=== PATIENT | male | born 1955 | race Caucasian/White ===

== ENCOUNTER → 2017-08-03 12:17 | Outpatient (CLI) | payer MEDICARE, SELFPAY ==
[2017-08-03 12:46] VITALS: PULSE 67; PULSE 68; PULSE 82; PULSE 92; PULSE 93; PULSE 95; PULSE 98; O2SAT 93; O2SAT 94; O2SAT 95; O2SAT 96
--- NOTE | 2017-08-03 17:11 | WT_ITS ---
PSN 6 Minute Walk Test - 6 Minute Walk Test 6 Minute Walk Test: 6 Minute Walk Test PSN:6-Minute Walk Test Start: 08/03/17 12: 46 Freq: Status: Active Protocol: RESP.6MINW Document 08/03/17 12:46 AGUS (Rec: 08/03/17 12:48 AGUS [id number]) 6 Minute Walk Test Date Performed 08/03/17 Time Performed 12:30 Height 5 ft 11 in Weight: 95.708 kg Weight in Pounds 211.[address]: Adam White Assistive device used: None Pre-test Oxygen Delivery Method Room Air Pulse Ox (%) 96 Pulse Rate (60-100 beats/min) 68 Dyspnea Jaimie Scale (0-10) 0 Exertion Jaimie Scale (6-20) 6 1st minute Oxygen Delivery Method Room Air Pulse Ox (%) 95 Pulse Rate (60-100 beats/min) 82 2nd minute Oxygen Delivery Method Room Air Pulse Ox (%) 93 Pulse Rate (60-100 beats/min) 92 3rd minute Oxygen Delivery Method Room Air Pulse Ox (%) 93 Pulse Rate (60-100 beats/min) 92 4th minute Oxygen Delivery Method Room Air Pulse Ox (%) 93 Pulse Rate (60-100 beats/min) 93 5th minute Oxygen Delivery Method Room Air Pulse Ox (%) 94 Pulse Rate (60-100 beats/min) 98 6th minute Oxygen Delivery Method Room Air Pulse Ox (%) 94 Pulse Rate (60-100 beats/min) 95 Dyspnea Jaimie Scale (0-10) 1 Exertion Jaimie Scale (6-20) 13 Post-test Oxygen Delivery Method Room Air Pulse Ox (%) 96 Pulse Rate (60-100 beats/min) 67 Full Laps Walked 19 Partial Lap, Number of Tiles Walked 5 Total Distance Walked (ft) 1126 - Interpretation Interpretation: The patient was able to ambulate 1126 feet over the course of 6 minutes on room air with no assistive devices. The patient did desaturate as low as 93%, but no significant tachycardia was appreciated. These findings are consistent with a normal exercise oximetry - Recommendations Recommendations: No supplemental oxygen is indicated at this time.
== END ==
PROVIDERS: Family Provider Preventive Medicine Occupational Medicine; PCP Preventive Medicine Occupational Medicine; Visit Provider Internal Medicine Critical Care Medicine
DX: J44.9 Chronic obstructive pulmonary disease, unspecified (principal); F17.201 Nicotine dependence, unspecified, in remission
CPT/HCPCS: 94618

== ENCOUNTER → 2017-08-04 13:12 | Outpatient (CLI) | payer MEDICARE, SELFPAY ==
--- NOTE | 2017-08-04 14:31 | CT_ITS ---
STUDY: LOW DOSE CT LUNG CANCER SCREENING REASON FOR EXAM: Male, 61 years old. 63 year history of tobacco abuse. RADIATION DOSAGE (If Supplied By Facility): CTDIvol = ( 4.02 ) mGy, DLP = ( 139.94 ) mGycm TECHNIQUE: No contrast was administered. Low dose technique was utilized (average mAS-38 and kVp 120). 1.25 mm axial source images with a slice interval of 1.25-mm were reconstructed in lung windows. 2.5 mm axial source images with a slice interval of 2.5-mm were reconstructed in lung windows. 5.0 mm axial source images with a slice interval of 5.0-mm were reconstructed in soft tissue windows. Nodule measured using lung windows on PACS and/or independent workstation with automated measurement of minimum and maximum diameter. Nodule measurement reported as average diameter rounded to the nearest whole number. Growth is defined as an increase ins size of greater than 1.5 mm. COMPARISON: None. NODULES: No suspicious nodules are seen. Emphysema: Hyperinflation. Mild increased linear markings in the anterior aspect of the left lower lobe suggestive of mild degree of scarring. Aorta: Atherosclerotic plaques seen at the level of the aortic arch. Coronary arteries: Prior CABG. Mediastinal nodes: Small benign mediastinal lymph nodes. Other chest and abdominal findings: Degenerative changes of the thoracic spine. CT/Low Dose CT Lung Screening IMPRESSION: Lung-RADS category 2 - Continue annual screening with LDCT in 12 months. IMPORTANT NOTES FOR USE: ACR Lung-RADS Version 1.0 Assessment Categories Release Date: September 26, 2013 Category: Coded 0-4 bases on nodule(s) with highest degree of suspicion. Negative screen is defined as categories 1 and 2; a positive screen is defined as categories 3 and 4. Category 3 and 4A nodules that are unchanged on interval CT should be coded as category 2, and individuals returned to screening in 12 months. Category 4X: Category 3 or 4 nodules with additional imaging findings that increase the suspicion of lung cancer, such as spiculation, GGN that doubles in size in 1 year, enlarged lymph notes, etc. Category Modifiers: S (significant finding unrelated to lung cancer) and C (prior history of treated lung cancer) may be added to the 0-4 Lung-RADS Electronically Signed: Wesley Villatoro MD at 11:33 EST Tel [phone], Service support ,
== END ==
PROVIDERS: Family Provider Preventive Medicine Occupational Medicine; PCP Preventive Medicine Occupational Medicine; Visit Provider Internal Medicine Critical Care Medicine
DX: Z12.2 Encounter for screening for malignant neoplasm of respiratory organs (principal); Z87.891 Personal history of nicotine dependence
CPT/HCPCS: G0297

== ENCOUNTER → 2017-08-24 09:27 | Outpatient (CLI) | payer MEDICARE, SELFPAY ==
--- NOTE | 2017-08-24 16:37 | PFTCOMP_ITS ---
COMPLETE PULMONARY FUNCTION TEST INTERPRETATION Brief HPI: Patient is a 61 year old male, currently under the care of Dr. White, who presents to [facility] for complete pulmonary function tests secondary to diagnosis of COPD. Respiratory therapist reports good effort and reproducible results. Interpretation: Forced expiration spirometry shows a very severe large airways obstructive ventilatory defect with an FEV1 of 22 % predicted. There is no significant bronchodilator response by ATS criteria. Spirograms are of good quality and plateau slowly, indicating slowly emptying areas of the lungs. The respiratory flow volume loop shows decreased expiratory flow rates at all lung volumes consistent with airway obstruction. Lung volumes by body plethysmography show a normal total lung capacity at 7.07 L , 103% predicted. FRC and RV are elevated out of proportion. Lung volume measurements are consistent with air-trapping. Diffusion capacity by carbon monoxide is decreased at 56 % predicted. The airway resistance is elevated. No previous pulmonary function tests were available for review. Impression: Irreversible very severe large airways obstructive ventilatory defect resulting in air trapping, with a symmetric reduction diffusing capacity and consistent with a diagnosis of advanced COPD.
== END ==
PROVIDERS: Family Provider Preventive Medicine Occupational Medicine; PCP Preventive Medicine Occupational Medicine; Visit Provider Internal Medicine Critical Care Medicine
DX: J44.9 Chronic obstructive pulmonary disease, unspecified (principal); F17.201 Nicotine dependence, unspecified, in remission
CPT/HCPCS: 94060; 94726; 94729

== ENCOUNTER → 2019-02-17 10:42 | Outpatient (CLI) | payer MEDICARE, SELFPAY ==
[2019-02-17 09:45] VITALS: BMI 30.4
[2019-02-17 11:10] LABS: Absolute Lymphocyte Count 1.34 X10^3/uL (0.83-4.51); Absolute Neutrophil Count 5.9 X10^3/uL (2.0-7.7); Basophil# 0.05 X10^3/uL; Basophil% 0.6 % (0-1); Eosinophil# 0.12 X10^3/uL; Eosinophils% 1.5 % (0-5); Hematocrit 48.2 % (40-54); Hemoglobin 15.6 g/dL (13.0-16.5); Lymphocyte # 1.34 X10^3/ul (4.0); Lymphocyte % 16.3 % (19-41); Mean Corp Hgb Conc 32.4 g/dL (32-36); Mean Corpuscular Hgb 29.9 pg (27.0-32.0); Mean Corpuscular Volume 92.5 fL (80-94); Mean Platelet Vol. 9.9 fl (6.2-12.0); Monocyte# 0.75 X10^3/uL; Monocyte% 9.1 % (0-10); NRBC Flagged by Analyzer 0 % (0-5); Neutrophil # 5.92 X10^3/uL (2.7-7.7); Neutrophil % 72.3 % (47-70); Platelet Count 180 K/mm3 (150-450); RBC Distribution Width CV 12.8 % (11.6-14.6); RBC Distribution Width SD 43.2 fl (35.1-43.9); Red Blood Count 5.21 M/mm3 (4.6-6.2); White Blood Count 8.2 K/mm3 (4.4-11.0)
[2019-02-20 16:08] LABS: Aspirgillus flavus Negative (Neg:<1:1); Aspirgillus fumigatus Negative (Neg:<1:1); Aspirgillus niger Negative (Neg:<1:1)
[2019-02-20 21:08] LABS: Alternaria alternata <0.10 kU/L (Class 0); Bermuda Grass <0.10 kU/L (Class 0); Bluegrass, Kentucky <0.10 kU/L (Class 0); Cat Hair/Dander, Standard <0.10 kU/L (Class 0); D farinae Mite <0.10 kU/L (Class 0); D pteronyssinus <0.10 kU/L (Class 0); Dog Epithelia <0.10 kU/L (Class 0); Elm, American White <0.10 kU/L (Class 0); Oak, White <0.10 kU/L (Class 0); Plantain, English <0.10 kU/L (Class 0); Ragweed, Short/Common <0.10 kU/L (Class 0)
[2019-02-20 21:41] LABS: Mouse Urine <0.10 kU/L (Class 0)
[2019-02-20 21:42] LABS: Immunoglobulin E 4 IU/mL (6-495)
== END ==
PROVIDERS: Family Provider Preventive Medicine Occupational Medicine; PCP Preventive Medicine Occupational Medicine; Referring Provider Nurse Practitioner Acute Care; Visit Provider Nurse Practitioner Acute Care
DX: J44.9 Chronic obstructive pulmonary disease, unspecified (principal); R05 Cough
CPT/HCPCS: 36415; 82785; 85025; 86003; 86606

== ENCOUNTER → 2019-02-18 09:16 | Outpatient (CLI) | payer MEDICARE, SELFPAY ==
[2019-02-17 09:45] VITALS: BMI 30.4
--- NOTE | 2019-02-18 15:42 | PFTCOMP_ITS ---
COMPLETE PULMONARY FUNCTION TEST INTERPRETATION Brief HPI: Patient is a 63 year old male, currently under the care of Adilia Palmer, who presents to [facility] for complete pulmonary function tests secondary to diagnosis of COPD. Respiratory therapist reports good effort and reproducible results. Interpretation: Forced expiration spirometry shows a very severe large airways obstructive ventilatory defect with an FEV1 of 22% predicted. There is no significant bronchodilator response by strict ATS criteria. Spirograms are of good quality and plateau slowly, indicating slowly emptying areas of the lungs. The respiratory flow volume loop shows decreased expiratory flow rates at all lung volumes consistent with airway obstruction. Lung volumes by body plethysmography show a decreased total lung capacity at 5.38 L, 79% predicted. FRC and RV are elevated out of proportion. Lung volume measurements are consistent with air-trapping. Diffusion capacity by carbon monoxide is at the lower limit of normal at 75% predicted. The airway resistance is elevated. Compared to previous pulmonary function tests from 08/24/2017, there is been a significant decrease in FVC, TLC and RV by 16%, 24% and 24% respectively. DLCO has improved by 36%. Impression: Irreversible very severe large airways obstructive ventilatory defect resulting in air trapping. There has been significant changes compared to 2018.
== END ==
PROVIDERS: Family Provider Preventive Medicine Occupational Medicine; PCP Preventive Medicine Occupational Medicine; Referring Provider Nurse Practitioner Acute Care; Visit Provider Nurse Practitioner Acute Care
DX: J44.9 Chronic obstructive pulmonary disease, unspecified (principal)
CPT/HCPCS: 94060; 94726; 94729

== ENCOUNTER → 2019-02-22 07:42 | Outpatient (CLI) | payer MEDICARE, SELFPAY ==
[2019-02-17 09:45] VITALS: BMI 30.4
[2019-02-22 08:15] VITALS: PULSE 65; PULSE 70; PULSE 76; PULSE 83; PULSE 86; PULSE 90; PULSE 92; PULSE 93; O2SAT 90; O2SAT 91; O2SAT 92; O2SAT 93; O2SAT 94; O2SAT 95
--- NOTE | 2019-02-22 17:38 | PCM.PSN.6M ---
PSN 6 Minute Walk Test - 6 Minute Walk Test 6 Minute Walk Test: 6 Minute Walk Test PSN:6-Minute Walk Test Start: 02/22/19 08:30 Freq: Status: Active Protocol: RESP.6MINW Document 02/22/19 08:15 HG (Rec: 02/22/19 08:32 HG [id number]) 6 Minute Walk Test Date Performed 02/22/19 Time Performed 08:15 Height 5 ft 11 in Weight: 224 lb Weight in Pounds 224.[address]: Adilia Palmer Assistive device used: None Pre-test Oxygen Delivery Method Room Air Pulse Ox (%) 92 Pulse Rate (60-100 beats/min) 65 Dyspnea Jaimie Scale (0-10) 3 Exertion Jaimie Scale (6-20) 11 1st minute Oxygen Delivery Method Room Air Pulse Ox (%) 91 Pulse Rate (60-100 beats/min) 90 2nd minute Oxygen Delivery Method Room Air Pulse Ox (%) 90 Pulse Rate (60-100 beats/min) 92 Number of Rests Taken 1 Reported Symptoms Increased Work of Breathing 3rd minute Oxygen Delivery Method Room Air Pulse Ox (%) 94 Pulse Rate (60-100 beats/min) 83 Number of Rests Taken 1 Reported Symptoms Increased Work of Breathing 4th minute Oxygen Delivery Method Room Air Pulse Ox (%) 91 Pulse Rate (60-100 beats/min) 76 5th minute Oxygen Delivery Method Room Air Pulse Ox (%) 92 Pulse Rate (60-100 beats/min) 86 Number of Rests Taken 1 Reported Symptoms Increased Work of Breathing 6th minute Oxygen Delivery Method Room Air Pulse Ox (%) 93 Pulse Rate (60-100 beats/min) 93 Post-test Oxygen Delivery Method Room Air Pulse Ox (%) 95 Pulse Rate (60-100 beats/min) 70 Dyspnea Jaimie Scale (0-10) 4 Exertion Jaimie Scale (6-20) 13 Full Laps Walked 11 Partial Lap, Number of Tiles Walked 0 Total Distance Walked (ft) 649 - Interpretation Interpretation: The patient ambulated 649 feet over the course of 6 minutes beginning on room air without assistive devices or breaks. Pretesting oxygen saturation was noted to be 92% on room air. With ambulation, the kurt oxygen saturation was 90%. Although there was evidence of impaired walk distance, there was no significant exertional oxygen desaturation. - Recommendations Recommendations: There is no indication for the use of supplemental oxygen at this time.
== END ==
PROVIDERS: Family Provider Preventive Medicine Occupational Medicine; PCP Preventive Medicine Occupational Medicine; Referring Provider Nurse Practitioner Acute Care; Visit Provider Nurse Practitioner Acute Care
DX: J44.9 Chronic obstructive pulmonary disease, unspecified (principal)
CPT/HCPCS: 94618

== ENCOUNTER → 2021-04-03 06:04 | Outpatient (CLI) | payer MEDICARE, MEDICAID, SELFPAY ==
--- NOTE | 2021-04-03 06:07 | ECHOCS_ITS ---
Reason For Study: s/p cabg Procedure This was a 2D Doppler, Color Flow transthoracic echocardiogram. The study was technically difficult. Due to body habitus and COPD. Contrast injection was performed. Left Ventricle Normal LV size. Segmental dysfunction with preserved ejection fraction (see wall motion). The estimated ejection fraction is 55 %. No evidence for diastolic dysfunction. Basal inferoseptal: Hypokinetic. Mid-inferoseptal : Hypokinetic. Mid-anteroseptal : Hypokinetic. Septal Collyer : Hypokinetic. Right Ventricle Normal RV size. Normal systolic function. Atria Normal left atrium. Normal right atrium. No doppler evidence for ASD. Mitral Valve There is no mitral annular calcification. Normal mitral valve. Trivial mitral valve insufficiency. Tricuspid Valve Normal tricuspid valve. Trivial tricuspid valve insufficiency. Right ventricular systolic pressure estimated to be 23 mmHg. Aortic Valve The aortic valve is not well visualized. Pulmonic Valve The pulmonic valve is not well visualized. Great Vessels Normal sized aortic root. Pericardium/Pleural No pericardial effusion. Medication Diluted definity 2.0ml given slow IV push to enhance endocardial definition. MMode/2D Measurements & Calculations LVIDd: 4.9 cm IVSd: 1.1 cm Ao root diam: 3.5 cm LVIDs: 3.2 cm LVPWd: 1.1 cm RVDd: 3.5 cm FS: 33.9 % LAV(MOD-bp): 54.1 ml LA A4 area: 18.1 cm2 LA dimension(2D): 4.1 cm LAV(MOD-bp) Indexed: 24.3 ml/m2 LAV(MOD-sp2): 55.5 ml LAV(MOD-sp4): 52.3 ml RA A4 area: 19.4 cm2 Time Measurements MV dec time: 0.16 sec Doppler Measurements & Calculations MV E max aristeo: 87.2 cm/sec Lat Peak E' Aristeo: 8.3 cm/sec Med Peak E' Aristeo: 8.2 cm/sec MV A max aristeo: 70.1 cm/sec E/E' lat: 10.6 E/E' med: 10.6 MV E/A: 1.2 Ao V2 max: 108.6 cm/sec LV V1 max: 89.2 cm/sec PA V2 max: 110.9 cm/sec Ao max P.7 mmHg LV V1 max P.2 mmHg TR max aristeo: 224.1 cm/sec TR max P.1 mmHg ECHO/Echo Complete W/ Contrast Interpretation Summary The study was technically difficult. Contrast injection was performed. Segmental dysfunction with preserved ejection fraction (see wall motion). The estimated ejection fraction is 55 %. Trivial mitral valve insufficiency. Trivial tricuspid valve insufficiency. Right ventricular systolic pressure estimated to be 23 mmHg. No evidence for diastolic dysfunction. Ordering Physician: Elijah Kay Referring Physician: Nicole Garza Performed By: Dee Griffin, CATRACHO, RVT
--- NOTE | 2021-04-03 17:20 | STRESSREP_ITS ---
Stress Test Report Date: 04-03-2021 Procedure: Pharmacologic stress nuclear imaging study Indications: CAD; CABG Consent: Per the patient Procedure: The patient underwent pharmacologic (Regadenoson 0.4mg ) evaluation with a peak heart rate of 97 beats per minute (62%predicted maximal heart rate) and a peak blood pressure of 178/80 mmHg. The baseline ECG demonstrated sinus rhythm; poor R wave progression; anterior GA of indeterminate age cannot be excluded; nonspecific T wave abnormality. The peak pharmacologic ECG demonstrated somatic/motion artifact with no obvious ECG changes. There was a rare PVC preinfusion and post infusion/recovery. There was no complaint of chest discomfort during pharmacologic infusion or recovery. The examination was discontinued secondary to completion of protocol. Impression: 1. Pharmacologic (Regadenoson) evaluation 2. Peak pharmacologic ECG with somatic/motion artifact with no obvious ECG changes. 3. There was a rare PVC preinfusion and post infusion/recovery. 4. Nuclear images pending Myocardial perfusion imaging study: Technique: The patient was injected with 14.8 millicuries of technetium 99m Cardiolite and subsequently rest SPECT Cardiolite nuclear imaging was obtained in the horizontal long, vertical long, and short axis views. The patient underwent pharmacologic (Regadenoson) evaluation with a peak heart rate of 97 beats per minute (62% percent predicted maximal heart rate) and a peak blood pressure of 178/80 mmHg. The patient was injected with 44.4 millicuries of technetium 99m Cardiolite and subsequently stress SPECT Cardiolite nuclear imaging was obtained in the horizontal long, vertical long, and short axis views. A gated Cardiolite study at peak stress was obtained. Interpretation: Rest and stress SPECT Cardiolite nuclear imaging status post realignment, normalization, and attenuation correction demonstrate diminished myocardial perfusion/tracer uptake in portions of the distal interventricular septal/apical segments without significant change between rest and stress. There is diminished myocardial perfusion/tracer uptake in the aforementioned areas. The gated Cardiolite study demonstrates diminished myocardial thickening/inward wall motion in the apical areas. The reported LVEF is 52%. Impression: 1. Rest and stress SPECT cardiac nuclear imaging demonstrate myocardial perfusion changes concerning for an area of previous myocardial injury/infarction involving portions of the distal interventricular septal/apical segments with no myocardial perfusion changes considered diagnostic for associated stress-induced myocardial ischemia. 2. The gated Cardiolite study reports an LVEF of 52%. This note was generated with [employer] software. It may contain incorrect words, spelling, and punctuation that were not noted in checking the note before signing.
== END ==
PROVIDERS: PCP Internal Medicine; Referring Provider Internal Medicine Cardiovascular Disease; Visit Provider Internal Medicine Cardiovascular Disease
DX: I25.10 Atherosclerotic heart disease of native coronary artery without angina pectoris (principal); Z95.1 Presence of aortocoronary bypass graft; Z95.5 Presence of coronary angioplasty implant and graft
CPT/HCPCS: 78452; 93017; 93306; A9500; Q9957; A4216; C8929; J2785; J3490

== ENCOUNTER → 2022-06-05 | Outpatient (CLI) | payer MEDICARE, MEDICAID, SELFPAY ==
--- NOTE | 2022-06-05 10:34 | RAD_ITS ---
EXAM: XR CHEST, 2 VIEWS CLINICAL INDICATION: COUGH TECHNIQUE: Frontal and lateral views of the chest. This report was created using [employer] report generation technology. COMPARISON: None. FINDINGS: LUNGS AND PLEURAL SPACES: Unremarkable. No consolidation or edema. No pneumothorax. No effusion. HEART: Unremarkable. Cardiac silhouette not enlarged. MEDIASTINUM: Central airways and mediastinal contour are unremarkable. BONES/JOINTS: Unremarkable. SOFT TISSUES: Unremarkable. RAD/Chest PA and Lateral IMPRESSION: No radiographic evidence of acute cardiopulmonary disease. Electronically Signed: Adolph Brannon MD at 17:08 [facility] ,
== END | disposition home or self-care (01) ==
LOC: MTRAD 10:32
PROVIDERS: PCP Internal Medicine; Referring Provider Internal Medicine Pulmonary Disease; Visit Provider Internal Medicine Pulmonary Disease
DX: R05.9 Cough, unspecified (principal)
CPT/HCPCS: 71046

== ENCOUNTER → 2024-08-04 | Outpatient (CLI) | payer MEDICARE, MEDICAID, SELFPAY ==
[2024-08-04 17:10] LABS: Absolute Neutrophil Count 9.2 X10^3/uL (2.0-7.7); Basophil# 0.01 X10^3/uL; Basophil% 0.1 % (0-1); Eosinophil# 0.15 X10^3/uL; Eosinophils% 1.2 % (0-5); Hematocrit 50.1 % (40-54); Hemoglobin 16.6 g/dL (13.0-16.5); Lymphocyte % 14.8 % (19-41); Mean Corp Hgb Conc 33.1 g/dL (32-36); Mean Corpuscular Hgb 30.3 pg (27.0-32.0); Mean Corpuscular Volume 91.4 fL (80-94); Mean Platelet Vol. 10.4 fl (6.2-12.0); Monocyte# 0.99 X10^3/uL; Monocyte% 8.1 % (0-10); NRBC Flagged by Analyzer 0 % (0-5); Neutrophil # 9.15 X10^3/uL (2.7-7.7); Neutrophil % 75.4 % (47-70); Platelet Count 205 K/mm3 (150-450); RBC Distribution Width CV 12.6 % (11.6-14.6); RBC Distribution Width SD 41.8 fl (35.1-43.9); Red Blood Count 5.48 M/mm3 (4.6-6.2); White Blood Count 12.2 K/mm3 (4.4-11.0)
[2024-08-04 18:57] LABS: Pro- Brain NATRIURETIC PEPTIDE 826 pg/mL (<=900)
[2024-08-04 18:59] LABS: Anion Gap 11 (5-15); BUN 21 mg/dL (4-19); BUN/Creat Ratio 16.9 RATIO (10-20); Calcium,Total 9.3 mg/dL (7.6-11.0); Carbon Dioxide 28.8 mmol/L (21.0-32.0); Chloride 100 mmol/L (98-108); Creatinine, Serum 1.24 mg/dL (0.70-1.20); EST Glomerular Filtration Rate 63 (>60); Glucose 143 mg/dL (70-99); Potassium 4.6 mmol/L (3.3-5.1); Sodium Level 140 mmol/L (133-145)
== END | disposition home or self-care (01) ==
PROVIDERS: PCP Internal Medicine; Referring Provider Internal Medicine Cardiovascular Disease; Visit Provider Nurse Practitioner Family
DX: R06.00 Dyspnea, unspecified (principal); Z95.1 Presence of aortocoronary bypass graft; Z95.5 Presence of coronary angioplasty implant and graft
CPT/HCPCS: 36415; 80048; 83735; 83880; 84443; 85025

== ENCOUNTER → 2024-11-08 | Outpatient (CLI) | payer MEDICARE, MEDICAID, SELFPAY ==
--- OUTSIDE RECORDS SUMMARY | 2024-11-08 23:20 | XMS RPT_ITS | CCD ---
Author Organization [facility] Care Team Providers Care Employee Development Manager Name Role Phone Dr. Sofi Garza Primary Care Provider Dr. Sofi Garza Referring Provider Km COUNTER CLERK, COUNTER CLERK-C Wei Ernandez Attending Provider Kayla MUNIZ, Dr. Rivera Primary Care Provider Km COUNTER CLERK-CWei Attending Provider Renate MUNIZ, Dr. Doran Referring Provider Dr. Sofi Garza MD Referring Provider [phone] Diego COUNTER CLERK-COma Attending Provider Uche Zarate Attending Provider [phone] Wei Barbour NP Attending Unavailable Latouf, Butros Primary Care Unavailable Latouf, Butros Referring Unavailable Espinoza Dewitt Referring Unavailable Wei Barbour NP Attending Unavailable Latouf, Butros Primary Care Unavailable Latouf, Butros Primary Care Unavailable Friend, Baldev Attending Unavailable Latouf, Butros Primary Care Unavailable Sibilia, Corrina V Attending Unavailable Latouf, Butros Primary Care Unavailable Jorge L, Rosalie Attending Unavailable Jorge L, Rosalie Referring Unavailable Latouf, Butros Primary Care Unavailable Uche Jiang Attending Unavailable Latouf, Butros Referring Unavailable Oma Cortez Attending Unavailable Latouf, Butros Primary Care Unavailable Latouf, Butros Referring Unavailable SIBILIA, CORRINA V Admitting Unavailable SIBILIA, CORRINA V Primary Care Unavailable SIBILIA, CORRINA V Attending Unavailable SOFI GARZA MD Consulting Unavailable PROVIDER, UNKNOWN Consulting Unavailable PROVIDER, UNKNOWN Consulting Unavailable PROVIDER, UNKNOWN Consulting Unavailable SOFI GARZA MD Referring Unavailable SUSIOUSOFI Mir MD Consulting Unavailable GBARUK, KOMBIAN MD Admitting Unavailable ZAFAR NGO MD Attending Unavailable ZAFAR NGO MD Primary Care Unavailable PROVIDER, UNKNOWN Consulting Unavailable PROVIDER, UNKNOWN Consulting Unavailable PROVIDER, UNKNOWN Consulting Unavailable SOFI GARZA MD Referring Unavailable SOFI GARZA MD Consulting Unavailable ZAFAR NGO MD Admitting Unavailable ZAFAR NGO MD Attending Unavailable ZAFRA NGO MD Primary Care Unavailable PROVIDER, UNKNOWN Consulting Unavailable PROVIDER, UNKNOWN Consulting Unavailable PROVIDER, UNKNOWN Consulting Unavailable SOFI GARZA MD Primary Care Unavailable LATSOFI SWANSON MD Admitting Unavailable LATSOFI SWANSON MD Attending Unavailable LATOUAdeola, SOFI MUNIZ Consulting Unavailable PROVIDER, UNKNOWN Consulting Unavailable PROVIDER, UNKNOWN Consulting Unavailable PROVIDER, UNKNOWN Consulting Unavailable LATOUSOFI Mir MD Primary Care Unavailable LATSOFI SWANSON MD Admitting Unavailable LATSOFI SWANSON MD Attending Unavailable LATSOFI SWANSON MD Consulting Unavailable PROVIDER, UNKNOWN Consulting Unavailable PROVIDER, UNKNOWN Consulting Unavailable PROVIDER, UNKNOWN Consulting Unavailable SOFI GARZA MD Primary Care Unavailable LATSOFI SWANSON MD Admitting Unavailable LATOUSOFI Mir MD Attending Unavailable LATOUSOFI Mir MD Consulting Unavailable PROVIDER, UNKNOWN Consulting Unavailable PROVIDER, UNKNOWN Consulting Unavailable PROVIDER, UNKNOWN Consulting Unavailable Allergies Allergy Classification Reported Allergen(s) Allergy Type Date of Onset Reaction(s) Facility (3 sources) Cephalexin Drug Allergy 03-18-2022 [facility] (1 source) Cephalexin Drug Allergy 10-18-2024 [facility] (1 source) benzonatate Drug Allergy [facility] (1 source) Cephalexin Drug Allergy [facility] Medications Current Medications Medication Drug Class(es) Dates Sig (Normalized) Sig (Original) acetaminophen 500 mg oral tablet (3 sources) Start: 02-28-2021 take 1 tablet by mouth every six hours as needed Acetaminophen 500 mg tablet Active 500 mg PO EVERY 6 HOURS as needed February 28, 2021 12:00am [id number] 200 actuat albuterol 0.09 mg/actuat metered dose inhaler (9 sources) beta2-Adrenergic Agonist Start: 09-06-2021 Albuterol Sulfate (Ventolin Hfa) 90 mcg/actuation HFA aerosol inhaler Active 2 NMA INHALATION EVERY 6 HOURS as needed September 06, 2021 9:46am Start: 09-06-2021 take 1 puff(s) by in halation every six hours Albuterol Sulfate (Ventolin Hfa) 90 mcg/actuation HFA aerosol inhaler Active 2 PUFF INHALATION EVERY 6 HOURS September 06, 2021 8:46am Start: 10-06-2018 End: 09-06-2021 Albuterol Sulfate (Ventolin Hfa) 90 mcg/actuation HFA aerosol inhaler Discontinued 2 NMA INHALATION EVERY 6 HOURS October 06, 2018 11:25am September 06, 2021 9:48am Start: 10-06-2018 End: 09-06-2021 take 1 puff(s) by inhalation every six hours Albuterol Sulfate (Ventolin Hfa) 90 mcg/actuation HFA aerosol inhaler Discontinued 2 PUFF INHALATION EVERY 6 HOURS October 06, 2018 10:25am September 06, 2021 8:48am Start: 07-16-2017 End: 10-06-2018 Albuterol Sulfate (Ventolin Hfa) 90 mcg/actuation HFA aerosol inhaler Discontinued 2 NMA INHALATION EVERY 6 HOURS July 16, 2017 1:00am October 06, 2018 11:27am Start: 07-16-2017 End: 10-06-2018 take 1 puff(s) by inhalation every six hours Albuterol Sulfate (Ventolin Hfa) 90 mcg/actuation HFA aerosol inhaler Discontinued 2 PUFF INHALATION EVERY 6 HOURS July 16, 2017 12:00am October 06, 2018 10:27am ascorbic acid 500 mg oral tablet (2 sources) Vitamin C Start: 11-21-2022 take 1 tablet by mouth once daily Ascorbic Acid (Vitamin C) 500 mg tablet Active 500 mg PO DAILY November 21, 2022 12:00am aspirin 81 mg delayed release oral tablet (3 sources) Platelet Aggregation Inhibitor, Nonsteroidal Anti-inflammatory Drug Start: 04-04-2021 Aspirin (Adult Low Dose Aspirin) 81 mg tablet,delayed release (DR/EC) Active 81 mg PO DAILY April 04, 2021 12:00am atorvastatin 40 mg oral tablet (6 sources) HMG-CoA Reductase Inhibitor Start: 09-06-2021 take 1 tablet by mouth at bedtime Atorvastatin 40 mg tablet Active 40 mg PO AT BEDTIME September 06, 2021 12:00am Start: 07-16-2017 End: 09-06-2021 take 1 tablet by mouth once daily Atorvastatin 20 mg tablet Discontinued 20 mg PO daily July 16, 2017 1:00am September 06, 2021 9:48am cholecalciferol 0.025 mg oral tablet (5 sources) Vitamin D Start: 11-21-2022 take 1 tablet by mouth once daily Cholecalciferol (Vitamin D3) 25 mcg (1,000 unit) tablet Active 25 ug PO DAILY November 21, 2022 12:00am Start: 02-28-2021 End: 11-21-2022 take 1 tablet by mouth once daily Cholecalciferol (Vitamin D3) 10 mcg (400 unit) tablet Discontinued 10 ug PO DAILY February 28, 2021 12:00am November 21, 2022 10:43am 12 hr guaiFENesin 600 mg extended release oral tablet (1 source) Start: 08-29-2024 take 1 tablet by mouth every twelve hours as needed, then take 1 tablet by mouth every twelve hours as needed Guaifenesin (Mucinex) 600 mg tablet extended release 12hr Active 600 mg PO Q12H as needed August 29, 2024 12:00am losartan potassium 50 mg oral tablet (3 sources) Angiotensin 2 Receptor Terence Start: 02-28-2021 take 1 tablet by mouth once daily Losartan 50 mg tablet Active 50 mg PO DAILY February 28, 2021 12:00am Roflumilast (1 source) Phosphodiesterase 4 Inhibitor Start: 10-18-2024 take 1 tablet by mouth once daily Roflumilast 500 mcg tablet Active 500 ug PO daily October 18, 2024 12:00am tamsulosin hydrochloride 0.4 mg oral capsule (3 sources) alpha-Adrenergic Terence Start: 07-16-2017 take 1 capsule by mouth once daily Tamsulosin 0.4 mg capsule,extended release 24hr Active 0.4 mg PO daily July 16, 2017 1:00am vitamin b12 1 mg oral tablet (5 sources) Vitamin B12 Start: 08-09-2024 take 1 tablet by mouth once daily Cyanocobalamin (Vitamin B-12) 1,000 mcg tablet Active 1000 ug PO daily August 09, 2024 12:00am Start: 03-18-2022 End: 08-09-2024 take 1 capsule by mouth once daily Cyanocobalamin (Vitamin B-12) 3,000 mcg capsule Discontinued 3000 ug PO DAILY March 18, 2022 12:00am August 09, 2024 11:32am Start: 03-18-2022 take 3000 ug by mout h once daily Cyanocobalamin (Vitamin B-12) Active 3000 MCG PO DAILY March 17, 2022 11:00pm Completed/Discontinued Medications Medication Drug Class(es) Dates Sig (Normalized) Sig (Original) albuterol 0.833 mg/ml / ipratropium bromide 0.167 mg/ml inhalation solution (9 sources) Anticholinergic, beta2-Adrenergic Agonist Start: 07-16-2017 End: 07-29-2019 take 1 mL by inhalation every eight hours Ipratropium-Albuter ol 0.5 mg-3 mg(2.5 mg base)/3 mL solution for nebulization Discontinued 3 mL INHALATION Q8H 180 February 24, 2018 3:42pm July 29, 2019 5:07pm Start: 07-16-2017 End: 07-29-2019 take 1 mL by inhalation every eight hours Ipratropium-Albuterol Active 3 ML INHALATION Q8H 180 July 29, 2019 4:07pm azithromycin 250 mg oral tablet (3 sources) Macrolide Antimicrobial Start: 10-12-2017 End: 02-17-2019 take 1 tablet by mouth once daily Azithromycin 250 mg tablet Discontinued 250 mg PO daily October 12, 2017 12:00am February 17, 2019 9:38am carbidopa 10 mg / levodopa 100 mg oral tablet (3 sources) Aromatic Amino Acid Decarboxylation Inhibitor, Aromatic Amino Acid Start: 07-16-2017 End: 02-28-2021 Carbidopa-Levodopa 10-100 mg tablet Discontinued 1 {tbl} PO THREE TIMES A DAY July 16, 2017 1:00am February 28, 2021 2:50pm Start: 07-16-2017 End: 02-28-2021 take 1 tablet by mouth three times daily Carbidopa-Levodopa Discontinued 1 TABLET PO THREE TIMES A DAY July 16, 2017 12:00am February 28, 2021 1:50pm carvedilol 6.25 mg oral tablet (7 sources) alpha-Adrenergic Terence, beta-Adrenergic Terence Start: 10-18-2024 End: 10-18-2024 take 2 tablets by mouth twice daily at mealtime Carvedilol 6.25 mg tablet Discontinued 12.5 mg PO TWICE A DAY October 18, 2024 7:48am October 18, 2024 8:36am must administer with a meal/food Start: 07-17-2023 End: 10-18-2024 take 1 tablet by mouth twice daily at mealtime Carvedilol 6.25 mg tablet Active 6.25 mg PO TWICE A DAY 180 October 18, 2024 8:35am must administer with a meal/food Start: 07-16-2017 End: 07-17-2023 take 1 tablet by mouth twice daily Carvedilol 3.125 mg tablet Discontinued 3.125 mg PO TWICE A DAY July 16, 2017 1:00am July 17, 2023 11:30am Ydprefivvca-Prozksmwz-Pyfgxn er (9 sources) Anticholinergic, Corticosteroid, beta2-Adrenergic Agonist Start: 02-28-2021 End: 09-06-2021 Ualgrjrcqyw-Igofqyumt-Tbhwym er (Trelegy Ellipta) 100-62.5-25 mcg blister with device Discontinued 1 NMA INHALATION DAILY February 28, 2021 12:00am September 06, 2021 9:47am Start: 02-28-2021 End: 09-06-2021 Rfshvqujuck-Mbehnjfbr-Aiszph er (Trelegy Ellipta) 100-62.5-25 mcg blister with device Discontinued 1 INH INHALATION DAILY February 27, 2021 11:00pm September 06, 2021 8:47am Start: 05-13-2019 Fluticasone-Um eclidin-Vilanter (Trelegy Ellipta) 100-62.5-25 mcg blister with device Active 1 NMA INHALATION DAILY May 13, 2019 4:19pm Start: 05-13-2019 Fluticasone-Um eclidin-Vilanter (Trelegy Ellipta) 100-62.5-25 mcg blister with device Active 1 INH INHALATION DAILY May 13, 2019 3:19pm Start: 03-03-2019 End: 05-13-2019 Utmswxvjodf-Whdcqvtgc-Ieygvj er (Trelegy Ellipta) 100-62.5-25 mcg blister with device Discontinued 1 NMA INHALATION DAILY March 03, 2019 12:00am May 13, 2019 4:19pm Start: 03-03-2019 End: 05-13-2019 Wpcjzkxjffv-Aklsfcadp-Xbiciw er (Trelegy Ellipta) 100-62.5-25 mcg blister with device Discontinued 1 INH INHALATION DAILY March 02, 2019 11:00pm May 13, 2019 3:19pm furosemide 20 mg oral tablet (10 sources) Loop Diuretic Start: 07-16-2017 End: 08-09-2024 take 1 tablet by mouth once daily as needed Furosemide 20 mg tablet Discontinued 20 mg PO DAILY as needed November 21, 2022 10:42am August 09, 2024 11:33am glipiZIDE 2.5 mg oral tablet (1 source) Sulfonylurea Start: 08-29-2024 End: 10-18-2024 take 1 tablet by mouth once daily Glipizide 2.5 mg tablet Discontinued 2.5 mg PO daily August 29, 2024 12:00am October 18, 2024 7:50am 24 hr isosorbide mononitrate 30 mg extended release oral tablet (3 sources) Nitrate Vasodilator Start: 07-16-2017 End: 02-28-2021 take 1 tablet by mouth once daily in the morning, then take 1 tablet by mouth every twenty-four hours Isosorbide Mononitrate 30 mg tablet extended release 24 hr Discontinued 30 mg PO EVERY MORNING July 16, 2017 1:00am February 28, 2021 2:50pm lisinopril 20 mg oral tablet (3 sources) Angiotensin Converting Enzyme Inhibitor Start: 07-16-2017 End: 02-28-2021 take 1 tablet by mouth once daily Lisinopril 20 mg tablet Discontinued 20 mg PO daily July 16, 2017 1:00am February 28, 2021 2:49pm montelukast 10 mg oral tablet (3 sources) Leukotriene Receptor Antagonist Start: 07-16-2017 End: 02-28-2021 take 1 tablet by mouth once daily in the evening Montelukast 10 mg tablet Discontinued 10 mg PO EVERY EVENING July 16, 2017 1:00am February 28, 2021 2:50pm nitroglycerin 0.4 mg sublingual tablet (12 sources) Nitrate Vasodilator Start: 07-16-2017 End: 12-16-2021 Nitroglycerin (Nitrostat) 0.4 mg tablet, sublingual Discontinued 0.4 mg SL every 5 to 15 minutes as needed for chest pain December 13, 2021 1:19pm December 16, 2021 4:41pm Start: 07-16-2017 End: 12-16-2021 Nitroglycerin (Nitrostat) 0. 4 mg tablet, sublingual Active 0.4 MG SL .COMPLEX December 16, 2021 3:40pm 0.4 mg sublingually Q 5 minutes up to 3 doses PRN; omeprazole 20 mg delayed release oral capsule (7 sources) Proton Pump Inhibitor Start: 08-29-2024 End: 10-18-2024 take 1 capsule by mouth once daily Omeprazole 20 mg capsule,delayed release(DR/EC) Discontinued 20 mg PO daily August 29, 2024 12:00am October 18, 2024 7:50am Start: 02-28-2021 End: 07-17-2023 take 1 capsule by mouth once daily Omeprazole 20 mg capsule,delayed release(DR/EC) Discontinued 20 mg PO DAILY February 28, 2021 12:00am July 17, 2023 10:59am Start: 07-16-2017 End: 02-28-2021 take 1 capsule by mouth once daily Omeprazole 10 mg capsule,delayed release(DR/EC) Discontinued 10 mg PO daily July 16, 2017 1:00am February 28, 2021 2:49pm prasugrel 10 mg oral tablet (3 sources) P2Y12 Platelet Inhibitor Start: 07-16-2017 End: 02-28-2021 take 1 tablet by mouth once daily Prasugrel Hcl 10 mg tablet Discontinued 10 mg PO daily July 16, 2017 1:00am February 28, 2021 2:50pm 7 actuat umeclidinium 0.0625 mg/actuat / vilanterol 0.025 mg/actuat dry powder inhaler (20 sources) Anticholinergic, beta2-Adrenergic Agonist Start: 07-21-2017 End: 03-03-2019 Umeclidinium-Vilant allyson (Anoro Ellipta) 62.5-25 mcg/actuation blister with device Discontinued 1 NMA INHALATION Q24H October 27, 2018 2:14pm March 03, 2019 7:19am Start: 07-21-2017 End: 03-03-2019 Umeclidinium-Vilanterol (Ano ro Ellipta) 62.5-25 mcg/actuation blister with device Discontinued 1 INH INHALATION Q24H October 27, 2018 1:14pm March 03, 2019 6:19am Problems Active Problems Problem Classification Problem Date Documented Da te Episodic/Chronic Acute myocardial infarction (1 source) Non-ST elevation (NSTEMI) myocardial infarction; Translations: [Non-ST elevation (NSTEMI) myocardial infarction] Onset: 5 Chronic Cardiac dysrhythmias (1 source) Atrial premature depolarization; Translations: [Atrial premature depolarization] Onset: Chronic Chronic kidney disease (3 sources) Chronic kidney disease stage 3; Translations: [Stage 3 chronic kidney disease] 02-26-2021 Chronic Chronic obstructive pulmonary disease and bronchiectasis (10 sources) Chronic obstructive lung disease; Translations: [Chronic obstructive pulmonary disease, unspecified] Onset: 5 02-26-2021 Chronic Coronary atherosclerosis and other heart disease (12 sources) Coronary arteriosclerosis; Translations: [Atherosclerotic heart disease of yurok coronary artery without angina pectoris] Onset: 5 09-06-2021 Chronic Comment on above: Please see the detai ls above the patient is having some chest symptoms but these appear to be stable and are probably he feels more related to his pulmonary insufficiency than his cardiac status. He had an echocardiogram done in April 2021 with an EF of 55% there was trivial mitral regurgitation and trivial tricuspid regurgitation right ventricular systolic pressure was 23. His last stress test was July 2019 which was a Cardiolite pharmacologic stress which showed no evidence of ischemia there was evidence of the distal septal scar. This would be in the distribution of the stented distal LAD. Coronary atherosclerosis and other heart disease (10 sources) Stented coronary artery; Translations: [Presence of coronary angioplasty implant and graft] Onset: 0 09-06-2021 Episodic Comment on above: PCI/AKASH to mid/prox RCA 04/08/16; PCI/AKASH to distal LAD 03/26/16 Diabetes mellitus with complications (3 sources) Type 2 diabetes mellitus with other specified complication; Translations: [Type 2 diabetes mellitus with other specified complication] Onset: Chronic Disorders of lipid metabolism (8 sources) Hyperlipidemia; Translations: [Hyperlipidemia, unspecified] Onset: 5 02-28-2021 Chronic Esophageal disorders (3 sources) Gastroesophageal reflux disease; Translations: [Gastro-esophageal reflux disease without esophagitis] 09-06-2021 Chronic Essential hypertension (11 sources) Essential hypertension; Translations: [Essential (primary) hypertension] Onset: 5 07-16-2017 Chronic Genitourinary symptoms and ill-defined conditions (1 source) Unspecified urinary incontinence; Translations: [Unspecified urinary incontinence] Onset: Chronic Hyperplasia of prostate (3 sources) Benign prostatic hyperplasia; Translations: [Benign prostatic hyperplasia with lower urinary tract symptoms] 07-16-2017 Chronic Malaise and fatigue (3 sources) Fatigue; Translations: [Other fatigue] Onset: 5 10-18-2024 Episodic Nonspecific chest pain (3 sources) Chest pain; Translations: [Chest pain, unspecified] 09-06-2021 Episodic Other connective tissue disease (3 sources) Nocturnal muscle cramp; Translations: [Cramp and spasm] 07-16-2017 Episodic Other gastrointestinal disorders (2 sources) Dysphagia; Translations: [Dysphagia, unspecified] 08-29-2024 Episodic Other gastrointestinal disorders (1 source) Dysphagia, unspecified; Translations: [Dysphagia, unspecified] Onset: Episodic Other lower respiratory disease (2 sources) Dyspnea; Translations: [Dyspnea, unspecified] 08-04-2024 Episodic Other lower respiratory disease (2 sources) Dyspnea, unspecified; Translations: [Dyspnea, unspecified] Onset: Episodic Other screening for suspected conditions (not mental disorders or infectious disease) (3 sources) CT of chest abnormal; Translations: [Abnormal findings on diagnostic imaging of other specified body structures] Onset: 5 08-29-2024 Chronic Other upper respiratory disease (3 sources) Seasonal allergic rhinitis; Translations: [Other seasonal allergic rhinitis] 02-17-2019 Chronic Syeda-; endo-; and myocarditis; cardiomyopathy (except that caused by tuberculosis or sexually transmitted disease) (3 sources) Heart valve disorder; Translations: [Endocarditis, valve unspecified] 02-26-2021 Chronic Residual codes; unclassified (3 sources) Obstructive sleep apnea syndrome; Translations: [Obstructive sleep apnea (adult) (pediatric)] 09-06-2021 Chronic Comment on above: On PAP therapy with O2 2L NC Substance-related disorders (3 sources) Tobacco dependence in remission; Translations: [Nicotine dependence, unspecified, in remission] 07-21-2017 Chronic Past or Other Problems Problem Classification Problem Date Documented Da te Episodic/Chronic Other screening for suspected conditions (not mental disorders or infectious disease) (1 source) Encounter for screening for malignant neoplasm of prostate; Translations: [Encounter for screening for malignant neoplasm of prostate] Onset: 07-02-2024 Episodic Results Test Name Value Interpretation Reference Range Facility Cardiology Visit Reporton Cardiology Visit Report [facility] [address] [place] [address] OFFICE VISIT Date of Service: 10/18/24 MR#: [id number] Acct: [id number] Name: HEIDI JASSO Rep #: [id number] : 1955 Provider: DARREL Maldonado Age/Sex: 68/M Location: [facility] Status: Signed Agree with assessment and plan as outlined HPI HPI History of Present Illness Details: Heidi Jasso is a 68 year old male who presents today for medication review as he was recently hospitalized and carvedilol was increased. Patient has a history of CAD status post PCI and CABG, hyperlipidemia and hypertension. Patient previously followed with Carl medical lab director in [facility]. It appears patient underwent CABG 04/15/2000 in [place] receiving GARAY to the LAD, left radial to OD, and SVG to the distal circumflex. Patient underwent diagnostic heart catheterization in March 2016 and received PCI with 2.25 x 15 mm Xience AKASH to the distal LAD. He was noted to have disease elsewhere as well; however, this was planned to be addressed at later date. April 2016, patient underwent stenting to his mid RCA with 2.25 x 24 Promus AKASH followed with a 2.5 x 20 Promus AKASH in the proximal RCA with mild overlap and previously placed stent was dilated. The distal RCA was noted to be 50% stenotic and was recommended to be treated medically. The GARAY to the LAD was patent in the left radial artery to the ramus was 100% occluded, the SVG to the left circumflex was reported as wide open with good flow, the yurok LAD was reported 100% occluded. Patient has a history of 2+ AR. Patient was hospitalized at [facility] for acute exacerbation of COPD, pneumonia, chronic CHF in July 2024. Echocardiogram demonstrated ejection fraction of 50-55%. Elevated troponin was thought to be secondary to NSTEMI type II. He was recommended to undergo a stress test at that time but patient declined. Patient's carvedilol was discontinued. He was then seen in our office, recommended to restart his carvedilol. Recommended to undergo stress test in which this was scheduled. However, patient unfortunately had recurrence of his pneumonia and was hospitalized again for 3 days in July. Patient reports at that time, his carvedilol was increased to 12.5 mg twice daily due to top of his heart fluttering. Upon presentation today, patient reports weakness related to vznq-ie-mvka hospitalizations and illnesses at that time. He has chronic lower extremity edema; however, reports these were significantly worsened around the time of being hospitalized but have returned to baseline. He manages this with elevation and diuretic therapy. He notes chronic shortness of breath at rest and with exertion and feels this is returning closer to baseline as this was exacerbated with his acute illness/hospitalizati ons. Since increasing his carvedilol during his most recent hospitalization, he reports feeling significantly worse from the standpoint of worsening fatigue and weakness and is inquiring about the need to continue this medication at this dose. He reports previous dose of 6.25 mg twice daily was tolerable for him. He denies palpitations. He does notice night sweats and reports he had night sweats prior to his previous MIs/blockages. Further ROS below. Intake Vital Signs 08/29/24 13:23 10/18/24 07:00 Height 5 ft 11 in 5 ft 11 in Weight: 219 lb BMI 30.5 BP 126/69 H Blood Pressure Location Lt brachial Position Sitting Respiration 18 Pulse 70 Pulse Source Monitor Pulse Oximetry (%) 95 Intake Visit Reasons: Medicine review Hospice Clinical Supervisor Required: No Is patient in pain?: No Allergies cephalexin (From Keflex) Allergy (Unknown, Verified 10/18/24 07:47) swelling Medications ???Medication ???Instructions ???Recorded ???Confirmed ???Type tamsulosin 0.4 mg capsule 0.4 mg PO QDAY 07/16/17 10/18/24 H istory fluticasone fur. 100 mcg-umeclid 1 inh inhalation DAILY #3 ea 05/1310/18/24 Rx 62.5 mcg-vilant 25 mcg inhalat.powder (Trelegy Ellipta) ipratropium 0.5 mg-albuterol 3 mg 3 ml inhalation Q8H #180 vials 10/18/24 Rx (2.5 mg base)/3 mL nebulization soln acetaminophen 500 mg tablet 500 mg PO Q6H PRN 02/28/21 5 History losartan 50 mg tablet 50 mg PO DAILY 02/28/21 10/18/24 H istory aspirin 81 mg tablet,delayed 81 mg PO DAILY 04/04/21 10/18/24 H istory release (Adult Low Dose Aspirin) albuterol sulfate 90 mcg/actuation 2 puff inhalation Q6H PRN 10/18/24 History aerosol inhaler (Ventolin HFA) atorvastatin 40 mg tablet 40 mg PO QHS 09/06/21 10/18/24 His tory nitroglycerin 0.4 mg sublingual 0.4 mg sublingual .COMPLEX PRN 10/18/24 Rx tablet (Nitrostat) chest pain #25 tabs ascorbic acid (vitamin C) 500 (more content not included)... Normal [facility] [facility] DIFFon 09-24-2024 Baso # 0.02 x10EE3/UL Normal 0.00 - 0.10 [facility] Comment on above: Performed By: #### 2 90534 #### [place] [address] Basophils/100 WBC (Bld) 0.1 % Normal 0.0 - 2.0 [facility] Comment on above: Performed By: #### 2 28386 #### [place] [address] CBC + DIFF Normal [facility] Comment on above: Result Comment: CBC- COMPLETE BLOOD COUNT Performed By: #### 2 84226 #### [place] [address] EO # 0.05 x10EE3/UL Normal 0.00 - 0.50 [facility] Comment on above: Performed By: #### 2 91628 #### [facility],[address] [place] [address] 00110 Eosinophils/100 WBC (Bld) 0.3 % Normal 0.0 - 7.0 [facility] Comment on above: Performed By: #### 2 78360 #### [facility],[address] [place] [address] Erythrocyte distribution width (RBC) [Ratio] 13.4 % Normal 12.0 - 15.6 [facility] Comment on above: Performed By: #### 2 89692 #### [facility],[address] [place] [address] Hematocrit (Bld) [Volume fraction] 38.0 % Low 40.0 - 52.0 [facility] Comment on above: Performed By: #### 2 98571 #### [facility],[address] [place] [address] Hemoglobin (Bld) [Mass/Vol] 13.1 g/dL Normal 13.0 - 17.5 [facility] Comment on above: Performed By: #### 2 50665 #### [facility],[address] [place] [address] 75012 Lymph # 0.79 x10EE3/UL Low 0.80 - 2.80 [facility] Comment on above: Performed By: #### 2 19163 #### [facility],[address] [place] [address] 29150 Lymphocytes/100 WBC (Bld) 4.3 % Low 20.0 - 45.0 [facility] Comment on above: Performed By: #### 2 88557 #### [facility],[address] [place] [address] MANUAL DIFF N/A Normal [facility] Comment on above: Performed By: #### 2 89014 #### [facility],[address] [place] [address] MCH (RBC) [Entitic mass] 32 pg Normal 27 - 33 [facility] Comment on above: Performed By: #### 2 56159 #### [facility],[address] [place] [address] MCHC 35 X10 3 Normal 32 - 36 [facility] Comment on above: Performed By: #### 2 23323 #### [facility],[address] [place] [address] MCV (RBC) [Entitic vol] 92 fL Normal 81 - 98 [facility] Comment on above: Performed By: #### 2 46657 #### [facility],[address] [place] [address] [place] # 0.58 x10EE3/UL Normal 0.20 - 1.00 [facility] Comment on above: Performed By: #### 2 43794 #### [facility],[address] [place] [address] MONOS % 3.1 % Normal 0.0 - 10.0 [facility] Comment on above: Performed By: #### 2 81342 #### [facility],[address] [place] [address] Morphology [place] (Bld) [Interp] N/A Normal [facility] Comment on above: Performed By: #### 2 65974 #### [facility],[address] [place] [address] Neut # 17.09 x10EE3/UL High 1.50 - 7.10 [facility] Comment on above: Performed By: #### 2 19103 #### [facility],[address] [place] [address] Neutrophils/100 WBC (Bld) 92.3 % High 46.0 - 76.0 [facility] Comment on above: Performed By: #### 2 83247 #### [facility],[address] [place] [address] 35271 PLATELET 187 x10EE3/UL Normal 150 - 450 [facility] Comment on above: Performed By: #### 2 98561 #### [facility],[address] [place] [address] 80587 Platelet mean volume (Bld) [Entitic vol] 8.5 fL Normal 6.4 - 10.5 [facility] Comment on above: Result Comment: AUTO MATED DIFFERENTIAL Performed By: #### 2 46906 #### [facility],[address] [place] [address] 95174 RBC 4.14 x 10EE6/UL Low 4.50 - 6.00 [facility] Comment on above: Performed By: #### 2 81745 #### [facility],[address] [place] [address] 72924 WBC 18.5 x 10EE3/UL High 4.5 - 10.8 [facility] Comment on above: Result Comment: REPE ATED Performed By: #### 2 92596 #### [facility],[address] [place] [address] 95865 CMP with eGFRon 09-24-2024 AGE 68 years Normal [facility] Comment on above: Performed By: #### 2 81122 #### [facility],[address] [place] [address] 37979 Albumin [Mass/Vol] 2.4 g/dL Low 3.4 - 5.0 [facility] Comment on above: Performed By: #### 2 21249 #### [facility],[address] [place] [address] 18407 Albumin/Globulin [Mass ratio] 0.6 {ratio} Low 0.9 - 1.6 [facility] Comment on above: Performed By: #### 2 92367 #### [facility],[address] [place] [address] 75858 ALK PHOS 64 U/L Normal 46 - 116 [facility] Comment on above: Performed By: #### 2 37795 #### [facility],[address] [place] [address] 12258 ALT [Catalytic activity/Vol] 43 U/L Normal 16 - 63 [facility] Comment on above: Performed By: #### 2 12393 #### [facility],[address] [place] [address] 91154 Anion gap [Moles/Vol] 15 mmol/L Normal 10 - 20 [facility] Comment on above: Performed By: #### 2 75621 #### [facility],[address] [place] [address] 42081 AST [Catalytic activity/Vol] 28 U/L Normal 15 - 37 [facility] Comment on above: Performed By: #### 2 66624 #### [facility],[address] [place] [address] 16141 B/C RATIO 18 ratio Normal 0 - 30 [facility] Comment on above: Performed By: #### 2 09161 #### [facility],[address] [place] [address] 70638 Bilirubin [Mass/Vol] 0.4 mg/dL Normal 0.2 - 1.0 [facility] Comment on above: Performed By: #### 2 44094 #### [facility],[address] [place] [address] 52805 Calcium [Mass/Vol] 9.2 mg/dL Normal 8.5 - 10.1 [facility] Comment on above: Performed By: #### 2 56241 #### [facility],[address] [place] [address] 83861 Chloride [Moles/Vol] 102 mmol/L Normal 98 - 107 [facility] Comment on above: Performed By: #### 2 56927 #### [facility],[address] [place] [address] 82105 CMP with eGFR Normal [facility] Comment on above: Result Comment: COMP REHENSIVE METABOLIC PANEL Performed By: #### 2 21467 #### [facility],[address] [place] [address] 38226 CO2 [Moles/Vol] 26.0 mmol/L Normal 21.0 - 32.0 [facility] Comment on above: Performed By: #### 2 34141 #### [facility],[address] [place] [address] 92479 Creatinine [Mass/Vol] 1.16 mg/dL Normal 0.70 - 1.30 [facility] Comment on above: Performed By: #### 2 80210 #### [facility],[address] [place] [address] 50045 GFR/1.73 sq M.predicted among non-blacks MDRD (S/P/Bld) [Vol rate/Area] mL/min/{1.73_m2} Normal 60 - 999 [facility] Comment on above: Performed By: #### 2 45661 #### [facility],[address] [place] [address] Result Comment: ACCO RDING TO THE NATIONAL KIDNEY DISEASE EDUCATION PROGRAM(NKDE), A NORMAL eGFR IS A VALUE GREATER THAN OR EQUAL TO 60 ML/MIN/1.73 SQ METERS. CHRONIC KIDNEY DISEASE: <60mL/MIN/1.73 SQ METERS KIDNEY FAILURE: <15mL/MIN/1.73 SQ METERS THIS TEST SHOULD ONLY BE USED FOR PATIENTS 18 YEARS OF AGE AND OLDER. Globulin (S) [Mass/Vol] 4.3 g/dL High 1.5 - 3.8 [facility] Comment on above: Performed By: #### 2 61864 #### [facility],[address] [place] [address] 84880 Glucose [Mass/Vol] 266 mg/dL High 74 - 106 [facility] Comment on above: Performed By: #### 2 32766 #### [facility],[address] [place] [address] 63081 Potassium [Moles/Vol] 3.7 mmol/L Normal 3.5 - 5.1 [facility] Comment on above: Performed By: #### 2 91482 #### [facility],[address] [place] [address] 75776 Protein [Mass/Vol] 6.7 g/dL Normal 6.4 - 8.2 [facility] Comment on above: Performed By: #### 2 40326 #### [facility],[address] [place] [address] 48704 Sodium [Moles/Vol] 139 mmol/L Normal 136 - 145 [facility] Comment on above: Performed By: #### 2 23681 #### [facility],[address] [place] [address] 48565 Urea nitrogen [Mass/Vol] 21 mg/dL High 7 - 18 [facility] Comment on above: Performed By: #### 2 26518 #### [facility],[address] [place] [address] 43934 CBC + DIFFon 09-23-2024 Baso # 0.04 x10EE3/UL Normal 0.00 - 0.10 [facility] Comment on above: Performed By: #### 2 01934 #### [facility],[address] [place] [address] 39498 Basophils/100 WBC (Bld) 0.2 % Normal 0.0 - 2.0 [facility] Comment on above: Performed By: #### 2 89785 #### [facility],[address] [place] [address] 84971 CBC + DIFF Normal [facility] Comment on above: Result Comment: CBC- COMPLETE BLOOD COUNT Performed By: #### 2 68286 #### [facility],[address] [place] [address] 19729 EO # 0.16 x10EE3/UL Normal 0.00 - 0.50 [facility] Comment on above: Performed By: #### 2 01243 #### [facility],[address] [place] [address] 96517 Eosinophils/100 WBC (Bld) 0.9 % Normal 0.0 - 7.0 [facility] Comment on above: Performed By: #### 2 97673 #### [facility],[address] [place] [address] Erythrocyte distribution width (RBC) [Ratio] 13.3 % Normal 12.0 - 15.6 [facility] Comment on above: Performed By: #### 2 53678 #### [facility],[address] [place] [address] Hematocrit (Bld) [Volume fraction] 41.0 % Normal 40.0 - 52.0 [facility] Comment on above: Performed By: #### 2 97033 #### [facility],[address] [place] [address] Hemoglobin (Bld) [Mass/Vol] 14.3 g/dL Normal 13.0 - 17.5 [facility] Comment on above: Performed By: #### 2 12629 #### [facility],[address] [place] [address] Lymph # 1.10 x10EE3/UL Normal 0.80 - 2.80 [facility] Comment on above: Performed By: #### 2 31220 #### [facility],[address] [place], [place] [address] Lymphocytes/100 WBC (Bld) 6.0 % Low 20.0 - 45.0 [facility] Comment on above: Performed By: #### 2 82273 #### [facility],[address] [place], [place] [address] MANUAL DIFF N/A Normal [facility] Comment on above: Performed By: #### 2 34861 #### [facility],[address] [place], [place] [phone] MCH (RBC) [Entitic mass] 32 pg Normal 27 - 33 [facility] Comment on above: Performed By: #### 2 61179 #### [facility],[address] [place] [address] MCHC 35 X10 3 Normal 32 - 36 [facility] Comment on above: Performed By: #### 2 28735 #### [facility],[address] [place] [address] 45185 MCV (RBC) [Entitic vol] 90 fL Normal 81 - 98 [facility] Comment on above: Performed By: #### 2 92731 #### [facility],[address] [place] [address] 18933 [place] # 1.53 x10EE3/UL High 0.20 - 1.00 [facility] Comment on above: Performed By: #### 2 54379 #### [facility],[address] [place] [address] 79700 MONOS % 8.3 % Normal 0.0 - 10.0 [facility] Comment on above: Performed By: #### 2 57093 #### [facility],[address] [place], [place] [phone] Morphology [place] (Bld) [Interp] N/A Normal [facility] Comment on above: Performed By: #### 2 06244 #### [facility],[address] [place] [address] 00346 Neut # 15.53 x10EE3/UL High 1.50 - 7.10 [facility] Comment on above: Performed By: #### 2 69421 #### [facility],[address] [place] [address] 48962 Neutrophils/100 WBC (Bld) 84.6 % High 46.0 - 76.0 [facility] Comment on above: Performed By: #### 2 01785 #### [facility],[address] [place] [address] 14124 PLATELET 164 x10EE3/UL Normal 150 - 450 [facility] Comment on above: Performed By: #### 2 92041 #### [facility],[address] [place] [address] 43232 Platelet mean volume (Bld) [Entitic vol] 7.5 fL Normal 6.4 - 10.5 [facility] Comment on above: Result Comment: AUTO MATED DIFFERENTIAL Performed By: #### 2 87485 #### [facility],[address] [place] [address] RBC 4.53 x 10EE6/UL Normal 4.50 - 6.00 [facility] Comment on above: Performed By: #### 2 81314 #### [facility],[address] [place] [address] WBC 18.4 x 10EE3/UL High 4.5 - 10.8 [facility] Comment on above: Performed By: #### 2 62406 #### [facility],[address] [place] [address] CMP with eGFRon 09-23-2024 AGE 68 years Normal [facility] Comment on above: Performed By: #### 2 13237 #### [facility],[address] [place] [address] Albumin [Mass/Vol] 2.7 g/dL Low 3.4 - 5.0 [facility] Comment on above: Performed By: #### 2 96774 #### [facility],[address] [place], [place] [address] Albumin/Globulin [Mass ratio] 0.6 {ratio} Low 0.9 - 1.6 [facility] Comment on above: Performed By: #### 2 04689 #### [facility],[address] [place] [address] 98075 ALK PHOS 69 U/L Normal 46 - 116 [facility] Comment on above: Performed By: #### 2 48220 #### [facility],[address] [place] [address] 51532 ALT [Catalytic activity/Vol] 40 U/L Normal 16 - 63 [facility] Comment on above: Performed By: #### 2 29293 #### [facility],[address] [place] [address] 16177 Anion gap [Moles/Vol] 13 mmol/L Normal 10 - 20 [facility] Comment on above: Performed By: #### 2 81909 #### [facility],[address] [place] [address] 32190 AST [Catalytic activity/Vol] 25 U/L Normal 15 - 37 [facility] Comment on above: Performed By: #### 2 50977 #### [facility],[address] [place] [address] B/C RATIO 15 ratio Normal 0 - 30 [facility] Comment on above: Performed By: #### 2 76196 #### [facility],[address] [place] [address] 38495 Bilirubin [Mass/Vol] 1.1 mg/dL High 0.2 - 1.0 [facility] Comment on above: Performed By: #### 2 05898 #### [facility],[address] [place] [address] 66958 Calcium [Mass/Vol] 9.1 mg/dL Normal 8.5 - 10.1 [facility] Comment on above: Performed By: #### 2 53376 #### [facility],[address] [place] [address] 62039 Chloride [Moles/Vol] 102 mmol/L Normal 98 - 107 [facility] Comment on above: Performed By: #### 2 71129 #### [facility],[address] [place] [address] 83192 CMP with eGFR Normal [facility] Comment on above: Result Comment: COMP REHENSIVE METABOLIC PANEL Performed By: #### 2 98451 #### [facility],[address] [place] [address] 91880 CO2 [Moles/Vol] 25.6 mmol/L Normal 21.0 - 32.0 [facility] Comment on above: Performed By: #### 2 78604 #### [facility],[address] [place] [address] 59276 Creatinine [Mass/Vol] 1.15 mg/dL Normal 0.70 - 1.30 [facility] Comment on above: Performed By: #### 2 14463 #### [place] [address] GFR/1.73 sq M.predicted among non-blacks MDRD (S/P/Bld) [Vol rate/Area] mL/min/{1.73_m2} Normal 60 - 999 [facility] Comment on above: Performed By: #### 2 84381 #### [facility],[address] [place] [address] Result Comment: ACCO RDING TO THE NATIONAL KIDNEY DISEASE EDUCATION PROGRAM(NKDE), A NORMAL eGFR IS A VALUE GREATER THAN OR EQUAL TO 60 ML/MIN/1.73 SQ METERS. CHRONIC KIDNEY DISEASE: <60mL/MIN/1.73 SQ METERS KIDNEY FAILURE: <15mL/MIN/1.73 SQ METERS THIS TEST SHOULD ONLY BE USED FOR PATIENTS 18 YEARS OF AGE AND OLDER. Globulin (S) [Mass/Vol] 4.4 g/dL High 1.5 - 3.8 [facility] Comment on above: Performed By: #### 2 18022 #### [place] [address] Glucose [Mass/Vol] 159 mg/dL High 74 - 106 [facility] Comment on above: Performed By: #### 2 31139 #### [place] [id number] Potassium [Moles/Vol] 4.0 mmol/L Normal 3.5 - 5.1 [facility] Comment on above: Performed By: #### 2 37802 #### [place] [id number] Protein [Mass/Vol] 7.1 g/dL Normal 6.4 - 8.2 [facility] Comment on above: Performed By: #### 2 49895 #### [place] [phone] Sodium [Moles/Vol] 137 mmol/L Normal 136 - 145 [facility] Comment on above: Performed By: #### 2 13859 #### [facility],[address] [place] [address] Urea nitrogen [Mass/Vol] 17 mg/dL Normal 7 - 18 [facility] Comment on above: Performed By: #### 2 36343 #### [facility],[address] [place] [address] CORONAVIRUS (SARS) ANTIGEN T ESTon 09-23-2024 EXTERNAL QC DONE? YES Normal [facility] Comment on above: Performed By: #### 2 23286 #### [facility],[address] [place] [address] INTERNAL CONTROL PASS Normal [facility] Comment on above: Performed By: #### 2 28845 #### [facility],[address] [place] [address] SARS ANTIGEN Negative Normal NORMAL: NEGATIVE [facility] Comment on above: Performed By: #### 2 13986 #### [facility],[address] [place] [address] SEND TO ? NO Normal [facility] Comment on above: Result Comment: SARS -CoV-2 THIS TEST IS BEING USED UNDER THE FDA EUA PROCEDURE. THIS ASSAY HAS BEEN VALIDATED AT [facility] FOR USE WITH NASAL AND NASOPHARYNGEAL SWAB SPECIMENS. INTERPRETIVE DATA TEST RESULTS SHOULD ALWAYS BE CONSIDERED IN THE CONTEXT OF CLINICAL OBSERVATIONS AND EPIDEMIOLOGICAL DATA IN MAKING FINAL DIAGNOSIS AND PATIENT MANAGEMENT DECISIONS. PATIENT MANAGEMENT SHOULD FOLLOW CURRENT CDC GUIDELINES. THE DARCY SARS ANTIGEN ANDREW DOES NOT DIFFERENTIATE BETWEEN SARS-CoV & SARS-CoV-2. A POSITIVE TEST RESULT INDICATES THE PRESENCE OF SARS-CoV-2 NUCLEOCAPSID PROTEIN ANTIGEN, AND THE PATIENT IS INFECTED WITH THE VIRUS AND PRESUMED TO BE CONTAGIOUS. A NEGATIVE TEST RESULT FOR THIS TEST MEANS THAT SARS-CoV-2 NUCLEOCAPSID PROTEIN ANTIGEN WAS NOT PRESENT IN THE SPECIMEN ABOVE THE LIMIT OF DETECTION. HOWEVER, A NEGATIVE RESULT DOES NOT RULE OUT COVID-19 AND SHOULD NOT BE USED THE SOLE BASIS FOR TREATMENT OR PATIENT MANAGEMENT DECISIONS. A NEGATIVE RESULT DOES NOT EXCLUDE THE POSSIBILITY OF COVID-19. NEGATIVE RESULTS, FROM PATIENTS WITH SYMPTOM ONSET BEYOND FIVE DAYS, SHOULD BE TREATED PRESUMPTIVE AND CONFIRMATION WITH A MOLECULAR ASSAY, IF NECESSARY, FOR PATIENT MANAGEMENT, MAY BE PERFORMED. WHEN DIAGNOSTIC TESTING IS NEGATIVE, THE POSSIBLILTY OF A FALSE NEGATIVE RESULT SHOULD BE CONSIDERED IN THE CONTEXT OF A PATIENT'S RECENT EXPOSURES AND THE PRESENCE OF CLINICAL SIGNS AND SYMPTOMS CONSISTENT WITH COVID-19. THE POSSIBILITY OF A FALSE NEGATIVE RESULT SHOULD ESPECIALLY BE CONSIDERED IF THE PATIENT'S RECENT EXPOSURES OR CLINICAL PRESENTATION INDICATE THAT COVID-19 IS LIKELY, AND DIAGNOSTIC TESTS FOR OTHER CAUSES OF ILLNESS (e.g., OTHER RESPIRATORY ILLNESS) ARE NEGATIVE. IF COVID-19 IS STILL SUSPECTED BASED ON EXPOSURE HISTORY TOGETHER WITH OTHER CLINICAL FINDINGS, RE-TESTING SHOULD BE CONSIDERED BY HEALTHCARE PROVIDERS IN CONSULTATION WITH PUBLIC HEALTH AUTHORITIES. Performed By: #### 2 63770 #### [facility] [place] [address] CT CHEST (PE PROTOCOL)on CT CHEST (PE PROTOCOL) [place] [address] Patient: HEIDI JASSO Phone#: : 1955 Age: 68 Gender: M Pt. Type: ER Account: [id number] Location: [facility] Ordering: KALIA SIERRA Exam Date: 09/23/2024/2:50 Family Phys: SOFI GARZA Charge Code: 479695 Physician: Zavala Order #: [id number] Dose#: [id number] PROCEDURE: CT CHEST WITH CONTRAST FOR PE COMPARISON: [facility], CT, CHEST PE W CON, 07/27/2024, 5:35. INDICATIONS: Shortness of breath. TECHNIQUE: After obtaining the patient's consent, CT images were obtained with non-ionic intravenous contrast material. Multi-planar images were created to optimize visualization of vascular anatomy with MPR/MIPS and 3D imaging. All CT scans at this facility use dose modulation, iterative reconstruction, and/or weight based dosing when appropriate to reduce radiation dose to as low as reasonably achievable. IV CONTRAST: Omnipaque 350,80ml TOTAL DOSE: 10.10 CTDIvol(mGy) FINDINGS: VASCULATURE: Normal. No visible pulmonary arterial thrombus or attenuation. AORTA: Normal. No aneurysm or dissection. LUNGS: Patchy nodular infiltrates are present bilaterally most marked in the right middle and right lower lobe. There has been significant improvement in the airspace disease since the prior exam of July 27, 2024 RADHA: Prominent right hilar lymph node is similar to previous exam, possibly reactive. MEDIASTINUM: Nonspecific paratracheal lymph nodes are present. CARDIAC: Normal. No enlargement, pericardial thickening, or significant calcification. PLEURA: Normal. No mass or effusion. CHEST WALL: Sternotomy sutures are present. LIMITED ABDOMEN: Normal. Limited images of the upper abdomen are unremarkable. BONES: Normal. No bony lesion or fracture. OTHER: Negative. CONCLUSION: 1. There is no evidence of pulmonary embolus. 2. Bilateral nodular infiltrates. There has been partial resolution since previous exam. [place] [address] Patient: HEIDI JASSO Phone#: : 1955 Age: 68 Gender: M Pt. Type: ER Account: [id number] Location: [facility] Ordering: KALIA SIERRA Exam Date: 09/23/2024/2:50 Family Phys: SOFI GARZA Charge Code: 369024 Physician: Zavala Order #: [id number] Dose#: [id number] Dictated by: Kathy Cruz MD on 09/23/2024 at 9:50 Approved by: Kathy Cruz MD on 09/23/2024 at 10:05 Normal [facility] CULTURE BLOOD [SAPNA]on Microscopic examination of blood, culture CULTURE BLOOD [SAPNA] _BLOOD CULTURE_ GO TO [facility] REPORTS AND ATTACHMENTS FOR SCANNED REPORT 09/[email or web address] PLETE Normal [facility] Comment on above: Performed By: #### 2 26765 #### [facility],[address] [place] [address] 45636 Microscopic examination of blood, culture CULTURE BLOOD [SAPNA] _BLOOD CULTURE_ GO TO [employer] REPORTS AND ATTACHMENTS FOR SCANNED REPORT 09/29/[email or web address] PLETE Normal [facility] Comment on above: Performed By: #### 2 47831 #### [facility],[address] [place] [address] 57612 D-DIMER, QUANTITATIVEon 08-31 D-DIMER QUANT 713 ng/ml High 0 - 230 [facility] Comment on above: Performed By: #### 2 14360 #### [facility],[address] [place] [address] 80257 D-DIMER, QUANTITATIVE Normal [facility] Comment on above: Result Comment: PAVEL T D-DIMER Performed By: #### 2 81085 #### [address] [address] ED MED ADMINISTRATION DETAIL on 09-23-2024 ED MED ADMINISTRATION DETAIL Drama Critic Medication Administration Record [place] [id number] 09/23/2024 Patient: HEIDI JASSO Sex: Male : 1955 Age: 68y MEASUREMENTS: Wt: 101.6 kg, Ht/Nikhil: 71.0 in, BMI: 31.24 ALLERGIES: Keflex Medication Ordered Medication Administration Date/Time CefTRIAXone 09/23 CefTRIAXone (Rocephin) IVPB 2gm/50ml NS 2 g Started (Rocephin) IVPB started at 100 mL/hr diluted in sodium chloride IVPB 0.9 % 09/23/2024 2gm/50ml NS 2 g Minibag+ 50 mL over 30 minute(s) via Site# 2. Allergies verified and Tamera Zhang R.N. diluted in sodium confirmed 5 rights. IV patency established. IV site checked: no pain, Stopped chloride IVPB 0.9 % redness, or swelling. IV flushed thoroughly pre-medication 02:13 09/23/2024 Minibag+ 50 mL at administration. Information reviewed with patient including reason Tamera Zhang R.N. 100 mL/hr (NOW x1) for taking this medication. Verbalizes understanding. Completed per Scanned protocol. - 02:03 Tamera Zhang R.N. 02:13 09/23 Medication Discontinued: IV infused. Total amount infused: 50 mL. IV patency established. IV site checked: no pain, redness, or swelling. IV flushed thoroughly post-medication administration. - 02:13 Tamera Zhang R.N. 1 of 3 Drama Critic Medication Ordered Medication Administration Date/Time Azithromycin 02:09/23 Azithromycin (Zithromax) IVPB 500 mg started at 250 Started (Zithromax) IVPB mL/hr diluted in dextrose 5 % in water IVPB 250 mL and VIAL 02:09/23/2024 500 mg diluted in MATE 1 ea over 1 hour(s) via Site# 2. Allergies verified and Tamera Zhang R.N. dextrose 5 % in confirmed 5 rights. IV patency established. IV site checked: no pain, Stopped water IVPB 250 mL, redness, or swelling. IV flushed thoroughly pre-medication 04:45 09/23/2024 VIAL MATE 1 ea at administration. Information reviewed with patient including reason Tamera Zhang R.N. 250 mL/hr (NOW x1) for taking this medication. Verbalizes understanding. Completed per Scanned protocol. - 02:18 Tamera Zhang R.N. 04:45 09/23 Medication Discontinued: IV infused. Total amount infused: 250 mL. IV patency established. IV site checked: no pain, redness, or swelling. IV flushed thoroughly post-medication administration. - 04:50 Tamera Zhang R.N. Albuterol-Ipratropiu 01:09/23 Albuterol-Ipratropium (DuoNeb) 3mg/0.5mg Neb Tx 3 Given m (DuoNeb) mL given. Given by the respiratory therapist. Allergies verified and 01:09/23/2024 3mg/0.5mg Neb Tx confirmed 5 rights. Information reviewed with patient including Colt Culver R.R.T. 3 mL (NOW x1) reason for taking this medication and signs of allergic reaction. Scanned Verbalizes understanding. - 01:27 Colt Culver R.R.T. Albuterol 0.083% - 03:11 09/23 Albuterol 0.083% - 2.5mg Neb Tx 2.5 mg given. Given Given 2.5mg Neb Tx 2.5 by the respiratory therapist. Allergies verified and confirmed 5 03:11 09/23/2024 mg (NOW x1) rights. Information reviewed with patient including reason for taking Colt Culver R.R.T. this medication and signs of allergic reaction. Verbalizes Scanned understanding. - 03:11 Colt Culver R.R.T. 2 of 3 Drama Critic Medication Ordered Medication Administration Date/Time IV NS 0.9 % 1000 01:09/23 IV NS 0.9 % 1000 mL started in bag#1 1000 mL at Started mL at 100 mL/hr 100 mL/hr over 1 hour(s) via Site# 1. Allergies verified and 01:59 09/23/2024 (NOW x1) confirmed 5 rights. IV patency established. IV site checked: no pain, Kayli Calderón.NReyes redness, or swelling. IV flushed thoroughly pre-medication Stopped administration. Information reviewed including reason for taking this 04:41 09/23/2024 medication. Verbalizes understanding. Completed per protocol. - Tamera Zhang R.N. 01:59 Tamera Zhang R.N. Scanned 04:41 09/23 Medication Discontinued: IV infused. Total amount infused: 500 mL. IV patency established. IV site checked: no pain, redness, or swelling. IV flushed thoroughly post-medication administration. - 04:51 Tamera Zhang R.N. MethylPREDNISolo 01:50 09/23 MethylPREDNISolone Sodium Succ (Solu-Medrol) IVP Given ne Sodium Succ 125 mg given over 1 minute(s) via Site# 1. Allergies verified and 01:50 09/23/2024 (Solu-Medrol) IVP confirmed 5 rights. IV patency established. IV site checked: no pain, Roque CalderónN. 125 mg (NOW x1) redness, or swelling. IV flushed thoroughly pre-medication Scanned administration. Information reviewed with patient including reason for taking this medication. Verbalizes understanding. - 01:50 Tamera Zhang R.N. Acetaminophen 02:11 09/23 Acetaminophen (Tylenol) PO 975 mg given. Allergies Given (Tylenol) PO 975 verified and confirmed 5 rights. Information reviewed with patient 02:11 09/23/2024 mg (NOW x1) including reason for taking this medication. Verbalizes Tamera Zhang R.N. understanding. - 02:12 Tamera Zhang R.N. Scanned 3 of 3 [facility] ED NURSES CLINICAL NOTEon ED NURSES CLINICAL NOTE Nurse Narrative Nurse Clinical Narrative [facility] [address] [facility] [place] [address] [phone] 09/23/2024 01:14:00 Patient: HEIDI JASSO Sex: Male : 1955 Age: 68y Disposition: Admit Disposition Decision Time: 04:24 09/23/2024 Departure Time: 04:50 09/23/2024 TRIAGE Arrived by EMS. Historian: (patient). Accompanied by friend. Primary physician (Kayla). Triage time: 01:15 09/23/2024. Acuity: LEVEL 3. Chief Complaint: SHORTNESS OF BREATH, DIFFICULTY BREATHING and WHEEZING. Alert. This started today. ( pt has SOB since last evening at 1999, took 2 Duonebs at home without relief, pt is on 3 L per NC at home continuously . Sats on arrival 90% on RA). The patient has had fever and chest pain (pressure 1 days). SEPSIS SCREEN: POSITIVE. SIRS criteria positive: temperature greater than 38 degrees C (100.4 degrees F) and heart rate greater than 90. Possible sources of infection: pneumonia. -- 01:34 09/23/24 EDT Tamera Zhang R.N. 01:15 09/23/24. BP: 138/68 (regular cuff) taken on left arm, while sitting. MAP: 91. HR: 102. Regular and normal rate. RR: 24. Irregular, labored and shallow. Rate is rapid. O2 saturation: 90% on room air. Temperature: 100.5 F (oral). Pain level now 0/10. -- 01:33 09/23/24 EDT Tamera Zhang R.N. Measurements: 01:30 09/23/24 Wt: 101.6 kg, Ht/Nikhil: 71.0 in, BMI: 31.24 -- 01:09/23/24 JULIETAT Tamera Zhang R.N. Medications: 1 of 6 Nurse Narrative losartan 50 mg tablet -- 01:09/23/24 JULIETAT Tamera Zhang R.N. carvedilol 6.25 mg tablet -- 01:09/23/24 JULIETAT Tamera Zhang R.N. omeprazole 20 mg capsule,delayed release -- 01:09/23/24 JULIETAT Tamera Zhang R.N. furosemide 20 mg tablet -- 01:09/23/24 JULIETAT Tamera Zhang R.N. albuterol sulfate HFA 90 mcg/actuation aerosol inhaler -- 01:09/23/24 AMBER Zhang R.N. atorvastatin 40 mg tablet -- 01:09/23/24 AMBER Zhang R.N. prednisone 10 mg tablet -- 01:09/23/24 JULIETAT Tamera Zhang R.N. roflumilast 250 mcg tablet -- 01:09/23/24 JULIETAT Tamera Zhang R.N. Trelegy Ellipta 100 mcg-62.5 mcg-25 mcg powder for inhalation -- 01:09/23/24 AMBER Zhang R.N. albuterol sulfate HFA 90 mcg/actuation aerosol inhaler: 2 inhalations as needed. -- 04:37 09/23/24 AMBER Zhang R.N. atorvastatin 40 mg tablet: 40 mg once a day at bedtime. -- 04:38 09/23/24 JULIETAT Tamera Zhang R.N. carvedilol 6.25 mg tablet: 6.25 mg twice a day . -- 04:09/23/24 JULIETAT Tamera Zhang R.N. furosemide 20 mg tablet: 20 mg once a day as needed. -- 04:09/23/24 JULIETAT Tamera Zhang R.N. losartan 50 mg tablet: 50 mg once a day . -- 04:09/23/24 JULIETAT Tamera Zhang R.N. omeprazole 20 mg capsule,delayed release: 20 mg once a day every PM. -- 04:39 09/23/24 EDT Tamera Zhang R.N. prednisone 10 mg tablet: 10 mg once a day . (no taking at this time) -- 04:39 09/23/24 EDT Tamera Zhang R.N. roflumilast 250 mcg tablet: 250 mcg once a day . -- 04:40 09/23/24 JULIETAT Tamera Zhang R.N. Trelegy Ellipta 100 mcg-62.5 mcg-25 mcg powder for inhalation: 1 inhalation once a day . -- 04:40 09/23/24 JULIETAT Tamera Zhang R.N. aspirin 81 mg tablet: 81 mg once a day . -- 04:41 09/23/24 EDT Tamera Zhang R.N. Flomax 0.4 mg capsule: 0.4 mg once a day at bedtime. -- 04:41 09/23/24 JULIETAT Tamera Zhang R.N. Allergies: Keflex -- 01:09/23/24 EDT Tamera Zhang R.N. Problems: Asthma -- 01:09/23/24 EDT Tamera Zhang R.N. COPD - Chronic Obstructive Pulmonary Disease -- 01:09/23/24 EDT Tamera Zhang R.N. Hypertension -- 01:09/23/24 EDT Tamera Zhang R.N. Emphysema -- 01:09/23/24 JULIETAT Tamera Zhang R.N. ADDITIONAL SURGERIES: right knee -- 01:09/23/24 JULIETAT Tamera Zhang R.N. open heart: Performed 1999 -- :09/23/24 EDT Tamera Zhang R.N. 2 of 6 Nurse Narrative stents: Performed 2016 -- :09/23/24 EDT Tamera Zhang R.N. History 01:09/23/24. SOCIAL HX: Former smoker, end date 2014. No alcohol use or drug use. The patient has not traveled outside the [place] Infectious disease exposure: No infectious disease exposure. ABUSE ASSESSMENT: The patient answered yes to the question(s) Do you feel safe in your home? and no to the question(s) Are you afraid to go home?. SELF HARM ASSESSMENT: Self harm assessment was performed. The patient answered no to the question(s) Have you recently felt down, depressed, or hopeless? and Do you have thoughts of harming or killing yourself?. FALL RISK ASSESSMENT: Fall risk assessment completed. No risk factors identified. -- 01:34 09/23/24 EDT Tamera Zhang R.N. Interventions 01:15 09/23/24. Identification band and allergy band on patient. Advanced care plan discussed with patient. Patient does not have advanced directive. -- 01:34 09/23/24 EDT Tamera Zhang R.N. PHYSICAL ASSESSMENT 01:35 09/23/24. GENERAL / NEURO / PSYCH: Alert. Oriented X 4. RESPIRATORY: Moderate respiratory distress. The patient can speak a few words at a time. Cough productive (more content not included)... [facility] ED ORDER SHEET (CPOE ONLY)on 09-23-2024 ED ORDER SHEET (CPOE ONLY) Order Sheet Order Sheet [address] [place] [address] [id number] 09/23/2024 Patient: HEIDI JASSO Sex: Male : 1955 Age: 68y MEASUREMENTS: Wt: 101.6 kg, Ht/Nikhil: 71.0 in, BMI: 31.24 ALLERGIES: Keflex MEDICATION/IV/DRIP/FL UID ORDERS Order Description Priority Entered Acknowledged Completed CefTRIAXone (Rocephin) IVPB 01:09/23/2024 01:38 02:03 2gm/50ml NS2 g diluted in Kalia Sierra D.O. 09/23/2024 09/23/2024 sodium chloride IVPB 0.9 % Blaise Calderón R.N. Minibag+ 50 mL at 100 mL/hr (NOW x1) Azithromycin (Zithromax) 01:09/23/2024 01:38 02:18 [id number] mg diluted in dextrose 5 Sukhdev Ngo.O. 09/23/2024 09/23/2024 % in water IVPB 250 mL, VIAL Blaise Caldreón R.N. MATE 1 ea at 250 mL/hr (NOW x1) Albuterol-Ipratropium (DuoNeb) 01:23 09/23/2024 01:24 01:27 3mg/0.5mg Neb Tx3 mL (NOW Nate NgoOReyes 09/23/2024 09/23/2024 x1) Colt Silva R.R.T. R.R.T. Albuterol 0.083% - 2.5mg Neb 01:23 09/23/2024 01:24 03:11 Tx2.5 mg (NOW x1) Kalia Sierra D.O. 09/23/2024 09/23/2024 Colt Silva R.R.T. R.R.T. 1 of 4 Order Sheet IV NS 0.9 %1000 mL at 100 01:23 09/23/2024 01:38 01:59 mL/hr (NOW x1) Kalia Sierra D.O. 09/23/2024 09/23/2024 Blaise Calderón R.N. MethylPREDNISolone Sodium 01:23 09/23/2024 01:38 01:50 Succ (Solu-Medrol) [id number] mg Kalia Sierra D.O. 09/23/2024 09/23/2024 (NOW x1) Blaise Calderón R.N. Acetaminophen (Tylenol) 02:10 09/23/2024 02:10 02:12 PO975 mg (NOW x1) Kalia Sierra D.O. 09/23/2024 09/23/2024 Blaise Calderón R.N. LAB ORDERS Order Description Priority Entered Acknowledged Collected Completed CBC w Diff Stat Stat 01:23 09/23/2024 01:35 09/23/2024 01:43 09/23/2024 Cesar Ngo R.N. Anne Rutt, R.N. CMP Stat Stat 01:23 09/23/2024 01:35 09/23/2024 01:43 09/23/2024 Cesar Ngo R.N. Anne Rutt, R.NReyes Blood Culture Stat 01:23 09/23/2024 01:35 09/23/2024 01:43 09/23/2024 [[place]] # 1 Stat Cesar Ngo, Blaise Zhang, R.NReyes Blood Culture Stat 01:09/23/2024 01:35 09/23/2024 02:03 09/23/2024 [[place]] # 2 Stat Cesar Ngo, Blaise Zhang, R.NReyes D-Dimer Stat Stat 01:09/23/2024 01:36 09/23/2024 01:43 09/23/2024 Cesar Ngo, Blaise Zhang, R.N. BNP Stat Stat 01:09/23/2024 01:35 09/23/2024 01:43 09/23/2024 Cesar Ngo, Blaise Zhang, R.NReyes 2 of 4 Order Sheet Troponin-I Stat Stat 01:09/23/2024 01:36 09/23/2024 01:43 09/23/2024 Cesar Ngo R.N. Anne Rutt, R.N. EKG - ED Stat Stat 01:09/23/2024 01:35 09/23/2024 01:36 09/23/2024 Cesar Ngo, Blaise Zhang, R.N. Lactate, Serum Stat Stat 01:09/23/2024 01:36 09/23/2024 01:43 09/23/2024 Cesar Ngo, Blaise Zhang, R.N. Flu Swab (Influenzae Stat 01:09/23/2024 01:36 09/23/2024 01:36 09/23/2024 AAg) Stat Cesar Ngo R.N. Tamera Rutt, RReyesNReyes Rapid COVID (SARS) Stat 01:25 09/23/2024 01:36 09/23/2024 01:36 09/23/2024 ANTIGEN TEST Stat Cesar Ngo R.N. Anne Rutt RReyesNReyes Troponin-I Stat Stat 03:04 09/23/2024 03:05 09/23/2024 03:05 09/23/2024 Cesar Ngo R.N. Anne Rutt R.NReyes Urinalysis Stat Stat 04:03 09/23/2024 04:03 09/23/2024 04:03 09/23/2024 Blaise Calderón R.N. Anne Rutt, R.N. Verbal Order, Auth by: Kalia Sierra D.O. Read back and verified DIAGNOSTIC STUDY ORDERS Order Description Priority Entered Acknowledged Completed Chest 1V Stat Stat 01:23 09/23/2024 Cancelled: Verbal per Physician Kalia Sierra D.O. 02:50 EDT Tamera Zhang RConsuelo 3 of 4 Order Sheet Reason for Study: COPD CT Chest PE Study Stat Stat 02:25 09/23/2024 02:25 02:50 Kalia Sierra D.O. 09/23/2024 09/23/2024 Blaise Calderón, R.N. Reason for Study: Pulmonary Disease STAFF ORDERS Order Description Priority Entered Acknowledged Collected Completed Vital Signs every 30 01:23 09/23/2024 01:36 09/23/2024 01:36 09/23/2024 minutes Cesar Ngo R.N. Anne Rutt, R.NReyes Toll Service Observer 01:23 09/23/2024 01:36 09/23/2024 01:36 09/23/2024 Cesar Ngo R.N. Anne Rutt, R.N. Oxygen titrate to 92% 01:23 09/23/2024 01:36 09/23/2024 01:36 09/23/2024 Kalia DidCesar traore R.N. Anne Rutt, R.N. [Electronically signed by Kalia Sierra D.O. (09/23/2024 07:16 EDT)] 4 of 4 [facility] ED PHYSICIAN CLINICAL REPORT on 09-23-2024 ED PHYSICIAN CLINICAL REPORT Narrative Physician Clinical [facility] [address] [place] [address] [id number] 09/23/2024 01:14:00 Patient: HEIDI JASSO Sex: Male : 1955 Age: 68y Disposition: Admit Disposition Decision Time: 04:24 09/23/2024 Departure Time: 04:50 09/23/2024 Measurements Wt: 101.6 kg, Ht/Nikhil: 71.0 in, BMI: 31.24 Initial Vital Sign Measured Time BP MAP HR RR O2Sat ETCO2 Temp Pain GCS RTS 01:15 09/23/2024 138/68 91 102 24 90% RA 100.5 F 0 Time Seen: 01:06 09/23/2024. Arrived- By ambulance. Historian- patient. Independent historian- EMS personnel. HISTORY OF PRESENT ILLNESS Chief Complaint: DYSPNEA. This started yesterday and is still present (worse). The dyspnea is described as moderate. The patient has had a cough, wheezing, dyspnea on exertion and chest pain. No calf pain or foot swelling. Similar symptoms previously. Patient has had similar symptoms several times. Recent medical care: The patient was seen recently in the office. ( Saw Dr. Fall his federal appellate law clerk on September 19.). REVIEW OF SYSTEMS 1 of 16 Narrative ENDO/HEME/LYMPH: No enlarged lymph nodes. SKIN: No skin rash. NEUROLOGICAL: No headache or fainting episodes. GI: No nausea, vomiting, abdominal pain, diarrhea or black stools. NOSE: The patient has had a nasal discharge. No sinus drainage. THROAT: No sore throat. EYES: No eye irritation or blurred vision. CONSTITUTIONAL: The patient has not had weight loss. No muscle aches. MUSCULOSKELETAL: No joint pain. : No difficulty with urination or excessive urination. PAST HISTORY See nurses notes. Asthma COPD - Chronic Obstructive Pulmonary Disease Emphysema Hypertension Surgeries: open heart: [2000] right knee stents: [2017] Medications: albuterol sulfate HFA 90 mcg/actuation aerosol inhaler: 2 inhalations as needed. aspirin 81 mg tablet: 81 mg once a day . atorvastatin 40 mg tablet: 40 mg once a day at bedtime. carvedilol 6.25 mg tablet: 6.25 mg twice a day . Flomax 0.4 mg capsule: 0.4 mg once a day at bedtime. furosemide 20 mg tablet: 20 mg once a day as needed. losartan 50 mg tablet: 50 mg once a day . omeprazole 20 mg capsule,delayed release: 20 mg once a day every PM. prednisone 10 mg tablet: 10 mg once a day . (no taking at this time) roflumilast 250 mcg tablet: 250 mcg once a day . Trelegy Ellipta 100 mcg-62.5 mcg-25 mcg powder for inhalation: 1 inhalation once a day . Allergies: Keflex SOCIAL HISTORY Former smoker, end date 2014. No alcohol use or drug use. 2 of 16 Narrative ADDITIONAL NOTES The nursing notes have been reviewed. PHYSICAL EXAM Appearance: Alert. Eyes: Pupils equal, round and reactive to light. ENT: Nose normal. Dry mucous membranes present. Pharynx normal. Uvula midline. Neck: Normal inspection. No jugular venous distention. Neck supple. CVS: Tachycardia. Normal heart rate and rhythm. Heart sounds normal. Pulses normal. Respiratory: Moderate respiratory distress with accessory muscle use. Speaks short phrases. Mild accessory muscle use. Decreased air movement diffusely over both lungs. Expiratory bilateral wheezes diffusely. Abdomen: Soft and nontender. No organomegaly. Skin: Skin warm and dry. No rash. Extremities: Extremities exhibit normal ROM. No lower extremity edema. Neuro: Oriented X 3. No motor deficit. No sensory deficit. LABS, X-RAYS, AND EKG 12-LEAD EKG: EKG time: 01:17 09/23/2024. Tachycardia (143 ventricular rate). Sinus tachycardia. Normal P waves. Q waves in lead V1, V2 and V3. Non-specific ST segment / T wave abnormalities. The study has been interpreted contemporaneously by me. The EKG appears to be a good tracing. Interpretation time: 01:18 09/23/2024. Chest CT: (Scattered nodular airspace disease involving all lobes greatest in the right lower and middle lobes likely infectious. No evidence of pulmonary embolism. 2 cm right hilar soft tissue density may represent large lymph node versus mass. Further evaluation with bronchoscopy is recommended when clinically appropriate if not recently performed. Post CABG. No evidence of pleural effusion. No evidence of pneumothorax. No evidence of thoracic aortic aneurysm or dissection. Heart size is normal. No pericardial effusion.). Chest CT performed with contrast. The study was interpreted by the radiologist. Interpretation time: 03:54 09/23/2024. Laboratory Tests: CBC + DIFF Final MICHEAL: 09/23/2024 01:44:00 EDT MsgRcvd: 09/23/2024 02:22 EDT 3 of 16 Narrative Lab Test Result Reference Status Received Comments 09/23/2024 02:22 CBC-COMPLETE CBC + DIFF Final EDT BLOOD COUNT 18.4 x 10/UL 09/23/2024 02:22 WBC 4.5 - 10.8 Final Above high normal EDT 09/23/2024 02:22 RBC 4.53 x 10/UL 4.50 - 6.00 Final EDT 09/23/2024 02:22 HEMOGLOBIN 14.3 g/dl 13.0 - 17.5 (more content not included)... [facility] ED SUPER BILLon 09-23-2024 ED [facility] [address] [place] [address] [id number] 09/23/2024 Patient: HEIDI JASSO Sex: Male : 1955 Age: 68y Facility Professional Category Item Description Code Code Quantity Fee Total Drugs Normal Saline 200574 1 $0.00 $0.00 1000cc (085306) Nurse/E/M EMERGENCY 151412 1 $0.00 $0.00 DEPT VISIT HIGH SEVERITYFUNCJ (15106-89) Nurse/IV/IM/Infusions Drip/IVPB 787927 1 $0.00 $0.00 additional hour (07126) Nurse/IV/IM/Infusions Drip/IVPB initial 494562 1 $0.00 $0.00 (37989) Nurse/IV/IM/Infusions Hydration 873153 3 $0.00 $0.00 additional hour (28189) Nurse/IV/IM/Infusions IVP additional 395009 1 $0.00 $0.00 push (50461) Nurse/IV/IM/Infusions IVP initial (72157) 667918 1 $0.00 $0.00 1 of 2 [facility] Professional Category Item Description Code Code Quantity Fee Total Nurse/Procedures Respiratory 971015 1 $0.00 $0.00 therapy - inhalation (68511) Nurse/Supplies Oxygen in the ED 979738 1 $0.00 $0.00 (192088) Grand $0.00 Total Providers Kalia Sierra D.O. Chief Complaint DYSPNEA. Principal Diagnosis Acute exacerbation of COPD (emphysematous). Bacterial bronchopneumonia with hypoxemia. ICD-10 Codes J44.1: Chronic obstructive pulmonary disease with (acute) exacerbation J15.9: Unspecified bacterial pneumonia J18.0: Bronchopneumonia, unspecified organism R09.02: Hypoxemia J18.9: Pneumonia, unspecified organism 2 of 2 [facility] ED VISIT SUMMARYon ED VISIT SUMMARY Visit Overview Visit Overview [facility] [address] [place] [address] [phone] 09/23/2024 Patient: HEIDI JASSO Sex: Male : 1955 Age: 68y 09/23/2024 07:16 AM EDT ED Arrival:01:14 09/23/2024 EDT Status: Recent Travel:no Language:eng Adv Directive:No Isolation Status: Ethnicity:N Fall Risk:no risk Infectious Disease Exposure:no Measurements:5'11 / 180.3 Self-Harm Status:risk Sepsis Screen:positive cm 224.0 lb / 101.6 kg Chief Complaint:DIFFICULTY BREATHING, SHORTNESS OF BREATH, WHEEZING, ([place]), (pressure 1 days), and (pt has SOB since last evening at 1999, took 2 Duonebs at home without relief, pt is on 3 L per NC at home continuously . Sats on arrival 90% on RA) ALLERGIES Keflex HOME MEDICATIONS 1 of 4 Visit Overview albuterol sulfate HFA 90 mcg/actuation aerosol inhaler: 2 inhalations as needed. aspirin 81 mg tablet: 81 mg once a day . atorvastatin 40 mg tablet: 40 mg once a day at bedtime. carvedilol 6.25 mg tablet: 6.25 mg twice a day . Flomax 0.4 mg capsule: 0.4 mg once a day at bedtime. furosemide 20 mg tablet: 20 mg once a day as needed. losartan 50 mg tablet: 50 mg once a day . omeprazole 20 mg capsule,delayed release: 20 mg once a day every PM. prednisone 10 mg tablet: 10 mg once a day . (no taking at this time) roflumilast 250 mcg tablet: 250 mcg once a day . Trelegy Ellipta 100 mcg-62.5 mcg-25 mcg powder for inhalation: 1 inhalation once a day . PAST MEDICAL HISTORY / PROBLEMS Asthma COPD - Chronic Obstructive Pulmonary Disease Emphysema Hypertension See nurses notes PAST SURGICAL HISTORY right knee SOCIAL HISTORY Smoking status: No Alcohol use: No Drug use: No ED COURSE MEDICATIONS GIVEN IN EMERGENCY DEPARTMENT 01:26 09/23/24 Albuterol-Ipratropium (DuoNeb) 3mg/0.5mg Neb Tx 3 mL 01:50 09/23/24 MethylPREDNISolone Sodium Succ (Solu-Medrol) IVP 125 mg over 1 minute(s) 01:59 09/23/24 IV NS 0.9 % 1000 mL 100 mL/hr over 1 hour(s) CefTRIAXone (Rocephin) IVPB 2gm/50ml NS 2 g diluted in sodium chloride IVPB 0.9 01:59 09/23/24 % Minibag+ 50 mL 100 mL/hr over 30 minute(s) 2 of 4 Visit Overview 02:11 09/23/24 Acetaminophen (Tylenol) PO 975 mg Azithromycin (Zithromax) IVPB 500 mg diluted in dextrose 5 % in water IVPB 250 mL 02:17 09/23/24 and VIAL MATE 1 ea 250 mL/hr over 1 hour(s) 03:11 09/23/24 Albuterol 0.083% - 2.5mg Neb Tx 2.5 mg IV SITE INFORMATION 01:43 09/23/24 Site #1 left AC, 18g. Saline lock. 01:56 09/23/24 Site #2 right AC, 20g. Saline lock. INTAKE OUTPUT REASSESMENT (most recent) 01:35 09/23/24. GENERAL / NEURO / PSYCH: Alert. Oriented X 4. RESPIRATORY: Moderate respiratory distress. The patient can speak a few words at a time. Cough productive of moderate amounts of green sputum. Expiratory bilateral wheezes diffusely. CVS: Normal sinus rhythm noted. Capillary refill less than 2 seconds. GI / : Abdomen soft and nontender. Bowel sounds within normal limits. SKIN: Skin is warm. VITAL SIGNS First Vitals Last Vitals Temp 01:15 09/23/24 100.5 F Temp 04:42 09/23/24 BP 01:15 09/23/24 138/68 BP 04:42 09/23/24 HR 01:15 09/23/24 102 HR 04:42 09/23/24 90 RR 01:15 09/23/24 24 RR 04:42 09/23/24 O2 Sat 01:09/23/24 90% RA O2 Sat 04:42 09/23/24 97% Pain 01:15 09/23/24 0 Pain 04:42 09/23/24 ETCO2 01:15 09/23/24 ETCO2 04:42 09/23/24 GCS 01:15 09/23/24 GCS 04:42 09/23/24 RTS 01:15 09/23/24 RTS 04:42 09/23/24 PROCEDURES NURSING INTERVENTIONS Respiratory therapy LABS / STUDIES 3 of 4 Visit Overview LABS / STUDIES ORDERED Blood Culture [Sapna] # 1 Blood Culture [Sapna] # 2 BNP CBC w Diff CMP CT Chest PE Study D-Dimer EKG - ED Flu Swab (Influenzae AAg) Lactate, Serum Rapid COVID (SARS) ANTIGEN TEST Troponin-I Troponin-I Urinalysis CLINICAL IMPRESSION ACUTE EXACERBATION OF COPD (EMPHYSEMATOUS) BACTERIAL BRONCHOPNEUMONIA WITH HYPOXEMIA 4 of 4 [facility] ED VITALS FLOW SHEETon 09-23 ED VITALS FLOW SHEET Vitals Vital Sign Flow Sheet [address] [place] [address] [id number] 09/23/2024 Patient: HEIDI JASSO Sex: Male : 1955 Age: 68y Measurements Wt: 101.6 kg, Ht/Nikhil: 71.0 in, BMI: 31.24 Measured Time BP MAP HR RR O2Sat ETCO2 Temp Pain GCS RTS 04:42 09/23/2024 90 97% 04:37 09/23/2024 88 96% 04:32 09/23/2024 88 97% 04:31 09/23/2024 128/71 81 84 04:29 09/23/2024 98.1 F 04:27 09/23/2024 81 98% 04:22 09/23/2024 82 98% 04:17 09/23/2024 80 97% 04:12 09/23/2024 82 97% 04:07 09/23/2024 82 97% 04:02 09/23/2024 85 97% 04:01 09/23/2024 127/73 91 83 03:47 09/23/2024 84 98% 03:42 09/23/2024 86 98% 03:37 09/23/2024 84 98% 1 of 3 Vitals Measured Time BP MAP HR RR O2Sat ETCO2 Temp Pain GCS RTS 03:32 09/23/2024 85 97% 03:27 09/23/2024 86 97% 03:22 09/23/2024 86 97% 03:20 09/23/2024 113/62 75 85 03:17 09/23/2024 88 97% 03:12 09/23/2024 90 97% 03:07 09/23/2024 83 97% 03:02 09/23/2024 91 96% 02:55 09/23/2024 89 97% 02:50 09/23/2024 93 96% 02:50 09/23/2024 124/72 80 92 02:45 09/23/2024 92 97% 02:42 09/23/2024 90 96% 02:37 09/23/2024 92 96% 02:32 09/23/2024 93 96% 02:27 09/23/2024 94 96% 02:22 09/23/2024 95 96% 02:20 09/23/2024 112/63 79 94 02:17 09/23/2024 97 96% 02:12 09/23/2024 98 95% 02:07 09/23/2024 97 96% 02:02 09/23/2024 102 96% 01:57 09/23/2024 104 95% 01:52 09/23/2024 102 95% 01:47 09/23/2024 151 97% 2 of 3 Vitals Measured Time BP MAP HR RR O2Sat ETCO2 Temp Pain GCS RTS 01:42 09/23/2024 101 96% 01:37 09/23/2024 101 96% 01:15 09/23/2024 138/68 91 102 24 90% RA 100.5 F 0 3 of 3 [facility] INFLUENZA VIRUS RAPID A/Bon 09-23-2024 INFLUENZA VIRUS RAPID A/B INFLUENZA A NEGATIVE INFLUENZA B NEGATIVE INTERNAL NEG QC PASS INTERNAL POS QC PASS EXTERNAL QC DONE? YES SEND TO IC? NO A NEGATIVE TEST RESULT DOES NOT EXCLUDE INFECTION WITH INFLUENZA A OR B. THEREFORE, THE RESULTS OBTAINED FROM THIS FLU TEST SHOULD BE USED IN CONJUCTION WITH CLINICAL FINDINGS TO MAKE AN ACCURATE DIAGNOSIS. A POSITIVE RESULT DOES NOT RULE OUT CO-INFECTIONS WITH OTHER PATHOGENS OR IDENTIFY ANY SPECIFIC INFLUENZA A VIRUS SUBTYPE.CO-INFECTION WITH INFLUENZA A AND B IS RARE. IT IS RECOMMENDED THAT DUAL POSITIVE RESULTS BE CONFIRMED BY VIRAL CULTURE OR AN FDA-CLEARED INFLUENZA A AND B MOLECULAR ASSAY. INDIVIDUALS WHO HAVE RECEIVED NASALLY ADMINISTERED INFLUENZA A VACCINE MAY TEST POSITIVE IN COMMERCIALLY AVAILABLE INFLUENZA RAPID DIAGNOSTIC TESTS FOR UP TO THREE DAYS. RESULT CRITICAL? NO Normal [facility] Comment on above: Performed By: #### 2 [id number] #### [place] [id number] LACTATEon 09-23-2024 Lactate [Moles/Vol] 0.7 mmol/L Normal 0.4 - 2.0 [facility] Comment on above: Performed By: #### 2 44625 #### [facility],[address] [place], [place] [id number] MAGNESIUMon 09-23-2024 Magnesium [Mass/Vol] 1.9 mg/dL Normal 1.8 - 2.4 [facility] Comment on above: Performed By: #### 2 34230 #### [facility],[address] [place] [address] 06636 NT-proBNPon 09-23-2024 Natriuretic peptide B (Bld) [Mass/Vol] 319 pg/mL High 0 - 125 [facility] Comment on above: Performed By: #### 2 69115 #### [facility],[address] [place] [address] 34936 TROPONINon 09-23-2024 HS TROPONIN 21.2 pg/mL Normal 0.0 - 76.2 [facility] Comment on above: Performed By: #### 2 79724 #### [facility],[address] [place] [address] 05141 HS TROPONIN 19.6 pg/mL Normal 0.0 - 76.2 [facility] Comment on above: Performed By: #### 2 77794 #### [facility],[address] [place] [address] 49739 URINALYSISon 09-23-2024 Amorphous NONE Normal [facility] Comment on above: Performed By: #### 2 32001 #### [facility],[address] [place] [address] 55400 Bacteria NONE Normal [facility] Comment on above: Performed By: #### 2 99064 #### [facility],[address] [place] [address] 88574 Bilirubin Ql (U) Negative Normal NORMAL: NEGATIVE [facility] Comment on above: Performed By: #### 2 51901 #### [facility],[address] [place] [address] 04890 Casts NONE Normal [facility] Comment on above: Performed By: #### 2 21904 #### [facility],[address] [place] [address] 76258 Clarity (U) clear Normal NORMAL: CLEAR [facility] Comment on above: Performed By: #### 2 34808 #### [facility],[address] [place] [address] 76507 Color (U) odessa Normal NORMAL: YELLOW [facility] Comment on above: Performed By: #### 2 17688 #### [facility],[address] [place] [address] 45099 Crystals LM Nom (Urine sed) NONE Normal [facility] Comment on above: Performed By: #### 2 06879 #### [facility],[address] [place] [address] 22374 Epi Cells NONE Normal [facility] Comment on above: Performed By: #### 2 64833 #### [facility],[address] [place] [address] 43662 Glucose Ql (U) NORM Normal NORMAL: NORMAL [facility] Comment on above: Performed By: #### 2 33352 #### [facility],[address] [place] [address] 97155 Hemoglobin Ql (U) 10 Abnormal NORMAL: NEGATIVE [facility] Comment on above: Performed By: #### 2 55565 #### [facility],[address] [place] [address] 68243 Ketone 5 Abnormal NORMAL: NEGATIVE [facility] Comment on above: Performed By: #### 2 96904 #### [facility],[address] [place] [address] 34127 Leukocytes Negative Normal NORMAL: NEGATIVE [facility] Comment on above: Performed By: #### 2 86869 #### [facility],[address] [place] [address] 68930 Mucous 1+ Normal [facility] Comment on above: Performed By: #### 2 83035 #### [facility],[address] [place] [address] 61526 Nitrite Ql (U) Negative Normal NORMAL: NEGATIVE [facility] Comment on above: Performed By: #### 2 46281 #### [facility],[address] [place] [address] 02545 pH (U) 5 [pH] Normal NORMAL: 5.0-8.0 [facility] Comment on above: Performed By: #### 2 86556 #### [facility],[address] [place] [address] 95699 Protein Ql (U) 100 Abnormal NORMAL: NEGATIVE [facility] Comment on above: Performed By: #### 2 86980 #### [facility],[address] [place] [address] 37260 Rbc 0-5 Normal 0-3/hpf [facility] Comment on above: Performed By: #### 2 22243 #### [facility],[address] [place] [address] Sp [place] 1.020 Normal NORMAL: 1.010-1.030 [facility] Comment on above: Performed By: #### 2 00570 #### [facility],[address] [place] [address] Specimen Type R Normal [facility] Comment on above: Performed By: #### 2 04955 #### [facility],[address] [place] [address] Urinalysis dipstick W Reflex Microscopic panel (U) SEE BELOW Normal [facility] Comment on above: Result Comment: MICR OSCOPIC Performed By: #### 2 06168 #### [facility],[address] [place], [place] [id number] Urobilinog NORM Normal NORMAL: NORMAL [facility] Comment on above: Performed By: #### 2 67259 #### [facility],[address] [place], [place] [id number] Wbc NONE Normal 0-5/hpf [facility] Comment on above: Performed By: #### 2 27195 #### [facility],[address] [place], [place] [id number] Yeast NONE Normal [facility] Comment on above: Performed By: #### 2 44400 #### [facility],[address] [place], [place] [id number] Gastroenterology Visit Repor ton 08-29-2024 Gastroenterology Visit Report [facility] [address] [place] [address] OFFICE VISIT Date of Service: 08/29/24 MR#: [id number] Acct: [id number] Name: HEIDI JASSO Rep #: [id number] : 1955 Provider: ELISEO walls Age/Sex: 68/M Location: [facility] Status: Signed Intake Vital Signs 07/17/23 09:53 08/09/24 11:26 08/29/24 13:23 Height 5 ft 11 in 5 ft 11 in 5 ft 11 in Weight: 225 lb 223 lb 8 oz BMI 31.4 31.1 BP 147/87 H 134/84 H Blood Pressure Location Lt brachial Position Sitting Respiration 18 18 Pulse 62 57 L Pulse Source NIBP Pulse Oximetry (%) 95 Oxygen Delivery Method room air Intake Visit Reasons: Esophageal Thickening Chief Complaint: thick esophagus Hospice Clinical Supervisor Required: No Accompanied by: Is patient in pain?: No Allergies cephalexin (From Keflex) Allergy (Unknown, Verified 08/29/24 09:17) swelling Medications ???Medication ???Instructions ???Recorded ???Confirmed ???Type tamsulosin 0.4 mg capsule 0.4 mg PO QDAY 07/16/17 08/29/24 H istory fluticasone fur. 100 mcg-umeclid 1 inh inhalation DAILY #3 ea 05/1308/29/24 Rx 62.5 mcg-vilant 25 mcg inhalat.powder (Trelegy Ellipta) ipratropium 0.5 mg-albuterol 3 mg 3 ml inhalation Q8H #180 vials 08/29/24 Rx (2.5 mg base)/3 mL nebulization soln acetaminophen 500 mg tablet 500 mg PO Q6H PRN 02/28/21 5 History losartan 50 mg tablet 50 mg PO DAILY 02/28/21 08/29/24 H istory aspirin 81 mg tablet,delayed 81 mg PO DAILY 04/04/21 08/29/24 H istory release (Adult Low Dose Aspirin) albuterol sulfate 90 mcg/actuation 2 puff inhalation Q6H PRN 08/29/24 History aerosol inhaler (Ventolin HFA) atorvastatin 40 mg tablet 40 mg PO QHS 09/06/21 08/29/24 His tory nitroglycerin 0.4 mg sublingual 0.4 mg sublingual .COMPLEX PRN 08/29/24 Rx tablet (Nitrostat) chest pain #25 tabs ascorbic acid (vitamin C) 500 mg 500 mg PO DAILY 11/21/22 08/29/24 History tablet cholecalciferol (vitamin D3) 25 25 mcg PO DAILY 11/21/22 08/29/24 History mcg (1,000 unit) tablet carvedilol 6.25 mg tablet 6.25 mg PO BID HTN #180 tabs 07/1708/29/24 Rx cyanocobalamin (vitamin B-12) 1,000 mcg PO QDAY 08/09/24 5 History 1,000 mcg tablet furosemide 20 mg tablet 20 mg PO DAILY 08/09/24 08/29/24 H istory glipizide 2.5 mg tablet 2.5 mg PO QDAY 08/29/24 08/29/24 H istory guaifenesin 600 mg tablet, 600 mg PO Q12H PRN 08/29/24 History extended release 12 hr (Mucinex) omeprazole 20 mg capsule,delayed 20 mg PO QDAY 08/29/24 08/29/24 Hi story release Have you fallen in the past year?: No Nurse's Note: Food will get stuck sometimes when he swallows. [facility] Medical History Pneumonia COVID-19 (07/07/21) Chest pain, unspecified BPH (benign prostatic hyperplasia) JOSE MANUEL (obstructive sleep apnea) GERD (gastroesophageal reflux disease) COPD (chronic obstructive pulmonary disease) CKD (chronic kidney disease) stage 3, GFR 30-59 ml/min History of left heart catheterization (LHC) ( 04/08/16) Atherosclerotic heart disease of [place] coronary artery without angina pectoris Enlarged prostate with lower urinary tract symptoms (LUTS) Nocturnal muscle cramp Seasonal allergies Coronary arteriosclerosis Essential hypertension Hyperlipidemia Chronic obstructive lung disease Surgical History Presence of coronary angioplasty implant and graft Presence of stent in coronary artery ( 04/08/16) History of coronary artery bypass graft x 3 ( 04/15/00) Family History Father CAD (coronary artery disease) Diabetes Hypertension Heart disease Parkinsons Mother CAD (coronary artery disease) Hypertension Heart disease Diabetes Sister Cancer Lung Heart disease Brother Colon cancer Myocardial infarction Social History Smoking Status: Former smoker Tobacco: How many years used: 20 how long ago did patient quit smokin, 3pk/day second hand exposure: Yes alcohol intake: never substance use type: former substance user Date of last use: stated only did it for times as a teenager and marijuana caffeine: Yes Type: carbonated beverages Number of servings: 1 and coffee Number of servings: 3 HPI HPI Chief Complaint: thick esophagus Details: HEIDI JASSO, is a 68 M who presents to the office today for - dentures - dysphagia upper esophagus - only solids, no trouble with liquids or pills - denies any odynophagia - denies any HB - denies any N/V - weight is stable - Omeprazole 20mg daily - has (more content not included)... Normal [facility] Cardiology Visit Reporton Cardiology Visit Report [facility] [address] [place] [address] OFFICE VISIT Date of Service: 08/09/24 MR#: [id number] Acct: [id number] Name: HEIDI JASSO Rep #: [id number] : 1955 Provider: ELISEO mir Age/Sex: 68/M Location: [facility] Status: Signed with Addenda ADDENDUM by ELISEO Barbour on 08/09/24 at 1445 Cardiology Exam Extremities Pulses: Absent: Left Radial Pulse (CABG history) Assessment and Plan Assessment and Plan (1) Presence of stent in coronary artery: Status: Chronic Comment: PCI/AKASH to mid/prox RCA 04/08/16; PCI/AKASH to distal LAD 03/26/16 (2) History of coronary artery bypass graft x 3: Status: Chronic Comment: GARAY to LAD, Left radial artery to OD and SVG to distal LCX @ [facility] 04/15/00; (3) Essential hypertension: Status: Chronic (4) Hyperlipidemia: Status: Chronic Qualifiers: Hyperlipidemia type: unspecified Qualified Code(s): E78.5 - Hyperlipidemia, unspecified Plan Details Follow Up: 6 Months () 08/09/24 1445 Date Wei Barbour NEETA COUNTER CLERK-C cc: Dr. Sofi Garza MD * Signed HPI HPI History of Present Illness Details: This is a 68-year-old white male who presents today for outpatient cardiovascular follow up with a history of underlying CAD, PCI, CABG, superimposed on hyperlipidemia, and hypertension. He has previously been followed through [facility] in [place], [place]. In brief it appears that he underwent CABG on 04-15-2000 in [place] [facility]. According the report he received a GARAY to the LAD, a left radial to OD, and an SVG to the distal circumflex. Over time he has had follow-up noninvasive and invasive studies. It appears he had diagnostic cardiac catheterization in March and April 2016. According to the information received the patient was noted to have a PCI with a 2.25 x 15 mm Xience AKASH to the distal LAD. In April 2016, it appears that the patient had notation of 90% stenosis in the proximal/mid dominant RCA with a distal 50% stenosis and subsequently underwent PCI with a 2.25 x 24 mm long Promus AKASH in the mid RCA followed by a 2.5 x 20 mm long Promus AKASH in the proximal RCA with mild overlap. There was a comment that the LVEF was 50%-global. The GARAY to the LAD was patent. The left radial artery to the ramus was atretic and now 100% occluded. The SVG to the LCx system was reported as wide open, good flow . The LAD was reported at 100% occluded. There was the new lesion noted in the yurok RCA. There was 2+ AR. He was seen at [facility] for acute exacerbation of COPD in July 2024, pneumonia, and chronic CHF. Echocardiogram showed an ejection fraction of 50-55%. His elevated troponin was thought to be a type II non-ST elevated myocardial infarction. Hospital cardiology team recommended he undergo a stress test, but patient declined. He was then seen with federal appellate law clerk, Dr. Sibilia, and continue to note elevated heart rate. It had been noted that he had stopped taking his carvedilol. He was asked to resume such. He denies chest, arm, jaw, or neck discomfort. He denies palpitations. He denies bilateral lower extremity edema. He denies claudication. He denies shortness of breath with activity, shortness of breath at rest, orthopnea, or PND. He denies chronic cough. He denies significant, sudden weight gain. He denies lightheadedness, dizziness, near-syncope, or syncope. He denies blood in urine, blood in stool, or epistaxis. He denies fever with chills. He denies myalgia. He denies fatigue. His exercise level has remained stable. Intake Vital Signs 07/17/23 09:53 08/09/24 11:26 Height 5 ft 11 in 5 ft 11 in Weight: 225 lb BMI 31.4 BP 147/87 H Blood Pressure Location Lt brachial Position Sitting Respiration 18 Pulse 62 Pulse Source NIBP Intake Visit Reasons: 1 Y FU Hospice Clinical Supervisor Required: No Accompanied by: Is patient in pain?: No Allergies cephalexin (From Keflex) Allergy (Unknown, Verified 08/09/24 11:30) swelling Medications ???Medication ???Instructions ???Recorded ???Confirmed ???Type tamsulosin 0.4 mg capsule 0.4 mg PO QDAY 07/16/17 08/09/24 H istory fluticasone fur. 100 mcg-umeclid 1 inh inhalation DAILY #3 ea 05/1308/09/24 Rx 62.5 mcg-vilant 25 mcg inhalat.powder (Trelegy Ellipta) ipratropium 0.5 mg-albuterol 3 mg 3 ml inhalation Q8H #180 vials 08/09/24 Rx (2.5 mg base)/3 mL nebulization soln acetaminophen 500 mg tablet 500 mg PO Q6H PRN 02/28/21 5 History losartan 50 mg tablet 50 mg PO DAILY 02/28/21 08/09/24 H istory aspirin 81 mg tablet,delayed 81 mg PO DAILY 04/04/21 08/09/24 H istory release (Adult Low Dose Aspirin) albute (more content not included)... Normal [facility] Absolute lymphocyte countOrd ered By: Wei Barbour on 08-04-2024 Lymphocytes Auto (Unsp spec) [#/Vol] 1.80 10*3/uL 0.83-4.51 [facility] Absolute neutrophil countOrd ered By: Wei Barbour on 08-04-2024 Neutrophils (Bld) [#/Vol] 9.2 10*3/uL High 2.0-7.7 [facility] Anion gap in Serum or Plasma Ordered By: Wei Barbour on 08-04-2024 Anion gap [Moles/Vol] 11 mmol/L 5-15 [facility] Automated lymphocyte count a s percentage of total leukocytesOrdered By: Wei Barbour on 08-04-2024 Lymphocytes/100 WBC Auto (Unsp spec) 14.8 % Low - [facility] BUN/creatinine ratioOrdered By: Wei Barbour on 08-04-2024 Urea nitrogen/Creatinine [Mass ratio] 16.9 mg/mg - [facility] Basic Metabolic Profile (BMP )on 08-04-2024 BUN/CRE 16.9 RATIO Normal - [facility] Comment on above: Performed By: #### L 501.9520, L500.2500, L503.7505, L100.0100, L501.5200 #### [facility] [address] [place], [address] Calcium [Mass/Vol] 9.3 mg/dL Normal 7.6-11.0 [facility] Comment on above: Performed By: #### L 501.9520, L500.2500, L503.7505, L100.0100, L501.5200 #### [facility] [address] [place], [address] Chloride [Moles/Vol] 100 mmol/L Normal 98-108 [facility] Comment on above: Performed By: #### L 501.9520, L500.2500, L503.7505, L100.0100, L501.5200 #### [facility] [address] [place], [address] CO2 [Moles/Vol] 28.8 mmol/L Normal 21.0-32.0 [facility] Comment on above: Performed By: #### L 501.9520, L500.2500, L503.7505, L100.0100, L501.5200 #### [facility] [address] [place], [address] Creatinine [Mass/Vol] 1.24 mg/dL High 0.70-1.20 [facility] Comment on above: Performed By: #### L 501.9520, L500.2500, L503.7505, L100.0100, L501.5200 #### [facility] [address] [place], [address] GAP 11 Normal 5-15 [facility] Comment on above: Performed By: #### L 501.9520, L500.2500, L503.7505, L100.0100, L501.5200 #### [facility] [address] [place], [address] GFR/1.73 sq M.predicted among non-blacks MDRD (S/P/Bld) [Vol rate/Area] 63 mL/min/{1.73_m2} Normal >60 [facility] Comment on above: Result Comment: mL/m in/1.73m2 CKD-EPI Creatinine Equation (2020) Performed By: #### L 501.9520, L500.2500, L503.7505, L100.0100, L501.5200 #### [facility] [address] [place], [address] Glucose [Mass/Vol] 143 mg/dL High 70-99 [facility] Comment on above: Performed By: #### L 501.9520, L500.2500, L503.7505, L100.0100, L501.5200 #### [facility] [address] [place], [address] Potassium [Moles/Vol] 4.6 mmol/L Normal 3.3-5.1 [facility] Comment on above: Result Comment: Hemo lysis present, Results??could be affected. ?? Performed By: #### L 501.9520, L500.2500, L503.7505, L100.0100, L501.5200 #### [facility] [address] [place], [address] Sodium [Moles/Vol] 140 mmol/L Normal 133-145 [facility] Comment on above: Performed By: #### L 501.9520, L500.2500, L503.7505, L100.0100, L501.5200 #### [facility] [address] [place], [address] Urea nitrogen [Mass/Vol] 21 mg/dL High 4-19 [facility] Comment on above: Performed By: #### L 501.9520, L500.2500, L503.7505, L100.0100, L501.5200 #### [facility] [address] [place], [address] Basophil percentageOrdered B y: Wei Km on 08-04-2024 Basophils/100 WBC (Bld) 0.1 % 0-1 [facility] CBC W/Diff, Automatedon 030 Absolute Lymph 1.80 X10 3/uL Normal 0.83-4.51 [facility] Comment on above: Performed By: #### L 501.9520, L500.2500, L503.7505, L100.0100, L501.5200 #### [facility] [address] [place], [address] Absolute Neut 9.2 X10 3/uL High 2.0-7.7 [facility] Comment on above: Performed By: #### L 501.9520, L500.2500, L503.7505, L100.0100, L501.5200 #### [facility] [address] [place], [address] Basophils/100 WBC (Bld) 0.1 % Normal 0-1 [facility] Comment on above: Performed By: #### L 501.9520, L500.2500, L503.7505, L100.0100, L501.5200 #### [facility] [address] [place], [address] Eosinophils/100 WBC (Bld) 1.2 % Normal 0-5 [facility] Comment on above: Performed By: #### L 501.9520, L500.2500, L503.7505, L100.0100, L501.5200 #### [facility] [address] [place], [address] Erythrocyte distribution width (RBC) [Ratio] 12.6 % Normal 11.6-14.6 [facility] Comment on above: Performed By: #### L 501.9520, L500.2500, L503.7505, L100.0100, L501.5200 #### [facility] [address] [place], [address] Hematocrit (Bld) [Volume fraction] 50.1 % Normal 40-54 [facility] Comment on above: Performed By: #### L 501.9520, L500.2500, L503.7505, L100.0100, L501.5200 #### [facility] [address] [place], [address] Hemoglobin (Bld) [Mass/Vol] 16.6 g/dL High 13.0-16.5 [facility] Comment on above: Performed By: #### L 501.9520, L500.2500, L503.7505, L100.0100, L501.5200 #### [facility] [address] [place], [address] IG% 0.400 Normal 0.0-0.9 [facility] Comment on above: Result Comment: IG% - Immature Granulocytes (promyelocytes, myelocytes and metamyelocytes) > 1% indicates that a LEFT SHIFT is Present. Performed By: #### L 501.9520, L500.2500, L503.7505, L100.0100, L501.5200 #### [facility] [address] [place], [address] Lymphocytes/100 WBC (Bld) 14.8 % Low 19-41 [facility] Comment on above: Performed By: #### L 501.9520, L500.2500, L503.7505, L100.0100, L501.5200 #### [facility] [address] [place], [address] MCH (RBC) [Entitic mass] 30.3 pg Normal 27.0-32.0 [facility] Comment on above: Performed By: #### L 501.9520, L500.2500, L503.7505, L100.0100, L501.5200 #### [facility] [address] [place], [address] MCHC (RBC) [Mass/Vol] 33.1 g/dL Normal 32-36 [facility] Comment on above: Performed By: #### L 501.9520, L500.2500, L503.7505, L100.0100, L501.5200 #### [facility] [address] [place], [address] MCV (RBC) [Entitic vol] 91.4 fL Normal 80-94 [facility] Comment on above: Performed By: #### L 501.9520, L500.2500, L503.7505, L100.0100, L501.5200 #### [facility] [address] [place], [address] Monocytes/100 WBC (Bld) 8.1 % Normal 0-10 [facility] Comment on above: Performed By: #### L 501.9520, L500.2500, L503.7505, L100.0100, L501.5200 #### [facility] [address] [place], [address] Neutrophils/100 WBC (Bld) 75.4 % High 47-70 [facility] Comment on above: Performed By: #### L 501.9520, L500.2500, L503.7505, L100.0100, L501.5200 #### [facility] [address] [place], [address] Nucleated RBC (Bld) [#/Vol] 0 10*3/uL Normal 0-5 [facility] Comment on above: Performed By: #### L 501.9520, L500.2500, L503.7505, L100.0100, L501.5200 #### [facility] [address] [place], [address] Platelet mean volume (Bld) [Entitic vol] 10.4 fL Normal 6.2-12.0 [facility] Comment on above: Performed By: #### L 501.9520, L500.2500, L503.7505, L100.0100, L501.5200 #### [facility] [address] [place], [address] Platelets (Bld) [#/Vol] 205 10*3/uL Normal 150-450 [facility] Comment on above: Performed By: #### L 501.9520, L500.2500, L503.7505, L100.0100, L501.5200 #### [facility] [address] [place], [address] RBC (Bld) [#/Vol] 5.48 10*6/uL Normal 4.6-6.2 [facility] Comment on above: Performed By: #### L 501.9520, L500.2500, L503.7505, L100.0100, L501.5200 #### [facility] [address] [place], [address] RDW SD 41.8 fl Normal 35.1-43.9 [facility] Comment on above: Performed By: #### L 501.9520, L500.2500, L503.7505, L100.0100, L501.5200 #### [facility] [address] [place], [address] WBC (Bld) [#/Vol] 12.2 10*3/uL High 4.4-11.0 [facility] Comment on above: Performed By: #### L 501.9520, L500.2500, L503.7505, L100.0100, L501.5200 #### [facility] [address] [place], [address] Carbon dioxide, total [Moles /volume] in Central venous bloodOrdered By: Wei Barbour on 08-04-2024 CO2 [Moles/Vol] 28.8 mmol/L 21.0-32.0 [facility] Chloride assayOrdered By: Ryanne Barbour on 08-04-2024 Chloride [Moles/Vol] 100 mmol/L 98-108 [facility] Eosinophil percentageOrdered By: Wei Barbour on 08-04-2024 Eosinophils/100 WBC (Bld) 1.2 % 0-5 [facility] Erythrocyte distribution wid th ratioOrdered By: Wei Barbour on 08-04-2024 Erythrocyte distribution width (RBC) [Ratio] 12.6 % 11.6-14.6 [facility] Erythrocyte distribution wid th standard deviationOrdered By: Wei Barbour on 08-04-2024 Erythrocyte distribution width (RBC) [Entitic vol] 41.8 fL 35.1-43.9 [facility] Erythrocyte distribution width (RBC) [Ratio] 41.8 fl 35.1-43.9 [facility] GFR/1.73 sq M.predicted alfredo g non-blacks MDRD (S/P/Bld) [Vol rate/Area]Ordered By: Wei Barbour on 08-04-2024 Estimated GFR (MDRD) Non-Af Amer 63 >60 [facility] Comment on above: mL/min/1.73m2 CKD-EP I Creatinine Equation (2020) Glomerular filtration rate ( GFR) estimation/1.73 sq m using serum, plasma, or whole bOrdered By: Wei Barbour on 08-04-2024 GFR/1.73 sq M.predicted among non-blacks MDRD (S/P/Bld) [Vol rate/Area] 63 mL/min/{1.73_m2} >60 [facility] Comment on above: mL/min/1.73m2 CKD-EP I Creatinine Equation (2020) Hematocrit Auto (Bld) [Volum e fraction]Ordered By: Wei Barbour on 08-04-2024 Hematocrit (Bld) [Volume fraction] 50.1 % 40-54 [facility] Hemoglobin measurementOrdere d By: Wei Barbour on 08-04-2024 Hemoglobin (Bld) [Mass/Vol] 16.6 g/dL High 13.0-16.5 [facility] Immature granulocytes/100 WB C Auto (Bld)Ordered By: Wei Barbour on 08-04-2024 Immature granulocytes/100 WBC (Bld) 0.400 % 0.0-0.9 [facility] Comment on above: IG% - Immature Granu locytes (promyelocytes, myelocytes and metamyelocytes) > 1% indicates that a LEFT SHIFT is Present. L503.7505on 08-04-2024 Natriuretic peptide B (Bld) [Mass/Vol] 826 pg/mL Normal <=900 [facility] Comment on above: Result Comment: Hear t Failure Unlikely: < 300 pg/mL Heart Failure Likely < 50 Years: > 450 pg/mL 50-75 Years: > 900 pg/mL >75 Years: > 1800 pg/mL Performed By: #### L 501.9520, L500.2500, L503.7505, L100.0100, L501.5200 #### [facility] [address] [place], [address] Laboratory - Chemistry and C hemistry - challengeOrdered By: Wei Barbour on 08-04-2024 Natriuretic peptide B (Bld) [Mass/Vol] 826 pg/mL <900 [facility] Comment on above: Heart Failure Unlike ly: < 300 pg/mLHeart Failure Likely< 50 Years: > 450 pg/mL50-75 Years: > 900 pg/mL>75 Years: > 1800 pg/mL Lymphocytes Auto (Unsp spec) [#/Vol]Ordered By: Wei Barbour on 08-04-2024 Lymphocytes (Bld) [#/Vol] 1.80 10*3/uL 0.83-4.51 [facility] Lymphocytes/100 WBC Auto (Un sp spec)Ordered By: Wei Barbour on 08-04-2024 Lymphocytes/100 WBC (Bld) 14.8 % Low 19-41 [facility] MCV (mean corpuscular volume ) determinationOrdered By: Wei Barbour on 08-04-2024 MCV (RBC) [Entitic vol] 91.4 fL 80-94 [facility] Magnesiumon 08-04-2024 Magnesium [Mass/Vol] 2.0 mg/dL Normal 1.5-2.2 [facility] Comment on above: Performed By: #### L 501.9520, L500.2500, L503.7505, L100.0100, L501.5200 #### [facility] [address] [place], [address] Magnesium (Unsp spec) [Mass/ Vol]Ordered By: Wei Barbour on 08-04-2024 Magnesium [Mass/Vol] 2.0 mg/dL 1.5-2.2 [facility] Magnesium measurement (mass/ volume)Ordered By: Wei Barbour on 08-04-2024 Magnesium (Unsp spec) [Mass/Vol] 2.0 mg/dL 1.5-2.2 [facility] Mean corpuscular hemoglobin (MCH) determinationOrdered By: Wei Barbour on 08-04-2024 MCH (RBC) [Entitic mass] 30.3 pg 27.0-32.0 [facility] Mean corpuscular hemoglobin concentration (MCHC) determinationOrdered By: Wei Barbour on 08-04-2024 MCHC (RBC) [Mass/Vol] 33.1 g/dL 32-36 [facility] Mean platelet volume determi nationOrdered By: Wei Barbour on 08-04-2024 Platelet mean volume (Bld) [Entitic vol] 10.4 fL 6.2-12.0 [facility] Monocyte percentageOrdered B y: Wei Barbour on 08-04-2024 Monocytes/100 WBC (Bld) 8.1 % 0-10 [facility] Neutrophil percentageOrdered By: Wei Barbour on 08-04-2024 Neutrophils/100 WBC (Bld) 75.4 % High 47-70 [facility] Nucleated red blood cell per centageOrdered By: Wei Barbour on 08-04-2024 Nucleated RBC/100 WBC (Bld) [Ratio] 0 % 0-5 [facility] Platelet countOrdered By: Ryanne Barbour on 08-04-2024 Platelets (Bld) [#/Vol] 205 10*3/uL 150-450 [facility] Potassium (Unsp spec) [Mass/ Vol]Ordered By: Wei Barbour on 08-04-2024 Potassium [Moles/Vol] 4.6 mmol/L 3.3-5.1 [facility] Comment on above: Hemolysis present, R esults could be affected. Potassium measurement (mass/ volume)Ordered By: Wei Barbour on 08-04-2024 Potassium (Unsp spec) [Mass/Vol] 4.6 mmol/L 3.3-5.1 [facility] Comment on above: Hemolysis present, R esults could be affected. RBC Auto (Bld) [#/Vol]Ordere d By: Wei Barbour on 08-04-2024 RBC (Bld) [#/Vol] 5.48 10*6/uL 4.6-6.2 [facility] Serum creatinine measurement (mass/volume)Ordered By: Wei Barbour on 08-04-2024 Creatinine [Mass/Vol] 1.24 mg/dL High 0.70-1.20 [facility] Serum glucose measurement (m ass/volume)Ordered By: Wei Barbour on 08-04-2024 Glucose [Mass/Vol] 143 mg/dL High 70-99 [facility] Serum or plasma calcium mauricio urement (mass/volume)Ordered By: Wei Barbour on 08-04-2024 Calcium [Mass/Vol] 9.3 mg/dL 7.6-11.0 [facility] Serum or plasma urea nitroge n measurement (mass/volume)Ordered By: Wei Barbour on 08-04-2024 Urea nitrogen [Mass/Vol] 21 mg/dL High 4-19 [facility] Sodium levelOrdered By: Wei Barbour on 08-04-2024 Sodium [Moles/Vol] 140 mmol/L 133-145 [facility] TSH DL <= 0.005 mIU/L QnOrde red By: Wei Barbour on 08-04-2024 Thyroid Stimulating Hormone (TSH) 2.290 uIU/mL 0.300-4.200 [facility] TSH Qn 2.290 uIU/mL 0.300-4.200 [facility] Thyroid Stim Hormone (TSH)on 08-04-2024 TSH 2.290 uIU/mL Normal 0.300-4.200 [facility] Comment on above: Performed By: #### L 501.9520, L500.2500, L503.7505, L100.0100, L501.5200 #### [facility] [address] [place] [address], [address] White blood cell (WBC) count Ordered By: Wei Barbour on 08-04-2024 WBC (Bld) [#/Vol] 12.2 10*3/uL High 4.4-11.0 [facility] BMP with eGFR DAILYon 2024 AGE 68 years Normal [facility] Comment on above: Performed By: #### 2 90431 #### [address] [address] Anion gap [Moles/Vol] 12 mmol/L Normal 10 - 20 [facility] Comment on above: Performed By: #### 2 40672 #### [address] [address] BMP with eGFR DAILY Normal [facility] Comment on above: Result Comment: BASI C METABOLIC PANEL Performed By: #### 2 02977 #### [facility],[address] [place] [address] Calcium [Mass/Vol] 8.4 mg/dL Low 8.5 - 10.1 [facility] Comment on above: Performed By: #### 2 75031 #### [facility],[address] [place] [address] 30222 Chloride [Moles/Vol] 98 mmol/L Normal 98 - 107 [facility] Comment on above: Performed By: #### 2 18017 #### [facility],[address] [place] [address]132 CO2 [Moles/Vol] 30.3 mmol/L Normal 21.0 - 32.0 [facility] Comment on above: Performed By: #### 2 41278 #### [facility],[address] [place] [address] Creatinine [Mass/Vol] 1.21 mg/dL Normal 0.70 - 1.30 [facility] Comment on above: Performed By: #### 2 56391 #### [facility],[address] [place] [address] 07483 eGFR 59 ML/MINUTE Low 60 - 999 [facility] Comment on above: Performed By: #### 2 96196 #### [address] [address] GFR/1.73 sq M.predicted among non-blacks MDRD (S/P/Bld) [Vol rate/Area] mL/min/{1.73_m2} Normal 60 - 999 [facility] Comment on above: Result Comment: ACCO RDING TO THE NATIONAL KIDNEY DISEASE EDUCATION PROGRAM(NKDE), A NORMAL eGFR IS A VALUE GREATER THAN OR EQUAL TO 60 ML/MIN/1.73 SQ METERS. CHRONIC KIDNEY DISEASE: <60mL/MIN/1.73 SQ METERS KIDNEY FAILURE: <15mL/MIN/1.73 SQ METERS THIS TEST SHOULD ONLY BE USED FOR PATIENTS 18 YEARS OF AGE AND OLDER. Performed By: #### 2 00881 #### [facility],[address] [place] [address]409 Glucose [Mass/Vol] 312 mg/dL High 74 - 106 [facility] Comment on above: Performed By: #### 2 40329 #### [facility],[address] [place] [address]336 Potassium [Moles/Vol] 4.1 mmol/L Normal 3.5 - 5.1 [facility] Comment on above: Performed By: #### 2 79241 #### [facility],[address] [place] [address] 27136 Sodium [Moles/Vol] 136 mmol/L Normal 136 - 145 [facility] Comment on above: Performed By: #### 2 04847 #### [facility],[address] [place] [address] 40639 Urea nitrogen [Mass/Vol] 40 mg/dL High 7 - 18 [facility] Comment on above: Performed By: #### 2 37586 #### [facility],[address] [place] [address] 25437 CBC + DIFF DAILYon 5 Baso # 0.03 x10EE3/UL Normal 0.00 - 0.10 [facility] Comment on above: Performed By: #### 2 53523 #### [facility],[address] [place] [address] 51236 Basophils/100 WBC (Bld) 0.2 % Normal 0.0 - 2.0 [facility] Comment on above: Performed By: #### 2 98047 #### [facility],[address] [place] [address] 81866 CBC + DIFF DAILY Normal [facility] Comment on above: Result Comment: CBC- COMPLETE BLOOD COUNT Performed By: #### 2 09165 #### [facility],[address] [place] [address] 00828 EO # 0.12 x10EE3/UL Normal 0.00 - 0.50 [facility] Comment on above: Performed By: #### 2 09600 #### [facility],[address] [place] [address]35 Eosinophils/100 WBC (Bld) 0.6 % Normal 0.0 - 7.0 [facility] Comment on above: Performed By: #### 2 46076 #### [facility],[address] [place] [address] 25503 Erythrocyte distribution width (RBC) [Ratio] 13.1 % Normal 12.0 - 15.6 [facility] Comment on above: Performed By: #### 2 02850 #### [facility],[address] [place] [address] Hematocrit (Bld) [Volume fraction] 41.9 % Normal 40.0 - 52.0 [facility] Comment on above: Performed By: #### 2 47318 #### [facility],[address] [place] [address] Hemoglobin (Bld) [Mass/Vol] 14.1 g/dL Normal 13.0 - 17.5 [facility] Comment on above: Performed By: #### 2 15448 #### [facility],[address] [place] [address] 73903 Lymph # 0.41 x10EE3/UL Low 0.80 - 2.80 [facility] Comment on above: Performed By: #### 2 30457 #### [facility],[address] [place] [address] 10400 Lymphocytes/100 WBC (Bld) 2.2 % Low 20.0 - 45.0 [facility] Comment on above: Performed By: #### 2 72433 #### [facility],[address] [place] [address]13 MANUAL DIFF N/A Normal [facility] Comment on above: Performed By: #### 2 66009 #### [facility],[address] [place] [address] 03785 MCH (RBC) [Entitic mass] 31 pg Normal 27 - 33 [facility] Comment on above: Performed By: #### 2 13489 #### [facility],[address] [place] [address] MCHC 34 X10 3 Normal 32 - 36 [facility] Comment on above: Performed By: #### 2 12904 #### [facility],[address] [place] [address] 88611 MCV (RBC) [Entitic vol] 93 fL Normal 81 - 98 [facility] Comment on above: Performed By: #### 2 30645 #### [facility],[address] [place] [address] [place] # 0.37 x10EE3/UL Normal 0.20 - 1.00 [facility] Comment on above: Performed By: #### 2 02297 #### [facility],[address] [place], [place] [id number] MONOS % 2.0 % Normal 0.0 - 10.0 [facility] Comment on above: Performed By: #### 2 29228 #### [facility],[address] [place], [place] [address] Morphology [place] (Bld) [Interp] N/A Normal [facility] Comment on above: Performed By: #### 2 29650 #### [facility],[address] [place] [address] Neut # 17.70 x10EE3/UL High 1.50 - 7.10 [facility] Comment on above: Performed By: #### 2 52933 #### [facility],[address] [place], [place] [address] Neutrophils/100 WBC (Bld) 95.0 % High 46.0 - 76.0 [facility] Comment on above: Performed By: #### 2 61192 #### [facility],[address] [place], [place] [id number] PLATELET 177 x10EE3/UL Normal 150 - 450 [facility] Comment on above: Performed By: #### 2 38447 #### [facility],[address] [place] [address]858 Platelet mean volume (Bld) [Entitic vol] 9.0 fL Normal 6.4 - 10.5 [facility] Comment on above: Result Comment: AUTO MATED DIFFERENTIAL Performed By: #### 2 49755 #### [facility],[address] [place] [address]641 RBC 4.52 x 10EE6/UL Normal 4.50 - 6.00 [facility] Comment on above: Performed By: #### 2 65399 #### [facility],[address] [place] [address]691 WBC 18.6 x 10EE3/UL High 4.5 - 10.8 [facility] Comment on above: Performed By: #### 2 79515 #### [facility],[address] [place] [address]005 BMP with eGFR DAILYon 2024 AGE 68 years Normal [facility] Comment on above: Performed By: #### 2 92263 #### [facility],[address] [place] [address] 86067 Anion gap [Moles/Vol] 9 mmol/L Low 10 - 20 [facility] Comment on above: Performed By: #### 2 94164 #### [facility],[address] [place] [address] 10827 BMP with eGFR DAILY Normal [facility] Comment on above: Result Comment: BASI C METABOLIC PANEL Performed By: #### 2 79833 #### [facility],[address] [place] [address] 28532 Calcium [Mass/Vol] 9.2 mg/dL Normal 8.5 - 10.1 [facility] Comment on above: Performed By: #### 2 28493 #### [facility],[address] [place] [address] 81898 Chloride [Moles/Vol] 100 mmol/L Normal 98 - 107 [facility] Comment on above: Performed By: #### 2 81409 #### [facility],[address] [place] [address] 76601 CO2 [Moles/Vol] 31.0 mmol/L Normal 21.0 - 32.0 [facility] Comment on above: Performed By: #### 2 43001 #### [facility],[address] [place] [address] 88398 Creatinine [Mass/Vol] 1.31 mg/dL High 0.70 - 1.30 [facility] Comment on above: Performed By: #### 2 00095 #### [facility],[address] [place] [address] 21530 eGFR 54 ML/MINUTE Low 60 - 999 [facility] Comment on above: Performed By: #### 2 36182 #### [address] [address] GFR/1.73 sq M.predicted among non-blacks MDRD (S/P/Bld) [Vol rate/Area] mL/min/{1.73_m2} Normal 60 - 999 [facility] Comment on above: Result Comment: ACCO RDING TO THE NATIONAL KIDNEY DISEASE EDUCATION PROGRAM(NKDE), A NORMAL eGFR IS A VALUE GREATER THAN OR EQUAL TO 60 ML/MIN/1.73 SQ METERS. CHRONIC KIDNEY DISEASE: <60mL/MIN/1.73 SQ METERS KIDNEY FAILURE: <15mL/MIN/1.73 SQ METERS THIS TEST SHOULD ONLY BE USED FOR PATIENTS 18 YEARS OF AGE AND OLDER. Performed By: #### 2 64858 #### [facility],[address] [place] [address]59 Glucose [Mass/Vol] 387 mg/dL High 74 - 106 [facility] Comment on above: Performed By: #### 2 67803 #### [facility],[address] [place] [address]151 Potassium [Moles/Vol] 4.2 mmol/L Normal 3.5 - 5.1 [facility] Comment on above: Performed By: #### 2 63544 #### [facility],[address] [place] [address] 22270 Sodium [Moles/Vol] 136 mmol/L Normal 136 - 145 [facility] Comment on above: Performed By: #### 2 58291 #### [facility],[address] [place] [address] 45472 Urea nitrogen [Mass/Vol] 37 mg/dL High 7 - 18 [facility] Comment on above: Performed By: #### 2 20825 #### [facility],[address] [place] [address]345 CBC + DIFF DAILYon 5 BANDS 3 % Normal 0 - 5 [facility] Comment on above: Performed By: #### 2 29691 #### [facility],[address] [place] [address] 33886 Baso # 0.04 x10EE3/UL Normal 0.00 - 0.10 [facility] Comment on above: Performed By: #### 2 81751 #### [facility],[address] [place] [address] 44370 Basophils/100 WBC (Bld) 0.2 % Normal 0.0 - 2.0 [facility] Comment on above: Performed By: #### 2 61236 #### [facility],[address] [place] [address] 48308 CBC + DIFF DAILY Normal [facility] Comment on above: Result Comment: CBC- COMPLETE BLOOD COUNT Performed By: #### 2 21884 #### [facility],[address] [place] [address] 38325 EO # 0.13 x10EE3/UL Normal 0.00 - 0.50 [facility] Comment on above: Performed By: #### 2 87917 #### [facility],[address] [place] [address] 12141 Eosinophils/100 WBC (Bld) 0.5 % Normal 0.0 - 7.0 [facility] Comment on above: Performed By: #### 2 84572 #### [facility],[address] [place] [address] Erythrocyte distribution width (RBC) [Ratio] 13.3 % Normal 12.0 - 15.6 [facility] Comment on above: Performed By: #### 2 87329 #### [facility],[address] [place] [address] Hematocrit (Bld) [Volume fraction] 40.8 % Normal 40.0 - 52.0 [facility] Comment on above: Performed By: #### 2 98744 #### [facility],[address] [place] [address] Hemoglobin (Bld) [Mass/Vol] 14.1 g/dL Normal 13.0 - 17.5 [facility] Comment on above: Performed By: #### 2 05044 #### [place] [address] Lymph # 0.56 x10EE3/UL Low 0.80 - 2.80 [facility] Comment on above: Performed By: #### 2 20517 #### [facility],[address] [place] [address] Lymphocytes/100 WBC (Bld) 2.2 % Low 20.0 - 45.0 [facility] Comment on above: Performed By: #### 2 25287 #### [facility],[address] [place] [address] Lymphocytes/100 WBC (Bld) 3 % Low 20 - 45 [facility] Comment on above: Performed By: #### 2 90889 #### [place] [address] MANUAL DIFF SEE BELOW Normal [facility] Comment on above: Performed By: #### 2 40854 #### [place] [address] MCH (RBC) [Entitic mass] 32 pg Normal 27 - 33 [facility] Comment on above: Performed By: #### 2 61642 #### [facility],[address] [place] [address] MCHC 35 X10 3 Normal 32 - 36 [facility] Comment on above: Performed By: #### 2 33322 #### [facility],[address] [place] [address] MCV (RBC) [Entitic vol] 93 fL Normal 81 - 98 [facility] Comment on above: Performed By: #### 2 26342 #### [facility],[address] [place] [address] [place] # 0.72 x10EE3/UL Normal 0.20 - 1.00 [facility] Comment on above: Performed By: #### 2 50378 #### [facility],[address] [place] [address] MONOS 1 % Normal 0 - 10 [facility] Comment on above: Performed By: #### 2 70246 #### [facility],[address] [place] [address] MONOS % 2.8 % Normal 0.0 - 10.0 [facility] Comment on above: Performed By: #### 2 79871 #### [facility],[address] [place] [address] Morphology [place] (Bld) [Interp] REVIEWED Normal [facility] Comment on above: Performed By: #### 2 85764 #### [facility],[address] [place] [address] Neut # 24.32 x10EE3/UL High 1.50 - 7.10 [facility] Comment on above: Performed By: #### 2 55076 #### [facility],[address] [place] [address] Neutrophils/100 WBC (Bld) 94.4 % High 46.0 - 76.0 [facility] Comment on above: Performed By: #### 2 74188 #### [facility],[address] [place] [address] 82700 PLATELET 160 x10EE3/UL Normal 150 - 450 [facility] Comment on above: Performed By: #### 2 07590 #### [facility],[address] [place] [address] 59132 Platelet mean volume (Bld) [Entitic vol] 9.2 fL Normal 6.4 - 10.5 [facility] Comment on above: Result Comment: AUTO MATED DIFFERENTIAL Performed By: #### 2 02386 #### [facility],[address] [place] [address] 40659 RBC 4.37 x 10EE6/UL Low 4.50 - 6.00 [facility] Comment on above: Performed By: #### 2 55572 #### [facility],[address] [place] [address] 16785 SEGS 93 % High 46 - 76 [facility] Comment on above: Performed By: #### 2 49327 #### [facility],[address] [place] [address] 83787 WBC 25.8 x 10EE3/UL High 4.5 - 10.8 [facility] Comment on above: Performed By: #### 2 45035 #### [facility],[address] [place] [address] 08582 CHEST 2 VIEWSon 07-29-2024 CHEST 2 VIEWS [place] [address] Patient: HEIDI JASSO Phone#: : 1955 Age: 68 Gender: M Pt. Type: Out Account: [id number] Location: [facility] Ordering: DR. ZAFAR NGO Exam Date: 07/29/2024/10:13 Family Phys: SOFI GARZA Charge Code: 777795 Physician: Zavala Order #: [id number] Dose#: PROCEDURE: X-RAY CHEST 2 VIEWS COMPARISON: [facility], XR, CHEST 1 VIEW, 07/27/2024, 2:52. INDICATIONS: Cough. FINDINGS: LUNGS: Lungs are mildly hyperinflated. No significant pulmonary parenchymal abnormalities. VASCULATURE: Normal. Unremarkable pulmonary vasculature. CARDIAC: Normal. No cardiac silhouette abnormality or cardiomegaly. MEDIASTINUM: Normal. No visible mass or adenopathy. PLEURA: Normal. No effusion or pleural thickening. BONES: Normal. No fracture or visible bony lesion. OTHER: Negative. CONCLUSION: No acute disease. There has been resolution previously described right infiltrate. Dictated by: Kathy Cruz MD on 07/29/2024 at 10:32 Approved by: Kathy Cruz MD on 07/29/2024 at 10:51 Normal [facility] BMP with eGFR DAILYon 2024 AGE 68 years Normal [facility] Comment on above: Performed By: #### 2 79146 #### [facility],[address] [place] [address] Anion gap [Moles/Vol] 11 mmol/L Normal 10 - 20 [facility] Comment on above: Performed By: #### 2 84738 #### [facility],[address] [place] [address] BMP with eGFR DAILY Normal [facility] Comment on above: Result Comment: BASI C METABOLIC PANEL Performed By: #### 2 03418 #### [facility],[address] [place] [address] 62511 Calcium [Mass/Vol] 8.7 mg/dL Normal 8.5 - 10.1 [facility] Comment on above: Performed By: #### 2 02718 #### [facility],[address] [place] [address] 15000 Chloride [Moles/Vol] 98 mmol/L Normal 98 - 107 [facility] Comment on above: Performed By: #### 2 60190 #### [facility],[address] [place], [place] [address] CO2 [Moles/Vol] 31.5 mmol/L Normal 21.0 - 32.0 [facility] Comment on above: Performed By: #### 2 03369 #### [facility],[address] [place] [address] 50816 Creatinine [Mass/Vol] 1.29 mg/dL Normal 0.70 - 1.30 [facility] Comment on above: Performed By: #### 2 34514 #### [facility],[address] [place] [address] 45084 eGFR 55 ML/MINUTE Low 60 - 999 [facility] Comment on above: Performed By: #### 2 08896 #### [facility],[address] [place] [address] 34876 GFR/1.73 sq M.predicted among non-blacks MDRD (S/P/Bld) [Vol rate/Area] mL/min/{1.73_m2} Normal 60 - 999 [facility] Comment on above: Result Comment: ACCO RDING TO THE NATIONAL KIDNEY DISEASE EDUCATION PROGRAM(NKDE), A NORMAL eGFR IS A VALUE GREATER THAN OR EQUAL TO 60 ML/MIN/1.73 SQ METERS. CHRONIC KIDNEY DISEASE: <60mL/MIN/1.73 SQ METERS KIDNEY FAILURE: <15mL/MIN/1.73 SQ METERS THIS TEST SHOULD ONLY BE USED FOR PATIENTS 18 YEARS OF AGE AND OLDER. Performed By: #### 2 15202 #### [facility],[address] [place] [address] 50917 Glucose [Mass/Vol] 304 mg/dL High 74 - 106 [facility] Comment on above: Performed By: #### 2 28365 #### [facility],[address] [place] [address] 99281 Potassium [Moles/Vol] 3.9 mmol/L Normal 3.5 - 5.1 [facility] Comment on above: Performed By: #### 2 [id number] #### [facility],[address] [place] [address] 59881 Sodium [Moles/Vol] 137 mmol/L Normal 136 - 145 [facility] Comment on above: Performed By: #### 2 [id number] #### [facility],[address] [place] [address] 24958 Urea nitrogen [Mass/Vol] 27 mg/dL High 7 - 18 [facility] Comment on above: Performed By: #### 2 50181 #### [facility],[address] [place] [address] 00318 CBC + DIFF DAILYon 5 Baso # 0.06 x10EE3/UL Normal 0.00 - 0.10 [facility] Comment on above: Performed By: #### 2 51782 #### [facility],[address] [place] [address] 32511 Basophils/100 WBC (Bld) 0.2 % Normal 0.0 - 2.0 [facility] Comment on above: Performed By: #### 2 40057 #### [facility],[address] [place] [address] 69401 CBC + DIFF DAILY Normal [facility] Comment on above: Result Comment: CBC- COMPLETE BLOOD COUNT Performed By: #### 2 14774 #### [facility],[address] [place] [address] 79966 CELL COUNT 100 Normal [facility] Comment on above: Performed By: #### 2 28067 #### [facility],[address] [place] [address] 71170 EO # 0.12 x10EE3/UL Normal 0.00 - 0.50 [facility] Comment on above: Performed By: #### 2 68495 #### [facility],[address] [place] [address] 26491 Eosinophils/100 WBC (Bld) 0.4 % Normal 0.0 - 7.0 [facility] Comment on above: Performed By: #### 2 29375 #### [facility],[address] [place] [address] 78936 Erythrocyte distribution width (RBC) [Ratio] 13.5 % Normal 12.0 - 15.6 [facility] Comment on above: Performed By: #### 2 06540 #### [facility],[address] [place] [address] 67547 Hematocrit (Bld) [Volume fraction] 43.0 % Normal 40.0 - 52.0 [facility] Comment on above: Performed By: #### 2 72750 #### [facility],[address] [place] [address] 56542 Hemoglobin (Bld) [Mass/Vol] 14.4 g/dL Normal 13.0 - 17.5 [facility] Comment on above: Performed By: #### 2 84182 #### [facility],[address] [place] [address] Lymph # 0.63 x10EE3/UL Low 0.80 - 2.80 [facility] Comment on above: Performed By: #### 2 52002 #### [facility],[address] [place] [address] 95965 Lymphocytes/100 WBC (Bld) 2.2 % Low 20.0 - 45.0 [facility] Comment on above: Performed By: #### 2 58887 #### [facility],[address] [place] [address] 28210 Lymphocytes/100 WBC (Bld) 4 % Low 20 - 45 [facility] Comment on above: Performed By: #### 2 16945 #### [facility],[address] [place] [address] 76617 MANUAL DIFF SEE BELOW Normal [facility] Comment on above: Performed By: #### 2 69728 #### [facility],[address] [place] [address] 51519 MCH (RBC) [Entitic mass] 31 pg Normal 27 - 33 [facility] Comment on above: Performed By: #### 2 56752 #### [facility],[address] [place] [address] 46992 MCHC 34 X10 3 Normal 32 - 36 [facility] Comment on above: Performed By: #### 2 31257 #### [facility],[address] [place] [address] 80222 MCV (RBC) [Entitic vol] 93 fL Normal 81 - 98 [facility] Comment on above: Performed By: #### 2 30236 #### [facility],[address] [place] [address] [place] # 0.48 x10EE3/UL Normal 0.20 - 1.00 [facility] Comment on above: Performed By: #### 2 63273 #### [facility],[address] [place] [address] MONOS 4 % Normal 0 - 10 [facility] Comment on above: Performed By: #### 2 83924 #### [facility],[address] [place] [address] 43537 MONOS % 1.6 % Normal 0.0 - 10.0 [facility] Comment on above: Performed By: #### 2 37749 #### [facility],[address] [place], [place] [id number] Morphology [place] (Bld) [Interp] REVIEWED Normal [facility] Comment on above: Performed By: #### 2 93642 #### [facility],[address] [place] [address] 18503 Neut # 27.72 x10EE3/UL High 1.50 - 7.10 [facility] Comment on above: Performed By: #### 2 77171 #### [facility],[address] [place] [address] 77016 Neutrophils/100 WBC (Bld) 95.6 % High 46.0 - 76.0 [facility] Comment on above: Performed By: #### 2 87965 #### [facility],[address] [place] [address] 66041 PLATELET 161 x10EE3/UL Normal 150 - 450 [facility] Comment on above: Performed By: #### 2 74914 #### [facility],[address] [place] [address] 59615 Platelet mean volume (Bld) [Entitic vol] 8.7 fL Normal 6.4 - 10.5 [facility] Comment on above: Result Comment: AUTO MATED DIFFERENTIAL Performed By: #### 2 85873 #### [facility],[address] [place] [address] 70004 RBC 4.62 x 10EE6/UL Normal 4.50 - 6.00 [facility] Comment on above: Performed By: #### 2 89733 #### [facility],[address] [place] [address] 81937 SEGS 92 % High 46 - 76 [facility] Comment on above: Performed By: #### 2 19364 #### [facility],[address] [place] [address] 98516 WBC 29.0 x 10EE3/UL High 4.5 - 10.8 [facility] Comment on above: Performed By: #### 2 02029 #### [facility],[address] [place] [address] 28676 ED MED ADMINISTRATION DETAIL on 07-28-2024 ED MED ADMINISTRATION DETAIL Drama Critic Medication Administration Record [address] [address] [id number] 07/27/2024 Patient: HEIDI JASSO Sex: Male : 1955 Age: 68y MEASUREMENTS: Wt: 105.2 kg, Ht/Nikhil: 70.0 in, BMI: 33.29 ALLERGIES: Keflex Medication Ordered Medication Administration Date/Time Albuterol-Ipratropiu 02:49 07/27 Albuterol-Ipratropium (DuoNeb) 3mg/0.5mg Neb Tx 3 Given m (DuoNeb) mL given. Given by the respiratory therapist. Allergies verified and 02:49 07/27/2024 3mg/0.5mg Neb Tx confirmed 5 rights. Information reviewed with patient including Colt Culver 3 mL (NOW x1) reason for taking this medication and signs of allergic reaction. Scanned Verbalizes understanding. - 02:55 Colt Culver MethylPREDNISolo 03:01 07/27 MethylPREDNISolone Sodium Succ (Solu-Medrol) IVP Given ne Sodium Succ 125 mg given via Site# 1. Allergies verified and confirmed 5 rights. 03:01 07/27/2024 (Solu-Medrol) IVP IV patency established. IV site checked: no pain, redness, or Lyle Marshall, R.N. 125 mg (NOW x1) swelling. IV flushed thoroughly pre-medication administration. Not Scanned Information reviewed with patient including reason for taking this medication. Verbalizes understanding. - 03:01 Lyle Marshall, R.N. 1 of 2 Drama Critic Medication Ordered Medication Administration Date/Time Azithromycin 02:58 07/27 Azithromycin (Zithromax) IVPB 500 mg started at 250 Started (Zithromax) IVPB mL/hr diluted in dextrose 5 % in water IVPB 250 mL and VIAL 02:58 07/27/2024 500 mg diluted in MATE 1 ea via Site# 1. Allergies verified and confirmed 5 rights. Via Lyle Marshall, R.N. dextrose 5 % in IV pump. IV patency established. IV site checked: no pain, redness, Stopped water IVPB 250 mL, or swelling. IV flushed thoroughly pre-medication administration. 04:05 07/27/2024 VIAL MATE 1 ea at Information reviewed with patient including reason for taking this Lyle Marshall, R.N. 250 mL/hr (NOW x1) medication. Verbalizes understanding. - 02:59 Lyle Marshall, R.N. Scanned 04:05 07/27 Medication Discontinued: IV completed. Total amount infused: 250 mL. IV patency established. IV site checked: no pain, redness, or swelling. IV flushed thoroughly post-medication administration. - 06:18 Lyle Marshall, R.N. Albuterol 0.083% - 02:50 07/27 Albuterol 0.083% - 2.5mg Neb Tx 2.5 mg given. Given Given 2.5mg Neb Tx 2.5 by the respiratory therapist. Allergies verified and confirmed 5 02:50 07/27/2024 mg (NOW x1) rights. Information reviewed with patient including reason for taking Colt Culver this medication and signs of allergic reaction. Verbalizes Scanned understanding. - 02:55 Colt Culver 2 of 2 Normal [facility] ED NURSES CLINICAL NOTEon ED NURSES CLINICAL NOTE Nurse Narrative Nurse Clinical Narrative [place] [id number] [facility] [place] [address] [id number] 07/27/2024 Patient: HEIDI JASSO Sex: Male : 1955 Age: 68y Primary Insurance: [employer] DUAL OUTPATIENT Policy Number: [id number] Group Number: [id number] Subscriber: Other Secondary Insurance: MEDICAID OUTPATIENT Policy Number: [id number] Subscriber: Other Disposition: Admit to [facility] Disposition Decision Time: 08:19 07/27/2024 Departure Time: 09:23 07/27/2024 TRIAGE Arrived by EMS. Primary physician (Kayla). Triage time: 02:39 07/27/2024. Acuity: LEVEL 3. Chief Complaint: SHORTNESS OF BREATH, DIFFICULTY BREATHING, ASTHMA ATTACK and WHEEZING. This started last night. ( Pt having asthma attack started at 2300 last night. Brought in by EMS for SOB. Wears O2 at 3L. Pt stated he took a water pill and having frequent urination). The patient has had wheezing. SEPSIS SCREEN: NEGATIVE. SIRS criteria negative: heart rate greater than 90. No possible sources of infection. -- 03:00 07/27/24 GANESH Zhang R.N. 02:54 07/27/24. BP: 172/90 taken on right arm, while lying. MAP: 117. HR: 117. Regular and tachycardic. RR: 25. Labored and shallow. O2 saturation: 95% on room air at 3 liters/minute. Temperature: 100.1 F. Pain level now 0/10. -- 02:55 07/27/24 GANESH Zhang R.N. Measurements: 02:56 07/27/24 Wt: 105.2 kg, Ht/Nikhil: 70.0 in, BMI: 33.29 -- 02:56 07/27/24 GANESH Zhang R.N. 1 of 5 Nurse Narrative Medications: losartan 50 mg tablet -- 03:03 07/27/24 GANESH Zhang R.N. carvedilol 6.25 mg tablet -- 03:03 07/27/24 GANESH Zhang R.N. omeprazole 20 mg capsule,delayed release -- 03:03 07/27/24 GANESH Zhang R.N. furosemide 20 mg tablet -- 03:03 07/27/24 GANESH Zhang R.N. albuterol sulfate HFA 90 mcg/actuation aerosol inhaler -- 03:03 07/27/24 GANESH Zhang R.N. atorvastatin 40 mg tablet -- 03:03 07/27/24 GANESH Zhang R.N. prednisone 10 mg tablet -- 03:03 07/27/24 GANESH Zhang R.N. roflumilast 250 mcg tablet -- 03:03 07/27/24 GANESH Zhang R.N. Trelegy Ellipta 100 mcg-62.5 mcg-25 mcg powder for inhalation -- 03:03 07/27/24 GANESH Zhang R.N. 02:39 07/27/24. Preferred Pharmacy: [facility]. -- 03:00 07/27/24 GANESH Zhang R.N. Allergies: Keflex -- 02:52 07/27/24 GANESH Zahng R.N. Problems: Asthma -- 02:53 07/27/24 GANESH Zhang R.N. COPD - Chronic Obstructive Pulmonary Disease -- 02:53 07/27/24 GANESH Zhang R.N. Hypertension -- 02:53 07/27/24 GANESH Zhang R.N. Emphysema -- 02:54 07/27/24 GANESH Zhang R.N. ADDITIONAL SURGERIES: right knee -- 02:53 07/27/24 GANESH Zhang R.N. open heart: Performed 1999 -- 02:53 07/27/24 GANESH Zhang R.N. stents: Performed 2017 -- 02:54 07/27/24 GANESH Zhang R.N. History 02:39 07/27/24. SOCIAL HX: Former smoker. No alcohol use or drug use. The patient has not traveled outside the [place] Infectious disease exposure: No infectious disease exposure. 2 of 5 Nurse Narrative ABUSE ASSESSMENT: The patient answered yes to the question(s) Do you feel safe in your home? and no to the question(s) Are you afraid to go home?. SELF HARM ASSESSMENT: Self harm assessment was performed. The patient answered no to the question(s) Have you recently felt down, depressed, or hopeless? and Do you have thoughts of harming or killing yourself?. FALL RISK ASSESSMENT: Fall risk assessment completed. No risk factors identified. -- 03:00 07/27/24 GANESH Zhang R.N. Interventions 02:39 07/27/24. Identification band on patient. Advanced care plan discussed with patient. Patient does not have advanced directive. -- 03:00 07/27/24 GANESH Zhang R.N. PHYSICAL ASSESSMENT 03:15 07/27/24. To room via stretcher. ( copd exacerbation, no difficulty breathing last night, woke up with sob, difficulty breathing. Upper airways sound tight, slight wheezing. states he waits to take his lasix till it is too late.). GENERAL / NEURO / PSYCH: Alert. Oriented X 4. Appears in distress. RESPIRATORY: No respiratory distress. The patient can speak a few words at a time. -- 03:15 07/27/24 GANESH Olivares R.N. NURSING PROGRESS NOTES 02:49 07/27/24. Albuterol-Ipratropium (DuoNeb) 3mg/0.5mg Neb Tx 3 mL given. Given by the respiratory therapist. Allergies verified and confirmed 5 rights. Information reviewed with patient including reason for taking this medication and signs of allergic reaction. Verbalizes understanding. -- 02:55 07/27/24 GANESH Culver 02:50 07/27/24. Albuterol 0.083% - 2.5mg Neb Tx 2.5 mg given. Given by the respiratory therapist. Allergies verified and confirmed 5 rights. Information reviewed with patient including reason for taking this medication and signs of allergic reaction. Verbalizes understanding. -- 02:55 07/27/24 GANESH Culver 02: (more content not included)... Normal [facility] ED ORDER SHEET (CPOE ONLY)on 07-28-2024 ED ORDER SHEET (CPOE ONLY) Order Sheet Order Sheet [facility] [address] [place] [address] [id number] 07/27/2024 Patient: HEIDI JASSO Sex: Male : 1955 Age: 68y MEASUREMENTS: Wt: 105.2 kg, Ht/Nikhil: 70.0 in, BMI: 33.29 ALLERGIES: Keflex MEDICATION/IV/DRIP/FL UID ORDERS Order Description Priority Entered Acknowledged Completed Albuterol-Ipratropium (DuoNeb) 02:43 07/27/2024 02:44 02:55 3mg/0.5mg Neb Tx3 mL (NOW Kalia Sierra D.O. 07/27/2024 07/27/2024 x1) Blaise Mcgee MethylPREDNISolone Sodium 02:43 07/27/2024 02:44 03:01 Succ (Solu-Medrol) [id number] mg Kalia Sierra D.O. 07/27/2024 07/27/2024 (NOW x1) Blaise Mcgee R.N. Azithromycin (Zithromax) 02:43 07/27/2024 02:44 02:59 [id number] mg diluted in dextrose 5 Kalia Sierra D.O. 07/27/2024 07/27/2024 % in water IVPB 250 mL, VIAL Blaise Mcgee R.N. MATE 1 ea at 250 mL/hr (NOW x1) Albuterol 0.083% - 2.5mg Neb 02:43 07/27/2024 02:44 02:55 Tx2.5 mg (NOW x1) Kalia Sierra D.O. 07/27/2024 07/27/2024 Blaise Mcgee LAB ORDERS Order Description Priority Entered Acknowledged Collected Completed 1 of 4 Order Sheet EKG - ED Stat Stat 02:43 07/27/2024 02:44 07/27/2024 Cesar Ngo, R.N. CBC w Diff Stat Stat 02:43 07/27/2024 02:44 07/27/2024 Cesar Ngo, R.N. CMP Stat Stat 02:43 07/27/2024 02:44 07/27/2024 Cesar Ngo, R.N. Troponin-I Protocol Stat 02:43 07/27/2024 02:44 07/27/2024 (STAT 1hr) (Sched: q1h Cesar Ngo, R.N. X2); Stat 1 of 2 Troponin-I Protocol Stat 02:43 07/27/2024 04:01 07/27/2024 (STAT 1hr) (Sched: q1h Cesar Ngo, R.N. X2); Stat 2 of 2 BNP Stat Stat 02:44 07/27/2024 02:49 07/27/2024 Cesar Ngo, R.N. Flu Swab (Influenzae Stat 02:44 07/27/2024 02:51 07/27/2024 02:51 07/27/2024 AAg) Stat Cesar Ngo, Blaise Olivares, R.N. Rapid COVID (SARS) Stat 02:44 07/27/2024 02:50 07/27/2024 02:51 07/27/2024 ANTIGEN TEST Stat Cesar Ngo, Blaise Olivares, R.N. Lactate, Serum Stat Stat 02:44 07/27/2024 02:51 07/27/2024 02:51 07/27/2024 Cesar Ngo, Blaise Olivares, R.N. D-Dimer Stat Stat 03:02 07/27/2024 03:06 07/27/2024 03:06 07/27/2024 Kalia Didur, Blaise Guadarrama RReyesNReyes 2 of 4 Order Sheet Urinalysis Stat Stat 03:57 07/27/2024 04:01 07/27/2024 04:33 07/27/2024 Cesar Ngo R.N. Cortanaly Juan Manuel PT with INR Stat Stat 04:48 07/27/2024 04:48 07/27/2024 04:49 07/27/2024 Cesar Ngo, Blaise Olivares, R.N. PTT Stat Stat 04:48 07/27/2024 04:49 07/27/2024 04:49 07/27/2024 Cesar Ngo, Blaise Olivares, R.N. EKG - ED Stat Stat 04:58 07/27/2024 05:04 07/27/2024 05:16 07/27/2024 Kalia Sierra D.O. Cortannabellee Juan Manuel Cortnee Juan Manuel Troponin-I Stat Stat 05:28 07/27/2024 05:32 07/27/2024 05:33 07/27/2024 Cesar Ngo, Blaise Olivares, R.NReyes DIAGNOSTIC STUDY ORDERS Order Description Priority Entered Acknowledged Completed Chest 1V Stat Stat 02:43 07/27/2024 02:44 03:08 Kalia Sierra D.O. 07/27/2024 07/27/2024 Blaise Mcgee, R.NReyes Reason for Study: COPD CT Chest PE Study Stat Stat 04:47 07/27/2024 04:49 06:18 Kalia Sierra D.O. 07/27/2024 07/27/2024 Blaise Mcgee, R.NReyes Reason for Study: Chest Pain CV Echo w Doppler Stat Stat 07:51 07/27/2024 08:24 Kalia Sierra D.O. 07/27/2024 Jeff Deloen R.N. 3 of 4 Order Sheet Order Comments: 07:51 07/27/2024: (Elevated troponin) Kalia Sierra D.O. Reason for Study: SOB STAFF ORDERS Order Description Priority Entered Acknowledged Collected Completed Toll Service Observer 02:43 07/27/2024 02:44 07/27/2024 Cesar Ngo R.N. Pulse Oximeter 02:43 07/27/2024 02:44 07/27/2024 Cesar Ngo R.N. IV Saline Lock 02:43 07/27/2024 02:44 07/27/2024 Cesar Ngo R.N. Aerosol Rx ER X1 02:43 07/27/2024 02:44 07/27/2024 Cesar Ngo R.N. Oxygen to keep sat 02:43 07/27/2024 02:44 07/27/2024 >90% Cesar Ngo R.N. Vital Signs every 30 02:43 07/27/2024 02:44 07/27/2024 minutes Cesar Ngo R.N. [Electronically signed by Kalia Sierra D.O. (07/28/2024 11:18 EST)] 4 of 4 Normal [facility] ED PHYSICIAN CLINICAL REPORT on 07-28-2024 ED PHYSICIAN CLINICAL REPORT Narrative Physician Clinical [address] [address] [id number] 07/27/2024 Patient: HEIDI JASSO Sex: Male : 1955 Age: 68y Primary Insurance: [employer] DUAL OUTPATIENT Policy Number: [id number] Group Number: [id number] Subscriber: Other Secondary Insurance: MEDICAID OUTPATIENT Policy Number: [id number] Subscriber: Other Disposition: Admit to [facility] Disposition Decision Time: 08:19 07/27/2024 Departure Time: 09:23 07/27/2024 Measurements Wt: 105.2 kg, Ht/Nikhil: 70.0 in, BMI: 33.29 Initial Vital Sign Measured Time BP MAP HR RR O2Sat ETCO2 Temp Pain GCS RTS 02:51 07/27/2024 116 95% Time Seen: 02:25 07/27/2024. Arrived- By ambulance. Historian- patient. Independent historian- EMS personnel. HISTORY OF PRESENT ILLNESS Chief Complaint: DYSPNEA and HISTORY OF CHRONIC OBSTRUCTIVE PULMONARY DISEASE. This started yesterday and is still present (worse). The dyspnea is described as moderate. The patient has had a cough, wheezing and dyspnea on exertion. No sputum production, fever, sweating episodes or chest pain or discomfort. No calf pain, foot swelling, dizziness or palpitations. Similar symptoms previously. Patient has had similar symptoms several times. Recent medical care: Not recently seen/assessed. 1 of 20 Narrative REVIEW OF SYSTEMS SKIN: No skin rash. : No difficulty with urination or excessive urination. GI: No nausea, vomiting, abdominal pain, diarrhea or black stools. NOSE: No nasal discharge or sinus drainage. THROAT: No sore throat. EYES: No eye irritation or blurred vision. CONSTITUTIONAL: The patient has not had weight loss. No muscle aches. ENDO/HEME/LYMPH: No enlarged lymph nodes. NEUROLOGICAL: No headache or fainting episodes. PAST HISTORY See nurses notes. Asthma COPD - Chronic Obstructive Pulmonary Disease Emphysema Hypertension Surgeries: open heart: [2000] right knee stents: [2017] Medications: albuterol sulfate HFA 90 mcg/actuation aerosol inhaler atorvastatin 40 mg tablet carvedilol 6.25 mg tablet furosemide 20 mg tablet losartan 50 mg tablet omeprazole 20 mg capsule,delayed release prednisone 10 mg tablet roflumilast 250 mcg tablet Trelegy Ellipta 100 mcg-62.5 mcg-25 mcg powder for inhalation Allergies: Keflex SOCIAL HISTORY Former smoker. No alcohol use or drug use. 2 of 20 Narrative ADDITIONAL NOTES The nursing notes have been reviewed. PHYSICAL EXAM Appearance: Alert. Patient in mild distress. Eyes: Pupils equal, round and reactive to light. ENT: Dry mucous membranes present. Pharynx normal. Uvula midline. Neck: Normal inspection. No jugular venous distention. Neck supple. CVS: Normal heart rate and rhythm. Heart sounds normal. Pulses normal. Respiratory: Moderate respiratory distress with tachypnea. Speaks short phrases. Mild accessory muscle use. Decreased air movement diffusely over both lungs. Bilateral wheezes diffusely. Abdomen: Soft and nontender. No organomegaly. Back: Normal inspection. Skin: Skin warm and dry. No rash. Extremities: Extremities exhibit normal ROM. No lower extremity edema. Neuro: Oriented X 3. No motor deficit. No sensory deficit. LABS, X-RAYS, AND EKG 12-LEAD EKG: EKG time: 02:38 07/27/2024. Narrow-complex tachycardia (119 ventricular rate). Sinus tachycardia. Occasional ectopic beats. Premature ventricular contractions. Normal P waves. Normal ST and T waves. The study has been interpreted contemporaneously by me. The EKG appears to be a good tracing. Interpretation time: 02:39 07/27/2024. Chest X-ray: Infiltrate in the right lower lobe. Consistent with pneumonia. Moderate vascular congestion present on the right. Views: PA. Technique: good. The X-rays were independently viewed by me. Interpretation time: 03:07 07/27/2024. Chest CT: Infiltrate in the right upper lobe and right lower lobe. Consistent with pneumonia. (CT chest negative for pulmonary embolism. Pneumonia in the right upper and right lower lobes with small right pleural effusion. Follow up after treatment is recommended particularly to evaluate the nodular area of consolidation in the right upper lobe measuring 1.8 x 1.6 cm.). No pulmonary embolism. The study was interpreted by the radiologist. Laboratory Tests: CBC + DIFF Final Narrative MICHEAL: 07/27/2024 03:00:00 EST MsgRcvd: 07/27/2024 03:31 EST Lab Test Result Reference Status Received Comments 07/27/2024 03:31 CBC-COMPLETE CBC + DIFF Final EST BLOOD COUNT 23.2 x 10/UL 07/27/2024 03:31 WBC 4.5 - 10.8 Final Above high normal EST 07/27/2024 03:31 RBC 5.35 x 10/UL 4.50 - 6.00 Final EST 07/27/2024 03:31 HEMOGLOBIN 16.4 g/dl 13.0 - 17.5 Final EST 07/27/2024 03:31 HEMATOCRIT 49.7 % 40.0 - 52.0 Final EST 07/27/2024 03:31 (more content not included)... Normal [facility] ED [facility] 07-28-2024 ED [facility] [address] [place] [address] [id number] 07/27/2024 Patient: HEIDI JASSO Sex: Male : 1955 Age: 68y Facility Professional Category Item Description Code Code Quantity Fee Total Nurse/E/M EMERGENCY 069241 1 $0.00 $0.00 DEPT VISIT HIGH SEVERITYFUNCJ (04614-31) Nurse/IV/IM/Infusions Drip/IVPB initial 524880 1 $0.00 $0.00 (67453) Nurse/IV/IM/Infusions IVP additional 025417 1 $0.00 $0.00 push (92340) Nurse/Procedures Respiratory 736434 1 $0.00 $0.00 therapy - inhalation (24242) Grand $0.00 Total Providers Kalia Sierra D.O. Chief Complaint DYSPNEA and HISTORY OF CHRONIC OBSTRUCTIVE PULMONARY DISEASE. 1 of 2 Superbill Principal Diagnosis Acute exacerbation of COPD. Bacterial pneumonia with hypoxemia. (Elevated troponin). ICD-10 Codes J44.1: Chronic obstructive pulmonary disease with (acute) exacerbation J15.9: Unspecified bacterial pneumonia R09.02: Hypoxemia J18.9: Pneumonia, unspecified organism 2 of 2 Normal [facility] ED VISIT SUMMARYon ED VISIT SUMMARY Visit Overview Visit Overview [address] [address] [id number] 07/27/2024 Patient: HEIDI JASSO Sex: Male : 1955 Age: 68y 07/28/2024 11:18 AM EST ED Arrival:02:24 07/27/2024 EST Status: Recent Travel:no Language:eng Adv Directive:No Isolation Status: Ethnicity:N Fall Risk:no risk Infectious Disease Exposure:no Measurements:5'10 / 177.8 Self-Harm Status:risk Sepsis Screen:negative cm 232.0 lb / 105.2 kg Chief Complaint:ASTHMA ATTACK, DIFFICULTY BREATHING, SHORTNESS OF BREATH, WHEEZING, ([place]), and (Pt having asthma attack started at 2300 last night. Brought in by EMS for SOB. Wears O2 at 3L. Pt stated he took a water pill and having frequent urination) ALLERGIES Keflex HOME MEDICATIONS 1 of 4 Visit Overview albuterol sulfate HFA 90 mcg/actuation aerosol inhaler atorvastatin 40 mg tablet carvedilol 6.25 mg tablet furosemide 20 mg tablet losartan 50 mg tablet omeprazole 20 mg capsule,delayed release prednisone 10 mg tablet roflumilast 250 mcg tablet Trelegy Ellipta 100 mcg-62.5 mcg-25 mcg powder for inhalation PAST MEDICAL HISTORY / PROBLEMS Asthma COPD - Chronic Obstructive Pulmonary Disease Emphysema Hypertension See nurses notes PAST SURGICAL HISTORY right knee SOCIAL HISTORY Smoking status: No Alcohol use: No Drug use: No ED COURSE MEDICATIONS GIVEN IN EMERGENCY DEPARTMENT 02:49 07/27/24 Albuterol-Ipratropium (DuoNeb) 3mg/0.5mg Neb Tx 3 mL 02:50 07/27/24 Albuterol 0.083% - 2.5mg Neb Tx 2.5 mg Azithromycin (Zithromax) IVPB 500 mg diluted in dextrose 5 % in water IVPB 250 mL 02:58 07/27/24 and VIAL MATE 1 ea 250 mL/hr 03:01 07/27/24 MethylPREDNISolone Sodium Succ (Solu-Medrol) IVP 125 mg IV SITE INFORMATION 02:34 07/27/24 Site #1 left hand, 18g. 2 of 4 Visit Overview INTAKE OUTPUT REASSESMENT (most recent) 03:15 07/27/24. To room via stretcher. ( copd exacerbation, no difficulty breathing last night, woke up with sob, difficulty breathing. Upper airways sound tight, slight wheezing. states he waits to take his lasix till it is too late.). GENERAL / NEURO / PSYCH: Alert. Oriented X 4. Appears in distress. RESPIRATORY: No respiratory distress. The patient can speak a few words at a time. VITAL SIGNS First Vitals Last Vitals Temp 02:51 07/27/24 Temp 09:20 07/27/24 BP 02:51 07/27/24 BP 09:20 07/27/24 HR 02:51 07/27/24 116 HR 09:20 07/27/24 RR 02:51 07/27/24 RR 09:20 07/27/24 16 O2 Sat 02:51 07/27/24 95% O2 Sat 09:20 07/27/24 Pain 02:51 07/27/24 Pain 09:20 07/27/24 0 ETCO2 02:51 07/27/24 ETCO2 09:20 07/27/24 GCS 02:51 07/27/24 GCS 09:20 07/27/24 RTS 02:51 07/27/24 RTS 09:20 07/27/24 PROCEDURES NURSING INTERVENTIONS Respiratory therapy LABS / STUDIES LABS / STUDIES ORDERED BNP CBC w Diff Chest 1V CMP CT Chest PE Study CV Echo w Doppler D-Dimer 3 of 4 Visit Overview EKG - ED EKG - ED Flu Swab (Influenzae AAg) Lactate, Serum PT with INR PTT Rapid COVID (SARS) ANTIGEN TEST Troponin-I Troponin-I Protocol (STAT 1hr) Troponin-I Protocol (STAT 1hr) Urinalysis LABS - ABNORMAL RESULTS TROPONIN HS TROPONIN 80.1 pg/mL () , TROPONIN HS TROPONIN 147.3 pg/mL () , TROPONIN HS TROPONIN 307.4 pg/mL () CLINICAL IMPRESSION ACUTE EXACERBATION OF COPD BACTERIAL PNEUMONIA WITH HYPOXEMIA 4 of 4 Normal [facility] ED VITALS FLOW SHEETon 07-28 ED VITALS FLOW SHEET Vitals Vital Sign Flow Sheet [address] [address] [id number] 07/27/2024 Patient: HEIDI AJSSO Sex: Male : 1955 Age: 68y Measurements Wt: 105.2 kg, Ht/Nikhil: 70.0 in, BMI: 33.29 Measured Time BP MAP HR RR O2Sat ETCO2 Temp Pain GCS RTS 09:20 07/27/2024 16 0 08:50 07/27/2024 86 96% 08:45 07/27/2024 85 97% 08:40 07/27/2024 88 96% 08:35 07/27/2024 90 95% 08:35 07/27/2024 123/73 88 85 08:30 07/27/2024 84 97% 08:25 07/27/2024 82 96% 08:20 07/27/2024 88 96% 08:15 07/27/2024 100 95% 08:15 07/27/2024 133/70 93 83 08:10 07/27/2024 124 94% 08:05 07/27/2024 97 94% 08:00 07/27/2024 132 96% 07:55 07/27/2024 83 96% 1 of 4 Vitals Measured Time BP MAP HR RR O2Sat ETCO2 Temp Pain GCS RTS 07:50 07/27/2024 95 96% 07:45 07/27/2024 108 97% 07:40 07/27/2024 88 96% 07:35 07/27/2024 89 96% 07:30 07/27/2024 89 96% 07:25 07/27/2024 88 96% 07:20 07/27/2024 90 96% 07:15 07/27/2024 88 95% 07:10 07/27/2024 90 95% 07:05 07/27/2024 102 96% 07:00 07/27/2024 81 97% 06:55 07/27/2024 134 97% 06:50 07/27/2024 88 96% 06:45 07/27/2024 94 95% 06:40 07/27/2024 91 95% 06:35 07/27/2024 90 95% 06:30 07/27/2024 96 95% 06:25 07/27/2024 94 94% 06:20 07/27/2024 124 93% 06:15 07/27/2024 86 97% 06:10 07/27/2024 95 96% 06:05 07/27/2024 91 95% 06:00 07/27/2024 93 96% 05:55 07/27/2024 98 95% 05:50 07/27/2024 93 96% 2 of 4 Vitals Measured Time BP MAP HR RR O2Sat ETCO2 Temp Pain GCS RTS 05:43 07/27/2024 91 95% 05:38 07/27/2024 103 93% 05:31 07/27/2024 98 94% 05:26 07/27/2024 101 94% 05:21 07/27/2024 97 94% 05:16 07/27/2024 113 94% 05:11 07/27/2024 103 93% 05:06 07/27/2024 103 92% 05:01 07/27/2024 102 93% 04:56 07/27/2024 116 93% 04:51 07/27/2024 106 93% 04:46 07/27/2024 103 92% 04:41 07/27/2024 99 91% 04:36 07/27/2024 102 93% 04:31 07/27/2024 121 94% 04:26 07/27/2024 97 95% 04:21 07/27/2024 98 94% 04:16 07/27/2024 140 94% 04:11 07/27/2024 97 93% 04:06 07/27/2024 111 93% 04:01 07/27/2024 97 93% 03:56 07/27/2024 97 94% 03:51 07/27/2024 100 93% 03:46 07/27/2024 112 92% 03:41 07/27/2024 104 93% 3 of 4 Vitals Measured Time BP MAP HR RR O2Sat ETCO2 Temp Pain GCS RTS 03:36 07/27/2024 100 92% 03:35 07/27/2024 113/72 84 101 03:31 07/27/2024 109 95% 03:26 07/27/2024 102 93% 03:21 07/27/2024 100 94% 03:16 07/27/2024 141 93% 03:11 07/27/2024 109 95% 03:06 07/27/2024 105 95% 03:01 07/27/2024 111 93% 02:56 07/27/2024 107 95% 02:54 07/27/2024 172/90 117 117 25 95% RA 100.1 F 0 3L 02:51 07/27/2024 116 95% 4 of 4 Normal [facility] NT-proBNPon 07-28-2024 Natriuretic peptide B (Bld) [Mass/Vol] 1656 pg/mL High 0 - 125 [facility] Comment on above: Performed By: #### 2 14921 #### [facility],[address] [place] [address] 55765 APTTon 07-27-2024 aPTT Coag (Bld) [Time] 24.1 s Low 25.4 - 38.4 [facility] Comment on above: Performed By: #### 2 84131 #### [facility],[address] [place] [address] 87034 CBC + DIFFon 07-27-2024 BANDS 11 % High 0 - 5 [facility] Comment on above: Performed By: #### 2 82174 #### [facility],[address] [place] [address] 39897 Baso # 0.10 x10EE3/UL Normal 0.00 - 0.10 [facility] Comment on above: Performed By: #### 2 51312 #### [facility],[address] [place] [address] Basophils/100 WBC (Bld) 0.3 % Normal 0.0 - 2.0 [facility] Comment on above: Performed By: #### 2 51478 #### [facility],[address] [place] [address] CBC + DIFF Normal [facility] Comment on above: Result Comment: CBC- COMPLETE BLOOD COUNT Performed By: #### 2 81634 #### [facility],[address] [place], [place] [phone] CELL COUNT 100 Normal [facility] Comment on above: Performed By: #### 2 96162 #### [facility],[address] [place] [address] 24645 EO # 0.15 x10EE3/UL Normal 0.00 - 0.50 [facility] Comment on above: Performed By: #### 2 11401 #### [facility],[address] [place], [place] [phone] Eosinophils/100 WBC (Bld) 0.4 % Normal 0.0 - 7.0 [facility] Comment on above: Performed By: #### 2 79818 #### [facility],[address] [place], [place] [phone] Erythrocyte distribution width (RBC) [Ratio] 13.7 % Normal 12.0 - 15.6 [facility] Comment on above: Performed By: #### 2 52915 #### [facility],[address] [place], [place] [phone] Hematocrit (Bld) [Volume fraction] 48.7 % Normal 40.0 - 52.0 [facility] Comment on above: Performed By: #### 2 49856 #### [facility],[address] [place] [address] 51741 Hemoglobin (Bld) [Mass/Vol] 16.2 g/dL Normal 13.0 - 17.5 [facility] Comment on above: Performed By: #### 2 22344 #### [facility],[address] [place] [address] Lymph # 0.76 x10EE3/UL Low 0.80 - 2.80 [facility] Comment on above: Performed By: #### 2 12861 #### [facility],[address] [place], [place] [phone] Lymphocytes/100 WBC (Bld) 2.0 % Low 20.0 - 45.0 [facility] Comment on above: Performed By: #### 2 95376 #### [facility],[address] [place] [address] 97492 Lymphocytes/100 WBC (Bld) 3 % Low 20 - 45 [facility] Comment on above: Performed By: #### 2 08832 #### [facility],[address] [place] [address] 72725 MANUAL DIFF SEE BELOW Normal [facility] Comment on above: Performed By: #### 2 29982 #### [facility],[address] [place] [address] 92958 MCH (RBC) [Entitic mass] 31 pg Normal 27 - 33 [facility] Comment on above: Performed By: #### 2 94490 #### [facility],[address] [place] [address] 75341 MCHC 33 X10 3 Normal 32 - 36 [facility] Comment on above: Performed By: #### 2 83919 #### [facility],[address] [place] [address] MCV (RBC) [Entitic vol] 92 fL Normal 81 - 98 [facility] Comment on above: Performed By: #### 2 85339 #### [facility],[address] [place] [address] [place] # 1.38 x10EE3/UL High 0.20 - 1.00 [facility] Comment on above: Performed By: #### 2 82649 #### [facility],[address] [place] [address] MONOS 3 % Normal 0 - 10 [facility] Comment on above: Performed By: #### 2 92672 #### [facility],[address] [place] [address] MONOS % 3.6 % Normal 0.0 - 10.0 [facility] Comment on above: Performed By: #### 2 99143 #### [facility],[address] [place] [address] Morphology [place] (Bld) [Interp] REVIEWED Normal [facility] Comment on above: Performed By: #### 2 66729 #### [place] [address] Neut # 35.81 x10EE3/UL High 1.50 - 7.10 [facility] Comment on above: Performed By: #### 2 56880 #### [place] [address] Neutrophils/100 WBC (Bld) 93.7 % High 46.0 - 76.0 [facility] Comment on above: Performed By: #### 2 11519 #### [place] [address] PLATELET 185 x10EE3/UL Normal 150 - 450 [facility] Comment on above: Performed By: #### 2 42831 #### [place] [address] Platelet mean volume (Bld) [Entitic vol] 8.6 fL Normal 6.4 - 10.5 [facility] Comment on above: Result Comment: AUTO MATED DIFFERENTIAL Performed By: #### 2 48591 #### [facility],[address] [place] [address] RBC 5.28 x 10EE6/UL Normal 4.50 - 6.00 [facility] Comment on above: Performed By: #### 2 72172 #### [facility],[address] [place] [address] SEGS 83 % High 46 - 76 [facility] Comment on above: Performed By: #### 2 09694 #### [facility],[address] [place] [address] WBC 38.2 x 10EE3/UL Critically high 4.5 - 10.8 [facility] Comment on above: Result Comment: { CA LLED TO EMERALD TURNER BY AE AT 1230 { READ BACK BY EMERALD TURNER RA AT 1230 Performed By: #### 2 08052 #### [facility],[address] [place] [address] Baso # 0.03 x10EE3/UL Normal 0.00 - 0.10 [facility] Comment on above: Performed By: #### 2 03929 #### [facility],[address] [place] [address] 84660 Basophils/100 WBC (Bld) 0.1 % Normal 0.0 - 2.0 [facility] Comment on above: Performed By: #### 2 46286 #### [facility],[address] [place] [address] 40665 CBC + DIFF Normal [facility] Comment on above: Result Comment: CBC- COMPLETE BLOOD COUNT Performed By: #### 2 50630 #### [facility],[address] [place], [place] [phone] EO # 0.17 x10EE3/UL Normal 0.00 - 0.50 [facility] Comment on above: Performed By: #### 2 51824 #### [facility],[address] [place], [place] [phone] Eosinophils/100 WBC (Bld) 0.7 % Normal 0.0 - 7.0 [facility] Comment on above: Performed By: #### 2 47271 #### [facility],[address] [place] [address] Erythrocyte distribution width (RBC) [Ratio] 13.4 % Normal 12.0 - 15.6 [facility] Comment on above: Performed By: #### 2 63068 #### [facility],[address] [place] [address] Hematocrit (Bld) [Volume fraction] 49.7 % Normal 40.0 - 52.0 [facility] Comment on above: Performed By: #### 2 14638 #### [facility],[address] [place] [address] Hemoglobin (Bld) [Mass/Vol] 16.4 g/dL Normal 13.0 - 17.5 [facility] Comment on above: Performed By: #### 2 90135 #### [facility],[address] [place] [address] Lymph # 0.87 x10EE3/UL Normal 0.80 - 2.80 [facility] Comment on above: Performed By: #### 2 85076 #### [facility],[address] [place], [place] [phone] Lymphocytes/100 WBC (Bld) 3.7 % Low 20.0 - 45.0 [facility] Comment on above: Performed By: #### 2 07280 #### [facility],[address] [place], [place] [phone] MANUAL DIFF N/A Normal [facility] Comment on above: Performed By: #### 2 80114 #### [facility],[address] [place] [address] MCH (RBC) [Entitic mass] 31 pg Normal 27 - 33 [facility] Comment on above: Performed By: #### 2 62411 #### [facility],[address] [place] [address] MCHC 33 X10 3 Normal 32 - 36 [facility] Comment on above: Performed By: #### 2 59680 #### [facility],[address] [place] [address] MCV (RBC) [Entitic vol] 93 fL Normal 81 - 98 [facility] Comment on above: Performed By: #### 2 09735 #### [facility],[address] [place] [address] [place] # 0.78 x10EE3/UL Normal 0.20 - 1.00 [facility] Comment on above: Performed By: #### 2 15133 #### [facility],[address] [place] [address] MONOS % 3.4 % Normal 0.0 - 10.0 [facility] Comment on above: Performed By: #### 2 67770 #### [facility],[address] [place] [address] Morphology [place] (Bld) [Interp] N/A Normal [facility] Comment on above: Performed By: #### 2 06516 #### [facility],[address] [place] [address] Neut # 21.33 x10EE3/UL High 1.50 - 7.10 [facility] Comment on above: Performed By: #### 2 06257 #### [facility],[address] [place] [address] Neutrophils/100 WBC (Bld) 92.0 % High 46.0 - 76.0 [facility] Comment on above: Performed By: #### 2 32904 #### [facility],[address] [place], [place] [phone] PLATELET 191 x10EE3/UL Normal 150 - 450 [facility] Comment on above: Performed By: #### 2 52510 #### [facility],[address] [place] [address] 57696 Platelet mean volume (Bld) [Entitic vol] 8.3 fL Normal 6.4 - 10.5 [facility] Comment on above: Result Comment: AUTO MATED DIFFERENTIAL Performed By: #### 2 66298 #### [facility],[address] [place] [address] 46516 RBC 5.35 x 10EE6/UL Normal 4.50 - 6.00 [facility] Comment on above: Performed By: #### 2 40745 #### [facility],[address] [place] [address] 00262 WBC 23.2 x 10EE3/UL High 4.5 - 10.8 [facility] Comment on above: Performed By: #### 2 70422 #### [facility],[address] [place], [place] [phone] CHEST 1 VIEWon 07-27-2024 CHEST 1 VIEW [place] [address] Patient: HEIDI JASSO Phone#: : 1955 Age: 68 Gender: M Pt. Type: ER Account: [id number] Location: [id number] Ordering: KALIA SIERRA Exam Date: 07/27/2024/2:52 Family Phys: BUTROS LATANGELF Charge Code: 168860 Physician: Zavala Order #: [id number] Dose#: PROCEDURE: X-RAY CHEST 1 VIEW COMPARISON: [facility], CT, CHEST PE W CON, 07/27/2024, 5:35. [facility], XR, CHEST 2 VIEWS, 10/13/2023, 15:00. INDICATIONS: Shortness of breath FINDINGS: LUNGS: Infiltrate at the right lung base VASCULATURE: Normal. Unremarkable pulmonary vasculature. CARDIAC: Normal. No cardiac silhouette abnormality or cardiomegaly. MEDIASTINUM: Normal. No visible mass or adenopathy. PLEURA: Normal. No effusion or pleural thickening. BONES: Median sternotomy wires are present. OTHER: Monitoring leads project across the thorax CONCLUSION: 1. Right lung base infiltrate Dictated by: Mamta Horn MD on 07/27/2024 at 10:09 Approved by: Mamta Horn MD on 07/27/2024 at 10:14 Normal [facility] CMP with eGFRon 07-27-2024 AGE 68 years Normal [facility] Comment on above: Performed By: #### 2 50215 #### [place] [id number] Albumin [Mass/Vol] 3.3 g/dL Low 3.4 - 5.0 [facility] Comment on above: Performed By: #### 2 98893 #### [facility],[address] [place] [address] Albumin/Globulin [Mass ratio] 0.8 {ratio} Low 0.9 - 1.6 [facility] Comment on above: Performed By: #### 2 08228 #### [facility],[address] [place] [address] 56964 ALK PHOS 57 U/L Normal 46 - 116 [facility] Comment on above: Performed By: #### 2 68044 #### [facility],[address] [place] [address] 72385 ALT [Catalytic activity/Vol] 53 U/L Normal 16 - 63 [facility] Comment on above: Performed By: #### 2 45885 #### [address] [address] Anion gap [Moles/Vol] 15 mmol/L Normal 10 - 20 [facility] Comment on above: Performed By: #### 2 11412 #### [facility],[address] [place] [address] 99731 AST [Catalytic activity/Vol] 25 U/L Normal 15 - 37 [facility] Comment on above: Performed By: #### 2 00037 #### [facility],[address] [place] [address] 72677 B/C RATIO 13 ratio Normal 0 - 30 [facility] Comment on above: Performed By: #### 2 37341 #### [facility],[address] [place] [address] 37062 Bilirubin [Mass/Vol] 1.2 mg/dL High 0.2 - 1.0 [facility] Comment on above: Performed By: #### 2 52529 #### [facility],[address] [place] [address] 01982 Calcium [Mass/Vol] 8.8 mg/dL Normal 8.5 - 10.1 [facility] Comment on above: Performed By: #### 2 18017 #### [facility],[address] [place] [address] 11760 Chloride [Moles/Vol] 100 mmol/L Normal 98 - 107 [facility] Comment on above: Performed By: #### 2 89686 #### [facility],[address] [place] [address] 16325 CMP with eGFR Normal [facility] Comment on above: Result Comment: COMP REHENSIVE METABOLIC PANEL Performed By: #### 2 91108 #### [facility],[address] [place] [address] 77990 CO2 [Moles/Vol] 30.1 mmol/L Normal 21.0 - 32.0 [facility] Comment on above: Performed By: #### 2 99331 #### [facility],[address] [place] [address] 70747 Creatinine [Mass/Vol] 1.34 mg/dL High 0.70 - 1.30 [facility] Comment on above: Performed By: #### 2 81283 #### [facility],[address] [place] [address] 37710 eGFR 53 ML/MINUTE Low 60 - 999 [facility] Comment on above: Performed By: #### 2 10971 #### [address] [address] GFR/1.73 sq M.predicted among non-blacks MDRD (S/P/Bld) [Vol rate/Area] mL/min/{1.73_m2} Normal 60 - 999 [facility] Comment on above: Result Comment: ACCO RDING TO THE NATIONAL KIDNEY DISEASE EDUCATION PROGRAM(NKDE), A NORMAL eGFR IS A VALUE GREATER THAN OR EQUAL TO 60 ML/MIN/1.73 SQ METERS. CHRONIC KIDNEY DISEASE: <60mL/MIN/1.73 SQ METERS KIDNEY FAILURE: <15mL/MIN/1.73 SQ METERS THIS TEST SHOULD ONLY BE USED FOR PATIENTS 18 YEARS OF AGE AND OLDER. Performed By: #### 2 60133 #### [address] [address] Globulin (S) [Mass/Vol] 3.9 g/dL High 1.5 - 3.8 [facility] Comment on above: Performed By: #### 2 30904 #### [address] [address] Glucose [Mass/Vol] 223 mg/dL High 74 - 106 [facility] Comment on above: Performed By: #### 2 53102 #### [address] [address] Potassium [Moles/Vol] 4.0 mmol/L Normal 3.5 - 5.1 [facility] Comment on above: Performed By: #### 2 24299 #### [address] [address] Protein [Mass/Vol] 7.2 g/dL Normal 6.4 - 8.2 [facility] Comment on above: Performed By: #### 2 04958 #### [address] [place] [address] Sodium [Moles/Vol] 141 mmol/L Normal 136 - 145 [facility] Comment on above: Performed By: #### 2 85400 #### [facility],[address] [place] [address] Urea nitrogen [Mass/Vol] 18 mg/dL Normal 7 - 18 [facility] Comment on above: Performed By: #### 2 24248 #### [facility],[address] [place] [address] AGE 68 years Normal [facility] Comment on above: Performed By: #### 2 82916 #### [facility],[address] [place] [address] Albumin [Mass/Vol] 3.4 g/dL Normal 3.4 - 5.0 [facility] Comment on above: Performed By: #### 2 16365 #### [facility],[address] [place] [address] Albumin/Globulin [Mass ratio] 1.0 {ratio} Normal 0.9 - 1.6 [facility] Comment on above: Performed By: #### 2 55507 #### [facility],[address] [place], [place] [id number] ALK PHOS 65 U/L Normal 46 - 116 [facility] Comment on above: Performed By: #### 2 63372 #### [facility],[address] [place], [place] [phone] ALT [Catalytic activity/Vol] 64 U/L High 16 - 63 [facility] Comment on above: Performed By: #### 2 43047 #### [facility],[address] [place], [place] [phone] Anion gap [Moles/Vol] 11 mmol/L Normal 10 - 20 [facility] Comment on above: Performed By: #### 2 21129 #### [facility],[address] [place] [address] AST [Catalytic activity/Vol] 39 U/L High 15 - 37 [facility] Comment on above: Performed By: #### 2 90458 #### [facility],[address] [place] [address] B/C RATIO 17 ratio Normal 0 - 30 [facility] Comment on above: Performed By: #### 2 48951 #### [facility],[address] [place] [address] Bilirubin [Mass/Vol] 1.0 mg/dL Normal 0.2 - 1.0 [facility] Comment on above: Performed By: #### 2 12737 #### [facility],[address] [place] [address] Calcium [Mass/Vol] 8.7 mg/dL Normal 8.5 - 10.1 [facility] Comment on above: Performed By: #### 2 11263 #### [facility],[address] [place], [place] [phone] Chloride [Moles/Vol] 106 mmol/L Normal 98 - 107 [facility] Comment on above: Performed By: #### 2 19156 #### [facility],[address] [place] [address] CMP with eGFR Normal [facility] Comment on above: Result Comment: COMP REHENSIVE METABOLIC PANEL Performed By: #### 2 01002 #### [facility],[address] [place], [place] [id number] CO2 [Moles/Vol] 29.1 mmol/L Normal 21.0 - 32.0 [facility] Comment on above: Performed By: #### 2 80262 #### [facility],[address] [place] [address] 59725 Creatinine [Mass/Vol] 1.14 mg/dL Normal 0.70 - 1.30 [facility] Comment on above: Performed By: #### 2 74824 #### [facility],[address] [place] [address] 27058 GFR/1.73 sq M.predicted among non-blacks MDRD (S/P/Bld) [Vol rate/Area] mL/min/{1.73_m2} Normal 60 - 999 [facility] Comment on above: Performed By: #### 2 83753 #### [facility],[address] [place] [address] 68079 Result Comment: ACCO RDING TO THE NATIONAL KIDNEY DISEASE EDUCATION PROGRAM(NKDE), A NORMAL eGFR IS A VALUE GREATER THAN OR EQUAL TO 60 ML/MIN/1.73 SQ METERS. CHRONIC KIDNEY DISEASE: <60mL/MIN/1.73 SQ METERS KIDNEY FAILURE: <15mL/MIN/1.73 SQ METERS THIS TEST SHOULD ONLY BE USED FOR PATIENTS 18 YEARS OF AGE AND OLDER. Globulin (S) [Mass/Vol] 3.5 g/dL Normal 1.5 - 3.8 [facility] Comment on above: Performed By: #### 2 52644 #### [facility],[address] [place] [address] 52300 Glucose [Mass/Vol] 128 mg/dL High 74 - 106 [facility] Comment on above: Performed By: #### 2 99249 #### [facility],[address] [place] [address] 19351 Potassium [Moles/Vol] 3.8 mmol/L Normal 3.5 - 5.1 [facility] Comment on above: Performed By: #### 2 92358 #### [facility],[address] [place] [address] 16532 Protein [Mass/Vol] 6.9 g/dL Normal 6.4 - 8.2 [facility] Comment on above: Performed By: #### 2 65411 #### [facility],[address] [place] [address] 85702 Sodium [Moles/Vol] 142 mmol/L Normal 136 - 145 [facility] Comment on above: Performed By: #### 2 27965 #### [facility],[address] [place] [address] 31938 Urea nitrogen [Mass/Vol] 19 mg/dL High 7 - 18 [facility] Comment on above: Performed By: #### 2 18206 #### [facility],[address] [place] [address] 34591 CORONAVIRUS (SARS) ANTIGEN T ESTon 07-27-2024 EXTERNAL QC DONE? YES Normal [facility] Comment on above: Performed By: #### 2 18127 #### [facility],[address] [place] [address] 07282 INTERNAL CONTROL PASS Normal [facility] Comment on above: Performed By: #### 2 84222 #### [facility],[address] [place] [address] 56739 SARS ANTIGEN Negative Normal NORMAL: NEGATIVE [facility] Comment on above: Performed By: #### 2 67368 #### [facility],[address] [place] [address] 56378 SEND TO ? NO Normal [facility] Comment on above: Result Comment: SARS -CoV-2 THIS TEST IS BEING USED UNDER THE FDA EUA PROCEDURE. THIS ASSAY HAS BEEN VALIDATED AT [facility] FOR USE WITH NASAL AND NASOPHARYNGEAL SWAB SPECIMENS. INTERPRETIVE DATA TEST RESULTS SHOULD ALWAYS BE CONSIDERED IN THE CONTEXT OF CLINICAL OBSERVATIONS AND EPIDEMIOLOGICAL DATA IN MAKING FINAL DIAGNOSIS AND PATIENT MANAGEMENT DECISIONS. PATIENT MANAGEMENT SHOULD FOLLOW CURRENT CDC GUIDELINES. THE DARCY SARS ANTIGEN ANDREW DOES NOT DIFFERENTIATE BETWEEN SARS-CoV & SARS-CoV-2. A POSITIVE TEST RESULT INDICATES THE PRESENCE OF SARS-CoV-2 NUCLEOCAPSID PROTEIN ANTIGEN, AND THE PATIENT IS INFECTED WITH THE VIRUS AND PRESUMED TO BE CONTAGIOUS. A NEGATIVE TEST RESULT FOR THIS TEST MEANS THAT SARS-CoV-2 NUCLEOCAPSID PROTEIN ANTIGEN WAS NOT PRESENT IN THE SPECIMEN ABOVE THE LIMIT OF DETECTION. HOWEVER, A NEGATIVE RESULT DOES NOT RULE OUT COVID-19 AND SHOULD NOT BE USED THE SOLE BASIS FOR TREATMENT OR PATIENT MANAGEMENT DECISIONS. A NEGATIVE RESULT DOES NOT EXCLUDE THE POSSIBILITY OF COVID-19. NEGATIVE RESULTS, FROM PATIENTS WITH SYMPTOM ONSET BEYOND FIVE DAYS, SHOULD BE TREATED PRESUMPTIVE AND CONFIRMATION WITH A MOLECULAR ASSAY, IF NECESSARY, FOR PATIENT MANAGEMENT, MAY BE PERFORMED. WHEN DIAGNOSTIC TESTING IS NEGATIVE, THE POSSIBLILTY OF A FALSE NEGATIVE RESULT SHOULD BE CONSIDERED IN THE CONTEXT OF A PATIENT'S RECENT EXPOSURES AND THE PRESENCE OF CLINICAL SIGNS AND SYMPTOMS CONSISTENT WITH COVID-19. THE POSSIBILITY OF A FALSE NEGATIVE RESULT SHOULD ESPECIALLY BE CONSIDERED IF THE PATIENT'S RECENT EXPOSURES OR CLINICAL PRESENTATION INDICATE THAT COVID-19 IS LIKELY, AND DIAGNOSTIC TESTS FOR OTHER CAUSES OF ILLNESS (e.g., OTHER RESPIRATORY ILLNESS) ARE NEGATIVE. IF COVID-19 IS STILL SUSPECTED BASED ON EXPOSURE HISTORY TOGETHER WITH OTHER CLINICAL FINDINGS, RE-TESTING SHOULD BE CONSIDERED BY HEALTHCARE PROVIDERS IN CONSULTATION WITH PUBLIC HEALTH AUTHORITIES. Performed By: #### 2 [id number] #### Joaquim [facility],[address] [place] [address] CT CHEST (PE PROTOCOL)on CT CHEST (PE PROTOCOL) [place] [id number] Patient: HEIDI JASSO Phone#: : 1955 Age: 68 Gender: M Pt. Type: ER Account: [id number] Location: [facility] Ordering: KALIA SIERRA Exam Date: 07/27/2024/5:35 Family Phys: SOFI GARZA Charge Code: [id number] Physician: Zavala Order #: [id number] Dose#: [id number] PROCEDURE: CT CHEST WITH CONTRAST FOR PE COMPARISON: [facility], CT, CHEST PE W CON, 05/13/2016, 22:19. INDICATIONS: Shortness of breath. TECHNIQUE: After obtaining the patient's consent, CT images were obtained with non-ionic intravenous contrast material. Multi-planar images were created to optimize visualization of vascular anatomy with MPR/MIPS and 3D imaging. All CT scans at this facility use dose modulation, iterative reconstruction, and/or weight based dosing when appropriate to reduce radiation dose to as low as reasonably achievable. IV CONTRAST: Omnipaque 350,80ml TOTAL DOSE: CTDIvol(mGy) FINDINGS: VASCULATURE: No pulmonary embolism AORTA: No aortic aneurysm. LUNGS: Consolidations in the right upper lobe and right lower lobe. The consolidation in the right upper lobe is at the inferior aspect and nodular in appearance measuring 1.5 x 1.9 cm, series 4, image 43. Emphysematous changes. Left lung is clear. RADHA: Reactive right hilar lymph MEDIASTINUM: Diffusely thickened esophagus CARDIAC: Coronary artery calcifications and surgical changes of prior coronary artery bypass graft. PLEURA: Trace right pleural effusion CHEST WALL: Normal. No mass or axillary adenopathy. LIMITED ABDOMEN: Normal. Limited images of the upper abdomen are unremarkable. BONES: Normal. No bony lesion or fracture. OTHER: Negative. CONCLUSION: 1. No pulmonary embolus Continued Report - Page 2 of 2 Patient: HEIDI JASSO Phone#: : 1955 Age: 68 Gender: M Pt. Type: ER Account: [id number] Location: [facility] Ordering: KALIA SIERRA Exam Date: 07/27/2024/5:35 Family Phys: SOFI GARZA Charge Code: [id number] Physician: Zavala Order #: [id number] Dose#: [id number] 2. Multifocal right pneumonia. Recommend follow-up to clearing, with specific attention to the nodular focus in the right upper lobe, to confirm resolution. 3. Diffuse esophageal thickening Dictated by: Mamta Horn MD on 07/27/2024 at 13:37 Approved by: Mamta Horn MD on 07/27/2024 at 13:45 Normal [facility] CULTURE BLOOD [SAPNA]on Microscopic examination of blood, culture CULTURE BLOOD [SAPNA] _BLOOD CULTURE_ [facility] AND [facility] FOR SCANNED REPORT 08/02/24.45.[email or web address] PLETE Normal [facility] Comment on above: Performed By: #### 2 49821 #### [facility],[address] [place] [address] Microscopic examination of blood, culture CULTURE BLOOD [SAPNA] _BLOOD CULTURE_ [facility] AND ATTACH[facility] FOR SCANNED REPORT 08/02/24.44.[email or web address].COM PLETE Normal [facility] Comment on above: Performed By: #### 2 40617 #### [facility],[address] [place], [place] [id number] CV ECHO COMPLETE CV ECHO COMPLETE [place] [id number] Patient: HEIDI JASOS Phone#: : 1955 Age: 68 Gender: M Pt. Type: ER Account: [id number] Location: 010 Ordering: KALIA SIERRA Exam Date: 07/27/2024/9:27 Family Phys: SOFI GARZA Charge Code: [id number] Physician: Zavala Order #: [id number] Dose#: PROCEDURE: ECHOCARDIOGRAM WITH DOPPLER AND COLOR FLOW HISTORY: H/O CA, ANGINA, HYPERTENSION, TRIPLE BYPAS, COPD, 3 STENTS, H/O BRONCHITIS, PNEUMONIA FORMER SMOKER, SKIN CA INDICATIONS: SOB COMPARISON: None. TECHNIQUE: A 2-D ultrasound, color spectral Doppler and M-mode evaluation of the heart and great vessels. PATIENT MEASUREMENTS: Height (in.): 70 BSA: 2.28 Weight (lbs.): 230 BP: 144/83 Air Dispatcher: GASPER M MODE 2D MEASUREMENTS AND CALCULATIONS: LVIDd: 4.97 cm LVIDs: 3.31 cm IVSd: 1.14 cm LVPWd: 1.24 cm LVOT diam: 2.06 cm FS: 33.40 % Ao Root diam: 2.83 cm LA diam: 4.3 cm LA Volume Index: 18.6 mL/m2 LA A4 Area: 16.43 cm2 RA A4 Area: 22.2 cm2 RVDd: 4.2 cm TAPSE: 22 mm DOPPLER MEASUREMENTS AND CALCULATIONS MITRAL MV E MAX maryse: 0.70 m/s MV A MAX maryse: 0.69 m/s MV E-A ratio: 1.02 MVA VTI 3.26 cm2 Continued Report - Page 2 of 3 Patient: HEIDI JASSO Phone#: : 1955 Age: 68 Gender: M Pt. Type: ER Account: [id number] Location: 010 Ordering: KALIA SIERRA Exam Date: 07/27/2024/9:27 Family Phys: SOFI GARZA Charge Code: [id number] Physician: Zavala Order #: [id number] Dose#: MV V2 max: 0.80 m/s MV max P.59 mm[Hg] MV V2 mean: 0.55 m/s MV mean P.33 mm[Hg] MV V2 VTI: 23.65 cm MV PHT: 99.57 ms MVA PHT 2.21 cm2 Lat Peak E' Maryse 7 cm/sec Septal Peak E' MARYSE 5 cm/sec E/E' lateral 11 E/E' EM 16 AORTIC Ao V2 max: 1.31 m/s Ao max P.86 mm[Hg] Ao V2 mean: 0.93 m/s Ao mean P.90 mm[Hg] Ao V2 VTI: 27.74 cm GALE (V Max): 2.66 cm2 GALE (VTI): 2.78 cm2 LV V1 Max 1.04 m/s LV V1 Max PG 4.32 mm[Hg] LV V1 Mean PG 2.43 mm[Hg] LV V1 mean 0.72 m/s LV V1 VTI 23.07 cm PULMONIC PA V2 Max 1.04 m/s PA Max PG 4.34 mm[Hg] TRICUSPID TR Max Maryse TR max PG RVSP 2D/M-MODE AND COLOR FLOW LEFT VENTRICLE: Left ventricle is normal in size and thickness. Systolic ejection fraction is 50-55%. Indeterminate diastolic function. There is hypokinesis to akinesis seen in the mid anteroseptal, inferoseptal and apical frost WALL MOTION: 1 - Basal anterior: Normal. 7 - Mid anterior: Normal. 13 - Apical anterior: Normal. 2 - Basal anteroseptal: Normal. 8 - Mid anteroseptal: Akinetic. 14 - Apical septal: Akinetic. 3 - Basal inferoseptal: Normal. 9 - Mid inferoseptal: Akinetic. 15 - Apical inferior: Akinetic. 4 - Basal inferior: Normal. 10-Mid inferior: Hypokinetic. 16 - Apical lateral: Normal. Continued Report - Page 3 of 3 Patient: HEIDI JASSO Phone#: : 1955 Age: 68 Gender: M Pt. Type: ER Account: [id number] Location: 010 Ordering: KALIA SIERRA Exam Date: 07/27/2024/9:27 Family Phys: SOFI GARZA Charge Code: [id number] Physician: Zavala Order #: [id number] Dose#: 5 - Basal inferolateral: Normal. 11-Mid inferolateral: Normal. 6 - Basal anterolateral: Normal. 12-Mid anterolateral: Normal. RIGHT VENTRICLE: Right ventricle is borderline enlarged with normal systolic function. LEFT ATRIUM: Left atrium is normal size. RIGHT ATRIUM: Right atrium is mildly enlarged ATRIAL SEPTUM: There is no large interatrial shunt seen. PFO was not assessed MITRAL VALVE: Mitral valve appears normal structure. There is trivial regurgitation no stenosis seen TRICUSPID VALVE: Tricuspid valve is normal structure. There is trivial regurgitation no stenosis seen AORTIC VALVE: Aortic valve is trileaflet. There is no regurgitation or stenosis seen PULMONIC VALVE: Pulmonic valve is normal structure. There is trivial regurgitation and no stenosis seen. AORTIC ROOT: Aortic root is normal size. AORTIC ARCH: Inadequately visualized DESC THORACIC AORTA: Inadequately visualized. Doppler shows normal flow IVC/SVC: IVC is normal in size with more than 50% collapse of inspiration. Estimated atrial pressure is 3 mm Hg. PULMONARY VEINS: Systolic flow blunting seen. PERICARDIUM: There is no pericardial effusion seen. CONCLUSION: 1. Left ventricle is normal in size and thickness. Systolic ejection fraction 50-55%. There is hypokinesis to akinesis seen in the mid anteroseptal, mid inferoseptal and apical frost. 2. There are no significant valvular dysfunction seen. 3. Right ventricle borderline enlarged with normal systolic function. 4. TR velocity is inadequate to calculate for right ventricular systolic pressure Dictated by: YESIKA MARSH MD on 07/28/2024 at 8:19 Approved by: YESIKA MARSH MD on 07/28/2024 at 8:42 Normal [facility] D-DIMER, QUANTITATIVEon 07-03 D-DIMER QUANT 501 ng/ml High 0 - 230 [facility] Comment on above: Performed By: #### 2 72804 #### [facility],[address] [place] [address] D-DIMER, QUANTITATIVE Normal [facility] Comment on above: Result Comment: PAVEL T D-DIMER Performed By: #### 2 67066 #### [facility],[address] [place] [address] 13681 INFLUENZA VIRUS RAPID A/Bon 07-27-2024 INFLUENZA VIRUS RAPID A/B INFLUENZA A NEGATIVE INFLUENZA B NEGATIVE INTERNAL NEG QC PASS INTERNAL POS QC PASS EXTERNAL QC DONE? YES SEND TO IC? NO A NEGATIVE TEST RESULT DOES NOT EXCLUDE INFECTION WITH INFLUENZA A OR B. THEREFORE, THE RESULTS OBTAINED FROM THIS FLU TEST SHOULD BE USED IN CONJUCTION WITH CLINICAL FINDINGS TO MAKE AN ACCURATE DIAGNOSIS. A POSITIVE RESULT DOES NOT RULE OUT CO-INFECTIONS WITH OTHER PATHOGENS OR IDENTIFY ANY SPECIFIC INFLUENZA A VIRUS SUBTYPE.CO-INFECTION WITH INFLUENZA A AND B IS RARE. IT IS RECOMMENDED THAT DUAL POSITIVE RESULTS BE CONFIRMED BY VIRAL CULTURE OR AN FDA-CLEARED INFLUENZA A AND B MOLECULAR ASSAY. INDIVIDUALS WHO HAVE RECEIVED NASALLY ADMINISTERED INFLUENZA A VACCINE MAY TEST POSITIVE IN COMMERCIALLY AVAILABLE INFLUENZA RAPID DIAGNOSTIC TESTS FOR UP TO THREE DAYS. RESULT CRITICAL? NO Normal [facility] Comment on above: Performed By: #### 2 27188 #### [facility],[address] [place] [address] 39643 LACTATEon 07-27-2024 Lactate [Moles/Vol] 1.3 mmol/L Normal 0.4 - 2.0 [facility] Comment on above: Performed By: #### 2 89953 #### [facility],[address] [place] [address] 86380 NT-proBNPon 07-27-2024 Natriuretic peptide B (Bld) [Mass/Vol] 1176 pg/mL High 0 - 125 [facility] Comment on above: Performed By: #### 2 41843 #### [facility],[address] [place] [address] 51665 PROTHROMBIN TIME AND INRon 0 07-27-2024 INR Coag (PPP) [Relative time] 1.0 {INR} Normal 0.8 - 1.2 [facility] Comment on above: Result Comment: T HE HEMOSIL THROMBOPLASTIN REAGENT USED IN THE PROTHROMBIN TIME TEST INTERACTS WITH THE DRUG CUBICIN (DAPTOMYCIN) AND WILL RESULT IN FALSELY ELEVATED PT / INR RESULTS INR INTERPRETATION INR INDICATION PREVENTION AND TREATMENT OF THROMBOEMBOLISM ASSOCIATED WITH: 2.0 - 3.0 ATRIAL FIBRILLATION, BIOPROSTHETIC HEART VALVES, PULMONARY EMBOLISM, VENOUS THROMBOSIS, SYSTEMIC EMBOLISM POST MYOCARDIAL INFARCTION 2.5 - 3.5 MECHANICAL HEART VALVES Performed By: #### 2 66412 #### [place] [id number] PROTHROMBIN TIME AND INR Normal [facility] Comment on above: Result Comment: PROT HROMBIN TIME AND INR Performed By: #### 2 52086 #### [place] [id number] PT-COUMADIN 11.3 sec Normal 9.3 - 14.1 [facility] Comment on above: Performed By: #### 2 91665 #### [place] [address] TROPONINon 07-27-2024 HS TROPONIN 307.4 pg/mL Critically high 0.0 - 76.2 [facility] Comment on above: Result Comment: { CA LLED TO EMERALD FELIX BY LMM @ 0623 { READ BACK BY EMERALD FELIX RA 622 Performed By: #### 2 69556 #### [address] [address] HS TROPONIN 147.3 pg/mL Critically high 0.0 - 76.2 [facility] Comment on above: Result Comment: { CA LLED TO EMERALD HERNANDEZ BY TR @ 7623 { READ BACK BY EMERALD HERNANDEZ RA @ 63955 Performed By: #### 2 03324 #### [address] [address] HS TROPONIN 80.1 pg/mL Critically high 0.0 - 76.2 [facility] Comment on above: Result Comment: { CA LLED TO BY TR @ 7243 { READ BACK BY RA @ 0342 Performed By: #### 2 47704 #### [address] [address] TROPONIN I, HIGH SENSITIVITY on 07-27-2024 HS TROPONIN 343.8 pg/mL Critically high 0.0 - 76.2 [facility] Comment on above: Result Comment: { CA LLED TO EMERALD TORRES BY LMM @ 1451 { READ BACK BY EMERALD TORRES RA 1445 Performed By: #### 2 33098 #### [facility],[address] [place], [place] [id number] URINALYSISon 07-27-2024 Amorphous NONE Normal [facility] Comment on above: Performed By: #### 2 86427 #### [facility],[address] [place] [address] Bacteria NONE Normal [facility] Comment on above: Performed By: #### 2 17609 #### [facility],[address] [place], [place] [phone] Bilirubin Ql (U) Negative Normal NORMAL: NEGATIVE [facility] Comment on above: Performed By: #### 2 24368 #### [facility],[address] [place], [place] [id number] Casts NONE Normal [facility] Comment on above: Performed By: #### 2 84759 #### [facility],[address] [place] [address] 42739 Clarity (U) clear Normal NORMAL: CLEAR [facility] Comment on above: Performed By: #### 2 17420 #### [facility],[address] [place] [address] 35519 Color (U) p.yel Normal NORMAL: YELLOW [facility] Comment on above: Performed By: #### 2 75356 #### [facility],[address] [place] [address] 12731 Crystals LM Nom (Urine sed) NONE Normal [facility] Comment on above: Performed By: #### 2 43424 #### [facility],[address] [place] [address] 24071 Epi Cells NONE Normal [facility] Comment on above: Performed By: #### 2 06618 #### [facility],[address] [place] [address] 99786 Glucose Ql (U) NORM Normal NORMAL: NORMAL [facility] Comment on above: Performed By: #### 2 02324 #### [facility],[address] [place] [address] 53991 Hemoglobin Ql (U) 250 Abnormal NORMAL: NEGATIVE [facility] Comment on above: Performed By: #### 2 70891 #### [facility],[address] [place] [address] 60423 Ketone Negative Normal NORMAL: NEGATIVE [facility] Comment on above: Performed By: #### 2 98096 #### [facility],[address] [place] [address] 30203 Leukocytes Negative Normal NORMAL: NEGATIVE [facility] Comment on above: Performed By: #### 2 70116 #### [facility],[address] [place] [address] 13489 Mucous NONE Normal [facility] Comment on above: Performed By: #### 2 87717 #### [facility],[address] [place] [address] 94504 Nitrite Ql (U) Negative Normal NORMAL: NEGATIVE [facility] Comment on above: Performed By: #### 2 37757 #### [facility],[address] [place] [address] 62057 pH (U) 5 [pH] Normal NORMAL: 5.0-8.0 [facility] Comment on above: Performed By: #### 2 30045 #### [facility],[address] [place] [address] 79430 Protein Ql (U) 15 Abnormal NORMAL: NEGATIVE [facility] Comment on above: Performed By: #### 2 54747 #### [facility],[address] [place] [address] 27770 Rbc 5-10 Normal 0-3/hpf [facility] Comment on above: Performed By: #### 2 08454 #### [facility],[address] [place] [address] Sp [place] 1.010 Normal NORMAL: 1.010-1.030 [facility] Comment on above: Performed By: #### 2 81552 #### [facility],[address] [place] [address] Specimen Type R Normal [facility] Comment on above: Performed By: #### 2 12146 #### [facility],[address] [place] [address] Urinalysis dipstick W Reflex Microscopic panel (U) SEE BELOW Normal [facility] Comment on above: Result Comment: MICR OSCOPIC Performed By: #### 2 31885 #### [facility],[address] [place] [address] Urobilinog NORM Normal NORMAL: NORMAL [facility] Comment on above: Performed By: #### 2 97651 #### [facility],[address] [place] [address] Wbc NONE Normal 0-5/hpf [facility] Comment on above: Performed By: #### 2 78330 #### [facility],[address] [place] [address] Yeast NONE Normal [facility] Comment on above: Performed By: #### 2 90662 #### [facility],[address] [place], [place] [id number] CBC + DIFFon 07-02-2024 Baso # 0.01 x10EE3/UL Normal 0.00 - 0.10 [facility] Comment on above: Performed By: #### 2 03506 #### [facility],[address] [place], [place] [id number] Basophils/100 WBC (Bld) 0.2 % Normal 0.0 - 2.0 [facility] Comment on above: Performed By: #### 2 42192 #### [facility],[address] [place] [address] 16275 CBC + DIFF Normal [facility] Comment on above: Result Comment: CBC- COMPLETE BLOOD COUNT Performed By: #### 2 03371 #### [facility],[address] [place] [address] 98719 EO # 0.19 x10EE3/UL Normal 0.00 - 0.50 [facility] Comment on above: Performed By: #### 2 11974 #### [facility],[address] [place] [address] 35505 Eosinophils/100 WBC (Bld) 2.4 % Normal 0.0 - 7.0 [facility] Comment on above: Performed By: #### 2 61420 #### [facility],[address] [place] [address] 11471 Erythrocyte distribution width (RBC) [Ratio] 13.3 % Normal 12.0 - 15.6 [facility] Comment on above: Performed By: #### 2 90772 #### [facility],[address] [place] [address] 28405 Hematocrit (Bld) [Volume fraction] 46.4 % Normal 40.0 - 52.0 [facility] Comment on above: Performed By: #### 2 09848 #### [facility],[address] [place] [address] 64385 Hemoglobin (Bld) [Mass/Vol] 15.7 g/dL Normal 13.0 - 17.5 [facility] Comment on above: Performed By: #### 2 10856 #### [facility],[address] [place] [address] 36052 Lymph # 1.46 x10EE3/UL Normal 0.80 - 2.80 [facility] Comment on above: Performed By: #### 2 27253 #### [facility],[address] [place] [address] 57443 Lymphocytes/100 WBC (Bld) 18.8 % Low 20.0 - 45.0 [facility] Comment on above: Performed By: #### 2 52300 #### [facility],[address] [place] [address] 45316 MANUAL DIFF N/A Normal [facility] Comment on above: Performed By: #### 2 97625 #### [facility],[address] [place], [place] [phone] MCH (RBC) [Entitic mass] 31 pg Normal 27 - 33 [facility] Comment on above: Performed By: #### 2 10386 #### [facility],[address] [place] [address] MCHC 34 X10 3 Normal 32 - 36 [facility] Comment on above: Performed By: #### 2 75896 #### [facility],[address] [place] [address] MCV (RBC) [Entitic vol] 90 fL Normal 81 - 98 [facility] Comment on above: Performed By: #### 2 62108 #### [facility],[address] [place] [address] [place] # 0.66 x10EE3/UL Normal 0.20 - 1.00 [facility] Comment on above: Performed By: #### 2 40356 #### [facility],[address] [place] [address] 42338 MONOS % 8.5 % Normal 0.0 - 10.0 [facility] Comment on above: Performed By: #### 2 88133 #### [facility],[address] [place] [address] 98435 Morphology [place] (Bld) [Interp] N/A Normal [facility] Comment on above: Performed By: #### 2 74932 #### [facility],[address] [place] [address] 51043 Neut # 5.43 x10EE3/UL Normal 1.50 - 7.10 [facility] Comment on above: Performed By: #### 2 69888 #### [facility],[address] [place] [address] 81670 Neutrophils/100 WBC (Bld) 70.1 % Normal 46.0 - 76.0 [facility] Comment on above: Performed By: #### 2 10584 #### [facility],[address] [place] [address] 27499 PLATELET 205 x10EE3/UL Normal 150 - 450 [facility] Comment on above: Performed By: #### 2 14148 #### [facility],[address] [place] [address] 97897 Platelet mean volume (Bld) [Entitic vol] 8.4 fL Normal 6.4 - 10.5 [facility] Comment on above: Result Comment: AUTO MATED DIFFERENTIAL Performed By: #### 2 49357 #### [facility],[address] [place] [address] 10483 RBC 5.13 x 10EE6/UL Normal 4.50 - 6.00 [facility] Comment on above: Performed By: #### 2 49174 #### [facility],[address] [place] [address] 63190 WBC 7.8 x 10EE3/UL Normal 4.5 - 10.8 [facility] Comment on above: Performed By: #### 2 09591 #### [facility],[address] [place] [address] 62662 CMP with eGFRon 07-02-2024 AGE 68 years Normal [facility] Comment on above: Performed By: #### 2 20594 #### [facility],[address] [place] [address] 79046 Albumin [Mass/Vol] 3.4 g/dL Normal 3.4 - 5.0 [facility] Comment on above: Performed By: #### 2 83652 #### [facility],[address] [place] [address] 05415 Albumin/Globulin [Mass ratio] 0.9 {ratio} Normal 0.9 - 1.6 [facility] Comment on above: Performed By: #### 2 01742 #### [facility],[address] [place] [address] 07788 ALK PHOS 51 U/L Normal 46 - 116 [facility] Comment on above: Performed By: #### 2 98145 #### [facility],[address] [place] [address] 35285 ALT [Catalytic activity/Vol] 24 U/L Normal 16 - 63 [facility] Comment on above: Performed By: #### 2 25178 #### [facility],[address] [place] [address] 47979 Anion gap [Moles/Vol] 10 mmol/L Normal 10 - 20 [facility] Comment on above: Performed By: #### 2 56238 #### [facility],[address] [place] [address] 76308 AST [Catalytic activity/Vol] 18 U/L Normal 15 - 37 [facility] Comment on above: Performed By: #### 2 58869 #### [facility],[address] [place] [address] 19436 B/C RATIO 16 ratio Normal 0 - 30 [facility] Comment on above: Performed By: #### 2 76134 #### [facility],[address] [place] [address] 50620 Bilirubin [Mass/Vol] 0.8 mg/dL Normal 0.2 - 1.0 [facility] Comment on above: Performed By: #### 2 04891 #### [facility],[address] [place] [address] 54519 Calcium [Mass/Vol] 9.1 mg/dL Normal 8.5 - 10.1 [facility] Comment on above: Performed By: #### 2 46488 #### [facility],[address] [place] [address] 72233 Chloride [Moles/Vol] 109 mmol/L High 98 - 107 [facility] Comment on above: Performed By: #### 2 98288 #### [facility],[address] [place] [address] 86874 CMP with eGFR Normal [facility] Comment on above: Result Comment: COMP REHENSIVE METABOLIC PANEL Performed By: #### 2 03867 #### [facility],[address] [place] [address] 53012 CO2 [Moles/Vol] 29.8 mmol/L Normal 21.0 - 32.0 [facility] Comment on above: Performed By: #### 2 56699 #### [facility],[address] [place] [address] 41646 Creatinine [Mass/Vol] 1.07 mg/dL Normal 0.70 - 1.30 [facility] Comment on above: Performed By: #### 2 99238 #### [facility],[address] [place], [place] [phone] GFR/1.73 sq M.predicted among non-blacks MDRD (S/P/Bld) [Vol rate/Area] mL/min/{1.73_m2} Normal 60 - 999 [facility] Comment on above: Performed By: #### 2 12904 #### [facility],[address] [place] [address] 63241 Result Comment: ACCO RDING TO THE NATIONAL KIDNEY DISEASE EDUCATION PROGRAM(NKDE), A NORMAL eGFR IS A VALUE GREATER THAN OR EQUAL TO 60 ML/MIN/1.73 SQ METERS. CHRONIC KIDNEY DISEASE: <60mL/MIN/1.73 SQ METERS KIDNEY FAILURE: <15mL/MIN/1.73 SQ METERS THIS TEST SHOULD ONLY BE USED FOR PATIENTS 18 YEARS OF AGE AND OLDER. Globulin (S) [Mass/Vol] 4.0 g/dL High 1.5 - 3.8 [facility] Comment on above: Performed By: #### 2 39162 #### [facility] [facility],[address] [place] [address] 55602 Glucose [Mass/Vol] 103 mg/dL Normal 74 - 106 [facility] Comment on above: Performed By: #### 2 75169 #### [facility],[address] [place] [address] 95296 Potassium [Moles/Vol] 4.1 mmol/L Normal 3.5 - 5.1 [facility] Comment on above: Performed By: #### 2 43710 #### [facility],[address] [place] [address] 93952 Protein [Mass/Vol] 7.4 g/dL Normal 6.4 - 8.2 [facility] Comment on above: Performed By: #### 2 46081 #### [facility],[address] [place] [address] 77732 Sodium [Moles/Vol] 145 mmol/L Normal 136 - 145 [facility] Comment on above: Performed By: #### 2 07120 #### [facility],[address] [place] [address] 15983 Urea nitrogen [Mass/Vol] 17 mg/dL Normal 7 - 18 [facility] Comment on above: Performed By: #### 2 83763 #### [facility],[address] [place] [address] 11064 HEMOGLOBIN A1C (POM)on 07-02 Glucose [Mass/Vol] 139.9 mg/dL High 0.0 - 0.0 [facility] Comment on above: Result Comment: BLDo HEMOGLOBIN A1C REFERENCE RANGESBLDo Suggested Diagnosis HbA1c(%) HbA1C (mmol/mol Diabetic >/=6.5 >/=48 Prediabetes 5.7 - 6.4 39 - 47 Normal <5.7 <39 Performed By: #### 2 22324 #### [facility],[address] [place] [address] 82197 HbA1c (Bld) [Mass fraction] 6.5 % Normal 0.0 - 6.5 [facility] Comment on above: Performed By: #### 2 43294 #### [facility],[address] [place] [address] 49636 LIPID PROFILEon 07-02-2024 Cholesterol [Mass/Vol] 134 mg/dL Normal 0 - 240 [facility] Comment on above: Performed By: #### 2 24752 #### [facility],[address] [place] [address] 18635 Cholesterol in HDL [Mass/Vol] 36 mg/dL Low 40 - 60 [facility] Comment on above: Performed By: #### 2 70581 #### [facility],[address] [place] [address] 82491 Cholesterol in LDL [Mass/Vol] 79 mg/dL Normal 0 - 129 [facility] Comment on above: Performed By: #### 2 20681 #### [facility],[address] [place] [address] 48851 Cholesterol.total/Choles terol in HDL [Mass ratio] 3.7 {ratio} Normal 0.0 - 5.0 [facility] Comment on above: Performed By: #### 2 06452 #### [facility],[address] [place] [address] 45036 Lipid 1996 panel Normal [facility] Comment on above: Result Comment: LIPI D PROFILE Performed By: #### 2 39930 #### [facility],[address] [place] [address] 43196 Triglyceride [Mass/Vol] 97 mg/dL Normal 0 - 150 [facility] Comment on above: Performed By: #### 2 13756 #### [facility],[address] [place] [address] 01734 URINE MICROALBUMIN W/CREATIN INE, RANDOMon 07-02-2024 CREATININE UR 198.40 mg/dl Normal [facility] Comment on above: Performed By: #### 2 95655 #### [facility],[address] [place] [address] 98476 MICROALBUMIN UR 31.0 mg/dL High 0.1 - 25.1 [facility] Comment on above: Performed By: #### 2 42548 #### [facility],[address] [place] [address] UACR 156 mg/g Normal [facility] Comment on above: Performed By: #### 2 60666 #### [facility],[address] [place], [place] [address] CBC + DIFFon 04-07-2024 Baso # 0.02 x10EE3/UL Normal 0.00 - 0.10 [facility] Comment on above: Performed By: #### 2 19221 #### [facility],[address] [place] [address] Basophils/100 WBC (Bld) 0.2 % Normal 0.0 - 2.0 [facility] Comment on above: Performed By: #### 2 55118 #### [facility],[address] [place] [address] CBC + DIFF Normal [facility] Comment on above: Result Comment: CBC- COMPLETE BLOOD COUNT Performed By: #### 2 83049 #### [facility],[address] [place] [address] EO # 0.26 x10EE3/UL Normal 0.00 - 0.50 [facility] Comment on above: Performed By: #### 2 71107 #### [facility],[address] [place] [address] Eosinophils/100 WBC (Bld) 3.2 % Normal 0.0 - 7.0 [facility] Comment on above: Performed By: #### 2 70778 #### [facility],[address] [place] [address] Erythrocyte distribution width (RBC) [Ratio] 13.7 % Normal 12.0 - 15.6 [facility] Comment on above: Performed By: #### 2 51362 #### [facility],[address] [place] [address] Hematocrit (Bld) [Volume fraction] 49.7 % Normal 40.0 - 52.0 [facility] Comment on above: Performed By: #### 2 14166 #### [facility],[address] [place] [address] 71774 Hemoglobin (Bld) [Mass/Vol] 16.3 g/dL Normal 13.0 - 17.5 [facility] Comment on above: Performed By: #### 2 25775 #### [facility],[address] [place], [place] [address] Lymph # 1.72 x10EE3/UL Normal 0.80 - 2.80 [facility] Comment on above: Performed By: #### 2 57712 #### [facility],[address] [place] [address] 13227 Lymphocytes/100 WBC (Bld) 20.9 % Normal 20.0 - 45.0 [facility] Comment on above: Performed By: #### 2 72191 #### [facility],[address] [place], [place] [id number] MANUAL DIFF N/A Normal [facility] Comment on above: Performed By: #### 2 21309 #### [facility],[address] [place] [address] 72733 MCH (RBC) [Entitic mass] 30 pg Normal 27 - 33 [facility] Comment on above: Performed By: #### 2 83543 #### [facility],[address] [place] [address] 85855 MCHC 33 X10 3 Normal 32 - 36 [facility] Comment on above: Performed By: #### 2 24199 #### [facility],[address] [place] [address] 40768 MCV (RBC) [Entitic vol] 91 fL Normal 81 - 98 [facility] Comment on above: Performed By: #### 2 06627 #### [facility],[address] [place] [address] 70572 [place] # 0.89 x10EE3/UL Normal 0.20 - 1.00 [facility] Comment on above: Performed By: #### 2 89803 #### [facility],[address] [place] [address] 47822 MONOS % 10.8 % High 0.0 - 10.0 [facility] Comment on above: Performed By: #### 2 47439 #### [facility],[address] [place] [address] 32828 Morphology [place] (Bld) [Interp] N/A Normal [facility] Comment on above: Performed By: #### 2 12670 #### [facility],[address] [place] [address] 72622 Neut # 5.33 x10EE3/UL Normal 1.50 - 7.10 [facility] Comment on above: Performed By: #### 2 97625 #### [facility],[address] [place] [address] 73239 Neutrophils/100 WBC (Bld) 64.8 % Normal 46.0 - 76.0 [facility] Comment on above: Performed By: #### 2 87683 #### [facility],[address] [place] [address] 11730 PLATELET 168 x10EE3/UL Normal 150 - 450 [facility] Comment on above: Performed By: #### 2 25743 #### [facility],[address] [place] [address] 63218 Platelet mean volume (Bld) [Entitic vol] 8.0 fL Normal 6.4 - 10.5 [facility] Comment on above: Result Comment: AUTO MATED DIFFERENTIAL Performed By: #### 2 53211 #### [facility],[address] [place] [address] 45402 RBC 5.44 x 10EE6/UL Normal 4.50 - 6.00 [facility] Comment on above: Performed By: #### 2 68153 #### [facility],[address] [place] [address] 10214 WBC 8.2 x 10EE3/UL Normal 4.5 - 10.8 [facility] Comment on above: Performed By: #### 2 32845 #### [facility],[address] [place] [address] CBC + DIFFon 01-19-2024 Baso # 0.02 x10EE3/UL Normal 0.00 - 0.10 [facility] Comment on above: Performed By: #### 2 09805 #### [facility],[address] [place], [place] [address] Basophils/100 WBC (Bld) 0.2 % Normal 0.0 - 2.0 [facility] Comment on above: Performed By: #### 2 24893 #### [facility],[address] [place] [address] CBC + DIFF Normal [facility] Comment on above: Result Comment: CBC- COMPLETE BLOOD COUNT Performed By: #### 2 04063 #### [facility],[address] [place] [address] EO # 0.24 x10EE3/UL Normal 0.00 - 0.50 [facility] Comment on above: Performed By: #### 2 64469 #### [facility],[address] [place] [address] Eosinophils/100 WBC (Bld) 2.5 % Normal 0.0 - 7.0 [facility] Comment on above: Performed By: #### 2 01226 #### [facility],[address] [place] [address] Erythrocyte distribution width (RBC) [Ratio] 13.1 % Normal 12.0 - 15.6 [facility] Comment on above: Performed By: #### 2 50931 #### [facility],[address] [place] [address] Hematocrit (Bld) [Volume fraction] 52.0 % Normal 40.0 - 52.0 [facility] Comment on above: Performed By: #### 2 28219 #### [facility],[address] [place] [address] Hemoglobin (Bld) [Mass/Vol] 17.1 g/dL Normal 13.0 - 17.5 [facility] Comment on above: Performed By: #### 2 70057 #### [facility],[address] [place] [address] Lymph # 1.69 x10EE3/UL Normal 0.80 - 2.80 [facility] Comment on above: Performed By: #### 2 20737 #### [facility],[address] [place] [address] Lymphocytes/100 WBC (Bld) 18.0 % Low 20.0 - 45.0 [facility] Comment on above: Performed By: #### 2 86622 #### [facility],[address] [place] [address] MANUAL DIFF N/A Normal [facility] Comment on above: Performed By: #### 2 09496 #### [facility],[address] [place] [address] MCH (RBC) [Entitic mass] 30 pg Normal 27 - 33 [facility] Comment on above: Performed By: #### 2 13642 #### [facility],[address] [place] [address] MCHC 33 X10 3 Normal 32 - 36 [facility] Comment on above: Performed By: #### 2 40756 #### [facility],[address] [place] [address] MCV (RBC) [Entitic vol] 91 fL Normal 81 - 98 [facility] Comment on above: Performed By: #### 2 21818 #### [facility],[address] [place] [address] [place] # 0.78 x10EE3/UL Normal 0.20 - 1.00 [facility] Comment on above: Performed By: #### 2 24258 #### [facility],[address],[place] [address] MONOS % 8.2 % Normal 0.0 - 10.0 [facility] Comment on above: Performed By: #### 2 10427 #### [facility],[address] [place] [address] 85127 Morphology [place] (Bld) [Interp] N/A Normal [facility] Comment on above: Performed By: #### 2 77750 #### [facility],[address] [place] [address] Neut # 6.70 x10EE3/UL Normal 1.50 - 7.10 [facility] Comment on above: Performed By: #### 2 05906 #### [place] [address] Neutrophils/100 WBC (Bld) 71.1 % Normal 46.0 - 76.0 [facility] Comment on above: Performed By: #### 2 77922 #### [place] [address] PLATELET 207 x10EE3/UL Normal 150 - 450 [facility] Comment on above: Performed By: #### 2 20506 #### [place] [address] Platelet mean volume (Bld) [Entitic vol] 8.7 fL Normal 6.4 - 10.5 [facility] Comment on above: Result Comment: AUTO MATED DIFFERENTIAL Performed By: #### 2 20983 #### [place] [id number] RBC 5.69 x 10EE6/UL Normal 4.50 - 6.00 [facility] Comment on above: Performed By: #### 2 51008 #### [place] [id number] WBC 9.4 x 10EE3/UL Normal 4.5 - 10.8 [facility] Comment on above: Performed By: #### 2 73569 #### [address],[place] [address] CMP with eGFRon 01-19-2024 AGE 68 years Normal [facility] Comment on above: Performed By: #### 2 72015 #### [facility],[address] [place] [address] 24407 Albumin [Mass/Vol] 3.9 g/dL Normal 3.4 - 5.0 [facility] Comment on above: Performed By: #### 2 70241 #### [facility],[address] [place], [place] [id number] Albumin/Globulin [Mass ratio] 0.9 {ratio} Normal 0.9 - 1.6 [facility] Comment on above: Performed By: #### 2 80313 #### [facility],[address] [place] [address] 89596 ALK PHOS 62 U/L Normal 46 - 116 [facility] Comment on above: Performed By: #### 2 96051 #### [facility],[address] [place] [address] 89083 ALT [Catalytic activity/Vol] 26 U/L Normal 16 - 63 [facility] Comment on above: Performed By: #### 2 42491 #### [facility],[address] [place] [address] 67123 Anion gap [Moles/Vol] 9 mmol/L Low 10 - 20 [facility] Comment on above: Performed By: #### 2 40328 #### [facility],[address] [place] [address] 23901 AST [Catalytic activity/Vol] 18 U/L Normal 15 - 37 [facility] Comment on above: Performed By: #### 2 94871 #### [facility],[address] [place] [address] 66451 B/C RATIO 16 ratio Normal 0 - 30 [facility] Comment on above: Performed By: #### 2 69890 #### [facility],[address] [place], [place] [address] Bilirubin [Mass/Vol] 0.7 mg/dL Normal 0.2 - 1.0 [facility] Comment on above: Performed By: #### 2 27498 #### [facility],[address] [place] [address] 10401 Calcium [Mass/Vol] 9.5 mg/dL Normal 8.5 - 10.1 [facility] Comment on above: Performed By: #### 2 44836 #### [facility],[address] [place], [place] [address] Chloride [Moles/Vol] 104 mmol/L Normal 98 - 107 [facility] Comment on above: Performed By: #### 2 21619 #### [facility],[address] [place] [address] CMP with eGFR Normal [facility] Comment on above: Result Comment: COMP REHENSIVE METABOLIC PANEL Performed By: #### 2 93040 #### [facility],[address] [place] [address] 26258 CO2 [Moles/Vol] 34.6 mmol/L High 21.0 - 32.0 [facility] Comment on above: Performed By: #### 2 99295 #### [facility],[address] [place] [address] 82564 Creatinine [Mass/Vol] 1.12 mg/dL Normal 0.70 - 1.30 [facility] Comment on above: Performed By: #### 2 29845 #### [facility],[address] [place] [address] 87079 GFR/1.73 sq M.predicted among non-blacks MDRD (S/P/Bld) [Vol rate/Area] mL/min/{1.73_m2} Normal 60 - 999 [facility] Comment on above: Performed By: #### 2 49799 #### [facility],[address] [place] [address] Result Comment: ACCO RDING TO THE NATIONAL KIDNEY DISEASE EDUCATION PROGRAM(NKDE), A NORMAL eGFR IS A VALUE GREATER THAN OR EQUAL TO 60 ML/MIN/1.73 SQ METERS. CHRONIC KIDNEY DISEASE: <60mL/MIN/1.73 SQ METERS KIDNEY FAILURE: <15mL/MIN/1.73 SQ METERS THIS TEST SHOULD ONLY BE USED FOR PATIENTS 18 YEARS OF AGE AND OLDER. Globulin (S) [Mass/Vol] 4.5 g/dL High 1.5 - 3.8 [facility] Comment on above: Performed By: #### 2 66685 #### [facility],[address] [place] [address] 30193 Glucose [Mass/Vol] 99 mg/dL Normal 74 - 106 [facility] Comment on above: Performed By: #### 2 63050 #### [facility],[address] [place] [address] 67855 Potassium [Moles/Vol] 4.3 mmol/L Normal 3.5 - 5.1 [facility] Comment on above: Performed By: #### 2 16537 #### [facility],[address] [place] [address] 20215 Protein [Mass/Vol] 8.4 g/dL High 6.4 - 8.2 [facility] Comment on above: Performed By: #### 2 50856 #### [facility],[address] [place] [address] 07764 Sodium [Moles/Vol] 143 mmol/L Normal 136 - 145 [facility] Comment on above: Performed By: #### 2 27825 #### [facility],[address] [place] [address] 99453 Urea nitrogen [Mass/Vol] 18 mg/dL Normal 7 - 18 [facility] Comment on above: Performed By: #### 2 69116 #### [facility],[address] [place] [address] 74789 HEMOGLOBIN A1C (POM)on 01-18 Glucose [Mass/Vol] 137.0 mg/dL High 0.0 - 0.0 [facility] Comment on above: Result Comment: BLDo HEMOGLOBIN A1C REFERENCE RANGESBLDo Suggested Diagnosis HbA1c(%) HbA1C (mmol/mol Diabetic >/=6.5 >/=48 Prediabetes 5.7 - 6.4 39 - 47 Normal <5.7 <39 Performed By: #### 2 01445 #### [facility],[address] [place] [address] 03919 HbA1c (Bld) [Mass fraction] 6.4 % Normal 0.0 - 6.5 [facility] Comment on above: Performed By: #### 2 73626 #### [facility],[address] [place] [address] 06929 LIPID PROFILEon 01-19-2024 Cholesterol [Mass/Vol] 141 mg/dL Normal 0 - 240 [facility] Comment on above: Performed By: #### 2 04278 #### [facility],[address] [place], [place] [address] Cholesterol in HDL [Mass/Vol] 40 mg/dL Normal 40 - 60 [facility] Comment on above: Performed By: #### 2 42578 #### [facility],[address] [place] [address] 14217 Cholesterol in LDL [Mass/Vol] 83 mg/dL Normal 0 - 129 [facility] Comment on above: Performed By: #### 2 12365 #### [facility],[address] [place] [address] 97642 Cholesterol.total/Choles terol in HDL [Mass ratio] 3.5 {ratio} Normal 0.0 - 5.0 [facility] Comment on above: Performed By: #### 2 86499 #### [facility],[address] [place] [address] 78652 Lipid 1996 panel Normal [facility] Comment on above: Result Comment: LIPI D PROFILE Performed By: #### 2 49068 #### [facility],[address] [place] [address] 43590 Triglyceride [Mass/Vol] 90 mg/dL Normal 0 - 150 [facility] Comment on above: Performed By: #### 2 12365 #### [facility],[address] [place] [address] 93993 TSHon 01-19-2024 TSH Qn 2.27 m[IU]/L Normal 0.35 - 3.74 [facility] Comment on above: Performed By: #### 2 32794 #### [facility],[address] [place], [place] [address] URINE MICROALBUMIN W/CREATIN INE, RANDOMon 01-19-2024 CREATININE UR 199.97 mg/dl Normal [facility] Comment on above: Performed By: #### 2 74125 #### [facility],[address] [place], [place] [id number] MICROALBUMIN UR 25.0 mg/dL Normal 0.1 - 25.1 [facility] Comment on above: Performed By: #### 2 09962 #### [facility],[address] [place], [place] [address] UACR 125 mg/g Normal [facility] Comment on above: Performed By: #### 2 77192 #### [facility],[address] [place] [address] 74166 Hemoglobin A1con 08-04-2020 HbA1c (Bld) [Mass fraction] 6.1 % High 4.3-5.6 [facility] Comment on above: Performed By: #### H BA1C #### [facility] Routine Lab [address] [place] [address] HbA1c (Bld) [Mass fraction] 128 mg/dL Normal [facility] Comment on above: Performed By: #### H BA1C #### [facility] [address] [place] [address] Hemoglobin A1con 04-06-2020 HbA1c (Bld) [Mass fraction] 6.6 % High 4.3-5.6 [facility] Comment on above: Performed By: #### H BA1C #### [facility] [address] [place], [place] [address] HbA1c (Bld) [Mass fraction] 143 mg/dL Normal [facility] Comment on above: Performed By: #### H BA1C #### [facility] [address] [place], [place] [address] Vital Signs Date Time Vital Sign Value Performing Clinician Marlena alfaro 10-18-2024 07:00-0400 Body height 180.[address] Sofi Garza MD Work Phone: [facility] 10-18-2024 07:00-0400 Body mass index (BMI) [Ratio] 30.5 kg/m2 Dr. Sofi Garza MD Work Phone: [facility] 10-18-2024 07:00-0400 Body weight 99.[address] Sofi Garza MD Work Phone: [facility] 10-18-2024 07:00-0400 Diastolic blood pressure 69 mm[Hg] Dr. Sofi Garza MD Work Phone: [facility] 10-18-2024 07:00-0400 Heart rate 70 /min Dr. Sofi Garza MD Work Phone: [facility] 10-18-2024 07:00-0400 Respiratory rate 18 /min Dr. Sofi Garza MD Work Phone: [facility] 10-18-2024 07:00-0400 SaO2% (BldA) [Mass fraction] 95 % Dr. Sofi Garza MD Work Phone: [facility] 10-18-2024 07:00-0400 Systolic blood pressure 126 mm[Hg] Dr. Sofi Garza MD Work Phone: [facility] 08-29-2024 13:23-0400 Body mass index (BMI) [Ratio] 31.1 kg/m2 Dr. Sofi Garza MD Work Phone: [facility] 08-29-2024 13:23-0400 Body weight 101.[address] Sofi Garza MD Work Phone: 4(564)435-082285 [place] [address] 08-29-2024 13:23-0400 Diastolic blood pressure 84 mm[Hg] Dr. Sofi Garza MD Work Phone: 2(970)939-761685 [place] [address] 08-29-2024 13:23-0400 Heart rate 57 /min Dr. Sofi Garza MD Work Phone: 8(278)130-795854 [address] 08-29-2024 13:23-0400 Respiratory rate 18 /min Dr. Sofi Garza MD Work Phone: 6(914)391-627854 [address] 08-29-2024 13:23-0400 SaO2% (BldA) [Mass fraction] 95 % Dr. Sofi Garza MD Work Phone: 4(938)556-392754 [address] 08-29-2024 13:23-0400 Systolic blood pressure 134 mm[Hg] Dr. Sofi Garza MD Work Phone: 5(837)132-292821 [place] [address] 08-09-2024 11:26-0400 Body height 180.[address] Sofi Garza MD Work Phone: 7(046)175-636521 [place] [address] 08-09-2024 11:26-0400 Body mass index (BMI) [Ratio] 31.4 kg/m2 Dr. Sofi Garza MD Work Phone: [facility] 08-09-2024 11:26-0400 Body weight 102.[address] Sofi Garza MD Work Phone: 3(559)551-431685 [place] [address] 08-09-2024 11:26-0400 Diastolic blood pressure 87 mm[Hg] Dr. Sofi Garza MD Work Phone: 0(284)696-092485 [place] [address] 08-09-2024 11:26-0400 Heart rate 62 /min Dr. Sofi Garza MD Work Phone: 2(964)861-053085 [place] [address] 08-09-2024 11:26-0400 Respiratory rate 18 /min Dr. Sofi Garza MD Work Phone: [facility] 08-09-2024 11:26-0400 Systolic blood pressure 147 mm[Hg] Dr. Sofi Garza MD Work Phone: [facility] 03-18-2022 10:12-0400 Body height 180.[address] Sofi Garza Work Phone: [facility] 03-18-2022 10:12-0400 Body mass index (BMI) [Ratio] 32.3 kg/m2 Dr. Sofi Garza Work Phone: [facility] 03-18-2022 10:12-0400 Body weight 105.[address] Sofi Garza Work Phone: [facility] 03-18-2022 10:12-0400 Diastolic blood pressure 78 mm[Hg] Dr. Sofi Garza Work Phone: [facility] 03-18-2022 10:12-0400 Heart rate 56 /min Dr. Sofi Garza Work Phone: [facility] 03-18-2022 10:12-0400 Respiratory rate 18 /min Dr. Sofi Garza Work Phone: [facility] 03-18-2022 10:12-0400 Systolic blood pressure 140 mm[Hg] Dr. Sofi Garza Work Phone: [facility] Encounters Encounter Date Encounter Type Care Provider Facility Start: 2024 ambulatory SOFI GARZA [facility] Start: 10-18-2024 End: 10-18-2024 Patient encounter procedure Uche ROJO -[facility] Work Phone: Start: 10-18-2024 End: 10-18-[address] Sofi Garza MD Work Phone: [facility] Work Phone: Start: 09-23-2024 End: 09-24-2024 Evaluation and management of inpatient SOFI GARZA [facility] Start: 09-21-2024 ambulatory [facility] Facility: [facility] Start: 09-19-2024 ambulatory [facility] Facility: [facility] Start: 09-13-2024 ambulatory [facility] Facility: [facility] Start: 08-29-2024 End: 08-29-2024 Patient encounter procedure Oma Cortez COUNTER CLERK-C -[facility] Work Phone: Start: 08-29-2024 End: 08-29-2024 ambulatory Oma Cortez Facility:[facility] Start: 08-09-2024 End: 08-09-2024 Patient encounter procedure Wei Barbour COUNTER CLERK-C -[facility] Work Phone: Start: 08-09-2024 End: 08-09-2024 ambulatory Wei Barbour NP Facility:[facility] Start: 08-04-2024 End: 08-04-[address] Sofi Garza MD Work Phone: [facility] Work Phone: Start: 08-04-2024 End: 08-04-2024 Patient encounter procedure Wei Barbour NP-C -[facility] Work Phone: Start: 08-04-2024 End: 08-04-2024 ambulatory Espinoza Dewitt Facility:[facility] Start: 07-27-2024 End: 07-30-2024 ambulatory SOFI GARZA [facility] Start: 07-02-2024 End: 07-02-2024 ambulatory SOFI GARZA [facility] Start: 04-07-2024 End: 04-07-2024 ambulatory CORRINA FALL [facility] Start: 01-19-2024 End: 01-19-2024 [facility] Start: 06-05-2022 End: 06-05-[address] Sofi Garza Work Phone: [facility] Work Phone: Start: 06-05-2022 End: 06-05-[address] Sofi Garza Work Phone: [facility] Start: 03-18-2022 End: 03-18-[address] Sofi Garza Work Phone: [facility] Procedures Date Procedure Procedure Detail Performing Clinician Start: 09-23-2024 Urinalysis CORRINA MONCADA Comment on above: Result Comment: URIN ALYSIS Performed By: [id number] #### [facility],[address] [place] [address] Start: 07-27-2024 Urinalysis CORRINA MONCADA Comment on above: Result Comment: URIN ALYSIS Performed By: #### [id number] #### [facility],[address] [place] [address] Start: 07-02-2024 PSA screening CORRINA ADAMS Comment on above: Performed By: #### [id number] #### [facility],[address] [place] [address] Start: 06-05-2022 Plain chest X-ray Dr. Kesha Garza Work Phone: Start: 04-01-2000 History of coronary artery bypass grafting History of coronary artery bypass graft x 3 Wei Barbour COUNTER CLERKSandrineC Comment on above: GARAY to LAD, Left ra dial artery to OD and SVG to distal LCX @ [facility] 04/15/00; History of coronary artery bypass grafting S/P CABG x 3 Dr. Sofi Garza Work Phone: History of placement of stent for coronary artery disease Hx of heart artery stent Dr. Sofi Garza Work Phone: Plan of Treatment Date Care Activity Detail Author 24 Hour ECG [facility] NM Heart Views W stress and W radionuclid e IV [facility] Radiologic exam esop hagus double contrast study [facility] Payers Date Payer Category Payer Self-pay [id number] 2024 Unknown [id number] 2024 Medicaid [id number] 1955 Unknown [id number] 1955 Unknown [id number] [id number] 1955 Unknown [id number] [id number] 1955 Unknown [id number] [id number] 1955 Unknown [id number] [id number] 1955 Unknown [id number] [id number] Medicare [employer] MEDICARE PPO [id number] Medicare MEDICARE PART A B [id number] Private Health Insurance [id number] Unknown [id number] Unknown [id number] [id number] Unknown [id number] [id number] Unknown [id number] [id number] Unknown [id number] [id number] Unknown [id number] [id number] Unknown [id number] Social History Date Type Detail Facility Start: 03-18-2022 Tobacco smoking stat us RUST Unknown if ever smoked [facility] Start: 1955 Sex Assigned At Male [facility] Start: 07-17-2023 End: 08-29-2024 Tobacco smoking status NHIS Ex-smoker (finding) [facility] Start: 08-15-2024 Sex Male (finding) [facility] Clinical Notes 04-01-2000 to 09-28-2024 Note Date & Type Note Facility 09-28-2024 Note . MICRO - Microbiology PROCEDURE: Blood Culture (bacterial) [*1] SOURCE: Blood BODY SITE: COLLECTED DATE/TIME: 09/23/2024 01:44 EDT RECEIVED DATE/TIME: 09/23/2024 13:53 EDT START DATE/TIME: 09/23/2024 13:53 EDT FREE TEXT SOURCE: left arm FINAL REPORTS Final Report [] Verified Date/Time/Personnel: 09/28/2024 13:59 EDT Blood Culture: No Growth at 5 days. PRELIMINARY REPORTS Preliminary Report [] Verified Date/Time/Personnel: 09/23/2024 14:59 EDT Culture has been received in lab and is no growth to date. Routine cultures are held for 5 days. Performing Locations *1: This test was performed at: [facility], [address] [place] [address], [id number] , [facility] 09-28-2024 Note . MICRO - Microbiology PROCEDURE: Blood Culture (bacterial) [*1] SOURCE: Blood BODY SITE: COLLECTED DATE/TIME: 09/23/2024 02:05 EDT RECEIVED DATE/TIME: 09/23/2024 13:53 EDT START DATE/TIME: 09/23/2024 13:53 EDT FREE TEXT SOURCE: right arm FINAL REPORTS Final Report [] Verified Date/Time/Personnel: 09/28/2024 13:59 EDT Blood Culture: No Growth at 5 days. PRELIMINARY REPORTS Preliminary Report [] Verified Date/Time/Personnel: 09/23/2024 14:59 EDT Culture has been received in lab and is no growth to date. Routine cultures are held for 5 days. Performing Locations *1: This test was performed at: [facility], [address] [place] [address], [facility] , [facility] 08-09-2024 Evaluation note Diagnosis Onset Date Resolution Essential hypertension chronic August 09, 2024 11:23am History of coronary artery bypass graft x April,August 09, 2024 11:23am Hyperlipidemia chronic July 11:23am Presence of stent in coronary artery April,August 09, 2024 11:23am [facility] Work Phone: 1(468) 759-543203-11-2025 Evaluation note* Diagnosis Onset Date Resolution Status Admit Date Essential hypertension chronic [facility] 2024 11:23am History of coronary artery bypass graft x April, chronic August 09 11:23am Hyperlipidemia chronic July 11:23am Presence of stent in coronar y artery April,August 09, 2024 11:23am Abnormal CT of the chest acute August 29, 2024 1:02pm Dysphagia acute August 29 1:02pm Fatigue acute October 18, 2024 8:49am Atherosclerotic heart diseas e of [place] coronary artery without angina pectoris chronic September 8:49am Essential hypertension chronic 2024 8:49am History of coronary artery bypass graft x April, chronic October 18, 2024 8:49am Hyperlipidemia chronic October 18, 2024 8:49am Presence of stent in coronar y artery April,October 18, 2024 8:49am [facility] Work Phone: 1(748) 420-524403-03-2025 Note. MICRO - Microbiology PROCEDURE: Blood Culture (bacterial) [*1] SOURCE: Blood BODY SITE: COLLECTED DATE/TIME: 07/27/2024 11:21 EST RECEIVED DATE/TIME: 07/27/2024 14:44 EST START DATE/TIME: 07/27/2024 14:44 EST FREE TEXT SOURCE: R AC - 1st set FINAL REPORTS Final Report [] Verified Date/Time/Personnel: 08/01/2024 14:59 EST Blood Culture: No Growth at 5 days. PRELIMINARY REPORTS Preliminary Report [] Verified Date/Time/Personnel: 07/27/2024 15:59 EST Culture has been received in lab and is no growth to date. Routine cultures are held for 5 days. Performing Locations *1: This test was performed at: [address], [facility] , [facility] [id number] Note. MICRO - Microbiology PROCEDURE: Blood Culture (bacterial) [*1] SOURCE: Blood BODY SITE: COLLECTED DATE/TIME: 07/27/2024 11:32 EST RECEIVED DATE/TIME: 07/27/2024 14:43 EST START DATE/TIME: 07/27/2024 14:44 EST FREE TEXT SOURCE: L AC - 2nd set FINAL REPORTS Final Report [] Verified Date/Time/Personnel: 08/01/2024 14:59 EST Blood Culture: No Growth at 5 days. PRELIMINARY REPORTS Preliminary Report [] Verified Date/Time/Personnel: 07/27/2024 15:59 EST Culture has been received in lab and is no growth to date. Routine cultures are held for 5 days. Performing Locations *1: This test was performed at: [address] [id number] NoteDischarge Instructions Discharge Summary [address] [address] [id number] 07/27/2024 Patient: HEIDI JASSO Sex: Male : 1955 Age: 68y Thank you for visiting [facility]. You have been evaluated today by Kalia Sierra D.O. for the following condition(s): Principal Diagnosis Acute exacerbation of COPD. Bacterial pneumonia with hypoxemia. (Elevated troponin). Patient Signature Facility Press Tender Star Signal Date/Time General Instructions with ExitWriter [facility] [address] [place] [address] [phone] 07/27/2024 Patient: HEIDI JASSO Sex: Male : 1955 Age: 68y Thank you for visiting [facility]. You have been evaluated today by Kalia Sierra D.O. for the following condition(s): 1 of 2 Discharge Instructions Principal Diagnosis Acute exacerbation of COPD. Bacterial pneumonia with hypoxemia. (Elevated troponin). 2 of 2[facility] Note. MICRO - Microbiology PROCEDURE: Blood Culture (bacterial) [*1] SOURCE: Blood BODY SITE: COLLECTED DATE/TIME: 08/26/2023 21:10 EDT RECEIVED DATE/TIME: 08/27/2023 14:33 EDT START DATE/TIME: 08/27/2023 14:34 EDT FREE TEXT SOURCE: FINAL REPORTS Final Report [] Verified Date/Time/Personnel: 09/01/2023 14:59 EDT Blood Culture: No Growth at 5 days. PRELIMINARY REPORTS Preliminary Report [] Verified Date/Time/Personnel: 08/27/2023 15:59 EDT Culture has been received in lab and is no growth to date. Routine cultures are held for 5 days. Performing Locations *1: This test was performed at: [address], [facility] , [facility] ([place])09-01-2023 Note. MICRO - Microbiology PROCEDURE: Blood Culture (bacterial) [*1] SOURCE: Blood BODY SITE: COLLECTED DATE/TIME: 08/26/2023 21:38 EDT RECEIVED DATE/TIME: 08/27/2023 14:35 EDT START DATE/TIME: 08/27/2023 14:36 EDT FREE TEXT SOURCE: FINAL REPORTS Final Report [] Verified Date/Time/Personnel: 09/01/2023 14:59 EDT Blood Culture: No Growth at 5 days. PRELIMINARY REPORTS Preliminary Report [] Verified Date/Time/Personnel: 08/27/2023 15:59 EDT Culture has been received in lab and is no growth to date. Routine cultures are held for 5 days. Performing Locations *1: This test was performed at: [address], [address] [place] [address])08-29-2023 Note. MICRO - Microbiology PROCEDURE: Culture Respiratory with Gram Stain [^1 *1] SOURCE: Sputum BODY SITE: COLLECTED DATE/TIME: 08/26/2023 22:00 EDT RECEIVED DATE/TIME: 08/27/2023 15:42 EDT START DATE/TIME: 08/27/2023 15:42 EDT FREE TEXT SOURCE: FINAL REPORTS Final Report [] Verified Date/Time/Personnel: 08/29/2023 09:34 EDT Normal respiratory nenita present at 48 hours Sensitivity testing not indicated PRELIMINARY REPORTS Preliminary Report [] Verified Date/Time/Personnel: 08/28/2023 10:58 EDT Culture results pending. STAINS GS [] Verified Date/Time/Personnel: 08/27/2023 17:06 EDT Predominance of polys 2+ Gram Positive Cocci Rare Gram Negative Rods Interpretive Data ^1: Culture Respiratory with Gram Stain Requests for Mycoplasma, Legionella, Fungi, Mycobacteria, Chlamydia, and Viruses require ordering of those individual tests. Performing Locations *1: This test was performed at: [address], [address] [place] [address] ([facility]08-17-2023 Note. MICRO - Microbiology PROCEDURE: Culture Respiratory with Gram Stain [^1 *1] SOURCE: Sputum BODY SITE: COLLECTED DATE/TIME: 08/14/2023 17:00 EDT RECEIVED DATE/TIME: 08/15/2023 15:55 EDT START DATE/TIME: 08/15/2023 15:56 EDT FREE TEXT SOURCE: FINAL REPORTS Final Report [] Verified Date/Time/Personnel: 08/17/2023 08:06 EDT Normal respiratory nenita present at 48 hours Sensitivity testing not indicated PRELIMINARY REPORTS Preliminary Report [] Verified Date/Time/Personnel: 08/16/2023 07:43 EDT Negative for respiratory pathogens at 24 hours. STAINS GS [] Verified Date/Time/Personnel: 08/15/2023 16:58 EDT Polys equal to epithelial cells Rare Epithelial cells Rare Polymorphonuclear cells 2+ Mononuclear cells 3+ Gram Positive Cocci Rare Gram Positive Rods Gram stain indicates oropharyngeal contamination. Please repeat culture if still indicated. Interpretive Data ^1: Culture Respiratory with Gram Stain Requests for Mycoplasma, Legionella, Fungi, Mycobacteria, Chlamydia, and Viruses require ordering of those individual tests. 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 chronic Essential hypertension chron ic History of coronary artery bypass graft x 3 April, chronic Hyperlipidemia chronic Presence of stent in coronary artery April, [facility] Work Phone: Reason for referral (narrative)No [facility] for [facility] Work Phone: Summary Purpose Family History No Family History Records Found Relationship Condition Age at Onset Recorded Date/T julio c father Coronary artery disease Unknown Diabetes mellitus Unknown mother Coronary artery disease Unknown Relationship Condition Age at Onset Recorded Date/T julio c father Coronary artery disease Unknown Diabetes mellitus Unknown Hypertension Unknown Cardiac disease Unknown Parkinson's disease Unknown mother Coronary artery disease Unknown sister Malignant neoplasm Unknown brother Malignant neoplasm of colon Unknown Myocardial infarction Unknown Advance Directives No Advanced Directives Records FoundNo Advanced Directives Records FoundNo Advanced Directives Records FoundNo Advanced Directives Records FoundNo Advanced Directives Records Found Chief Complaint and Reason for Visit Chief Complaint 6 M FU Cough Reason for Visit Atherosclerotic hear t disease of yurok coronary artery without angina pectoris Essential hypertension History of coronary artery bypass graft x 3 Hyperlipidemia Presence of stent in coronary artery Chief Complaint Admit Date E ORDERS August 04, 2024 4:41 pm 1 Y FU August 09, 2024 11: 23am Reason for Visit Admit Date Essential hypertension August 09, 2024 11:23am History of coronary artery bypass graft x 3 August 09, 2024 11:23am Hyperlipidemia August 09, 2024 11: 23am Presence of stent in coronary artery [facility] 2024 11:23am Chief Complaint Admit Date E ORDERS August 04, 2024 4:41 pm 1 Y FU August 09, 2024 11: 23am Esophageal Thickening August 29, 2024 1 :02pm Medicine review October 18, 2024 8:49a m Reason for Visit Admit Date Essential hypertension August 09, 2024 11:23am History of coronary artery bypass graft x 3 August 09, 2024 11:23am Hyperlipidemia August 09, 2024 11: 23am Presence of stent in coronary artery [facility] 2024 11:23am Abnormal CT of the chest August 29 1:02pm Dysphagia August 29, 2024 1:0 2pm Fatigue October 18, 2024 8:49a m Atherosclerotic heart diseas e of y[place]k coronary artery without angina pectoris October 18, 2024 8:49am Essential hypertension October 18, 2024 8: 49am History of coronary artery bypass graft x 3 October 18, 2024 8:49am Hyperlipidemia October 18, 2024 8:49a m Presence of stent in coronary artery October 18, 2024 8:49am Additional Source Comments (unrecognized sect ion and content) No Status Records FoundNo Status Records FoundNo Status Records FoundNo Status Records FoundNo Status Records Found INFORMATION SOURCE (unrecogn ized section and content) DATE CREATED AUTHOR 08/06/2020 [facility] DATE CREATED AUTHOR AUTHOR'S ORGANIZ ATION 09/02/2023 [facility] ([place]) DATE CREATED AUTHOR AUTHOR'S ORGANIZ ATION 10/03/2024 [facility] DATE CREATED AUTHOR AUTHOR'S ORGANIZ ATION 10/25/[address] [facility] DATE CREATED AUTHOR AUTHOR'S ORGANIZ ATION 11/02/2024 [facility] Care Teams (unrecognized sec tion and content) Team Status: Active Member Role Status Dates Dr. Corirna Maciel DO Family Provider Active Dr. Sofi Garza MD Primary Care Provider Active Team Status: Inactive Member Role Status Dates Dr. Sofi Garza MD Primary Care Provider, Joce Provider Active Wei Barbour COUNTER CLERK, COUNTER CLERK-C Attending Provider Active Team Status: Inactive Member Role Status Dates Dr. Sofi Garza MD Primary Care Provider Active Dr. Corrina Fall MD Attending Provider, Referrin g Provider Active Team Status: Active Member Role Status Dates Dr. Sofi Garza MD Primary Care Provider Active Team Status: Inactive Member Role Status Dates Dr. Sofi Garza MD Primary Care Provider Active Start: August 04, 2024 End: August 04, 2024 Wei Barbour COUNTER CLERK, COUNTER CLERK-C Attending Provider Active S tart: August 04, 2024 End: August 04, 2024 Dr. Espinoza Dewitt MD Referring Provider Active Start: August 04, 2024 End: August 04, 2024 Team Status: Inactive Member Role Status Dates Dr. Sofi Garza MD Primary Care Provider Active Start: August 09, 2024 End: August 09, 2024 Dr. Sofi Garza MD Referring Provider Active Start: August 09, 2024 End: August 09, 2024 Wei Barbour COUNTER CLERK, COUNTER CLERK-C Attending Provider Active S tart: August 09, 2024 End: August 09, 2024 Team Status: Inactive Member Role Status Dates Dr. Sofi Garza MD Primary Care Provider Active Start: August 29, 2024 End: August 29, 2024 Dr. Sofi Garza MD Referring Provider Active Start: August 29, 2024 End: August 29, 2024 Oma Cortez NP-C Attending Provider Active Start: August 29, 2024 End: August 29, 2024 Team Status: Inactive Member Role Status Dates Dr. Sofi Garza MD Primary Care Provider Active Start: October 18, 2024 End: October 18, 2024 Dr. Sofi Garza MD Referring Provider Active Start: October 18, 2024 End: October 18, 2024 DARREL Maldonado Attending Provider Active St art: October 18, 2024 End: October 18, 2024 Goals (unrecognized section and content) Goals may be documented in a n alternate sectionGoals may be documented in an alternate sectionGoals may be documented in an alternate section FOR RECORDS PERTAINING TO PATIENTS WHO ARE OR HAVE BEEN ENROLLED IN A CHEMICAL DEPENDENCY/SUBSTANCEABUSE PROGRAM, SOME INFORMATION MAY BE OMITTED. This clinical summary was aggregated from multiple sources. Caution should be exercised in using it in the provision of clinical care. This summary normalizes information from multiple sources, and as a consequence, information in this document may materially change the coding, format and clinical context of patient data. In addition, data may be omitted in some cases. CLINICAL DECISIONS SHOULD BE BASED ON THE PRIMARY CLINICAL RECORDS. [facility]. provides no warranty or guarantee of the accuracy or completeness of information in this document.
== END | disposition home or self-care (01) ==
LOC: PSN 12:16
PROVIDERS: PCP Internal Medicine; Referring Provider Student in an Organized Health Care Education/Training Program; Visit Provider Student in an Organized Health Care Education/Training Program
DX: I49.1 Atrial premature depolarization (principal)
CPT/HCPCS: 93225; 93226

== ENCOUNTER → 2024-11-14 | Outpatient (CLI) | payer MEDICARE, MEDICAID, SELFPAY ==
--- NOTE | 2024-11-14 09:57 | RAD_ITS ---
PROCEDURE: CHEST PA AND LATERAL 11/14/2024 REASON FOR EXAM: SHORTNESS OF BREATH, RECENT PNEUMONIA TECHNIQUE: CHEST PA AND LATERAL COMPARISON: Chest radiograph July 29, 2019 FINDINGS: Hardware: Sternal wires and mediastinal vascular clips from CABG. Tiny punctate metallic foreign body in the soft tissues overlying the upper right zone. Heart: Normal size. Mediastinum: Normal contour. Lungs: Clear. Bones: No aggressive bone process RAD/Chest PA and Lateral IMPRESSION: No acute process. Reading [facility]
[2024-11-14 10:26] LABS: Absolute Lymphocyte Count 1.79 X10^3/uL (0.83-4.51); Absolute Neutrophil Count 6.2 X10^3/uL (2.0-7.7); Basophil# 0.05 X10^3/uL; Basophil% 0.6 % (0-1); Eosinophil# 0.14 X10^3/uL; Eosinophils% 1.5 % (0-5); Hematocrit 42.1 % (40-54); Hemoglobin 13.9 g/dL (13.0-16.5); Lymphocyte # 1.79 X10^3/ul (0.83-4.51); Lymphocyte % 19.7 % (19-41); Mean Corpuscular Hgb 30.2 pg (27.0-32.0); Mean Corpuscular Volume 91.5 fL (80-94); Mean Platelet Vol. 9.9 fl (6.2-12.0); Monocyte# 0.89 X10^3/uL; Monocyte% 9.8 % (0-10); NRBC Flagged by Analyzer 0 % (0-5); Neutrophil % 68.2 % (47-70); Platelet Count 209 K/mm3 (150-450); RBC Distribution Width CV 13.1 % (11.6-14.6); RBC Distribution Width SD 44.2 fl (35.1-43.9); White Blood Count 9.1 K/mm3 (4.4-11.0)
[2024-11-14 10:57] LABS: Anion Gap 9 (5-15); BUN 12 mg/dL (4-19); BUN/Creat Ratio 11.3 RATIO (10-20); Calcium,Total 9.5 mg/dL (7.6-11.0); Carbon Dioxide 29.7 mmol/L (21.0-32.0); Chloride 105 mmol/L (98-108); Creatinine, Serum 1.09 mg/dL (0.70-1.20); EST Glomerular Filtration Rate 73 (>60); Glucose 115 mg/dL (70-99); Potassium 3.7 mmol/L (3.3-5.1); Pro- Brain NATRIURETIC PEPTIDE 585 pg/mL (<=900); Sodium Level 144 mmol/L (133-145)
== END | disposition home or self-care (01) ==
PROVIDERS: Student in an Organized Health Care Education/Training Program; PCP Internal Medicine; Referring Provider Internal Medicine Pulmonary Disease; Visit Provider Internal Medicine Pulmonary Disease
DX: J44.9 Chronic obstructive pulmonary disease, unspecified (principal); R06.02 Shortness of breath; R60.0 Localized edema; Z87.01 Personal history of pneumonia (recurrent)
CPT/HCPCS: 36415; 71046; 80048; 83880; 85025

== ENCOUNTER → 2025-01-04 | Outpatient (CLI) | payer MEDICARE, MEDICAID, SELFPAY ==
--- OUTSIDE RECORDS SUMMARY | 2025-01-04 06:16 | XMS RPT_ITS | CCD ---
Author Organization [facility] Care Team Providers Care Salsa Dance Instructor Name Role Phone Dr. Sofi Garza Primary Care Provider Dr. Sofi Garza Referring Provider Km ASSISTANT FINANCIAL ACCOUNTANT, ASSISTANT FINANCIAL ACCOUNTANT-C Wei Ernandez Attending Provider Kayla MUNIZ, Dr. Rivera Primary Care Provider Km SANTACRUZ-CWei Attending Provider Dr. Espinoza Dewitt MD Referring Provider Dr. Sofi Garza MD Referring Provider Diego SANTACRUZ-COma Attending Provider Uche Zarate Attending Provider Uche Zarate Referring Provider Jorge L MUNIZ, Dr. Wiggins Attending Provider Juan David MUNIZ, Dr. Corrina Hendrix Attending Provider Dr. Corrina Fall MD, V Referring Provider Uche Zarate Other Provider Espinoza Dewitt Referring Unavailable Latouf, Butros Primary Care Unavailable Roof ASSISTANT FINANCIAL ACCOUNTANT, Wei Ernandez Attending Unavailable Roof ASSISTANT FINANCIAL ACCOUNTANT, Wei Ernandez Attending Unavailable Latouf, Butros Primary Care Unavailable Latouf, Butros Referring Unavailable Latouf, Butros Primary Care Unavailable Uche Jiang Referring Unavailable Rosalie Coats Attending Unavailable Uche Jiang Attending Unavailable Latouf, Butros Referring Unavailable Latouf, Butros Primary Care Unavailable Latouf, Butros Primary Care Unavailable Uche Jiang Attending Unavailable Latouf, Butros Referring Unavailable Latouf, Butros Primary Care Unavailable Jorge L, Rosalie Attending Unavailable Jorge L, Rosalie Referring Unavailable Demiter, Uche Referring Unavailable Latouf, Butros Primary Care Unavailable Demiter, Uche Attending Unavailable Latouf, Butros Primary Care Unavailable Demiter, Uche Attending Unavailable Latouf, Butros Referring Unavailable Oma Cortez Attending Unavailable Latouf, Butros Primary Care Unavailable Latouf, Butros Referring Unavailable Sibilia, Corrina V Attending Unavailable Sibilia, Corrina V Referring Unavailable Latouf, Butros Primary Care Unavailable Demiter, Uche Consulting Unavailable Latouf, Butros Primary Care Unavailable Baldev Serrano Attending Unavailable Latouf, Butros Primary Care Unavailable Jorge L, Rosalie Attending Unavailable Jorge L, Rosalie Referring Unavailable ZAFAR NGO MD Primary Care Unavailable LATSOFI SWANSON MD Referring Unavailable SOFI GARZA MD Consulting Unavailable ZAFAR NGO MD Attending Unavailable ZAFAR NGO MD Admitting Unavailable PROVIDER, UNKNOWN Consulting Unavailable PROVIDER, UNKNOWN Consulting Unavailable PROVIDER, UNKNOWN Consulting Unavailable SOFI GARZA MD Admitting Unavailable LATOUSOFI Mir MD Attending Unavailable SOFI GARZA MD Consulting Unavailable SOFI GARZA MD Primary Care Unavailable PROVIDER, UNKNOWN Consulting Unavailable PROVIDER, UNKNOWN Consulting Unavailable PROVIDER, UNKNOWN Consulting Unavailable SOFI GARZA MD Admitting Unavailable LATSOFI SWANSON MD Attending Unavailable SOFI GARZA MD Consulting Unavailable SOFI GARZA MD Primary Care Unavailable PROVIDER, UNKNOWN Consulting Unavailable PROVIDER, UNKNOWN Consulting Unavailable PROVIDER, UNKNOWN Consulting Unavailable SIBILIA, CORRINA V Admitting Unavailable SIBILIA, CORRINA V Primary Care Unavailable SIBILIA, CORRINA V Attending Unavailable SOFI GARZA MD Consulting Unavailable PROVIDER, UNKNOWN Consulting Unavailable PROVIDER, UNKNOWN Consulting Unavailable PROVIDER, UNKNOWN Consulting Unavailable August GENERAL ADMINISTRATOR Admitting Unavailable August GENERAL ADMINISTRATOR Attending Unavailable MANAAugust GENERAL ADMINISTRATOR Consulting Unavailable August GENERAL ADMINISTRATOR Primary Care Unavailable PROVIDER, UNKNOWN Consulting Unavailable PROVIDER, UNKNOWN Consulting Unavailable SOFI GARZA MD Referring Unavailable SOFI GARZA MD Consulting Unavailable ZAFAR NGO MD Primary Care Unavailable ZAFAR NGO MD Admitting Unavailable ZAFAR NGO MD Attending Unavailable PROVIDER, UNKNOWN Consulting Unavailable PROVIDER, UNKNOWN Consulting Unavailable PROVIDER, UNKNOWN Consulting Unavailable Allergies Allergy Classification Reported Allergen(s) Allergy Type Date of Onset Reaction(s) Facility (6 sources) Cephalexin Drug Allergy 03-18-2022 swelling [facility] (1 source) Cephalexin Drug Allergy 11-14-2024 [facility] Repository (1 source) benzonatate Drug Allergy [facility] Rep[facility] (1 source) Cephalexin Drug Allergy [facility] Repository Medications Current Medications Medication Drug Class(es) Dates Sig (Normalized) Sig (Original) acetaminophen 500 mg oral tablet (6 sources) Start: 02-28-2021 take 1 tablet by mouth every six hours as needed Acetaminophen 500 mg tablet Active 500 mg PO EVERY 6 HOURS as needed February 28, 2021 12:00am [id number] 200 actuat albuterol 0.09 mg/actuat metered dose inhaler (18 sources) beta2-Adrenergic Agonist Start: 09-06-2021 Albuterol Sulfate [...] 10:27am ascorbic acid 500 mg oral tablet (5 sources) Vitamin C Start: 11-21-2022 take 1 tablet by mouth once daily Ascorbic Acid (Vitamin C) 500 mg tablet Active 500 mg PO DAILY November 21, 2022 12:00am aspirin 81 mg delayed release oral tablet (6 sources) Platelet Aggregation Inhibitor, Nonsteroidal Anti-inflammatory Drug Start: 04-04-2021 Aspirin (Adult Low Dose Aspirin) 81 mg tablet,delayed release (DR/EC) Active 81 mg PO DAILY April 04, 2021 12:00am atorvastatin 40 mg oral tablet (12 sources) HMG-CoA Reductase Inhibitor Start: 09-06-2021 take 1 tablet by mouth at bedtime Atorvastatin 40 mg tablet Active 40 mg PO AT BEDTIME September 06, 2021 12:00am Start: 07-16-2017 End: 09-06-2021 take 1 tablet by mouth once daily Atorvastatin 20 mg tablet Discontinued 20 mg PO daily July 16, 2017 1:00am September 06, 2021 9:48am cholecalciferol 0.025 mg oral tablet (11 sources) Vitamin D Start: 11-21-2022 take 1 tablet by mouth once daily Cholecalciferol (Vitamin D3) 25 mcg (1,000 unit) tablet Active 25 ug PO DAILY November 21, 2022 12:00am Start: 02-28-2021 End: 11-21-2022 take 1 tablet by mouth once daily Cholecalciferol (Vitamin D3) 10 mcg (400 unit) tablet Discontinued 10 ug PO DAILY February 28, 2021 12:00am November 21, 2022 10:43am losartan potassium 50 mg oral tablet (6 sources) Angiotensin 2 Receptor Terence Start: 02-28-2021 take 1 tablet by mouth once daily Losartan 50 mg tablet Active 50 mg PO DAILY February 28, 2021 12:00am tamsulosin hydrochloride 0.4 mg oral capsule (6 sources) alpha-Adrenergic Terence Start: 07-16-2017 take 1 capsule by mouth once daily Tamsulosin 0.4 mg capsule,extended release 24hr Active 0.4 mg PO daily July 16, 2017 1:00am vitamin b12 1 mg oral tablet (11 sources) Vitamin B12 Start: 08-09-2024 take 1 [...] / ipratropium bromide 0.167 mg/ml inhalation solution (18 sources) Anticholinergic, beta2-Adrenergic Agonist Start: 07-16-2017 End: 11-14-2024 take 1 mL by inhalation every eight hours Ipratropium-Albuter ol 0.5 mg-3 mg(2.5 mg base)/3 mL solution for nebulization Discontinued 3 mL INHALATION Q8H 180 July 29, 2019 5:07pm November 14, 2024 8:24am Start: 07-16-2017 End: 07-29-2019 take 1 mL by inhalation every eight hours Ipratropium-Albuterol Active 3 ML INHALATION Q8H 180 July 29, 2019 4:07pm azithromycin 250 mg oral tablet (6 sources) Macrolide Antimicrobial Start: 10-12-2017 End: 02-17-2019 take 1 tablet by mouth once daily Azithromycin 250 mg tablet Discontinued 250 mg PO daily October 12, 2017 12:00am February 17, 2019 9:38am carbidopa 10 mg / levodopa 100 mg oral tablet (6 sources) Aromatic Amino Acid Decarboxylation Inhibitor, Aromatic [...] 2021 1:50pm carvedilol 6.25 mg oral tablet (19 sources) alpha-Adrenergic Terence, beta-Adrenergic Terence Start: 10-18-2024 [...] 16, 2017 1:00am July 17, 2023 11:30am Pvbrbibpbzm-Tgdmvovpf-Taoehu er (18 sources) Anticholinergic, Corticosteroid, beta2-Adrenergic Agonist Start: 02-28-2021 End: 09-06-2021 Mpxfjuzdefz-Mhjuogsjb-Bawrvp er (Trelegy Ellipta) 100-62.5-25 mcg blister with device Discontinued 1 NMA INHALATION DAILY February 28, 2021 12:00am September 06, 2021 9:47am Start: 02-28-2021 End: 09-06-2021 Gfydbfxwrfr-Hftydznkq-Ymdtwb er (Trelegy Ellipta) 100-62.5-25 mcg blister with device Discontinued 1 INH INHALATION DAILY February 27, 2021 11:00pm September 06, 2021 8:47am Start: 05-13-2019 Fluticasone-Um eclidin-Vilanter (Trelegy Ellipta) 100-62.5-25 mcg blister with device Active 1 NMA INHALATION DAILY May 13, 2019 4:19pm Start: 05-13-2019 Fluticasone-Um eclidin-Vilanter (Trelegy Ellipta) 100-62.5-25 mcg blister with device Active 1 INH INHALATION DAILY 3 May 13, 2019 3:19pm Start: 03-03-2019 End: 05-13-2019 Xhitqdjiunm-Xtduzlqyp-Ezegwb er (Trelegy Ellipta) 100-62.5-25 mcg blister with device Discontinued 1 NMA INHALATION DAILY March 03, 2019 12:00am May 13, 2019 4:19pm Start: 03-03-2019 End: 05-13-2019 Rkwligfqfxt-Puzngljok-Zpohgc er (Trelegy Ellipta) 100-62.5-25 mcg blister with device Discontinued 1 INH INHALATION DAILY March 02, 2019 11:00pm May 13, 2019 3:19pm furosemide 20 mg oral tablet (20 sources) Loop Diuretic Start: 07-16-2017 End: 08-09-2024 take 1 tablet by mouth once daily as needed Furosemide 20 mg tablet Discontinued 20 mg PO DAILY as needed November 21, 2022 10:42am August 09, 2024 11:33am glipiZIDE 2.5 mg oral tablet (4 sources) Sulfonylurea Start: 08-29-2024 End: 10-18-2024 take 1 tablet by mouth once daily Glipizide 2.5 mg tablet Discontinued 2.5 mg PO daily August 29, 2024 12:00am October 18, 2024 7:50am 12 hr guaiFENesin 600 mg extended release oral tablet (4 sources) Start: 08-29-2024 End: 11-14-2024 take 1 tablet by mouth every twelve hours as needed, then take 1 tablet by mouth every twelve hours as needed Guaifenesin (Mucinex) 600 mg tablet extended release 12hr Discontinued 600 mg PO Q12H as needed August 29, 2024 12:00am November 14, 2024 8:24am 24 hr isosorbide mononitrate 30 mg extended release oral tablet (6 sources) Nitrate Vasodilator Start: 07-16-2017 End: 02-28-2021 take 1 tablet by mouth once daily in the morning, then take 1 tablet by mouth every twenty-four hours Isosorbide Mononitrate 30 mg tablet extended release 24 hr Discontinued 30 mg PO EVERY MORNING July 16, 2017 1:00am February 28, 2021 2:50pm lisinopril 20 mg oral tablet (6 sources) Angiotensin Converting Enzyme Inhibitor Start: 07-16-2017 End: 02-28-2021 take 1 tablet by mouth once daily Lisinopril 20 mg tablet Discontinued 20 mg PO daily July 16, 2017 1:00am February 28, 2021 2:49pm montelukast 10 mg oral tablet (6 sources) Leukotriene Receptor Antagonist Start: 07-16-2017 End: 02-28-2021 take 1 tablet by mouth once daily in the evening Montelukast 10 mg tablet Discontinued 10 mg PO EVERY EVENING July 16, 2017 1:00am February 28, 2021 2:50pm nitroglycerin 0.4 mg sublingual tablet (20 sources) Nitrate Vasodilator Start: 07-16-2017 End: 12-16-2021 [...] omeprazole 20 mg delayed release oral capsule (16 sources) Proton Pump Inhibitor Start: 08-29-2024 End: [...] 2021 2:49pm prasugrel 10 mg oral tablet (6 sources) P2Y12 Platelet Inhibitor Start: 07-16-2017 End: 02-28-2021 take 1 tablet by mouth once daily Prasugrel Hcl 10 mg tablet Discontinued 10 mg PO daily July 16, 2017 1:00am February 28, 2021 2:50pm Roflumilast (4 sources) Phosphodiesterase 4 Inhibitor Start: 10-18-2024 End: 11-14-2024 take 1 tablet by mouth once daily Roflumilast 500 mcg tablet Discontinued 500 ug PO daily October 18, 2024 12:00am November 14, 2024 8:24am Start: 10-18-2024 take 1 tablet by lavonne th once daily Roflumilast 500 mcg tablet Active 500 ug PO daily October 18, 2024 12:00am 7 actuat umeclidinium 0.0625 mg/actuat / vilanterol 0.025 mg/actuat dry powder inhaler (20 sources) Anticholinergic, beta2-Adrenergic Agonist Start: 07-21-2017 End: 03-03-2019 Umeclidinium-Vilanterol (Anoro Ellipta) 62.5-25 mcg/actuation blister with device Discontinued 1 NMA INHALATION Q24H October 27, 2018 2:14pm March 03, 2019 7:19am Start: 07-21-2017 End: 03-03-2019 Umeclidinium-Vilanterol (Ano ro Ellipta) 62.5-25 mcg/actuation blister with device Discontinued 1 INH INHALATION Q24H October 27, 2018 1:14pm March 03, 2019 6:19am Problems Active Problems Problem Classification Problem Date Documented Da te Episodic/Chronic Acute myocardial infarction (2 sources) Non-ST elevation (NSTEMI) myocardial infarction; Translations: [Non-ST elevation (NSTEMI) myocardial infarction] Onset: 5 Chronic Cardiac dysrhythmias (1 source) Atrial premature depolarization; Translations: [Atrial premature depolarization] Onset: 5 Chronic Chronic kidney disease (6 sources) Chronic kidney disease stage 3; Translations: [Stage 3 chronic kidney disease] 02-26-2021 Chronic Chronic kidney disease (1 source) Chronic kidney disease; Translations: [Chronic kidney disease, stage 3 unspecified] Onset: 5 Chronic obstructive pulmonary disease and bronchiectasis (19 sources) Chronic obstructive lung disease; Translations: [Chronic obstructive pulmonary disease, unspecified] Onset: 5 02-26-2021 Chronic Coronary atherosclerosis and other heart disease (20 sources) Coronary arteriosclerosis; Translations: [Atherosclerotic heart disease of [place] coronary artery without angina pectoris] Onset: 5 [...] LAD. Coronary atherosclerosis and other heart disease (20 sources) Stented coronary artery; Translations: [Presence of coronary angioplasty implant and graft] Onset: 0 09-06-2021 Episodic Comment on above: PCI/AKASH to mid/prox RCA 04/08/16; PCI/AKASH to distal LAD 03/26/16 Diabetes mellitus with complications (3 sources) Type 2 diabetes mellitus with other specified complication; Translations: [Type 2 diabetes mellitus with other specified complication] Onset: 5 Chronic Disorders of lipid metabolism (20 sources) Hyperlipidemia; Translations: [Hyperlipidemia, unspecified] Onset: 5 02-28-2021 Chronic Esophageal disorders (6 sources) Gastroesophageal reflux disease; Translations: [Gastro-esophageal reflux disease without esophagitis] 09-06-2021 Chronic Essential hypertension (20 sources) Essential hypertension; Translations: [Essential (primary) hypertension] Onset: 5 07-16-2017 Chronic Genitourinary symptoms and ill-defined conditions (1 source) Unspecified urinary incontinence; Translations: [Unspecified urinary incontinence] Onset: 5 Chronic Hyperplasia of prostate (6 sources) Benign prostatic hyperplasia; Translations: [Benign prostatic hyperplasia with lower urinary tract symptoms] 07-16-2017 Chronic Malaise and fatigue (12 sources) Fatigue; Translations: [Other fatigue] Onset: 5 10-18-2024 Episodic Nonspecific chest pain (6 sources) Chest pain; Translations: [Chest pain, unspecified] 09-06-2021 Episodic Other connective tissue disease (6 sources) Nocturnal muscle cramp; Translations: [Cramp and spasm] 07-16-2017 Episodic Other gastrointestinal disorders (8 sources) Dysphagia; Translations: [Dysphagia, unspecified] 08-29-2024 Episodic Other lower respiratory disease (7 sources) Dyspnea; Translations: [Dyspnea, unspecified] 08-04-2024 Episodic Other lower respiratory disease (1 source) Shortness of breath; Translations: [Shortness of breath] Onset: 5 Episodic Other screening for suspected conditions (not mental disorders or infectious disease) (9 sources) CT of chest abnormal; Translations: [Abnormal findings on diagnostic imaging of other specified body structures] Onset: 5 08-29-2024 Chronic Other upper respiratory disease (6 sources) Seasonal allergic rhinitis; Translations: [Other seasonal allergic rhinitis] 02-17-2019 Chronic Syeda-; endo-; and myocarditis; cardiomyopathy (except that caused by tuberculosis or sexually transmitted disease) (6 sources) Heart valve disorder; Translations: [Endocarditis, valve unspecified] 02-26-2021 Chronic Residual codes; unclassified (6 sources) Obstructive sleep apnea syndrome; Translations: [Obstructive sleep apnea (adult) (pediatric)] 09-06-2021 Chronic Comment on above: On PAP therapy with O2 2L NC Residual codes; unclassified (1 source) Localized edema; Translations: [Localized edema] Onset: 5 Episodic Substance-related disorders (6 sources) Tobacco dependence in remission; Translations: [Nicotine dependence, unspecified, in remission] 07-21-2017 Chronic Past or Other Problems Problem Classification Problem Date Documented Da te Episodic/Chronic Other gastrointestinal disorders (1 source) Dysphagia, unspecified; Translations: [Dysphagia, unspecified] Onset: 08-29-2024 Episodic Other lower respiratory disease (2 sources) Dyspnea, unspecified; Translations: [Dyspnea, unspecified] Onset: 08-15-2024 Episodic Other screening for suspected conditions (not mental disorders or infectious disease) (1 source) Encounter for screening for malignant neoplasm of prostate; Translations: [Encounter for screening for malignant neoplasm of prostate] Onset: 07-02-2024 Episodic Results Test Name Value Interpretation Reference Range Facility [facility] with eGFRon 12-26-2024 AGE 69 years Normal [facility] Comment on above: Performed By: #### 2 [id number] #### [facility],[address] [place] [address] Anion gap [Moles/Vol] 12 mmol/L Normal 10 - 20 [facility] Comment on above: Performed By: #### 2 [id number] #### [facility],[address] [place] [address] 30801 BMP with eGFR Normal [facility] Comment on above: Result Comment: BASI C METABOLIC PANEL Performed By: #### 2 [id number] #### [facility],[address] [place] [address]608 Calcium [Mass/Vol] 9.3 mg/dL Normal 8.5 - 10.1 [facility] Comment on above: Performed By: #### 2 [id number] #### [facility],[address] [place] [address] 94214 Chloride [Moles/Vol] 107 mmol/L Normal 98 - 107 [facility] Comment on above: Performed By: #### 2 [id number] #### [facility],[address] [place] [address] 24158 CO2 [Moles/Vol] 30.4 mmol/L Normal 21.0 - 32.0 [facility] Comment on above: Performed By: #### 2 [id number] #### [facility],[address] [place] [address] 81258 Creatinine [Mass/Vol] 1.05 mg/dL Normal 0.70 - 1.30 [facility] Comment on above: Performed By: #### 2 [id number] #### [address] [address] GFR/1.73 sq M.predicted among non-blacks MDRD (S/P/Bld) [Vol rate/Area] mL/min/{1.73_m2} Normal 60 - 999 [facility] Comment on above: Performed By: #### 2 [id number] #### [facility],[address] [place] [address] Result Comment: ACCO RDING TO THE NATIONAL KIDNEY DISEASE EDUCATION PROGRAM(NKDE), A NORMAL eGFR IS A VALUE GREATER THAN OR EQUAL TO 60 ML/MIN/1.73 SQ METERS. CHRONIC KIDNEY DISEASE: <60mL/MIN/1.73 SQ METERS KIDNEY FAILURE: <15mL/MIN/1.73 SQ METERS THIS TEST SHOULD ONLY BE USED FOR PATIENTS 18 YEARS OF AGE AND OLDER. Glucose [Mass/Vol] 97 mg/dL Normal 74 - 106 [facility] Comment on above: Performed By: #### 2 [id number] #### [facility],[address] [place] [address] Potassium [Moles/Vol] 3.9 mmol/L Normal 3.5 - 5.1 [facility] Comment on above: Performed By: #### 2 [id number] #### [facility],[address] [place] [address] Sodium [Moles/Vol] 145 mmol/L Normal 136 - 145 [facility] Comment on above: Performed By: #### 2 [id number] #### [place] [address] Urea nitrogen [Mass/Vol] 17 mg/dL Normal 7 - 18 [facility] Comment on above: Performed By: #### 2 [id number] #### [facility],[address] [place], [place] [id number] HEMOGLOBIN A1C (POM)on 12-26 Glucose [Mass/Vol] 131.2 mg/dL High 0.0 - 0.0 [facility] Comment on above: Result Comment: BLDo HEMOGLOBIN A1C REFERENCE RANGESBLDo Suggested Diagnosis HbA1c(%) HbA1C (mmol/mol Diabetic >/=6.5 >/=48 Prediabetes 5.7 - 6.4 39 - 47 Normal <5.7 <39 Performed By: #### 2 [id number] #### [place] [address] HbA1c (Bld) [Mass fraction] 6.2 % Normal 0.0 - 6.5 [facility] Comment on above: Performed By: #### 2 [id number] #### [facility],[address] [place] [address]167 URINALYSIS WITH MICROSCOPYon 12-26-2024 Amorphous NONE Normal [facility] Comment on above: Performed By: #### 2 [id number] #### [facility],[address] [place] [address] Bacteria TRACE Normal [facility] Comment on above: Performed By: #### 2 [id number] #### [facility],[address] [place], [place] [id number] Bilirubin Ql (U) Negative Normal NORMAL: NEGATIVE [facility] Comment on above: Performed By: #### 2 [id number] #### [facility],[address] [place], [place] [id number] Casts SEE BELO Normal [facility] Comment on above: Performed By: #### 2 [id number] #### [facility],[address] [place] [address] Clarity (U) clear Normal NORMAL: CLEAR [facility] Comment on above: Performed By: #### 2 62793 #### [facility],[address] [place] [address] 49558 Color (U) yellow Normal NORMAL: YELLOW [facility] Comment on above: Performed By: #### 2 [id number] #### [facility],[address] [place] [address] Crystals LM Nom (Urine sed) NONE Normal [facility] Comment on above: Performed By: #### 2 [id number] #### [facility],[address] [place] [address]161 Epi Cells NONE Normal [facility] Comment on above: Performed By: #### 2 27090 #### [facility],[address] [place] [address] 48499 Glucose Ql (U) NORM Normal NORMAL: NORMAL [facility] Comment on above: Performed By: #### 2 [id number] #### [facility],[address] [place] [address] 98175 Hemoglobin Ql (U) Negative Normal NORMAL: NEGATIVE [facility] Comment on above: Performed By: #### 2 [id number] #### [facility],[address] [place] [address] Hyaline 1-5 Normal NORMAL: NONE [facility] Comment on above: Performed By: #### 2 64210 #### [facility],[address] [place] [address] Ketone Negative Normal NORMAL: NEGATIVE [facility] Comment on above: Performed By: #### 2 [id number] #### [facility],[address] [place] [address] Leukocytes 25 Abnormal NORMAL: NEGATIVE [facility] Comment on above: Result Comment: URIN E MICROSCOPIC Performed By: #### 2 [id number] #### [facility],[address] [place] [address] Mucous NONE Normal [facility] Comment on above: Performed By: #### 2 06697 #### [facility],[address] [place] [address] 81723 Nitrite Ql (U) Negative Normal NORMAL: NEGATIVE [facility] Comment on above: Performed By: #### 2 [id number] #### [facility],[address] [place] [address] 82543 pH (U) 6 [pH] Normal NORMAL: 5.0-8.0 [facility] Comment on above: Performed By: #### 2 [id number] #### [facility],[address] [place] [address] 73300 Protein Ql (U) 30 Abnormal NORMAL: NEGATIVE [facility] Comment on above: Performed By: #### 2 59224 #### [facility],[address] [place] [address] Rbc 0-5 Normal 0-3 / hpf [facility] Comment on above: Performed By: #### 2 75624 #### [facility],[address] [place] [address] Sp [place] 1.015 Normal NORMAL: 1.010-1.030 [facility] Comment on above: Performed By: #### 2 14010 #### [facility],[address] [place] [address] Specimen Type R Normal [facility] Comment on above: Performed By: #### 2 [id number] #### [facility],[address] [place] [address] URINALYSIS WITH MICROSCOPY Normal [facility] Comment on above: Result Comment: URIN ALYSIS Performed By: #### 2 [id number] #### [facility],[address] [place] [address] Urobilinog 1 Abnormal NORMAL: NORMAL [facility] Comment on above: Performed By: #### 2 [id number] #### [facility],[address] [place] [address] Wbc 1-5 Normal 0-5 / hpf [facility] Comment on above: Performed By: #### 2 [id number] #### [facility],[address] [place] [address] Yeast NONE Normal [facility] Comment on above: Performed By: #### 2 97514 #### [facility],[address] [place], [place] [id number] URINE CULTURE [CCL]on 2024 Bacteria identified Cx Nom (U) URCUL See Results Below See Below CULTURE, URINE NORMAL UROGENITAL JERRY <10,000 CFU/ml Normal urogenital jerry SOURCE: Urine (Nonspecific) [facility] [address] [place] [address] Brannon Gomez III, M.D. [id number] Normal [facility] Comment on above: Performed By: #### 2 18659 #### [facility],[address] [place] [address] URINE MICROALBUMIN W/CREATIN INE, RANDOMon 12-26-2024 CREATININE UR 184.69 mg/dl Normal [facility] Comment on above: Performed By: #### 2 44160 #### [facility],[address] [place], [place] [id number] MICROALBUMIN UR 28.2 mg/dL High 0.1 - 25.1 [facility] Comment on above: Performed By: #### 2 89753 #### [facility],[address] [place] [address] UACR 153 mg/g Normal [facility] Comment on above: Performed By: #### 2 54565 #### [facility],[address] [place] [address] Absolute lymphocyte countOrd ered By: Uche Jiang on 11-14-2024 Lymphocytes Auto (Unsp spec) [#/Vol] 1.79 10*3/uL 0.83-4.51 [facility] Absolute neutrophil countOrd ered By: Uche Jiang on 11-14-2024 Neutrophils (Bld) [#/Vol] 6.2 10*3/uL 2.0-7.7 [facility] Anion gap in Serum or Plasma Ordered By: Uche Jiang on 11-14-2024 Anion gap [Moles/Vol] 9 mmol/L - [facility] Automated lymphocyte count a s percentage of total leukocytesOrdered By: Uche Jiang on 11-14-2024 Lymphocytes/100 WBC Auto (Unsp spec) 19.7 % [facility] BUN/creatinine ratioOrdered By: Uche Jiang on 11-14-2024 Urea nitrogen/Creatinine [Mass ratio] 11.3 mg/mg 03-20 [facility] Basic Metabolic Profile (BMP )on 11-14-2024 BUN/CRE 11.3 RATIO Normal 03-20 [facility] Comment on above: Order Comment: CBCD- SIBILIA OTHER TESTS-DEMITER Performed By: #### L 503.7505, L500.2500, L100.0100 #### [facility] [address] [place], [address] Calcium [Mass/Vol] 9.5 mg/dL Normal 7.6-11.0 [facility] Comment on above: Order Comment: CBCD- SIBILIA OTHER TESTS-DEMITER Performed By: #### L 503.7505, L500.2500, L100.0100 #### [facility] [address] [place], [address] Chloride [Moles/Vol] 105 mmol/L Normal 98-108 [facility] Comment on above: Order Comment: CBCD- SIBILIA OTHER TESTS-DEMITER Performed By: #### L 503.7505, L500.2500, L100.0100 #### [facility] [address] [place], [address] CO2 [Moles/Vol] 29.7 mmol/L Normal 21.0-32.0 [facility] Comment on above: Order Comment: CBCD- SIBILIA OTHER TESTS-DEMITER Performed By: #### L 503.7505, L500.2500, L100.0100 #### [facility] [address] [place], [address] Creatinine [Mass/Vol] 1.09 mg/dL Normal 0.70-1.20 [facility] Comment on above: Order Comment: CBCD- SIBILIA OTHER TESTS-DEMITER Performed By: #### L 503.7505, L500.2500, L100.0100 #### [facility] [address] [place], [address] GAP 9 Normal 5-15 [facility] Comment on above: Order Comment: CBCD- SIBILIA OTHER TESTS-DEMITER Performed By: #### L 503.7505, L500.2500, L100.0100 #### [facility] [address] [place], [address] GFR/1.73 sq M.predicted among non-blacks MDRD (S/P/Bld) [Vol rate/Area] 73 mL/min/{1.73_m2} Normal >60 [facility] Comment on above: Order Comment: CBCD- SIBILIA OTHER TESTS-DEMITER Result Comment: mL/m in/1.73m2 CKD-EPI Creatinine Equation (2020) Performed By: #### L 503.7505, L500.2500, L100.0100 #### [facility] [address] [place], [address] Glucose [Mass/Vol] 115 mg/dL High 70-99 [facility] Comment on above: Order Comment: CBCD- SIBILIA OTHER TESTS-DEMITER Performed By: #### L 503.7505, L500.2500, L100.0100 #### [facility] [address] [place], [address] Potassium [Moles/Vol] 3.7 mmol/L Normal 3.3-5.1 [facility] Comment on above: Order Comment: CBCD- SIBILIA OTHER TESTS-DEMITER Performed By: #### L 503.7505, L500.2500, L100.0100 #### [facility] [address] [place], [address] Sodium [Moles/Vol] 144 mmol/L Normal 133-145 [facility] Comment on above: Order Comment: CBCD- SIBILIA OTHER TESTS-DEMITER Performed By: #### L 503.7505, L500.2500, L100.0100 #### [facility] [address] [place], [address] Urea nitrogen [Mass/Vol] 12 mg/dL Normal 4-19 [facility] Comment on above: Order Comment: CBCD- SIBILIA OTHER TESTS-DEMITER Performed By: #### L 503.7505, L500.2500, L100.0100 #### [facility] [address] [place], [address] Basophil percentageOrdered B y: Uche Demiter on 11-14-2024 Basophils/100 WBC (Bld) 0.6 % 0-1 [facility] CBC W/Diff, Automatedon 10-30 Absolute Lymph 1.79 X10 3/uL Normal 0.83-4.51 [facility] Comment on above: Order Comment: CBCD- SIBILIA OTHER TESTS-DEMITER Performed By: #### L 503.7505, L500.2500, L100.0100 #### [facility] [address] [place], [address] Absolute Neut 6.2 X10 3/uL Normal 2.0-7.7 [facility] Comment on above: Order Comment: CBCD- SIBILIA OTHER TESTS-DEMITER Performed By: #### L 503.7505, L500.2500, L100.0100 #### [facility] [address] [place], [address] Basophils/100 WBC (Bld) 0.6 % Normal 0-1 [facility] Comment on above: Order Comment: CBCD- SIBILIA OTHER TESTS-DEMITER Performed By: #### L 503.7505, L500.2500, L100.0100 #### [facility] [address] [place], [address] Eosinophils/100 WBC (Bld) 1.5 % Normal 0-5 [facility] Comment on above: Order Comment: CBCD- SIBILIA OTHER TESTS-DEMITER Performed By: #### L 503.7505, L500.2500, L100.0100 #### [facility] [address] [place], [address] Erythrocyte distribution width (RBC) [Ratio] 13.1 % Normal 11.6-14.6 [facility] Comment on above: Order Comment: CBCD- SIBILIA OTHER TESTS-DEMITER Performed By: #### L 503.7505, L500.2500, L100.0100 #### [facility] [address] [place], [address] Hematocrit (Bld) [Volume fraction] 42.1 % Normal 40-54 [facility] Comment on above: Order Comment: CBCD- SIBILIA OTHER TESTS-DEMITER Performed By: #### L 503.7505, L500.2500, L100.0100 #### [facility] [address] [place], [address] Hemoglobin (Bld) [Mass/Vol] 13.9 g/dL Normal 13.0-16.5 [facility] Comment on above: Order Comment: CBCD- SIBILIA OTHER TESTS-DEMITER Performed By: #### L 503.7505, L500.2500, L100.0100 #### [facility] [address] [place], [address] IG% 0.200 Normal 0.0-0.9 [facility] Comment on above: Order Comment: CBCD- SIBILIA OTHER TESTS-DEMITER Result Comment: IG% - Immature Granulocytes (promyelocytes, myelocytes and metamyelocytes) > 1% indicates that a LEFT SHIFT is Present. Performed By: #### L 503.7505, L500.2500, L100.0100 #### [facility] [address] [place], [address] Lymphocytes/100 WBC (Bld) 19.7 % Normal 19-41 [facility] Comment on above: Order Comment: CBCD- SIBILIA OTHER TESTS-DEMITER Performed By: #### L 503.7505, L500.2500, L100.0100 #### [facility] [address] [place], [address] MCH (RBC) [Entitic mass] 30.2 pg Normal 27.0-32.0 [facility] Comment on above: Order Comment: CBCD- SIBILIA OTHER TESTS-DEMITER Performed By: #### L 503.7505, L500.2500, L100.0100 #### [facility] [address] [place], [address] MCHC (RBC) [Mass/Vol] 33.0 g/dL Normal 32-36 [facility] Comment on above: Order Comment: CBCD- SIBILIA OTHER TESTS-DEMITER Performed By: #### L 503.7505, L500.2500, L100.0100 #### [facility] [address] [place], [address] MCV (RBC) [Entitic vol] 91.5 fL Normal 80-94 [facility] Comment on above: Order Comment: CBCD- SIBILIA OTHER TESTS-DEMITER Performed By: #### L 503.7505, L500.2500, L100.0100 #### [facility] [address] [place], [address] Monocytes/100 WBC (Bld) 9.8 % Normal 0-10 [facility] Comment on above: Order Comment: CBCD- SIBILIA OTHER TESTS-DEMITER Performed By: #### L 503.7505, L500.2500, L100.0100 #### [facility] [address] [place], [address] Neutrophils/100 WBC (Bld) 68.2 % Normal 47-70 [facility] Comment on above: Order Comment: CBCD- SIBILIA OTHER TESTS-DEMITER Performed By: #### L 503.7505, L500.2500, L100.0100 #### [facility] [address] [place], [address] Nucleated RBC (Bld) [#/Vol] 0 10*3/uL Normal 0-5 [facility] Comment on above: Order Comment: CBCD- SIBILIA OTHER TESTS-DEMITER Performed By: #### L 503.7505, L500.2500, L100.0100 #### [facility] [address] [place], [address] Platelet mean volume (Bld) [Entitic vol] 9.9 fL Normal 6.2-12.0 [facility] Comment on above: Order Comment: CBCD- SIBILIA OTHER TESTS-DEMITER Performed By: #### L 503.7505, L500.2500, L100.0100 #### [facility] [address] [place], [address] Platelets (Bld) [#/Vol] 209 10*3/uL Normal 150-450 [facility] Comment on above: Order Comment: CBCD- SIBILIA OTHER TESTS-DEMITER Performed By: #### L 503.7505, L500.2500, L100.0100 #### [facility] [address] [place], [address] RBC (Bld) [#/Vol] 4.60 10*6/uL Normal 4.6-6.2 [facility] Comment on above: Order Comment: CBCD- SIBILIA OTHER TESTS-DEMITER Performed By: #### L 503.7505, L500.2500, L100.0100 #### [facility] [address] [place], [address] RDW SD 44.2 fl High 35.1-43.9 [facility] Comment on above: Order Comment: CBCD- SIBILIA OTHER TESTS-DEMITER Performed By: #### L 503.7505, L500.2500, L100.0100 #### [facility] [address] [place], [address] WBC (Bld) [#/Vol] 9.1 10*3/uL Normal 4.4-11.0 [facility] Comment on above: Order Comment: CBCD- SIBILIA OTHER TESTS-DEMITER Performed By: #### L 503.7505, L500.2500, L100.0100 #### [facility] [address] [place], [address] Carbon dioxide, total [Moles /volume] in Central venous bloodOrdered By: Uche Jiang on 11-14-2024 CO2 [Moles/Vol] 29.7 mmol/L 21.0-32.0 [facility] Cardiology Visit Reporton Cardiology Visit Report [facility] [address] [place] [address] OFFICE VISIT Date of Service: 11/14/24 MR#: [id number] Acct: [id number] Name: HEIDI JASSO Rep #: [id number] : 1955 Provider: DARREL Maldonado Age/Sex: 69/M Location: [facility] Status: Signed Agree with assessment and plan s outlined. HPI HPI History of Present Illness Details: Heidi Jasso is a 68 year old male who presents today for follow-up for monitoring his cardiovascular health. Patient has a history of CAD status post PCI and CABG, hyperlipidemia and hypertension. Patient previously followed with Carl medical videographer in [facility]. It appears patient underwent CABG 04/15/2000 in [place] receiving GARAY to the LAD, left radial [...] as wide open with good flow, the [place] LAD was reported 100% occluded. Patient has a history of 2+ AR. Patient was hospitalized at [facility] for acute exacerbation of COPD, [...] due to top of his heart fluttering. He was seen in office approximately 4 weeks ago and his carvedilol dose was decreased to 6.25 mg twice daily. A 24-hour Holter monitor was ordered along with stress test. Patient's 24-hour Holter monitor 11/08/2024 demonstrates average heart rate 64 bpm and normal sinus rhythm, lowest heart rate sinus bradycardia at 48 bpm at 12:59 AM and maximum heart rate 94 bpm and normal sinus rhythm. This captured 5.7% VE and 6.0% SVE. There was no atrial fibrillation or significant pauses. Upon presentation today, patient reports weakness remains about the same. LE edema remains. He does take furosemide 20mg daily but he does not notice significant change in his fluid status unless he takes 2 of his furosemide. He occasionally takes 2 pills when swelling is significantly worse or with SOB. His SOB remains pretty severe, as he had to use his inhaler to walk up to the office today. Getting dressed causes significant SOB in which he has to take a 5 minute rest to recover. He does have significant lung disease and follows with Dr Fall. He reports feeling better since decreasing his carvedilol to 6.25mg BID, energy slightly improved but does continue to notice some fatigue. He continues to experience night sweats. He has been experiencing headaches over the last few days and relates this to stress, resolves with tylenol. Further ROS below. 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 100 mcg-umeclid 1 inh inhalation DAILY #3 ea 05/1311/14/24 Rx 62.5 mcg-vilant 25 mcg inhalat.powder (Trelegy Ellipta) acetaminophen 500 mg tablet 500 mg PO Q6H PRN 02/28/21 5 History losartan 50 mg tablet 50 mg PO DAILY 02/28/21 11/14/24 H istory aspirin 81 mg tablet,delayed 81 mg PO DAILY 04/04/21 11/14/24 H istory release (Adult Low Dose Aspirin) albuterol sulfate 90 mcg/actuation 2 puff inhalation Q6H PRN 06 (more content not included)... Normal [facility] Chest PA and Lateralon 11-14 Chest PA and Lateral [facility] [address] [place] [address] Chest PA and Lateral MR#: [id number] Acct: [id number] Name: HEIDI JASSO Rep #: [id number] : 1955 M 69 From: Jevon Santacruz DO PCP: Dr. Sofi Garza MD Status: REG CLI Study: Chest PA and Lateral Date of Exam: 11/14/24 Exam# [id number] Ordering Dr: Uche Jiang PROCEDURE: CHEST PA AND LATERAL 11/14/2024 REASON FOR EXAM: SHORTNESS OF BREATH, RECENT PNEUMONIA TECHNIQUE: CHEST PA AND LATERAL COMPARISON: Chest radiograph July 29, 2019 FINDINGS: Hardware: Sternal wires and mediastinal vascular clips from CABG. Tiny punctate metallic foreign body in the soft tissues overlying the upper right zone. Heart: Normal size. Mediastinum: Normal contour. Lungs: Clear. Bones: No aggressive bone process RAD/Chest PA and Lateral IMPRESSION: No acute process. Reading Location: [facility] CC: Dr. 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: Signed Normal [facility] Chloride assayOrdered By: Gavin Jiang on 11-14-2024 Chloride [Moles/Vol] 105 mmol/L 98-108 [facility] Eosinophil percentageOrdered By: Uche Jiang on 11-14-2024 Eosinophils/100 WBC (Bld) 1.5 % 0-5 [facility] Erythrocyte distribution wid th ratioOrdered By: Uche Jiang on 11-14-2024 Erythrocyte distribution width (RBC) [Ratio] 13.1 % 11.6-14.6 [facility] Erythrocyte distribution wid th standard deviationOrdered By: Uche Jiang on 11-14-2024 Erythrocyte distribution width (RBC) [Ratio] 44.2 fl High 35.1-43.9 [facility] Glomerular filtration rate ( GFR) estimation/1.73 sq m using serum, plasma, or whole bOrdered By: Uche Jiang on 11-14-2024 GFR/1.73 sq M.predicted among non-blacks MDRD (S/P/Bld) [Vol rate/Area] 73 mL/min/{1.73_m2} >60 [facility] Comment on above: mL/min/1.73m2 CKD-EP I Creatinine Equation (2020) Hematocrit Auto (Bld) [Volum e fraction]Ordered By: Uche Jiang on 11-14-2024 Hematocrit (Bld) [Volume fraction] 42.1 % 40-54 [facility] Hemoglobin measurementOrdere d By: Uche Jiang on 11-14-2024 Hemoglobin (Bld) [Mass/Vol] 13.9 g/dL 13.0-16.5 [facility] Immature granulocytes/100 WB C Auto (Bld)Ordered By: Uche Jiang on 11-14-2024 Immature granulocytes/100 WBC (Bld) 0.200 % 0.0-0.9 [facility] Comment on above: IG% - Immature Granu locytes (promyelocytes, myelocytes and metamyelocytes) > 1% indicates that a LEFT SHIFT is Present. L503.7505on 11-14-2024 Natriuretic peptide B (Bld) [Mass/Vol] 585 pg/mL Normal <=900 [facility] Comment on above: Order Comment: CBCD- SIBILIA OTHER TESTS-DEMITER Result Comment: Hear t Failure Unlikely: < 300 pg/mL Heart Failure Likely < 50 Years: > 450 pg/mL 50-75 Years: > 900 pg/mL >75 Years: > 1800 pg/mL Performed By: #### L 503.7505, L500.2500, L100.0100 #### [facility] [address] [place], [address] MCV (mean corpuscular volume ) determinationOrdered By: Uche Jiang on 11-14-2024 MCV (RBC) [Entitic vol] 91.5 fL 80-94 [facility] Mean corpuscular hemoglobin (MCH) determinationOrdered By: Uche Jiang on 11-14-2024 MCH (RBC) [Entitic mass] 30.2 pg 27.0-32.0 [facility] Mean corpuscular hemoglobin concentration (MCHC) determinationOrdered By: Uche Jiang on 11-14-2024 MCHC (RBC) [Mass/Vol] 33.0 g/dL 32-36 [facility] Mean platelet volume determi nationOrdered By: Uche Jiang on 11-14-2024 Platelet mean volume (Bld) [Entitic vol] 9.9 fL 6.2-12.0 [facility] Monocyte percentageOrdered B y: Uche Jiang on 11-14-2024 Monocytes/100 WBC (Bld) 9.8 % 0-10 [facility] Natriuretic peptide.B prohor mathew N-Terminal [Mass/volume] in Serum or PlasmaOrdered By: Uche Jiang on 11-14-2024 Natriuretic peptide.B prohormone N-Terminal [Mass/Vol] 585 pg/mL <900 [facility] Comment on above: Heart Failure Unlike ly: < 300 pg/mLHeart Failure Likely< 50 Years: > 450 pg/mL50-75 Years: > 900 pg/mL>75 Years: > 1800 pg/mL Neutrophil percentageOrdered By: Uche Jiang on 11-14-2024 Neutrophils/100 WBC (Bld) 68.2 % 47-70 [facility] Nucleated red blood cell per centageOrdered By: Uche Jiang on 11-14-2024 Nucleated RBC/100 WBC (Bld) [Ratio] 0 % 0-5 [facility] Platelet countOrdered By: Gavin Jiang on 11-14-2024 Platelets (Bld) [#/Vol] 209 10*3/uL 150-450 [facility] Potassium measurement (mass/ volume)Ordered By: Uche Jiang on 11-14-2024 Potassium (Unsp spec) [Mass/Vol] 3.7 mmol/L 3.3-5.1 [facility] RBC Auto (Bld) [#/Vol]Ordere d By: Uche Jiang on 11-14-2024 RBC (Bld) [#/Vol] 4.60 10*6/uL 4.6-6.2 [facility] Serum creatinine measurement (mass/volume)Ordered By: Uche Jiang on 11-14-2024 Creatinine [Mass/Vol] 1.09 mg/dL 0.70-1.20 [facility] Serum glucose measurement (m ass/volume)Ordered By: Uche Jiang on 11-14-2024 Glucose [Mass/Vol] 115 mg/dL High 70-99 [facility] Serum or plasma calcium mauricio urement (mass/volume)Ordered By: Uche Jiang on 11-14-2024 Calcium [Mass/Vol] 9.5 mg/dL 7.6-11.0 [facility] Serum or plasma urea nitroge n measurement (mass/volume)Ordered By: Uche Jiang on 11-14-2024 Urea nitrogen [Mass/Vol] 12 mg/dL 4-19 [facility] Sodium levelOrdered By: Greyson Jiang on 11-14-2024 Sodium [Moles/Vol] 144 mmol/L 133-145 [facility] White blood cell (WBC) count Ordered By: Uche Jiang on 11-14-2024 WBC (Bld) [#/Vol] 9.1 10*3/uL 4.4-11.0 [facility] Cardiology Visit Reporton Cardiology Visit Report [facility] [address] [place] [address] OFFICE VISIT Date of Service: 10/18/24 MR#: [id number] Acct: [id number] Name: HEIDI JASSO Rep #: [id number] : 1955 Provider: DARREL Maldonado Age/Sex: 68/M [...] hypertension. Patient previously followed with Carl medical videographer in [facility]. It appears patient underwent CABG 04/15/2000 in [place] receiving GARAY to the LAD, left radial [...] as wide open with good flow, the [place] LAD was reported 100% occluded. Patient has a history of 2+ AR. Patient was hospitalized at [facility] for acute exacerbation of COPD, [...] presentation today, patient reports weakness related to cwpe-ci-voci hospitalizations and illnesses at that time. 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 Normal [facility] CBC + DIFFon 09-24-2024 Baso # 0.02 x10EE3/UL Normal 0.00 - 0.10 [facility] Comment on above: Performed By: #### 2 [id number] #### [facility],[address] [place] [address] Basophils/100 WBC (Bld) 0.1 % Normal 0.0 - 2.0 [facility] Comment on above: Performed By: #### 2 12257 #### [facility],[address] [place] [address] CBC + DIFF Normal [facility] Comment on above: Result Comment: CBC- COMPLETE BLOOD COUNT Performed By: #### 2 27021 #### [facility],[address] [place] [address] EO # 0.05 x10EE3/UL Normal 0.00 - 0.50 [facility] Comment on above: Performed By: #### 2 [id number] #### [place] [id number] Eosinophils/100 WBC (Bld) 0.3 % Normal 0.0 - 7.0 [facility] Comment on above: Performed By: #### 2 68009 #### [facility],[address] [place] [address] Erythrocyte distribution width (RBC) [Ratio] 13.4 % Normal 12.0 - 15.6 [facility] Comment on above: Performed By: #### 2 06075 #### [facility],[address] [place], [place] [id number] Hematocrit (Bld) [Volume fraction] 38.0 % Low 40.0 - 52.0 [facility] Comment on above: Performed By: #### 2 79388 #### [facility],[address] [place] [address] Hemoglobin (Bld) [Mass/Vol] 13.1 g/dL Normal 13.0 - 17.5 [facility] Comment on above: Performed By: #### 2 61923 #### [facility],[address] [place] [address] Lymph # 0.79 x10EE3/UL Low 0.80 - 2.80 [facility] Comment on above: Performed By: #### 2 97197 #### [facility],[address] [place], [place] [id number] Lymphocytes/100 WBC (Bld) 4.3 % Low 20.0 - 45.0 [facility] Comment on above: Performed By: #### 2 25240 #### [facility],[address] [place] [address] MANUAL DIFF N/A Normal [facility] Comment on above: Performed By: #### 2 65988 #### [facility],[address] [place], [place] [id number] MCH (RBC) [Entitic mass] 32 pg Normal 27 - 33 [facility] Comment on above: Performed By: #### 2 13254 #### [facility],[address] [place], [place] [id number] MCHC 35 X10 3 Normal 32 - 36 [facility] Comment on above: Performed By: #### 2 97489 #### [facility],[address] [place] [address] MCV (RBC) [Entitic vol] 92 fL Normal 81 - 98 [facility] Comment on above: Performed By: #### 2 44236 #### [facility],[address] [place] [address] [place] # 0.58 x10EE3/UL Normal 0.20 - 1.00 [facility] Comment on above: Performed By: #### 2 [id number] #### [facility],[address] [place] [address] 96394 MONOS % 3.1 % Normal 0.0 - 10.0 [facility] Comment on above: Performed By: #### 2 82837 #### [facility],[address] [place] [address] 33468 Morphology Westley (Bld) [Interp] N/A Normal [facility] Comment on above: Performed By: #### 2 00243 #### [facility],[address] [place] [address] 92129 Neut # 17.09 x10EE3/UL High 1.50 - 7.10 [facility] Comment on above: Performed By: #### 2 48997 #### [facility],[address] [place] [address] 32103 Neutrophils/100 WBC (Bld) 92.3 % High 46.0 - 76.0 [facility] Comment on above: Performed By: #### 2 94112 #### [facility],[address] [place] [address] 12052 PLATELET 187 x10EE3/UL Normal 150 - 450 [facility] Comment on above: Performed By: #### 2 40986 #### [facility],[address] [place] [address] 57469 Platelet mean volume (Bld) [Entitic vol] 8.5 fL Normal 6.4 - 10.5 [facility] Comment on above: Result Comment: AUTO MATED DIFFERENTIAL Performed By: #### 2 30736 #### [facility],[address] [place] [address] 05631 RBC 4.14 x 10EE6/UL Low 4.50 - 6.00 [facility] Comment on above: Performed By: #### 2 39802 #### [facility],[address] [place] [address] 14580 WBC 18.5 x 10EE3/UL High 4.5 - 10.8 [facility] Comment on above: Result Comment: REPE ATED Performed By: #### 2 79232 #### [facility],[address] [place], [place] [id number] CMP with eGFRon 09-24-2024 AGE 68 years Normal [facility] Comment on above: Performed By: #### 2 91293 #### [facility],[address] [place], [place] [address] Albumin [Mass/Vol] 2.4 g/dL Low 3.4 - 5.0 [facility] Comment on above: Performed By: #### 2 33189 #### [facility],[address] [place] [address] 51354 Albumin/Globulin [Mass ratio] 0.6 {ratio} Low 0.9 - 1.6 [facility] Comment on above: Performed By: #### 2 23030 #### [facility],[address] [place] [address] 28888 ALK PHOS 64 U/L Normal 46 - 116 [facility] Comment on above: Performed By: #### 2 87168 #### [facility],[address] [place] [address] 47284 ALT [Catalytic activity/Vol] 43 U/L Normal 16 - 63 [facility] Comment on above: Performed By: #### 2 91463 #### [facility],[address] [place] [address] 46888 Anion gap [Moles/Vol] 15 mmol/L Normal 10 - 20 [facility] Comment on above: Performed By: #### 2 86530 #### [facility],[address] [place] [address] 48117 AST [Catalytic activity/Vol] 28 U/L Normal 15 - 37 [facility] Comment on above: Performed By: #### 2 90377 #### [facility],[address] [place] [address] 38580 B/C RATIO 18 ratio Normal 0 - 30 [facility] Comment on above: Performed By: #### 2 81303 #### [facility],[address] [place] [address] 82735 Bilirubin [Mass/Vol] 0.4 mg/dL Normal 0.2 - 1.0 [facility] Comment on above: Performed By: #### 2 56675 #### [facility],[address] [place] [address] 23358 Calcium [Mass/Vol] 9.2 mg/dL Normal 8.5 - 10.1 [facility] Comment on above: Performed By: #### 2 76161 #### [facility],[address] [place] [address] 70826 Chloride [Moles/Vol] 102 mmol/L Normal 98 - 107 [facility] Comment on above: Performed By: #### 2 82045 #### [facility],[address] [place] [address] 29282 CMP with eGFR Normal [facility] Comment on above: Result Comment: COMP REHENSIVE METABOLIC PANEL Performed By: #### 2 95955 #### [facility],[address] [place] [address] 80581 CO2 [Moles/Vol] 26.0 mmol/L Normal 21.0 - 32.0 [facility] Comment on above: Performed By: #### 2 55313 #### [facility],[address] [place] [address] 52258 Creatinine [Mass/Vol] 1.16 mg/dL Normal 0.70 - 1.30 [facility] Comment on above: Performed By: #### 2 36675 #### [facility],[address] [place] [address] 80620 GFR/1.73 sq M.predicted among non-blacks MDRD (S/P/Bld) [Vol rate/Area] mL/min/{1.73_m2} Normal 60 - 999 [facility] Comment on above: Performed By: #### 2 55586 #### [facility],[address] [place], [place] [address] Result Comment: ACCO RDING TO THE NATIONAL KIDNEY DISEASE EDUCATION PROGRAM(NKDE), A NORMAL eGFR IS A VALUE GREATER THAN OR EQUAL TO 60 ML/MIN/1.73 SQ METERS. CHRONIC KIDNEY DISEASE: <60mL/MIN/1.73 SQ METERS KIDNEY FAILURE: <15mL/MIN/1.73 SQ METERS THIS TEST SHOULD ONLY BE USED FOR PATIENTS 18 YEARS OF AGE AND OLDER. Globulin (S) [Mass/Vol] 4.3 g/dL High 1.5 - 3.8 [facility] Comment on above: Performed By: #### 2 93220 #### [facility],[address] [place] [address] 57236 Glucose [Mass/Vol] 266 mg/dL High 74 - 106 [facility] Comment on above: Performed By: #### 2 83474 #### [facility],[address] [place] [address] 60448 Potassium [Moles/Vol] 3.7 mmol/L Normal 3.5 - 5.1 [facility] Comment on above: Performed By: #### 2 43719 #### [facility],[address] [place] [address] 35865 Protein [Mass/Vol] 6.7 g/dL Normal 6.4 - 8.2 [facility] Comment on above: Performed By: #### 2 38470 #### [facility],[address] [place] [address] 88180 Sodium [Moles/Vol] 139 mmol/L Normal 136 - 145 [facility] Comment on above: Performed By: #### 2 00655 #### [facility],[address] [place] [address] Urea nitrogen [Mass/Vol] 21 mg/dL High 7 - 18 [facility] Comment on above: Performed By: #### 2 68431 #### [facility],[address] [place] [address] CBC + DIFFon 09-23-2024 Baso # 0.04 x10EE3/UL Normal 0.00 - 0.10 [facility] Comment on above: Performed By: #### 2 14370 #### [facility],[address] [place] [address] Basophils/100 WBC (Bld) 0.2 % Normal 0.0 - 2.0 [facility] Comment on above: Performed By: #### 2 77579 #### [facility],[address] [place] [address] CBC + DIFF Normal [facility] Comment on above: Result Comment: CBC- COMPLETE BLOOD COUNT Performed By: #### 2 34769 #### [facility],[address] [place] [address] EO # 0.16 x10EE3/UL Normal 0.00 - 0.50 [facility] Comment on above: Performed By: #### 2 56069 #### [facility],[address] [place] [address] Eosinophils/100 WBC (Bld) 0.9 % Normal 0.0 - 7.0 [facility] Comment on above: Performed By: #### 2 22579 #### [facility],[address] [place] [address] Erythrocyte distribution width (RBC) [Ratio] 13.3 % Normal 12.0 - 15.6 [facility] Comment on above: Performed By: #### 2 46969 #### [facility],[address] [place] [address] Hematocrit (Bld) [Volume fraction] 41.0 % Normal 40.0 - 52.0 [facility] Comment on above: Performed By: #### 2 43967 #### [facility],[address] [place] [address] Hemoglobin (Bld) [Mass/Vol] 14.3 g/dL Normal 13.0 - 17.5 [facility] Comment on above: Performed By: #### 2 70913 #### [facility],[address] [place] [address] Lymph # 1.10 x10EE3/UL Normal 0.80 - 2.80 [facility] Comment on above: Performed By: #### 2 10640 #### [facility],[address] [place] [address] Lymphocytes/100 WBC (Bld) 6.0 % Low 20.0 - 45.0 [facility] Comment on above: Performed By: #### 2 04169 #### [facility],[address] [place], [place] [id number] MANUAL DIFF N/A Normal [facility] Comment on above: Performed By: #### 2 34748 #### [facility],[address] [place], [place] [address] MCH (RBC) [Entitic mass] 32 pg Normal 27 - 33 [facility] Comment on above: Performed By: #### 2 13968 #### [facility],[address] [place], [place] [address] MCHC 35 X10 3 Normal 32 - 36 [facility] Comment on above: Performed By: #### 2 05542 #### [facility],[address] [place], [place] [address] MCV (RBC) [Entitic vol] 90 fL Normal 81 - 98 [facility] Comment on above: Performed By: #### 2 32252 #### [facility],[address] [place] [address] 44846 [place] # 1.53 x10EE3/UL High 0.20 - 1.00 [facility] Comment on above: Performed By: #### 2 65022 #### [facility],[address] [place] [address] 15490 MONOS % 8.3 % Normal 0.0 - 10.0 [facility] Comment on above: Performed By: #### 2 33883 #### [facility],[address] [place] [address] 67029 Morphology Westley (Bld) [Interp] N/A Normal [facility] Comment on above: Performed By: #### 2 60959 #### [facility],[address] [place] [address] 94197 Neut # 15.53 x10EE3/UL High 1.50 - 7.10 [facility] Comment on above: Performed By: #### 2 15873 #### [facility],[address] [place] [address] 53502 Neutrophils/100 WBC (Bld) 84.6 % High 46.0 - 76.0 [facility] Comment on above: Performed By: #### 2 88581 #### [facility],[address] [place] [address] 09174 PLATELET 164 x10EE3/UL Normal 150 - 450 [facility] Comment on above: Performed By: #### 2 70510 #### [facility],[address] [place] [address] 51965 Platelet mean volume (Bld) [Entitic vol] 7.5 fL Normal 6.4 - 10.5 [facility] Comment on above: Result Comment: AUTO MATED DIFFERENTIAL Performed By: #### 2 08069 #### [facility],[address] [place] [address] 80279 RBC 4.53 x 10EE6/UL Normal 4.50 - 6.00 [facility] Comment on above: Performed By: #### 2 55109 #### [facility],[address] [place] [address] 62893 WBC 18.4 x 10EE3/UL High 4.5 - 10.8 [facility] Comment on above: Performed By: #### 2 86846 #### [facility],[address] [place] [address] 37120 CMP with eGFRon 09-23-2024 AGE 68 years Normal [facility] Comment on above: Performed By: #### 2 25926 #### [facility],[address] [place] [address] 23140 Albumin [Mass/Vol] 2.7 g/dL Low 3.4 - 5.0 [facility] Comment on above: Performed By: #### 2 37826 #### [facility],[address] [place] [address] 97775 Albumin/Globulin [Mass ratio] 0.6 {ratio} Low 0.9 - 1.6 [facility] Comment on above: Performed By: #### 2 80924 #### [facility],[address] [place] [address] 58470 ALK PHOS 69 U/L Normal 46 - 116 [facility] Comment on above: Performed By: #### 2 48295 #### [facility],[address] [place] [address] 97151 ALT [Catalytic activity/Vol] 40 U/L Normal 16 - 63 [facility] Comment on above: Performed By: #### 2 55964 #### [facility],[address] [place] [address] 80534 Anion gap [Moles/Vol] 13 mmol/L Normal 10 - 20 [facility] Comment on above: Performed By: #### 2 82594 #### [facility],[address] [place] [address] 23385 AST [Catalytic activity/Vol] 25 U/L Normal 15 - 37 [facility] Comment on above: Performed By: #### 2 90491 #### [facility],[address] [place] [address] 49287 B/C RATIO 15 ratio Normal 0 - 30 [facility] Comment on above: Performed By: #### 2 33899 #### [facility],[address] [place] [address] 95708 Bilirubin [Mass/Vol] 1.1 mg/dL High 0.2 - 1.0 [facility] Comment on above: Performed By: #### 2 36306 #### [facility],[address] [place] [address] 73329 Calcium [Mass/Vol] 9.1 mg/dL Normal 8.5 - 10.1 [facility] Comment on above: Performed By: #### 2 03003 #### [facility],[address] [place] [address] 11071 Chloride [Moles/Vol] 102 mmol/L Normal 98 - 107 [facility] Comment on above: Performed By: #### 2 96223 #### [facility],[address] [place] [address] 20148 CMP with eGFR Normal [facility] Comment on above: Result Comment: COMP REHENSIVE METABOLIC PANEL Performed By: #### 2 88782 #### [facility],[address] [place] [address] 62333 CO2 [Moles/Vol] 25.6 mmol/L Normal 21.0 - 32.0 [facility] Comment on above: Performed By: #### 2 93091 #### [facility],[address] [place] [address] 18397 Creatinine [Mass/Vol] 1.15 mg/dL Normal 0.70 - 1.30 [facility] Comment on above: Performed By: #### 2 65429 #### [facility],[address] [place] [address] 18972 GFR/1.73 sq M.predicted among non-blacks MDRD (S/P/Bld) [Vol rate/Area] mL/min/{1.73_m2} Normal 60 - 999 [facility] Comment on above: Performed By: #### 2 04552 #### [facility],[address] [place] [address] 09395 Result Comment: ACCO RDING TO THE NATIONAL KIDNEY DISEASE EDUCATION PROGRAM(NKDE), A NORMAL eGFR IS A VALUE GREATER THAN OR EQUAL TO 60 ML/MIN/1.73 SQ METERS. CHRONIC KIDNEY DISEASE: <60mL/MIN/1.73 SQ METERS KIDNEY FAILURE: <15mL/MIN/1.73 SQ METERS THIS TEST SHOULD ONLY BE USED FOR PATIENTS 18 YEARS OF AGE AND OLDER. Globulin (S) [Mass/Vol] 4.4 g/dL High 1.5 - 3.8 [facility] Comment on above: Performed By: #### 2 30033 #### [address] [address] Glucose [Mass/Vol] 159 mg/dL High 74 - 106 [facility] Comment on above: Performed By: #### 2 67786 #### [address] [address] Potassium [Moles/Vol] 4.0 mmol/L Normal 3.5 - 5.1 [facility] Comment on above: Performed By: #### 2 88039 #### [address] [address] Protein [Mass/Vol] 7.1 g/dL Normal 6.4 - 8.2 [facility] Comment on above: Performed By: #### 2 79956 #### [address] [address] Sodium [Moles/Vol] 137 mmol/L Normal 136 - 145 [facility] Comment on above: Performed By: #### 2 45559 #### [address] [address] Urea nitrogen [Mass/Vol] 17 mg/dL Normal 7 - 18 [facility] Comment on above: Performed By: #### 2 27336 #### [facility],[address] [place] [address] 88704 CORONAVIRUS (SARS) ANTIGEN T GANESHon 09-23-2024 EXTERNAL QC DONE? YES Normal [facility] Comment on above: Performed By: #### 2 30474 #### [facility],[address] [place] [address] 47315 INTERNAL CONTROL PASS Normal [facility] Comment on above: Performed By: #### 2 28563 #### [facility],[address] [place] [address] 29250 SARS ANTIGEN Negative Normal NORMAL: NEGATIVE [facility] Comment on above: Performed By: #### 2 43543 #### [facility],[address] [place] [address] 54552 SEND TO ? NO Normal [facility] Comment on above: Result Comment: SARS -CoV-2 THIS TEST IS BEING USED UNDER THE FDA EUA PROCEDURE. THIS ASSAY HAS BEEN VALIDATED AT [facility] FOR USE WITH NASAL AND [...] PUBLIC HEALTH AUTHORITIES. Performed By: #### 2 45595 #### Joaquim [facility],[address] [place] [address] CT CHEST (PE PROTOCOL)on CT CHEST (PE PROTOCOL) [place] [address] Patient: HEIDI JASSO Phone#: : 1955 Age: 68 Gender: M Pt. Type: ER Account: [id number] Location: [facility] Ordering: KALIA SIERRA Exam Date: 09/23/2024/2:50 Family Phys: SOFI GARZA Charge Code: 867275 Physician: [place] Order #: [id number] Dose#: 10.10 PROCEDURE: CT CHEST WITH CONTRAST FOR PE COMPARISON: [facility], CT, CHEST PE W CON, [...] has been partial resolution since previous exam. [place] [address] Patient: HEIDI JASSO Phone#: : 1955 Age: 68 Gender: M Pt. Type: ER Account: [id number] Location: [facility] Ordering: KALIA SIERRA Exam Date: 09/23/2024/2:50 Family Phys: SOFI GARZA Charge Code: 190718 Physician: [place] Order #: [id number] Dose#: 10.10 Dictated by: Kathy Cruz MD on 09/23/2024 at 9:50 Approved by: Kathy Cruz MD on 09/23/2024 at 10:05 Normal [facility] CULTURE BLOOD [SAPNA]on Microscopic examination of blood, culture CULTURE BLOOD [SAPNA] _BLOOD CULTURE_ GO [place] [facility] [place] FOR SCANNED REPORT 09/29/24.UP [email or web address] PLETE Normal [facility] Comment on above: Performed By: #### 2 34864 #### [facility],[address] [place] [address] Microscopic examination of blood, culture CULTURE BLOOD [SAPNA] _BLOOD CULTURE_ GO TO [facility] [place] AND [place]ACH[place] FOR SCANNED REPORT 09/29/24.[email or web address] PLETE Normal [facility] Comment on above: Performed By: #### 2 02807 #### [facility],[address] [place] [address] 15740 D-DIMER, QUANTITATIVEon 08-31 D-DIMER QUANT 713 ng/ml High 0 - 230 [facility] Comment on above: Performed By: #### 2 57149 #### [facility],[address] [place] [address] 93741 D-DIMER, QUANTITATIVE Normal Rubin l [facility] Comment on above: Result Comment: PAVEL T D-DIMER Performed By: #### 2 61586 #### [facility],[address] [place] [address] 41809 ED MED ADMINISTRATION DETAIL on 09-23-2024 ED MED ADMINISTRATION DETAIL Looper Operator Medication Administration Record [address] [place] [address] [id number] 09/23/2024 Patient: HEIDI JASSO Sex: Male : 1955 Age: 68y MEASUREMENTS: Wt: 101.6 kg, Ht/Nikhil: 71.0 in, BMI: 31.24 ALLERGIES: Keflex Medication Ordered Medication Administration Date/Time CefTRIAXone 0109/23 CefTRIAXone (Rocephin) IVPB 2gm/50ml NS 2 g [...] redness, or swelling. IV flushed thoroughly pre-medication 02:09/23/2024 Minibag+ 50 mL at administration. Information reviewed with patient including reason Tmaera Zhang R.N. 100 mL/hr (NOW x1) for taking this medication. Verbalizes understanding. Completed per Scanned protocol. - 02:03 Tamera Zhang R.N. 0209/23 Medication Discontinued: IV infused. Total amount infused: 50 mL. IV patency established. IV site checked: no pain, redness, or swelling. IV flushed thoroughly post-medication administration. - 02:13 Tamera Zhang R.N. 1 of 3 Looper Operator Medication Ordered Medication Administration Date/Time Azithromycin 02:17 09/23 Azithromycin (Zithromax) IVPB 500 mg started at 250 Started (Zithromax) IVPB mL/hr diluted in dextrose 5 % in water IVPB 250 mL and VIAL 02:17 09/23/2024 500 mg diluted in MATE 1 ea [...] by the respiratory therapist. Allergies verified and 01:26 09/23/2024 3mg/0.5mg Neb Tx confirmed 5 rights. Information reviewed with patient including Colt Culver R.R.T. 3 mL (NOW x1) reason for taking this medication and signs of allergic reaction. Scanned Verbalizes understanding. - 01:27 Colt Culver R.R.T. Albuterol 0.083% - 03:09/23 Albuterol 0.083% - 2.5mg Neb Tx 2.5 mg given. Given Given 2.5mg Neb Tx 2.5 by the respiratory therapist. Allergies verified and confirmed 5 03:11 09/23/2024 mg (NOW x1) rights. Information reviewed with patient including reason for taking Colt Culver R.R.T. this medication and signs of allergic reaction. Verbalizes Scanned understanding. - 03:11 Colt Culver R.R.T. 2 of 3 Looper Operator Medication Ordered Medication Administration Date/Time IV NS 0.9 % 1000 01:09/23 IV NS 0.9 % 1000 mL started in bag#1 1000 mL at Started mL at 100 mL/hr 100 mL/hr over 1 hour(s) via Site# 1. Allergies verified and 01:59 09/23/2024 (NOW x1) confirmed 5 rights. IV patency established. IV site checked: no pain, Kayli Calderón.N. redness, or swelling. IV flushed thoroughly pre-medication Stopped administration. Information reviewed including reason for taking this 04:41 09/23/2024 medication. Verbalizes understanding. Completed per protocol. - Tamera Zhang R.N. 01:59 Tamera Zhang R.N. Scanned 04:09/23 Medication Discontinued: IV infused. Total amount infused: [...] established. IV site checked: no pain, Kayli Calderón.N. 125 mg (NOW x1) redness, or swelling. [...] Zhang R.N. Scanned 3 of 3 Normal [facility] ED NURSES CLINICAL NOTEon ED NURSES CLINICAL NOTE Nurse Narrative Nurse Clinical Narrative [place] [address] [place] [address] [id number] 09/23/2024 01:14:00 Patient: HEIDI JASSO Sex: Male : 1955 Age: 68y Disposition: Admit Disposition Decision Time: 04:24 09/23/2024 Departure Time: 04:50 09/23/2024 TRIAGE Arrived by EMS. Historian: (patient). Accompanied by friend. Primary physician (Rianaf). Triage time: 01:15 09/23/2024. Acuity: LEVEL 3. [...] kg, Ht/Nikhil: 71.0 in, BMI: 31.24 -- 01:30 09/23/24 EDT Tamera Zhang R.N. Medications: 1 of 6 Nurse Narrative losartan 50 mg tablet -- 01:09/23/24 EDT Tamera Zhang R.N. carvedilol 6.25 mg tablet -- 01:30 09/23/24 AMBER Zhang R.N. omeprazole 20 mg capsule,delayed release -- 01:09/23/24 AMBER Zhang R.N. furosemide 20 mg tablet -- 01:09/23/24 EDT Tamera Zhang R.N. albuterol sulfate HFA 90 mcg/actuation aerosol inhaler -- 01:09/23/24 AMBER Zhang R.N. atorvastatin 40 mg tablet -- 01:09/23/24 EDT Tamera Zhang R.N. prednisone 10 mg tablet -- 01:09/23/24 AMBER Zhang R.N. roflumilast 250 mcg tablet -- 01:09/23/24 JULIETAT Tamera Zhang R.N. Trelegy Ellipta 100 mcg-62.5 mcg-25 mcg powder for inhalation -- 01:09/23/24 AMBER Zhang R.N. albuterol sulfate HFA 90 mcg/actuation aerosol inhaler: 2 inhalations as needed. -- 04:37 09/23/24 AMBER Zhang R.N. atorvastatin 40 mg tablet: 40 mg once a day at bedtime. -- 04:38 09/23/24 AMBER Zhang R.N. carvedilol 6.25 mg tablet: 6.25 mg twice a day . -- 04:38 09/23/24 AMBER Zhang R.N. furosemide 20 mg tablet: 20 mg once a day as needed. -- 04:38 09/23/24 AMBER Zhang R.N. losartan 50 mg tablet: 50 mg once a day . -- 04:38 09/23/24 AMBER Zhang R.N. omeprazole 20 mg capsule,delayed release: 20 mg once a day every PM. -- 04:39 09/23/24 AMBER Zhang R.N. prednisone 10 mg tablet: 10 mg once a day . (no taking at this time) -- 04:39 09/23/24 AMBER Zhang R.N. roflumilast 250 mcg tablet: 250 mcg once a day . -- 04:40 09/23/24 EDT Tamera Zhang R.N. Trelegy Ellipta 100 mcg-62.5 mcg-25 mcg powder for inhalation: 1 inhalation once a day . -- 04:40 09/23/24 EDT Tamera Zhang R.N. aspirin 81 mg tablet: 81 mg once a day . -- 04:41 09/23/24 EDT Tamera Zhang R.N. Flomax 0.4 mg capsule: 0.4 mg once a day at bedtime. -- 04:41 09/23/24 EDT Tamera Zhang R.N. Allergies: Keflex -- 01:09/23/24 EDT Tamera Zhang R.N. Problems: Asthma -- 01:09/23/24 EDT Tamera Zhang R.N. COPD - Chronic Obstructive Pulmonary Disease -- 01:09/23/24 EDT Tamera Zhang R.N. Hypertension -- 01:09/23/24 EDT Tamera Zhang R.N. Emphysema -- 01:09/23/24 EDT Tamera Zhang R.N. ADDITIONAL SURGERIES: right knee -- 01:09/23/24 EDT Tamera Zhang R.N. open heart: Performed 1999 [...] Cough productive (more content not included)... Normal [facility] ED ORDER SHEET (CPOE ONLY)on 09-23-2024 ED ORDER SHEET (CPOE ONLY) Order Sheet Order Sheet [address] [place] [place] [address] [id number] 09/23/2024 Patient: HEIDI JASSO Sex: Male : 1955 Age: 68y MEASUREMENTS: Wt: 101.6 kg, Ht/Nikhil: 71.0 in, BMI: 31.24 ALLERGIES: Keflex MEDICATION/IV/DRIP/FL UID ORDERS Order Description Priority Entered Acknowledged Completed CefTRIAXone (Rocephin) IVPB 01:09/23/2024 01:38 02:03 2gm/50ml NS2 g diluted in Kalia Sierra, D.O. 09/23/2024 09/23/2024 sodium chloride IVPB 0.9 % Blaise Calderón R.N. Minibag+ 50 mL at 100 mL/hr (NOW x1) Azithromycin (Zithromax) 01:23 09/23/2024 01:38 02:18 AIMF652 mg diluted in dextrose 5 Kalia Dayanara, D.O. 09/23/2024 09/23/2024 % in water IVPB 250 mL, VIAL Blaise Calderón R.N. MATE 1 ea at 250 mL/hr (NOW x1) Albuterol-Ipratropium (DuoNeb) 01:23 09/23/2024 01:24 01:27 3mg/0.5mg Neb Tx3 mL (NOW Kalia Sierra, D.O. 09/23/2024 09/23/2024 x1) Colt Silva R.R.TReyes R.R.T. Albuterol 0.083% - 2.5mg Neb 01:23 09/23/2024 01:24 03:11 Tx2.5 mg (NOW x1) Kalia Sierra D.O. 09/23/2024 09/23/2024 Colt Silva R.R.T. R.R.T. 1 of 4 Order Sheet IV NS 0.9 %1000 mL at 100 01:23 09/23/2024 01:38 01:59 mL/hr (NOW x1) Kalia Sierra D.O. 09/23/2024 09/23/2024 Blaise Calderón R.N. MethylPREDNISolone Sodium 01:23 09/23/2024 01:38 01:50 Succ (Solu-Medrol) NOI263 mg Kalia Sierra D.O. 09/23/2024 09/23/2024 (NOW x1) Blaise Calderón R.N. Acetaminophen (Tylenol) 02:10 09/23/2024 02:10 02:12 PO975 mg (NOW x1) Kalia Sierra D.O. 09/23/2024 09/23/2024 Blaise Calderón RReyesNReyes LAB ORDERS Order Description Priority Entered Acknowledged Collected Completed CBC w Diff Stat Stat 01:09/23/2024 01:35 09/23/2024 01:43 09/23/2024 Cesar Ngo R.N. Anne Rutt, R.N. CMP Stat Stat 01:23 09/23/2024 01:35 09/23/2024 01:43 09/23/2024 Cesar Ngo R.N. Anne Rutt R.N. Blood Culture Stat 01:23 09/23/2024 01:35 09/23/2024 01:43 09/23/2024 [Sapna] # 1 Stat Cesar Ngo R.N. Tamera Rutt, R.N. Blood Culture Stat 01:23 09/23/2024 01:35 09/23/2024 02:03 09/23/2024 [Sapna] # 2 Stat Cesar Ngo R.N. Anne Rutt RReyesNReyes D-Dimer Stat Stat 01:23 09/23/2024 01:36 09/23/2024 01:43 09/23/2024 Cesar Ngo, Blaise Zhang, R.N. BNP Stat Stat 01:23 09/23/2024 01:35 09/23/2024 01:43 09/23/2024 Cesar Ngo, Blaise Zhang RReyesNReyes 2 of 4 Order Sheet Troponin-I Stat Stat 01:23 09/23/2024 01:36 09/23/2024 01:43 09/23/2024 Cesar Ngo R.N. Anne Rutt, R.NReyes EKG - ED Stat Stat 01:23 09/23/2024 01:35 09/23/2024 01:36 09/23/2024 Cesar Ngo, Blaise Zhang, R.N. Lactate, Serum Stat Stat 01:23 09/23/2024 01:36 09/23/2024 01:43 09/23/2024 Cesar Ngo R.N. Anne Rutt, R.N. Flu Swab (Influenzae Stat 01:25 09/23/2024 01:36 09/23/2024 01:36 09/23/2024 AAg) Stat Cesar Ngo R.N. Anne Rutt, R.NReyes Rapid COVID (SARS) Stat 01:25 09/23/2024 01:36 09/23/2024 01:36 09/23/2024 ANTIGEN TEST Stat Cesar Ngo R.N. Anne Rutt, R.NReyes Troponin-I Stat Stat 03:04 09/23/2024 03:05 09/23/2024 03:05 09/23/2024 Cesar Ngo R.N. Anne Rutt RConsuelo Urinalysis Stat Stat 04:03 09/23/2024 04:03 09/23/2024 04:03 09/23/2024 Blaise Calderón R.N. Anne Rutt, R.NReyes Verbal Order, Auth by: Kalia Sierra D.O. Read back and verified DIAGNOSTIC STUDY ORDERS Order Description Priority Entered Acknowledged Completed Chest 1V Stat Stat 01:23 09/23/2024 Cancelled: Verbal per Physician Kalia Sierra D.O. 02:50 EDT Tamera Zhang R.N. 3 of 4 Order Sheet Reason for Study: COPD CT Chest PE Study Stat Stat 02:25 09/23/2024 02:25 02:50 Kalia Sierra D.O. 09/23/2024 09/23/2024 Blaise Calderón, R.NReyes Reason for Study: Pulmonary Disease STAFF ORDERS Order Description Priority Entered Acknowledged Collected Completed Vital Signs every 30 01:23 09/23/2024 01:36 09/23/2024 01:36 09/23/2024 minutes Cesar Ngo R.N. Anne Rutt, R.NReyes Design Intern 01:23 09/23/2024 01:36 09/23/2024 01:36 09/23/2024 Cesar Ngo R.N. Anne Rutt, R.NReyes Oxygen titrate to 92% 01:23 09/23/2024 01:36 09/23/2024 01:36 09/23/2024 Cesar Ngo R.N. Anne Rutt, R.NReyes [Electronically signed by Kalia Sierra D.O. (09/23/2024 07:16 EDT)] 4 of 4 Normal [facility] ED PHYSICIAN CLINICAL REPORT on 09-23-2024 ED PHYSICIAN CLINICAL REPORT Narrative Physician Clinical Narrative [facility] [address] [place] [address] [id number] 09/23/2024 01:14:00 [id number] Sex: Male : 1955 Age: 68y Disposition: [...] the office. ( Saw Dr. Fall his editorial specialist on September 19.). REVIEW OF SYSTEMS 1 [...] - 17.5 (more content not included)... Normal [facility] ED [facility] BILL 09-23-2024 ED [facility] [address] [place] [address] [id number] 09/23/2024 Patient: HEIDI JASSO Sex: Male : 1955 Age: 68y Facility Professional Category Item Description Code Code Quantity Fee Total Drugs Normal Saline 028292 1 $0.00 $0.00 1000cc (472196) Nurse/E/M EMERGENCY 778459 1 $0.00 $0.00 DEPT VISIT HIGH SEVERITYFUNCJ (60739-91) Nurse/IV/IM/Infusions Drip/IVPB 151364 1 $0.00 $0.00 additional hour (51383) Nurse/IV/IM/Infusions Drip/IVPB initial 550508 1 $0.00 $0.00 (08204) Nurse/IV/IM/Infusions Hydration 716122 3 $0.00 $0.00 additional hour (60872) Nurse/IV/IM/Infusions IVP additional 649893 1 $0.00 $0.00 push (96712) Nurse/IV/IM/Infusions IVP initial (40759) 642358 1 $0.00 $0.00 1 of 2 [facility] Professional Category Item Description Code Code Quantity Fee Total Nurse/Procedures Respiratory 463883 1 $0.00 $0.00 therapy - inhalation (43327) Nurse/Supplies Oxygen in the ED 454060 1 $0.00 $0.00 (281229) Grand $0.00 Total Providers Kalia Sierra D.O. Chief Complaint DYSPNEA. Principal Diagnosis Acute exacerbation of COPD (emphysematous). Bacterial bronchopneumonia with hypoxemia. ICD-10 Codes J44.1: Chronic obstructive pulmonary disease with (acute) exacerbation J15.9: Unspecified bacterial pneumonia J18.0: Bronchopneumonia, unspecified organism R09.02: Hypoxemia J18.9: Pneumonia, unspecified organism 2 of 2 Normal [facility] ED VISIT SUMMARYon ED VISIT SUMMARY Visit Overview Visit Overview [address] [place] [address] [id number] 09/23/2024 Patient: HEIDI JASSO Sex: Male : [...] 09/23/24 24 RR 04:42 09/23/24 O2 Sat 01:15 09/23/24 90% RA O2 Sat 04:42 09/23/24 97% [...] BRONCHOPNEUMONIA WITH HYPOXEMIA 4 of 4 Normal [facility] ED VITALS FLOW SHEETon 09-23 ED VITALS FLOW SHEET Vitals Vital Sign Flow Sheet [address] [address] [id number] 09/23/2024 Patient: HEIDI JASSO Sex: Male : [...] 100.5 F 0 3 of 3 Normal [facility] INFLUENZA VIRUS RAPID A/Bon 09-23-2024 INFLUENZA [...] TO THREE DAYS. RESULT CRITICAL? NO Normal [facility] Comment on above: Performed By: #### 2 09046 #### [place] [address] LACTATEon 09-23-2024 Lactate [Moles/Vol] 0.7 mmol/L Normal 0.4 - 2.0 [facility] Comment on above: Performed By: #### 2 86743 #### [place] [id number] MAGNESIUMon 09-23-2024 Magnesium [Mass/Vol] 1.9 mg/dL Normal 1.8 - 2.4 [facility] Comment on above: Performed By: #### 2 02110 #### [facility],[address] [place] [address] NT-proBNPon 09-23-2024 Natriuretic peptide B (Bld) [Mass/Vol] 319 pg/mL High 0 - 125 [facility] Comment on above: Performed By: #### 2 00236 #### [address] [address] TROPONINon 09-23-2024 HS TROPONIN 21.2 pg/mL Normal 0.0 - 76.2 [facility] Comment on above: Performed By: #### 2 98773 #### [address],[place] [address] HS TROPONIN 19.6 pg/mL Normal 0.0 - 76.2 [facility] Comment on above: Performed By: #### 2 94283 #### [facility],[address] [place] [address] URINALYSISon 09-23-2024 Amorphous NONE Normal [facility] Comment on above: Performed By: #### 2 19510 #### [facility],[address] [place] [address] Bacteria NONE Normal [facility] Comment on above: Performed By: #### 2 43551 #### [facility],[address] [place] [address] Bilirubin Ql (U) Negative Normal NORMAL: NEGATIVE [facility] Comment on above: Performed By: #### 2 72276 #### [facility],[address] [place] [address] Casts NONE Normal [facility] Comment on above: Performed By: #### 2 73397 #### [facility],[address] [place] [address] Clarity (U) clear Normal NORMAL: CLEAR [facility] Comment on above: Performed By: #### 2 69408 #### [facility],[address] [place] [address] Color (U) odessa Normal NORMAL: YELLOW [facility] Comment on above: Performed By: #### 2 34995 #### [facility],[address] [place] [address] 18065 Crystals LM Nom (Urine sed) NONE Normal [facility] Comment on above: Performed By: #### 2 00338 #### [facility],[address] [place] [address] Epi Cells NONE Normal [facility] Comment on above: Performed By: #### 2 95711 #### [facility],[address] [address] Glucose Ql (U) NORM Normal NORMAL: NORMAL [facility] Comment on above: Performed By: #### 2 83620 #### [facility],[address] [place] [address] Hemoglobin Ql (U) 10 Abnormal NORMAL: NEGATIVE [facility] Comment on above: Performed By: #### 2 17949 #### [facility],[address] [place], [place] [id number] Ketone 5 Abnormal NORMAL: NEGATIVE [facility] Comment on above: Performed By: #### 2 83133 #### [facility],[address] [place] [address] Leukocytes Negative Normal NORMAL: NEGATIVE [facility] Comment on above: Performed By: #### 2 82141 #### [facility],[address] [place] [address] Mucous 1+ Normal [facility] Comment on above: Performed By: #### 2 24947 #### [facility],[address] [place] [address] Nitrite Ql (U) Negative Normal NORMAL: NEGATIVE [facility] Comment on above: Performed By: #### 2 96290 #### [facility],[address] [place], [place] [id number] pH (U) 5 [pH] Normal NORMAL: 5.0-8.0 [facility] Comment on above: Performed By: #### 2 10891 #### [facility],[address] [place] [address] Protein Ql (U) 100 Abnormal NORMAL: NEGATIVE [facility] Comment on above: Performed By: #### 2 09219 #### [facility],[address] [place], [place] [id number] Rbc 0-5 Normal 0-3/hpf [facility] Comment on above: Performed By: #### 2 74409 #### [facility],[address] [place], [place] [id number] Sp [place] 1.020 Normal NORMAL: 1.010-1.030 [facility] Comment on above: Performed By: #### 2 57971 #### [facility],[address] [place] [address] Specimen Type R Normal [facility] Comment on above: Performed By: #### 2 91847 #### [facility],[address] [place] [address] Urinalysis dipstick W Reflex Microscopic panel (U) SEE BELOW Normal [facility] Comment on above: Result Comment: MICR OSCOPIC Performed By: #### 2 38368 #### [facility],[address] [place] [address] Urobilinog NORM Normal NORMAL: NORMAL [facility] Comment on above: Performed By: #### 2 63787 #### [facility],[address] [place] [address] Wbc NONE Normal 0-5/hpf [facility] Comment on above: Performed By: #### 2 67261 #### [facility],[address] [place] [address] Yeast NONE Normal [facility] Comment on above: Performed By: #### 2 35381 #### [facility],[address] [place] [address] Gastroenterology Visit Repor ton 08-29-2024 Gastroenterology Visit Report [facility] [address] [address] OFFICE VISIT Date of Service: 08/29/24 MR#: [id number] Acct: [id number] Name: HEIDI JASSO Rep #: [id number] : 1955 Provider: ELISEO walls Age/Sex: 68/M Location: [facility] Status: Signed Intake Vital Signs 07/17/23 09:53 [...] Reasons: Esophageal Thickening Chief Complaint: thick esophagus 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 PFSH Medical History Pneumonia COVID-19 (07/07/21) Chest pain, unspecified BPH (benign prostatic hyperplasia) JOSE MANUEL (obstructive sleep apnea) GERD (gastroesophageal reflux disease) COPD (chronic obstructive pulmonary disease) CKD (chronic kidney disease) stage 3, GFR 30-59 ml/min History of left heart catheterization (LHC) ( 04/08/16) Atherosclerotic heart disease of [place] coronary artery without angina pectoris Enlarged prostate [...] - has (more content not included)... Normal [facility] Cardiology Visit Reporton Cardiology Visit Report [facility] [address] [place] [address]. [address] [place] [address] OFFICE VISIT Date of Service: 08/09/24 MR#: [id number] Acct: [id number] Name: HEIDI JASSO Rep #: [id number] : 1955 Provider: ELISEO mir Age/Sex: 68/M [...] OD and SVG to distal LCX @ [facility] 04/15/00; (3) Essential hypertension: Status: Chronic (4) Hyperlipidemia: Status: Chronic Qualifiers: Hyperlipidemia type: unspecified Qualified Code(s): E78.5 - Hyperlipidemia, unspecified Plan Details Follow Up: 6 Months () 08/09/24 1445 Date Wei Barbour NP cc: Dr. Sofi Garza MD * Signed HPI HPI History of Present Illness Details: This is a 68-year-old white male who presents today for outpatient cardiovascular follow up with a history of underlying CAD, PCI, CABG, superimposed on hyperlipidemia, and hypertension. He has previously been followed through [facility] in [place], [place]. In brief it appears that he underwent CABG on 04-15-2000 in [place] at the [facility]. According the report he received a GARAY [...] was the new lesion noted in the [place] RCA. There was 2+ AR. He was seen at [facility] for acute exacerbation of COPD in July 2024, pneumonia, and chronic CHF. Echocardiogram showed an ejection fraction of 50-55%. His elevated troponin was thought to be a type II non-ST elevated myocardial infarction. Hospital cardiology team recommended he undergo a stress test, but patient declined. He was then seen with editorial specialist, Dr. Fall, and continue to note elevated heart rate. [...] NIBP Intake Visit Reasons: 1 Y FU Asbestos Wire Finisher Required: No Accompanied by: Is patient in pain?: No Allergies cephalexin (From [facility]) Allergy (Unknown, Verified 08/09/24 11:30) swelling Medications [...] Aspirin) albute (more content not included)... Normal [facility] Absolute lymphocyte countOrd ered By: Wei Barbour on 08-04-2024 Lymphocytes Auto (Unsp spec) [#/Vol] 1.80 10*3/uL 0.83-4.51 [facility] Absolute neutrophil countOrd ered By: Wei Barbour on 08-04-2024 Neutrophils (Bld) [#/Vol] 9.2 10*3/uL High 2.0-7.7 [facility] Anion gap in Serum or Plasma Ordered By: Wei Barbour on 08-04-2024 Anion gap [Moles/Vol] 11 mmol/L 5-15 [facility] Automated lymphocyte count a s percentage of total leukocytesOrdered By: Wei Barbour on 08-04-2024 Lymphocytes/100 WBC Auto (Unsp spec) 14.8 % Low 19-41 [facility] BUN/creatinine ratioOrdered By: Wei Barbour on 08-04-2024 Urea nitrogen/Creatinine [Mass ratio] 16.9 mg/mg 10- [facility] Basic Metabolic Profile (BMP )on 08-04-2024 BUN/CRE 16.9 RATIO Normal - [facility] Comment on above: Performed By: #### L 501.5200, L501.9520, L500.2500, L503.7505, L100.0100 ####[facility] [address] [place], [address] Calcium [Mass/Vol] 9.3 mg/dL Normal 7.6-11.0 [facility] Comment on above: Performed By: #### L 501.5200, L501.9520, L500.2500, L503.7505, L100.0100 ####[facility] [address] [place], [address] Chloride [Moles/Vol] 100 mmol/L Normal 98-108 [facility] Comment on above: Performed By: #### L 501.5200, L501.9520, L500.2500, L503.7505, L100.0100 ####[facility] [address] [place], [address] CO2 [Moles/Vol] 28.8 mmol/L Normal 21.0-32.0 [facility] Comment on above: Performed By: #### L 501.5200, L501.9520, L500.2500, L503.7505, L100.0100 ####[facility] [address] [place], [address] Creatinine [Mass/Vol] 1.24 mg/dL High 0.70-1.20 [facility] Comment on above: Performed By: #### L 501.5200, L501.9520, L500.2500, L503.7505, L100.0100 ####[facility] [address] [place], [address] GAP 11 Normal 5-15 [facility] Comment on above: Performed By: #### L 501.5200, L501.9520, L500.2500, L503.7505, L100.0100 ####[facility] [address] [place], [address] GFR/1.73 sq M.predicted among non-blacks MDRD (S/P/Bld) [Vol rate/Area] 63 mL/min/{1.73_m2} Normal >60 [facility] Comment on above: Result Comment: mL/m in/1.73m2 CKD-EPI Creatinine Equation (2020) Performed By: #### L 501.5200, L501.9520, L500.2500, L503.7505, L100.0100 ####[facility] [address] [place], [address] Glucose [Mass/Vol] 143 mg/dL High 70-99 [facility] Comment on above: Performed By: #### L 501.5200, L501.9520, L500.2500, L503.7505, L100.0100 ####[facility] [address] [place], [address] Potassium [Moles/Vol] 4.6 mmol/L Normal 3.3-5.1 [facility] Comment on above: Result Comment: Hemo lysis present, Results??could be affected. ?? Performed By: #### L 501.5200, L501.9520, L500.2500, L503.7505, L100.0100 ####[facility] [address] [place], [address] Sodium [Moles/Vol] 140 mmol/L Normal 133-145 [facility] Comment on above: Performed By: #### L 501.5200, L501.9520, L500.2500, L503.7505, L100.0100 ####[facility] [address] [place], [address] Urea nitrogen [Mass/Vol] 21 mg/dL High 4-19 [facility] Comment on above: Performed By: #### L 501.5200, L501.9520, L500.2500, L503.7505, L100.0100 ####[facility] [address] [place], [address] Basophil percentageOrdered B y: Wei Barbour on 08-04-2024 Basophils/100 WBC (Bld) 0.1 % 0-1 [facility] CBC W/Diff, Automatedon Absolute Lymph 1.80 X10 3/uL Normal 0.83-4.51 [facility] Comment on above: Performed By: #### L 501.5200, L501.9520, L500.2500, L503.7505, L100.0100 #### [facility] [address] [place], [address] Absolute Neut 9.2 X10 3/uL High 2.0-7.7 [facility] Comment on above: Performed By: #### L 501.5200, L501.9520, L500.2500, L503.7505, L100.0100 #### [facility] [address] [place], [address] Basophils/100 WBC (Bld) 0.1 % Normal 0-1 [facility] Comment on above: Performed By: #### L 501.5200, L501.9520, L500.2500, L503.7505, L100.0100 #### [facility] [address] [place], [address] Eosinophils/100 WBC (Bld) 1.2 % Normal 0-5 [facility] Comment on above: Performed By: #### L 501.5200, L501.9520, L500.2500, L503.7505, L100.0100 #### [facility] [address], [address] Erythrocyte distribution width (RBC) [Ratio] 12.6 % Normal 11.6-14.6 [facility] Comment on above: Performed By: #### L 501.5200, L501.9520, L500.2500, L503.7505, L100.0100 #### [facility] [address], [address] Hematocrit (Bld) [Volume fraction] 50.1 % Normal 40-54 [facility] Comment on above: Performed By: #### L 501.5200, L501.9520, L500.2500, L503.7505, L100.0100 #### [facility] [address], [address] Hemoglobin (Bld) [Mass/Vol] 16.6 g/dL High 13.0-16.5 [facility] Comment on above: Performed By: #### L 501.5200, L501.9520, L500.2500, L503.7505, L100.0100 #### [facility] [address] [place], [address] IG% 0.400 Normal 0.0-0.9 [facility] Comment on above: Result Comment: IG% - Immature Granulocytes (promyelocytes, myelocytes and metamyelocytes) > 1% indicates that a LEFT SHIFT is Present. Performed By: #### L 501.5200, L501.9520, L500.2500, L503.7505, L100.0100 #### [facility] [address] [place], [address] Lymphocytes/100 WBC (Bld) 14.8 % Low 19-41 [facility] Comment on above: Performed By: #### L 501.5200, L501.9520, L500.2500, L503.7505, L100.0100 #### [facility] [address] [place], [address] MCH (RBC) [Entitic mass] 30.3 pg Normal 27.0-32.0 [facility] Comment on above: Performed By: #### L 501.5200, L501.9520, L500.2500, L503.7505, L100.0100 #### [facility] [address] [place], [address] MCHC (RBC) [Mass/Vol] 33.1 g/dL Normal 32-36 [facility] Comment on above: Performed By: #### L 501.5200, L501.9520, L500.2500, L503.7505, L100.0100 #### [facility] [address] [place], [address] MCV (RBC) [Entitic vol] 91.4 fL Normal 80-94 [facility] Comment on above: Performed By: #### L 501.5200, L501.9520, L500.2500, L503.7505, L100.0100 #### [facility] [address] [place], [address] Monocytes/100 WBC (Bld) 8.1 % Normal 0-10 [facility] Comment on above: Performed By: #### L 501.5200, L501.9520, L500.2500, L503.7505, L100.0100 #### [facility] [address] [place], [address] Neutrophils/100 WBC (Bld) 75.4 % High 47-70 [facility] Comment on above: Performed By: #### L 501.5200, L501.9520, L500.2500, L503.7505, L100.0100 #### [facility] [address] [place], [address] Nucleated RBC (Bld) [#/Vol] 0 10*3/uL Normal 0-5 [facility] Comment on above: Performed By: #### L 501.5200, L501.9520, L500.2500, L503.7505, L100.0100 #### [facility] [address] [place], [address] Platelet mean volume (Bld) [Entitic vol] 10.4 fL Normal 6.2-12.0 [facility] Comment on above: Performed By: #### L 501.5200, L501.9520, L500.2500, L503.7505, L100.0100 #### [facility] [address] [place], [address] Platelets (Bld) [#/Vol] 205 10*3/uL Normal 150-450 [facility] Comment on above: Performed By: #### L 501.5200, L501.9520, L500.2500, L503.7505, L100.0100 #### [facility] [address] [place], [address] RBC (Bld) [#/Vol] 5.48 10*6/uL Normal 4.6-6.2 [facility] Comment on above: Performed By: #### L 501.5200, L501.9520, L500.2500, L503.7505, L100.0100 #### [facility] [address] [place], [address] RDW SD 41.8 fl Normal 35.1-43.9 [facility] Comment on above: Performed By: #### L 501.5200, L501.9520, L500.2500, L503.7505, L100.0100 #### [facility] [address] [place], [address] WBC (Bld) [#/Vol] 12.2 10*3/uL High 4.4-11.0 [facility] Comment on above: Performed By: #### L 501.5200, L501.9520, L500.2500, L503.7505, L100.0100 #### [facility] [address] [place], [address] Carbon dioxide, total [Moles /volume] in Central venous bloodOrdered By: Wei Barbour on 08-04-2024 CO2 [Moles/Vol] 28.8 mmol/L 21.0-32.0 [facility] Chloride assayOrdered By: Ryanne Barbour on 08-04-2024 Chloride [Moles/Vol] 100 mmol/L 98-108 [facility] [facility] Eosinophil percentageOrdered By: Wei Barbour on 08-04-2024 Eosinophils/100 WBC (Bld) 1.2 % 0-5 [facility] Erythrocyte distribution wid th ratioOrdered By: Wei Barbour on 08-04-2024 Erythrocyte distribution width (RBC) [Ratio] 12.6 % 11.6-14.6 [facility] Erythrocyte distribution wid th standard deviationOrdered By: Wei Barbour on 08-04-2024 Erythrocyte distribution width (RBC) [Entitic vol] 41.8 fL 35.1-43.9 [facility] Erythrocyte distribution width (RBC) [Ratio] 41.8 fl 35.1-43.9 [facility] GFR/1.73 sq M.predicted alfredo g non-blacks MDRD (S/P/Bld) [Vol rate/Area]Ordered By: Wei Barbour on 08-04-2024 Estimated GFR (MDRD) Non-Af Amer 63 >60 [facility] Comment on above: mL/min/1.73m2 CKD-EP I Creatinine Equation (2020) Glomerular filtration rate ( GFR) estimation/1.73 sq m using serum, plasma, or whole bOrdered By: Wei Barbour on 08-04-2024 GFR/1.73 sq M.predicted among non-blacks MDRD (S/P/Bld) [Vol rate/Area] 63 mL/min/{1.73_m2} >60 [facility] Comment on above: mL/min/1.73m2 CKD-EP I Creatinine Equation (2020) Hematocrit Auto (Bld) [Volum e fraction]Ordered By: Wei Barbour on 08-04-2024 Hematocrit (Bld) [Volume fraction] 50.1 % 40-54 [facility] Hemoglobin measurementOrdere d By: Wei Barbour on 08-04-2024 Hemoglobin (Bld) [Mass/Vol] 16.6 g/dL High 13.0-16.5 [facility] Immature granulocytes/100 WB C Auto (Bld)Ordered By: Wei Barbour on 08-04-2024 Immature granulocytes/100 WBC (Bld) 0.400 % 0.0-0.9 [facility] Comment on above: IG% - Immature Granu locytes (promyelocytes, myelocytes and metamyelocytes) > 1% indicates that a LEFT SHIFT is Present. L503.7505on 08-04-2024 Natriuretic peptide B (Bld) [Mass/Vol] 826 pg/mL Normal <=900 [facility] Comment on above: Result Comment: Hear t Failure Unlikely: < 300 pg/mL Heart Failure Likely < 50 Years: > 450 pg/mL 50-75 Years: > 900 pg/mL >75 Years: > 1800 pg/mL Performed By: #### L 501.5200, L501.9520, L500.2500, L503.7505, L100.0100 #### [facility] [address] [place], [place], [id number] Laboratory - Chemistry and C hemistry - challengeOrdered By: Wei Barbour on 08-04-2024 Natriuretic peptide B (Bld) [Mass/Vol] 826 pg/mL <900 [facility] Comment on above: Heart Failure Unlike ly: < 300 pg/mLHeart Failure Likely< 50 Years: > 450 pg/mL50-75 Years: > 900 pg/mL>75 Years: > 1800 pg/mL Lymphocytes Auto (Unsp spec) [#/Vol]Ordered By: Wei Barbour on 08-04-2024 Lymphocytes (Bld) [#/Vol] 1.80 10*3/uL 0.83-4.51 [facility] Lymphocytes/100 WBC Auto (Un sp spec)Ordered By: Wei Barbour on 08-04-2024 Lymphocytes/100 WBC (Bld) 14.8 % Low 19-41 [facility] MCV (mean corpuscular volume ) determinationOrdered By: Wei Barbour on 08-04-2024 MCV (RBC) [Entitic vol] 91.4 fL 80-94 [facility] Magnesiumon 08-04-2024 Magnesium [Mass/Vol] 2.0 mg/dL Normal 1.5-2.2 [facility] Comment on above: Performed By: #### L 501.5200, L501.9520, L500.2500, L503.7505, L100.0100 #### [facility] [address] [place] [address], [address] Magnesium (Unsp spec) [Mass/ Vol]Ordered By: Wei Barbour on 08-04-2024 Magnesium [Mass/Vol] 2.0 mg/dL 1.5-2.2 [facility] Magnesium measurement (mass/ volume)Ordered By: Wei Barbour on 08-04-2024 Magnesium (Unsp spec) [Mass/Vol] 2.0 mg/dL 1.5-2.2 [facility] Mean corpuscular hemoglobin (MCH) determinationOrdered By: Wei Barbour on 08-04-2024 MCH (RBC) [Entitic mass] 30.3 pg 27.0-32.0 [facility] Mean corpuscular hemoglobin concentration (MCHC) determinationOrdered By: Wei Barbour on 08-04-2024 MCHC (RBC) [Mass/Vol] 33.1 g/dL 32-36 [facility] Mean platelet volume determi nationOrdered By: Wei Barbour on 08-04-2024 Platelet mean volume (Bld) [Entitic vol] 10.4 fL 6.2-12.0 [facility] Monocyte percentageOrdered B y: Wei Barbour on 08-04-2024 Monocytes/100 WBC (Bld) 8.1 % 0-10 [facility] Neutrophil percentageOrdered By: Wei Barbour on 08-04-2024 Neutrophils/100 WBC (Bld) 75.4 % High 47-70 [facility] Nucleated red blood cell per centageOrdered By: Wei Barbour on 08-04-2024 Nucleated RBC/100 WBC (Bld) [Ratio] 0 % 0-5 [facility] Platelet countOrdered By: Ryanne Barbour on 08-04-2024 Platelets (Bld) [#/Vol] 205 10*3/uL 150-450 [facility] Potassium (Unsp spec) [Mass/ Vol]Ordered By: Wei Barbour on 08-04-2024 Potassium [Moles/Vol] 4.6 mmol/L 3.3-5.1 [facility] Comment on above: Hemolysis present, R esults could be affected. Potassium measurement (mass/ volume)Ordered By: Wei Barbour on 08-04-2024 Potassium (Unsp spec) [Mass/Vol] 4.6 mmol/L 3.3-5.1 [facility] Comment on above: Hemolysis present, R esults could be affected. RBC Auto (Bld) [#/Vol]Ordere d By: Wei Barbour on 08-04-2024 RBC (Bld) [#/Vol] 5.48 10*6/uL 4.6-6.2 [facility] Serum creatinine measurement (mass/volume)Ordered By: Wei Barbour on 08-04-2024 Creatinine [Mass/Vol] 1.24 mg/dL High 0.70-1.20 [facility] Serum glucose measurement (m ass/volume)Ordered By: Wei Barbour on 08-04-2024 Glucose [Mass/Vol] 143 mg/dL High 70-99 [facility] Serum or plasma calcium mauricio urement (mass/volume)Ordered By: Wei Barbour on 08-04-2024 Calcium [Mass/Vol] 9.3 mg/dL 7.6-11.0 [facility] Serum or plasma urea nitroge n measurement (mass/volume)Ordered By: Wei Barbour on 08-04-2024 Urea nitrogen [Mass/Vol] 21 mg/dL High 4-19 [facility] Sodium levelOrdered By: Wei Barbour on 08-04-2024 Sodium [Moles/Vol] 140 mmol/L 133-145 [facility] TSH DL <= 0.005 mIU/L QnOrde red By: eWi Barbour on 08-04-2024 Thyroid Stimulating Hormone (TSH) 2.290 uIU/mL 0.300-4.200 [facility] TSH Qn 2.290 uIU/mL 0.300-4.200 [facility] Thyroid Stim Hormone (TSH)on 08-04-2024 TSH 2.290 uIU/mL Normal 0.300-4.200 [facility] Comment on above: Performed By: #### L 501.5200, L501.9520, L500.2500, L503.7505, L100.0100 ####[facility] [id number] [place], [place], [address] White blood cell (WBC) count Ordered By: Wei Barbour on 08-04-2024 WBC (Bld) [#/Vol] 12.2 10*3/uL High 4.4-11.0 [facility] BMP with eGFR DAILYon 2024 AGE 68 years Normal [facility] Comment on above: Performed By: #### 2 54178 #### [facility],[address] [place] [address] 77816 Anion gap [Moles/Vol] 12 mmol/L Normal 10 - 20 [facility] Comment on above: Performed By: #### 2 16272 #### [facility],[address] [place] [address] 56224 BMP with eGFR DAILY Normal [facility] Comment on above: Result Comment: BASI C METABOLIC PANEL Performed By: #### 2 75210 #### [facility],[address] [place] [address] 60355 Calcium [Mass/Vol] 8.4 mg/dL Low 8.5 - 10.1 [facility] Comment on above: Performed By: #### 2 13834 #### [facility],[address] [place] [address] 15770 Chloride [Moles/Vol] 98 mmol/L Normal 98 - 107 [facility] Comment on above: Performed By: #### 2 25360 #### [facility],[address] [place] [address] 81607 CO2 [Moles/Vol] 30.3 mmol/L Normal 21.0 - 32.0 [facility] Comment on above: Performed By: #### 2 14026 #### [facility],[address] [place] [address] 70285 Creatinine [Mass/Vol] 1.21 mg/dL Normal 0.70 - 1.30 [facility] Comment on above: Performed By: #### 2 34649 #### [facility],[address] [place] [address] 98867 eGFR 59 ML/MINUTE Low 60 - 999 [facility] Comment on above: Performed By: #### 2 60649 #### [facility],[address] [place] [address]1233 GFR/1.73 sq M.predicted among non-blacks MDRD (S/P/Bld) [Vol rate/Area] mL/min/{1.73_m2} Normal 60 - 999 [facility] Comment on above: Result Comment: ACCO RDING TO THE NATIONAL KIDNEY DISEASE EDUCATION PROGRAM(NKDE), A NORMAL eGFR IS A VALUE GREATER THAN OR EQUAL TO 60 ML/MIN/1.73 SQ METERS. CHRONIC KIDNEY DISEASE: <60mL/MIN/1.73 SQ METERS KIDNEY FAILURE: <15mL/MIN/1.73 SQ METERS THIS TEST SHOULD ONLY BE USED FOR PATIENTS 18 YEARS OF AGE AND OLDER. Performed By: #### 2 21371 #### [facility],[address] [place] [address] 70628 Glucose [Mass/Vol] 312 mg/dL High 74 - 106 [facility] Comment on above: Performed By: #### 2 19373 #### [facility],[address] [place] [address]30 Potassium [Moles/Vol] 4.1 mmol/L Normal 3.5 - 5.1 [facility] Comment on above: Performed By: #### 2 08139 #### [facility],[address] [place] [address] 17515 Sodium [Moles/Vol] 136 mmol/L Normal 136 - 145 [facility] Comment on above: Performed By: #### 2 14762 #### [facility],[address] [place] [address] Urea nitrogen [Mass/Vol] 40 mg/dL High 7 - 18 [facility] Comment on above: Performed By: #### 2 18239 #### [facility],[address] [place] [address] 90050 CBC + DIFF DAILYon 5 Baso # 0.03 x10EE3/UL Normal 0.00 - 0.10 [facility] Comment on above: Performed By: #### 2 56440 #### [facility],[address] [place] [address] 24134 Basophils/100 WBC (Bld) 0.2 % Normal 0.0 - 2.0 [facility] Comment on above: Performed By: #### 2 08549 #### [facility],[address] [place] [address] CBC + DIFF DAILY Normal [facility] Comment on above: Result Comment: CBC- COMPLETE BLOOD COUNT Performed By: #### 2 80427 #### [facility],[address] [place] [address] 23363 EO # 0.12 x10EE3/UL Normal 0.00 - 0.50 [facility] Comment on above: Performed By: #### 2 15599 #### [facility],[address] [place] [address] 12758 Eosinophils/100 WBC (Bld) 0.6 % Normal 0.0 - 7.0 [facility] Comment on above: Performed By: #### 2 63283 #### [facility],[address] [place] [address] 74525 Erythrocyte distribution width (RBC) [Ratio] 13.1 % Normal 12.0 - 15.6 [facility] Comment on above: Performed By: #### 2 48610 #### [facility],[address] [place], [place] [address] Hematocrit (Bld) [Volume fraction] 41.9 % Normal 40.0 - 52.0 [facility] Comment on above: Performed By: #### 2 31823 #### [facility],[address] [place] [address] Hemoglobin (Bld) [Mass/Vol] 14.1 g/dL Normal 13.0 - 17.5 [facility] Comment on above: Performed By: #### 2 61603 #### [facility],[address] [place] [address] Lymph # 0.41 x10EE3/UL Low 0.80 - 2.80 [facility] Comment on above: Performed By: #### 2 92921 #### [facility],[address] [place] [address] 99028 Lymphocytes/100 WBC (Bld) 2.2 % Low 20.0 - 45.0 [facility] Comment on above: Performed By: #### 2 19587 #### [facility],[address] [place] [address] 64042 MANUAL DIFF N/A Normal [facility] Comment on above: Performed By: #### 2 11772 #### [facility],[address] [place] [address] 49152 MCH (RBC) [Entitic mass] 31 pg Normal 27 - 33 [facility] Comment on above: Performed By: #### 2 54344 #### [facility],[address] [place] [address] 27485 MCHC 34 X10 3 Normal 32 - 36 [facility] Comment on above: Performed By: #### 2 47758 #### [facility],[address] [place] [address] 21662 MCV (RBC) [Entitic vol] 93 fL Normal 81 - 98 [facility] Comment on above: Performed By: #### 2 33740 #### [facility],[address] [place] [address] 39263 [place] # 0.37 x10EE3/UL Normal 0.20 - 1.00 [facility] Comment on above: Performed By: #### 2 71408 #### [facility],[address] [place] [address] 87359 MONOS % 2.0 % Normal 0.0 - 10.0 [facility] Comment on above: Performed By: #### 2 61209 #### [facility],[address] [place] [address] 99559 Morphology [place] (Bld) [Interp] N/A Normal [facility] Comment on above: Performed By: #### 2 83442 #### [facility],[address] [place], [place] [address] Neut # 17.70 x10EE3/UL High 1.50 - 7.10 [facility] Comment on above: Performed By: #### 2 36729 #### [facility],[address] [place] [address] 45664 Neutrophils/100 WBC (Bld) 95.0 % High 46.0 - 76.0 [facility] Comment on above: Performed By: #### 2 96636 #### [facility],[address] [place] [address] 63355 PLATELET 177 x10EE3/UL Normal 150 - 450 [facility] Comment on above: Performed By: #### 2 09319 #### [facility],[address] [place] [address] 72832 Platelet mean volume (Bld) [Entitic vol] 9.0 fL Normal 6.4 - 10.5 [facility] Comment on above: Result Comment: AUTO MATED DIFFERENTIAL Performed By: #### 2 58417 #### [facility],[address] [place] [address] 48929 RBC 4.52 x 10EE6/UL Normal 4.50 - 6.00 [facility] Comment on above: Performed By: #### 2 70379 #### [facility],[address] [place] [address] 65009 WBC 18.6 x 10EE3/UL High 4.5 - 10.8 [facility] Comment on above: Performed By: #### 2 04911 #### [facility],[address] [place] [address] 86365 BMP with eGFR DAILYon 2024 AGE 68 years Normal [facility] Comment on above: Performed By: #### 2 27024 #### [facility],[address] [place] [address] 29885 Anion gap [Moles/Vol] 9 mmol/L Low 10 - 20 [facility] Comment on above: Performed By: #### 2 53393 #### [facility],[address] [place] [address] 95923 BMP with eGFR DAILY Normal [facility] Comment on above: Result Comment: BASI C METABOLIC PANEL Performed By: #### 2 17687 #### [facility],[address] [place] [address] 06461 Calcium [Mass/Vol] 9.2 mg/dL Normal 8.5 - 10.1 [facility] Comment on above: Performed By: #### 2 34340 #### [facility],[address] [place] [address] 63822 Chloride [Moles/Vol] 100 mmol/L Normal 98 - 107 [facility] Comment on above: Performed By: #### 2 90669 #### [facility],[address] [place] [address] 55418 CO2 [Moles/Vol] 31.0 mmol/L Normal 21.0 - 32.0 [facility] Comment on above: Performed By: #### 2 42851 #### [facility],[address] [place] [address] 22715 Creatinine [Mass/Vol] 1.31 mg/dL High 0.70 - 1.30 [facility] Comment on above: Performed By: #### 2 56465 #### [facility],[address] [place] [address] 49991 eGFR 54 ML/MINUTE Low 60 - 999 [facility] Comment on above: Performed By: #### 2 23660 #### [facility],[address] [place] [address] 21694 GFR/1.73 sq M.predicted among non-blacks MDRD (S/P/Bld) [Vol rate/Area] mL/min/{1.73_m2} Normal 60 - 999 [facility] Comment on above: Result Comment: ACCO RDING TO THE NATIONAL KIDNEY DISEASE EDUCATION PROGRAM(NKDE), A NORMAL eGFR IS A VALUE GREATER THAN OR EQUAL TO 60 ML/MIN/1.73 SQ METERS. CHRONIC KIDNEY DISEASE: <60mL/MIN/1.73 SQ METERS KIDNEY FAILURE: <15mL/MIN/1.73 SQ METERS THIS TEST SHOULD ONLY BE USED FOR PATIENTS 18 YEARS OF AGE AND OLDER. Performed By: #### 2 17817 #### [facility],[address] [place] [address] 58385 Glucose [Mass/Vol] 387 mg/dL High 74 - 106 [facility] Comment on above: Performed By: #### 2 81323 #### [facility],[address] [place] [address] 83354 Potassium [Moles/Vol] 4.2 mmol/L Normal 3.5 - 5.1 [facility] Comment on above: Performed By: #### 2 08336 #### [facility],[address] [place] [address] 53502 Sodium [Moles/Vol] 136 mmol/L Normal 136 - 145 [facility] Comment on above: Performed By: #### 2 70459 #### [facility],[address] [place] [address] 25695 Urea nitrogen [Mass/Vol] 37 mg/dL High 7 - 18 [facility] Comment on above: Performed By: #### 2 71015 #### [facility],[address] [place], [place] [address] CBC + DIFF DAILYon 5 BANDS 3 % Normal 0 - 5 [facility] Comment on above: Performed By: #### 2 30461 #### [facility],[address] [place] [address] Baso # 0.04 x10EE3/UL Normal 0.00 - 0.10 [facility] Comment on above: Performed By: #### 2 39473 #### [facility],[address] [place] [address] 08555 Basophils/100 WBC (Bld) 0.2 % Normal 0.0 - 2.0 [facility] Comment on above: Performed By: #### 2 70952 #### [facility],[address] [place] [address] 95485 CBC + DIFF DAILY Normal [facility] Comment on above: Result Comment: CBC- COMPLETE BLOOD COUNT Performed By: #### 2 53500 #### [facility],[address] [place] [address] 96399 EO # 0.13 x10EE3/UL Normal 0.00 - 0.50 [facility] Comment on above: Performed By: #### 2 85859 #### [facility],[address] [place] [address] 43678 Eosinophils/100 WBC (Bld) 0.5 % Normal 0.0 - 7.0 [facility] Comment on above: Performed By: #### 2 52692 #### [facility],[address] [place] [address] 92338 Erythrocyte distribution width (RBC) [Ratio] 13.3 % Normal 12.0 - 15.6 [facility] Comment on above: Performed By: #### 2 37066 #### [facility],[address] [place] [address] Hematocrit (Bld) [Volume fraction] 40.8 % Normal 40.0 - 52.0 [facility] Comment on above: Performed By: #### 2 06158 #### [facility],[address] [place] [address] Hemoglobin (Bld) [Mass/Vol] 14.1 g/dL Normal 13.0 - 17.5 [facility] Comment on above: Performed By: #### 2 91203 #### [facility],[address] [place] [address] Lymph # 0.56 x10EE3/UL Low 0.80 - 2.80 [facility] Comment on above: Performed By: #### 2 19335 #### [facility],[address] [place] [address] Lymphocytes/100 WBC (Bld) 2.2 % Low 20.0 - 45.0 [facility] Comment on above: Performed By: #### 2 60719 #### [facility],[address] [place] [address] Lymphocytes/100 WBC (Bld) 3 % Low 20 - 45 [facility] Comment on above: Performed By: #### 2 53389 #### [facility],[address] [place] [address] MANUAL DIFF SEE BELOW Normal [facility] Comment on above: Performed By: #### 2 95151 #### [facility],[address] [place] [address] MCH (RBC) [Entitic mass] 32 pg Normal 27 - 33 [facility] Comment on above: Performed By: #### 2 24950 #### [facility],[address] [place] [address] MCHC 35 X10 3 Normal 32 - 36 [facility] Comment on above: Performed By: #### 2 87555 #### [facility],[address] [place] [address] 94574 MCV (RBC) [Entitic vol] 93 fL Normal 81 - 98 [facility] Comment on above: Performed By: #### 2 98280 #### [facility],[address] [place] [address] 22733 [place] # 0.72 x10EE3/UL Normal 0.20 - 1.00 [facility] Comment on above: Performed By: #### 2 64060 #### [facility],[address] [place] [address] 26896 MONOS 1 % Normal 0 - 10 [facility] Comment on above: Performed By: #### 2 93877 #### [facility],[address] [place] [address] 62373 MONOS % 2.8 % Normal 0.0 - 10.0 [facility] Comment on above: Performed By: #### 2 42123 #### [facility],[address] [place] [address] 18344 Morphology [place] (Bld) [Interp] REVIEWED Normal [facility] Comment on above: Performed By: #### 2 44805 #### [facility],[address] [place] [address] 66987 Neut # 24.32 x10EE3/UL High 1.50 - 7.10 [facility] Comment on above: Performed By: #### 2 34798 #### [facility],[address] [place] [address] 87953 Neutrophils/100 WBC (Bld) 94.4 % High 46.0 - 76.0 [facility] Comment on above: Performed By: #### 2 18557 #### [facility],[address] [place] [address] 19245 PLATELET 160 x10EE3/UL Normal 150 - 450 [facility] Comment on above: Performed By: #### 2 51940 #### [facility],[address] [place] [address] 37252 Platelet mean volume (Bld) [Entitic vol] 9.2 fL Normal 6.4 - 10.5 [facility] Comment on above: Result Comment: AUTO MATED DIFFERENTIAL Performed By: #### 2 09130 #### [facility],[address] [place] [address] 77866 RBC 4.37 x 10EE6/UL Low 4.50 - 6.00 [facility] Comment on above: Performed By: #### 2 94220 #### [facility],[address] [place] [address] 43749 SEGS 93 % High 46 - 76 [facility] Comment on above: Performed By: #### 2 27439 #### [facility],[address] [place] [address] 56322 WBC 25.8 x 10EE3/UL High 4.5 - 10.8 [facility] Comment on above: Performed By: #### 2 52191 #### [facility],[address] [place] [address] 23768 CHEST 2 VIEWSon 07-29-2024 CHEST 2 VIEWS [place] [address] Patient: HEIDI JASSO Phone#: : 1955 Age: 68 Gender: M Pt. Type: Out Account: [id number] Location: [facility] Ordering: DR. ZAFAR NGO Exam Date: 07/29/2024/10:13 Family Phys: SOFI GARZA Charge Code: [id number] Physician: [place] Order #: [id number] Dose#: PROCEDURE: X-RAY CHEST 2 VIEWS COMPARISON: [facility], XR, CHEST 1 VIEW, 07/27/2024, [...] Cruz MD on 07/29/2024 at 10:51 Normal [facility] BMP with eGFR DAILYon 2024 AGE 68 years Normal [facility] Comment on above: Performed By: #### 2 98165 #### [place] [address] Anion gap [Moles/Vol] 11 mmol/L Normal 10 - 20 [facility] Comment on above: Performed By: #### 2 06246 #### [place] [id number] BMP with eGFR DAILY Normal [facility] Comment on above: Result Comment: BASI C METABOLIC PANEL Performed By: #### 2 50860 #### [address] [address] Calcium [Mass/Vol] 8.7 mg/dL Normal 8.5 - 10.1 [facility] Comment on above: Performed By: #### 2 51399 #### [address] [address] Chloride [Moles/Vol] 98 mmol/L Normal 98 - 107 [facility] Comment on above: Performed By: #### 2 44230 #### [address] [address] CO2 [Moles/Vol] 31.5 mmol/L Normal 21.0 - 32.0 [facility] Comment on above: Performed By: #### 2 85124 #### [address] [address] Creatinine [Mass/Vol] 1.29 mg/dL Normal 0.70 - 1.30 [facility] Comment on above: Performed By: #### 2 50313 #### [facility],[address] [place] [address] 83388 eGFR 55 ML/MINUTE Low 60 - 999 [facility] Comment on above: Performed By: #### 2 73707 #### [facility],[address] [place] [id number] GFR/1.73 sq M.predicted among non-blacks MDRD (S/P/Bld) [Vol rate/Area] mL/min/{1.73_m2} Normal 60 - 999 [facility] Comment on above: Result Comment: ACCO RDING TO THE NATIONAL KIDNEY DISEASE EDUCATION PROGRAM(NKDE), A NORMAL eGFR IS A VALUE GREATER THAN OR EQUAL TO 60 ML/MIN/1.73 SQ METERS. CHRONIC KIDNEY DISEASE: <60mL/MIN/1.73 SQ METERS KIDNEY FAILURE: <15mL/MIN/1.73 SQ METERS THIS TEST SHOULD ONLY BE USED FOR PATIENTS 18 YEARS OF AGE AND OLDER. Performed By: #### 2 92764 #### [address] [address] Glucose [Mass/Vol] 304 mg/dL High 74 - 106 [facility] Comment on above: Performed By: #### 2 10166 #### [facility],[address] [place] [address]651 Potassium [Moles/Vol] 3.9 mmol/L Normal 3.5 - 5.1 [facility] Comment on above: Performed By: #### 2 68674 #### [address] [address] Sodium [Moles/Vol] 137 mmol/L Normal 136 - 145 [facility] Comment on above: Performed By: #### 2 27162 #### [address] [address] Urea nitrogen [Mass/Vol] 27 mg/dL High 7 - 18 [facility] Comment on above: Performed By: #### 2 06605 #### [facility],[address] [place] [address] 84147 CBC + DIFF DAILYon 5 Baso # 0.06 x10EE3/UL Normal 0.00 - 0.10 [facility] Comment on above: Performed By: #### 2 62984 #### [facility],[address] [place] [address] Basophils/100 WBC (Bld) 0.2 % Normal 0.0 - 2.0 [facility] Comment on above: Performed By: #### 2 31192 #### [facility],[address] [place] [address] CBC + DIFF DAILY Normal [facility] Comment on above: Result Comment: CBC- COMPLETE BLOOD COUNT Performed By: #### 2 32804 #### [facility],[address] [place], [place] [id number] CELL COUNT 100 Normal [facility] Comment on above: Performed By: #### 2 69660 #### [facility],[address] [place] [address] 14090 EO # 0.12 x10EE3/UL Normal 0.00 - 0.50 [facility] Comment on above: Performed By: #### 2 29741 #### [facility],[address] [place], [place] [address] Eosinophils/100 WBC (Bld) 0.4 % Normal 0.0 - 7.0 [facility] Comment on above: Performed By: #### 2 37434 #### [facility],[address] [place] [address] 33857 Erythrocyte distribution width (RBC) [Ratio] 13.5 % Normal 12.0 - 15.6 [facility] Comment on above: Performed By: #### 2 44061 #### [facility],[address] [place] [address] 18999 Hematocrit (Bld) [Volume fraction] 43.0 % Normal 40.0 - 52.0 [facility] Comment on above: Performed By: #### 2 98634 #### [facility],[address] [place] [address] 73262 Hemoglobin (Bld) [Mass/Vol] 14.4 g/dL Normal 13.0 - 17.5 [facility] Comment on above: Performed By: #### 2 59914 #### [facility],[address] [place] [address] 59242 Lymph # 0.63 x10EE3/UL Low 0.80 - 2.80 [facility] Comment on above: Performed By: #### 2 28954 #### [facility],[address] [place] [address] 86476 Lymphocytes/100 WBC (Bld) 2.2 % Low 20.0 - 45.0 [facility] Comment on above: Performed By: #### 2 05842 #### [facility],[address] [place] [address] 41465 Lymphocytes/100 WBC (Bld) 4 % Low 20 - 45 [facility] Comment on above: Performed By: #### 2 25140 #### [facility],[address] [place] [address] 32940 MANUAL DIFF SEE BELOW Normal [facility] Comment on above: Performed By: #### 2 87028 #### [facility],[address] [place] [address] 17701 MCH (RBC) [Entitic mass] 31 pg Normal 27 - 33 [facility] Comment on above: Performed By: #### 2 49683 #### [facility],[address] [place] [address] 17358 MCHC 34 X10 3 Normal 32 - 36 [facility] Comment on above: Performed By: #### 2 64085 #### [facility],[address] [place] [address] 17019 MCV (RBC) [Entitic vol] 93 fL Normal 81 - 98 [facility] Comment on above: Performed By: #### 2 45710 #### [facility],[address] [place] [address]99 [place] # 0.48 x10EE3/UL Normal 0.20 - 1.00 [facility] Comment on above: Performed By: #### 2 02885 #### [facility],[address] [place] [address] 46607 MONOS 4 % Normal 0 - 10 [facility] Comment on above: Performed By: #### 2 11258 #### [facility],[address] [place] [address] 38794 MONOS % 1.6 % Normal 0.0 - 10.0 [facility] Comment on above: Performed By: #### 2 67393 #### [facility],[address] [place] [address] 24534 Morphology Westley (Bld) [Interp] REVIEWED Normal [facility] Comment on above: Performed By: #### 2 57506 #### [facility],[address] [place] [address] 37231 Neut # 27.72 x10EE3/UL High 1.50 - 7.10 [facility] Comment on above: Performed By: #### 2 96079 #### [facility],[address] [place] [address] 40822 Neutrophils/100 WBC (Bld) 95.6 % High 46.0 - 76.0 [facility] Comment on above: Performed By: #### 2 64346 #### [facility],[address] [place] [address] 54217 PLATELET 161 x10EE3/UL Normal 150 - 450 [facility] Comment on above: Performed By: #### 2 92627 #### [facility],[address] [place], [place] [address] Platelet mean volume (Bld) [Entitic vol] 8.7 fL Normal 6.4 - 10.5 [facility] Comment on above: Result Comment: AUTO MATED DIFFERENTIAL Performed By: #### 2 08219 #### [address] [address] RBC 4.62 x 10EE6/UL Normal 4.50 - 6.00 [facility] Comment on above: Performed By: #### 2 52909 #### [facility],[address] [place] [address] 61058 SEGS 92 % High 46 - 76 [facility] Comment on above: Performed By: #### 2 66576 #### [address] [address] WBC 29.0 x 10EE3/UL High 4.5 - 10.8 [facility] Comment on above: Performed By: #### 2 70738 #### [address] [address] ED MED ADMINISTRATION DETAIL on 07-28-2024 ED MED ADMINISTRATION DETAIL Looper Operator Medication Administration Record [place] [id number] 07/27/2024 Patient: HEIDI JASSO Sex: Male : [...] 03:01 Lyle Marshall, R.N. 1 of 2 Looper Operator Medication Ordered Medication Administration Date/Time Azithromycin 02:58 [...] reaction. Verbalizes Scanned understanding. - 02:55 Colt Cluver 2 of 2 Normal [facility] ED NURSES CLINICAL NOTEon ED NURSES CLINICAL NOTE Nurse Narrative Nurse Clinical Narrative [place] [address] [place] [address] [id number] 07/27/2024 Patient: HEIDI JASSO Sex: Male : 1955 Age: 68y Primary Insurance: [facility] DUAL OUTPATIENT Policy Number: [id number] Group Number: [id number] Subscriber: Other Secondary Insurance: MEDICAID OUTPATIENT Policy Number: [id number] Subscriber: Other Disposition: Admit to [place] [...] GANESH Zhang R.N. 02:39 07/27/24. Preferred Pharmacy: [facility]. -- 03:00 07/27/24 GANESH Zhang R.N. Allergies: Keflex -- 02:52 07/27/24 GANESH Zhang R.N. Problems: Asthma -- 02:53 07/27/24 GANESH Zhang R.N. COPD - Chronic Obstructive Pulmonary Disease -- 02:53 07/27/24 GANESH Zhang R.N. Hypertension -- 02:53 07/27/24 GANESH Zhang R.N. Emphysema -- 02:54 07/27/24 GANESH Zhang R.N. ADDITIONAL SURGERIES: right knee -- 02:53 07/27/24 GANESH Zhang R.N. open heart: Performed 1999 -- 02:53 07/27/24 GANESH Zhang R.N. stents: Performed 2016 -- 02:54 07/27/24 GANESH Zhang R.N. History [...] Culver 02: (more content not included)... Normal [facility] ED ORDER SHEET (CPOE ONLY)on 07-28-2024 ED ORDER SHEET (CPOE ONLY) Order Sheet Order Sheet [facility] [address] [place] [address] [id number] 07/27/2024 Patient: HEIDI JASSO Sex: Male : 1955 Age: 68y MEASUREMENTS: Wt: 105.2 kg, Ht/Nikhil: 70.0 in, BMI: 33.29 ALLERGIES: Keflex MEDICATION/IV/DRIP/FL UID ORDERS Order Description Priority Entered Acknowledged Completed Albuterol-Ipratropium (DuoNeb) 02:43 07/27/2024 02:44 02:55 3mg/0.5mg Neb Tx3 mL (NOW Kalia Sierra D.O. 07/27/2024 07/27/2024 x1) Blaise Mcgee MethylPREDNISolone Sodium 02:43 07/27/2024 02:44 03:01 Succ (Solu-Medrol) [id number] mg Kalia Sierra D.O. 07/27/2024 07/27/2024 (NOW x1) Blaise Mcgee R.N. Azithromycin (Zithromax) 02:43 07/27/2024 02:44 02:59 [id number] mg diluted in dextrose 5 Kalia Sierra [...] Stat Stat 02:43 07/27/2024 02:44 07/27/2024 Cesar Ngo R.N. CBC w Diff Stat Stat 02:43 07/27/2024 02:44 07/27/2024 Cesar Ngo RReyesN. CMP Stat Stat 02:43 07/27/2024 02:44 07/27/2024 [...] 02:51 07/27/2024 02:51 07/27/2024 AAg) Stat Cesar Ngo R.N. Seth Lapp, R.N. Rapid COVID (SARS) Stat 02:44 07/27/2024 02:50 07/27/2024 02:51 07/27/2024 ANTIGEN TEST Stat Cesar Ngo, Blaise Olivares, R.N. Lactate, Serum Stat Stat 02:44 07/27/2024 02:51 07/27/2024 02:51 07/27/2024 Cesar Ngo, R.NReyes Olivares, R.N. D-Dimer Stat Stat 03:02 07/27/2024 03:06 07/27/2024 03:06 07/27/2024 Cesar Ngo R.N. Anne Rutt, R.NReyes 2 of 4 Order Sheet Urinalysis Stat Stat 03:57 07/27/2024 04:01 07/27/2024 04:33 07/27/2024 Cesar NgoBlaise Amos PT with INR Stat Stat 04:48 07/27/2024 04:48 07/27/2024 04:49 07/27/2024 Cesar Ngo R.N. Seth Lapp, R.N. PTT Stat Stat 04:48 07/27/2024 04:49 07/27/2024 04:49 07/27/2024 Cesar Ngo R.N. Seth Lapp, R.N. EKG - ED Stat Stat 04:58 07/27/2024 05:04 07/27/2024 05:16 07/27/2024 Kalia Sierra D.O. Cortnee Juan Manuel Cortnee Juan Manuel Troponin-I Stat Stat 05:28 07/27/2024 05:32 07/27/2024 05:33 07/27/2024 Cesar Ngo R.N. Seth Lapp, R.NReyes DIAGNOSTIC STUDY ORDERS Order Description Priority [...] 07/27/2024 08:24 Kalia Sierra D.O. 07/27/2024 Jeff Deleon R.N. 3 of 4 Order Sheet Order Comments: 07:51 07/27/2024: (Elevated troponin) Kalia Sierra D.O. Reason for Study: SOB STAFF ORDERS Order Description Priority Entered Acknowledged Collected Completed Design Intern 02:43 07/27/2024 02:44 07/27/2024 Cesar Ngo RReyesNReyes Pulse Oximeter 02:43 07/27/2024 02:44 07/27/2024 Cesar [...] (07/28/2024 11:18 EST)] 4 of 4 Normal [facility] ED PHYSICIAN CLINICAL REPORT on 07-28-2024 ED PHYSICIAN CLINICAL REPORT Narrative Physician Clinical Narrative [address] [address] [id number] 07/27/2024 Patient: HEIDI JASSO Sex: Male : 1955 Age: 68y Primary Insurance: [facility] DUAL OUTPATIENT Policy Number: [id number] Group Number: [id number] Subscriber: Other Secondary Insurance: MEDICAID OUTPATIENT Policy Number: [id number] Subscriber: Other Disposition: Admit to [place] [...] radiologist. Laboratory Tests: CBC + DIFF Final 20 Narrative MICHEAL: 07/27/2024 03:00:00 EST MsgRcvd: 07/27/2024 [...] 07/27/2024 03:31 (more content not included)... Normal [facility] ED SUPER BILLon 07-28-2024 ED SUPER BILL [facility] [address] [place] [address] [id number] 07/27/2024 Patient: HEIDI JASSO Sex: Male : 1955 Age: 68y Facility Professional Category Item Description Code Code Quantity Fee Total Nurse/E/M EMERGENCY 001769 1 $0.00 $0.00 DEPT VISIT HIGH SEVERITYFUNCJ (06650-13) Nurse/IV/IM/Infusions Drip/IVPB initial 354390 1 $0.00 $0.00 (54932) Nurse/IV/IM/Infusions IVP additional 171159 1 $0.00 $0.00 push (97838) Nurse/Procedures Respiratory 545894 1 $0.00 $0.00 therapy - inhalation (79030) Grand $0.00 Total Providers Kalia Sierra D.O. Chief Complaint DYSPNEA and HISTORY OF CHRONIC OBSTRUCTIVE PULMONARY DISEASE. 1 of 2 [facility] Principal Diagnosis Acute exacerbation of COPD. Bacterial pneumonia with hypoxemia. (Elevated troponin). ICD-10 Codes J44.1: Chronic obstructive pulmonary disease with (acute) exacerbation J15.9: Unspecified bacterial pneumonia R09.02: Hypoxemia J18.9: Pneumonia, unspecified organism 2 of 2 Normal [facility] ED VISIT SUMMARYon ED VISIT SUMMARY Visit Overview Visit Overview [address] [place] [address] [id number] 07/27/2024 Patient: HEIDI JASSO Sex: Male : [...] PNEUMONIA WITH HYPOXEMIA 4 of 4 Normal [facility] ED VITALS FLOW SHEETon 07-28 ED VITALS FLOW SHEET Vitals Vital Sign Flow Sheet [address] [place] [address] [id number] 07/27/2024 Patient: HEIDI JASSO Sex: Male : [...] 07/27/2024 116 95% 4 of 4 Normal [facility] NT-proBNPon 07-28-2024 Natriuretic peptide B (Bld) [Mass/Vol] 1656 pg/mL High 0 - 125 [facility] Comment on above: Performed By: #### 2 32644 #### [facility],[address] [place] [address] APTTon 07-27-2024 aPTT Coag (Bld) [Time] 24.1 s Low 25.4 - 38.4 [facility] Comment on above: Performed By: #### 2 26553 #### [facility],[address] [place] [address] CBC + DIFFon 07-27-2024 BANDS 11 % High 0 - 5 [facility] Comment on above: Performed By: #### 2 82731 #### [facility],[address] [place] [address] Baso # 0.10 x10EE3/UL Normal 0.00 - 0.10 [facility] Comment on above: Performed By: #### 2 42487 #### [facility],[address] [place] [address] Basophils/100 WBC (Bld) 0.3 % Normal 0.0 - 2.0 [facility] Comment on above: Performed By: #### 2 78287 #### [facility],[address] [place] [address] CBC + DIFF Normal [facility] Comment on above: Result Comment: CBC- COMPLETE BLOOD COUNT Performed By: #### 2 15517 #### [facility],[address] [place] [address] CELL COUNT 100 Normal [facility] Comment on above: Performed By: #### 2 08646 #### [facility],[address] [place] [address] EO # 0.15 x10EE3/UL Normal 0.00 - 0.50 [facility] Comment on above: Performed By: #### 2 43757 #### [facility],[address] [place] [address] Eosinophils/100 WBC (Bld) 0.4 % Normal 0.0 - 7.0 [facility] Comment on above: Performed By: #### 2 20709 #### [facility],[address] [place] [address] Erythrocyte distribution width (RBC) [Ratio] 13.7 % Normal 12.0 - 15.6 [facility] Comment on above: Performed By: #### 2 52845 #### [facility],[address] [place] [address] Hematocrit (Bld) [Volume fraction] 48.7 % Normal 40.0 - 52.0 [facility] Comment on above: Performed By: #### 2 62206 #### [facility],[address] [place] [address]50 Hemoglobin (Bld) [Mass/Vol] 16.2 g/dL Normal 13.0 - 17.5 [facility] Comment on above: Performed By: #### 2 21519 #### [facility],[address] [place] [address] 46961 Lymph # 0.76 x10EE3/UL Low 0.80 - 2.80 [facility] Comment on above: Performed By: #### 2 61576 #### [facility],[address] [place] [address] 30549 Lymphocytes/100 WBC (Bld) 2.0 % Low 20.0 - 45.0 [facility] Comment on above: Performed By: #### 2 71258 #### [facility],[address] [place] [address] 62106 Lymphocytes/100 WBC (Bld) 3 % Low 20 - 45 [facility] Comment on above: Performed By: #### 2 83003 #### [facility],[address] [place] [address] 79934 MANUAL DIFF SEE BELOW Normal [facility] Comment on above: Performed By: #### 2 98568 #### [facility],[address] [place] [address] 58635 MCH (RBC) [Entitic mass] 31 pg Normal 27 - 33 [facility] Comment on above: Performed By: #### 2 93199 #### [facility],[address] [place] [address] 58623 MCHC 33 X10 3 Normal 32 - 36 [facility] Comment on above: Performed By: #### 2 54324 #### [facility],[address] [place] [address] 83917 MCV (RBC) [Entitic vol] 92 fL Normal 81 - 98 [facility] Comment on above: Performed By: #### 2 67423 #### [facility],[address] [place] [address] 35921 [place] # 1.38 x10EE3/UL High 0.20 - 1.00 [facility] Comment on above: Performed By: #### 2 83401 #### [facility],[address] [place] [address] 17186 MONOS 3 % Normal 0 - 10 [facility] Comment on above: Performed By: #### 2 11311 #### [facility],[address] [place] [address] 86268 MONOS % 3.6 % Normal 0.0 - 10.0 [facility] Comment on above: Performed By: #### 2 28306 #### [facility],[address] [place] [address] 16977 Morphology [place] (Bld) [Interp] REVIEWED Normal [facility] Comment on above: Performed By: #### 2 03832 #### [facility],[address] [place] [address] 56560 Neut # 35.81 x10EE3/UL High 1.50 - 7.10 [facility] Comment on above: Performed By: #### 2 59211 #### [facility],[address] [place] [address] 30029 Neutrophils/100 WBC (Bld) 93.7 % High 46.0 - 76.0 [facility] Comment on above: Performed By: #### 2 60328 #### [facility],[address] [place] [address] 60707 PLATELET 185 x10EE3/UL Normal 150 - 450 [facility] Comment on above: Performed By: #### 2 16134 #### [facility],[address] [place] [address] 58570 Platelet mean volume (Bld) [Entitic vol] 8.6 fL Normal 6.4 - 10.5 [facility] Comment on above: Result Comment: AUTO MATED DIFFERENTIAL Performed By: #### 2 42367 #### [facility],[address] [place] [address] RBC 5.28 x 10EE6/UL Normal 4.50 - 6.00 [facility] Comment on above: Performed By: #### 2 52623 #### [facility],[address] [place] [address] SEGS 83 % High 46 - 76 [facility] Comment on above: Performed By: #### 2 74725 #### [facility],[address] [place] [address] WBC 38.2 x 10EE3/UL Critically high 4.5 - 10.8 [facility] Comment on above: Result Comment: { CA LLED TO EMERALD TURNER BY AEL AT 1230 { READ BACK BY EMERALD TURNER RA AT 1230 Performed By: #### 2 02961 #### [facility],[address] [place] [address] Baso # 0.03 x10EE3/UL Normal 0.00 - 0.10 [facility] Comment on above: Performed By: #### 2 27342 #### [facility],[address] [place] [address] Basophils/100 WBC (Bld) 0.1 % Normal 0.0 - 2.0 [facility] Comment on above: Performed By: #### 2 63338 #### [facility],[address] [place] [address] CBC + DIFF Normal [facility] Comment on above: Result Comment: CBC- COMPLETE BLOOD COUNT Performed By: #### 2 40083 #### [facility],[address] [place] [address] EO # 0.17 x10EE3/UL Normal 0.00 - 0.50 [facility] Comment on above: Performed By: #### 2 33713 #### [facility],[address] [place] [address] Eosinophils/100 WBC (Bld) 0.7 % Normal 0.0 - 7.0 [facility] Comment on above: Performed By: #### 2 08551 #### [facility],[address] [place] [address] Erythrocyte distribution width (RBC) [Ratio] 13.4 % Normal 12.0 - 15.6 [facility] Comment on above: Performed By: #### 2 21621 #### [facility],[address] [place] [address] Hematocrit (Bld) [Volume fraction] 49.7 % Normal 40.0 - 52.0 [facility] Comment on above: Performed By: #### 2 64346 #### [facility],[address] [place] [address] Hemoglobin (Bld) [Mass/Vol] 16.4 g/dL Normal 13.0 - 17.5 [facility] Comment on above: Performed By: #### 2 71463 #### [facility],[address] [place] [address] Lymph # 0.87 x10EE3/UL Normal 0.80 - 2.80 [facility] Comment on above: Performed By: #### 2 65984 #### [facility],[address] [place] [address] Lymphocytes/100 WBC (Bld) 3.7 % Low 20.0 - 45.0 [facility] Comment on above: Performed By: #### 2 77158 #### [facility],[address] [place], [place] [id number] MANUAL DIFF N/A Normal [facility] Comment on above: Performed By: #### 2 12990 #### [facility],[address] [place], [place] [address] MCH (RBC) [Entitic mass] 31 pg Normal 27 - 33 [facility] Comment on above: Performed By: #### 2 95689 #### [facility],[address] [place] [address] 80092 MCHC 33 X10 3 Normal 32 - 36 [facility] Comment on above: Performed By: #### 2 92695 #### [facility],[address] [place] [address] 92057 MCV (RBC) [Entitic vol] 93 fL Normal 81 - 98 [facility] Comment on above: Performed By: #### 2 60201 #### [facility],[address] [place] [address] [place] # 0.78 x10EE3/UL Normal 0.20 - 1.00 [facility] Comment on above: Performed By: #### 2 99565 #### [facility],[address] [place] [address] MONOS % 3.4 % Normal 0.0 - 10.0 [facility] Comment on above: Performed By: #### 2 82324 #### [facility],[address] [place] [address] 55126 Morphology [place] (Bld) [Interp] N/A Normal [facility] Comment on above: Performed By: #### 2 04382 #### [facility],[address] [place] [address] 88460 Neut # 21.33 x10EE3/UL High 1.50 - 7.10 [facility] Comment on above: Performed By: #### 2 36861 #### [facility],[address] [place] [address] 36175 Neutrophils/100 WBC (Bld) 92.0 % High 46.0 - 76.0 [facility] Comment on above: Performed By: #### 2 60609 #### [facility],[address] [place], [place] [address] PLATELET 191 x10EE3/UL Normal 150 - 450 [facility] Comment on above: Performed By: #### 2 16859 #### [facility],[address] [place] [address] 98563 Platelet mean volume (Bld) [Entitic vol] 8.3 fL Normal 6.4 - 10.5 [facility] Comment on above: Result Comment: AUTO MATED DIFFERENTIAL Performed By: #### 2 29424 #### [facility],[address] [place] [address] 39868 RBC 5.35 x 10EE6/UL Normal 4.50 - 6.00 [facility] Comment on above: Performed By: #### 2 11092 #### [facility],[address] [place] [address] 76107 WBC 23.2 x 10EE3/UL High 4.5 - 10.8 [facility] Comment on above: Performed By: #### 2 54210 #### [facility],[address] [place] [address] 40572 CHEST 1 VIEWon 07-27-2024 CHEST 1 VIEW [place] [address] Patient: HEIDI JASSO Phone#: : 1955 Age: 68 Gender: M Pt. Type: ER Account: [id number] Location: [facility] Ordering: KALIA SIERRA Exam Date: 07/27/2024/2:52 Family Phys: SOFI GARZA Charge Code: 598731 Physician: [place] Order #: [id number] Dose#: PROCEDURE: X-RAY CHEST 1 VIEW COMPARISON: [facility], CT, CHEST PE W CON, 07/27/2024, 5:35. [facility], XR, CHEST 2 VIEWS, 10/13/2023, [...] Horn MD on 07/27/2024 at 10:14 Normal [facility] CMP with eGFRon 07-27-2024 AGE 68 years Normal [facility] Comment on above: Performed By: #### 2 81710 #### [facility],[address] [place] [address] 38216 Albumin [Mass/Vol] 3.3 g/dL Low 3.4 - 5.0 [facility] Comment on above: Performed By: #### 2 89671 #### [facility],[address] [place] [address] 39604 Albumin/Globulin [Mass ratio] 0.8 {ratio} Low 0.9 - 1.6 [facility] Comment on above: Performed By: #### 2 45544 #### [facility],[address] [place] [address] 54130 ALK PHOS 57 U/L Normal 46 - 116 [facility] Comment on above: Performed By: #### 2 47634 #### [facility],[address] [place] [address] 87658 ALT [Catalytic activity/Vol] 53 U/L Normal 16 - 63 [facility] Comment on above: Performed By: #### 2 21870 #### [facility],[address] [place] [address] 55870 Anion gap [Moles/Vol] 15 mmol/L Normal 10 - 20 [facility] Comment on above: Performed By: #### 2 81932 #### [facility],[address] [place] [address] 77673 AST [Catalytic activity/Vol] 25 U/L Normal 15 - 37 [facility] Comment on above: Performed By: #### 2 38261 #### [facility],[address] [place] [address] 44526 B/C RATIO 13 ratio Normal 0 - 30 [facility] Comment on above: Performed By: #### 2 30315 #### [facility],[address] [place] [address] 39391 Bilirubin [Mass/Vol] 1.2 mg/dL High 0.2 - 1.0 [facility] Comment on above: Performed By: #### 2 73876 #### [facility],[address] [place] [address] 32495 Calcium [Mass/Vol] 8.8 mg/dL Normal 8.5 - 10.1 [facility] Comment on above: Performed By: #### 2 40009 #### [facility],[address] [place], [place] [address] Chloride [Moles/Vol] 100 mmol/L Normal 98 - 107 [facility] Comment on above: Performed By: #### 2 74053 #### [facility],[address] [place], [place] [address] CMP with eGFR Normal [facility] Comment on above: Result Comment: COMP REHENSIVE METABOLIC PANEL Performed By: #### 2 04904 #### [facility],[address] [place] [address] 81169 CO2 [Moles/Vol] 30.1 mmol/L Normal 21.0 - 32.0 [facility] Comment on above: Performed By: #### 2 54958 #### [facility],[address] [place] [address] 08034 Creatinine [Mass/Vol] 1.34 mg/dL High 0.70 - 1.30 [facility] Comment on above: Performed By: #### 2 83105 #### [facility],[address] [place] [address] 98080 eGFR 53 ML/MINUTE Low 60 - 999 [facility] Comment on above: Performed By: #### 2 67084 #### [facility],[address] [place] [address] 72379 GFR/1.73 sq M.predicted among non-blacks MDRD (S/P/Bld) [Vol rate/Area] mL/min/{1.73_m2} Normal 60 - 999 [facility] Comment on above: Result Comment: ACCO RDING TO THE NATIONAL KIDNEY DISEASE EDUCATION PROGRAM(NKDE), A NORMAL eGFR IS A VALUE GREATER THAN OR EQUAL TO 60 ML/MIN/1.73 SQ METERS. CHRONIC KIDNEY DISEASE: <60mL/MIN/1.73 SQ METERS KIDNEY FAILURE: <15mL/MIN/1.73 SQ METERS THIS TEST SHOULD ONLY BE USED FOR PATIENTS 18 YEARS OF AGE AND OLDER. Performed By: #### 2 38111 #### [facility],[address] [place] [address] 27196 Globulin (S) [Mass/Vol] 3.9 g/dL High 1.5 - 3.8 [facility] Comment on above: Performed By: #### 2 05120 #### [facility],[address] [place] [address] 74454 Glucose [Mass/Vol] 223 mg/dL High 74 - 106 [facility] Comment on above: Performed By: #### 2 49323 #### [facility],[address] [place] [address] 23531 Potassium [Moles/Vol] 4.0 mmol/L Normal 3.5 - 5.1 [facility] Comment on above: Performed By: #### 2 15642 #### [facility],[address] [place] [address] 68088 Protein [Mass/Vol] 7.2 g/dL Normal 6.4 - 8.2 [facility] Comment on above: Performed By: #### 2 34737 #### [facility],[address] [place] [address] 23063 Sodium [Moles/Vol] 141 mmol/L Normal 136 - 145 [facility] Comment on above: Performed By: #### 2 05529 #### [facility],[address] [place] [address] 12079 Urea nitrogen [Mass/Vol] 18 mg/dL Normal 7 - 18 [facility] Comment on above: Performed By: #### 2 72753 #### [facility],[address] [place] [address] 80960 AGE 68 years Normal [facility] Comment on above: Performed By: #### 2 34693 #### [facility],[address] [place] [address] 41040 Albumin [Mass/Vol] 3.4 g/dL Normal 3.4 - 5.0 [facility] Comment on above: Performed By: #### 2 00561 #### [facility],[address] [place] [address] 34057 Albumin/Globulin [Mass ratio] 1.0 {ratio} Normal 0.9 - 1.6 [facility] Comment on above: Performed By: #### 2 87543 #### [facility],[address] [place] [address] 78081 ALK PHOS 65 U/L Normal 46 - 116 [facility] Comment on above: Performed By: #### 2 08114 #### [facility],[address] [place] [address] 23566 ALT [Catalytic activity/Vol] 64 U/L High 16 - 63 [facility] Comment on above: Performed By: #### 2 41784 #### [facility],[address] [place] [address] 49278 Anion gap [Moles/Vol] 11 mmol/L Normal 10 - 20 [facility] Comment on above: Performed By: #### 2 48049 #### [facility],[address] [place] [address] 18827 AST [Catalytic activity/Vol] 39 U/L High 15 - 37 [facility] Comment on above: Performed By: #### 2 53148 #### [facility],[address] [place] [address] 79689 B/C RATIO 17 ratio Normal 0 - 30 [facility] Comment on above: Performed By: #### 2 16389 #### [facility],[address] [place] [address] 13817 Bilirubin [Mass/Vol] 1.0 mg/dL Normal 0.2 - 1.0 [facility] Comment on above: Performed By: #### 2 66813 #### [facility],[address] [place] [address] 63478 Calcium [Mass/Vol] 8.7 mg/dL Normal 8.5 - 10.1 [facility] Comment on above: Performed By: #### 2 94032 #### [facility],[address] [place] [address] 32698 Chloride [Moles/Vol] 106 mmol/L Normal 98 - 107 [facility] Comment on above: Performed By: #### 2 09470 #### [facility],[address] [place] [address] 11824 CMP with eGFR Normal [facility] Comment on above: Result Comment: COMP REHENSIVE METABOLIC PANEL Performed By: #### 2 66960 #### [facility],[address] [place] [address] 69795 CO2 [Moles/Vol] 29.1 mmol/L Normal 21.0 - 32.0 [facility] Comment on above: Performed By: #### 2 10909 #### [facility],[address] [place] [address] 99426 Creatinine [Mass/Vol] 1.14 mg/dL Normal 0.70 - 1.30 [facility] Comment on above: Performed By: #### 2 79439 #### [facility],[address] [place] [address] 71506 GFR/1.73 sq M.predicted among non-blacks MDRD (S/P/Bld) [Vol rate/Area] mL/min/{1.73_m2} Normal 60 - 999 [facility] Comment on above: Performed By: #### 2 05608 #### [facility],[address] [place] [address] 46045 Result Comment: ACCO RDING TO THE NATIONAL KIDNEY DISEASE EDUCATION PROGRAM(NKDE), A NORMAL eGFR IS A VALUE GREATER THAN OR EQUAL TO 60 ML/MIN/1.73 SQ METERS. CHRONIC KIDNEY DISEASE: <60mL/MIN/1.73 SQ METERS KIDNEY FAILURE: <15mL/MIN/1.73 SQ METERS THIS TEST SHOULD ONLY BE USED FOR PATIENTS 18 YEARS OF AGE AND OLDER. Globulin (S) [Mass/Vol] 3.5 g/dL Normal 1.5 - 3.8 [facility] Comment on above: Performed By: #### 2 52406 #### [address] [address] Glucose [Mass/Vol] 128 mg/dL High 74 - 106 [facility] Comment on above: Performed By: #### 2 71021 #### [address] [address] Potassium [Moles/Vol] 3.8 mmol/L Normal 3.5 - 5.1 [facility] Comment on above: Performed By: #### 2 35662 #### [address] [address]888 Protein [Mass/Vol] 6.9 g/dL Normal 6.4 - 8.2 [facility] Comment on above: Performed By: #### 2 33691 #### [address] [address]15 Sodium [Moles/Vol] 142 mmol/L Normal 136 - 145 [facility] Comment on above: Performed By: #### 2 00121 #### [facility],[address] [place] [address] 81844 Urea nitrogen [Mass/Vol] 19 mg/dL High 7 - 18 [facility] Comment on above: Performed By: #### 2 73151 #### [facility],[address] [place] [address] 67311 CORONAVIRUS (SARS) ANTIGEN T ESTon 07-27-2024 EXTERNAL QC DONE? YES Normal [facility] Comment on above: Performed By: #### 2 81683 #### [facility],[address] [place] [address] 21720 INTERNAL CONTROL PASS Normal [facility] Comment on above: Performed By: #### 2 96351 #### [facility],[address] [place] [address],[facility] [address] SARS ANTIGEN Negative Normal NORMAL: NEGATIVE [facility] Comment on above: Performed By: #### 2 76720 #### [facility],[address] [place] [address] 76366 SEND TO ? NO Normal [facility] Comment on above: Result Comment: SARS -CoV-2 THIS TEST IS BEING USED UNDER THE FDA EUA PROCEDURE. THIS ASSAY HAS BEEN VALIDATED AT [facility] FOR USE WITH NASAL AND [...] PUBLIC HEALTH AUTHORITIES. Performed By: #### 2 34713 #### Joaquim [facility],[address] [place] [address] CT CHEST (PE PROTOCOL)on CT CHEST (PE PROTOCOL) [place] [address] Patient: HEIDI JASSO Phone#: : 1955 Age: 68 Gender: M Pt. Type: ER Account: [id number] Location: [facility] Ordering: KALIA SIERRA Exam Date: 07/27/2024/5:35 Family Phys: SOFI GARZA Charge Code: 305331 Physician: [place] Order #: [id number] Dose#: 8.20 PROCEDURE: CT CHEST WITH CONTRAST FOR PE COMPARISON: [facility], CT, CHEST PE W CON, [...] 68 Gender: M Pt. Type: ER Account: [id number] Location: [facility] Ordering: KALIA SIERRA Exam Date: 07/27/2024/5:35 Family Phys: SOFI GARZA Charge Code: [id number] Physician: [place] Order #: [id number] Dose#: 8.20 2. Multifocal right pneumonia. Recommend follow-up to clearing, with specific attention to the nodular focus in the right upper lobe, to confirm resolution. 3. Diffuse esophageal thickening Dictated by: Mamta Horn MD on 07/27/2024 at 13:37 Approved by: Mamta Horn MD on 07/27/2024 at 13:45 Normal [facility] CULTURE BLOOD [SAPNA]on Microscopic examination of blood, culture CULTURE BLOOD [SAPNA] _BLOOD CULTURE_ GO [place] [facility] [place] FOR SCANNED REPORT 08/02/24.45.[employer] PLETE Normal [facility] Comment on above: Performed By: #### 2 17601 #### [facility],[address] [place], [place] [address] Microscopic examination of blood, culture CULTURE BLOOD [SAPNA] _BLOOD CULTURE_ GO [place] [facility] [place] AND [place]ACH[place] FOR SCANNED REPORT 08/02/24.44.[employer] PLETE Normal [facility] Comment on above: Performed By: #### 2 09993 #### [facility],[address] [place], [place] [address] CV ECHO COMPLETE 5 CV ECHO COMPLETE [place] [id number] Patient: HEIDI JASSO Phone#: : 1955 Age: 68 Gender: M Pt. Type: ER Account: [id number] Location: 010 Ordering: KALIA SIERRA Exam Date: 07/27/2024/9:27 Family Phys: SOFI KAYLA Charge Code: [id number] Physician: [place] Order #: [id number] Dose#: PROCEDURE: ECHOCARDIOGRAM WITH DOPPLER AND COLOR FLOW HISTORY: H/O NE, ANGINA, HYPERTENSION, TRIPLE BYPAS, COPD, 3 STENTS, H/O BRONCHITIS, PNEUMONIA FORMER SMOKER, SKIN CA INDICATIONS: SOB COMPARISON: None. TECHNIQUE: A 2-D ultrasound, color spectral Doppler and M-mode evaluation of the heart and great vessels. PATIENT MEASUREMENTS: Height (in.): 70 BSA: 2.28 Weight (lbs.): 230 BP: 144/83 Ur Coordinator: GASPER M MODE 2D MEASUREMENTS AND CALCULATIONS: [...] 68 Gender: M Pt. Type: ER Account: [id number] Location: 010 Ordering: KALIA SIERRA Exam Date: 07/27/2024/9:27 Family Phys: BUTOLAF KAYLA Charge Code: 425070 Physician: [place] Order #: [id number] Dose#: MV V2 max: 0.80 m/s MV [...] Max PG 4.34 mm[Hg] TRICUSPID TR Max Maryes TR max PG RVSP 2D/M-MODE AND COLOR [...] 68 Gender: M Pt. Type: ER Account: [id number] Location: [facility] Ordering: KALIA SIERRA Exam Date: 07/27/2024/9:27 Family Phys: SOFI GARZA Charge Code: [id number] Physician: [place]ville Order #: [id number] Dose#: 5 - Basal inferolateral: Normal. 11-Mid [...] MARSH MD on 07/28/2024 at 8:42 Normal [facility] D-DIMER, QUANTITATIVEon - D-DIMER QUANT 501 ng/ml High 0 - 230 [facility] Comment on above: Performed By: #### 2 01811 #### [facility],[address] [place] [address] 40991 D-DIMER, QUANTITATIVE Normal [facility] Comment on above: Result Comment: PAVEL T D-DIMER Performed By: #### 2 53554 #### Joaquim [facility] [place] [id number] INFLUENZA VIRUS RAPID A/Bon 07-27-2024 INFLUENZA VIRUS [...] TO THREE DAYS. RESULT CRITICAL? NO Normal [facility] Comment on above: Performed By: #### 2 71328 #### [place] [phone] LACTATEon 07-27-2024 Lactate [Moles/Vol] 1.3 mmol/L Normal 0.4 - 2.0 [facility] Comment on above: Performed By: #### 2 82635 #### [address] [address] NT-proBNPon 07-27-2024 Natriuretic peptide B (Bld) [Mass/Vol] 1176 pg/mL High 0 - 125 [facility] Comment on above: Performed By: #### 2 16728 #### [place] [phone] PROTHROMBIN TIME AND INRon 0 07-27-2024 INR Coag (PPP) [Relative time] 1.0 {INR} Normal 0.8 - 1.2 [facility] Comment on above: Result Comment: T [...] MECHANICAL HEART VALVES Performed By: #### 2 95444 #### [facility],[address] [place] [address] 66585 PROTHROMBIN TIME AND INR Normal [facility] Comment on above: Result Comment: PROT HROMBIN TIME AND INR Performed By: #### 2 41513 #### [facility],[address] [place] [address] 04974 PT-COUMADIN 11.3 sec Normal 9.3 - 14.1 [facility] Comment on above: Performed By: #### 2 67736 #### [facility],[address] [place], [place] [address] TROPONINon 07-27-2024 HS TROPONIN 307.4 pg/mL Critically high 0.0 - 76.2 [facility] Comment on above: Result Comment: { CA LLED TO EMERALD FELIX BY LMM @ 0623 { READ BACK BY EMERALD FELIX RA 622 Performed By: #### 2 10430 #### [facility],[address] [place] [address] 27014 HS TROPONIN 147.3 pg/mL Critically high 0.0 - 76.2 [facility] Comment on above: Result Comment: { CA LLED TO EMERALD HERNANDEZ BY TR @ 6103 { READ BACK BY EMERALD HERNANDEZ RA @ 72148 Performed By: #### 2 59455 #### [facility],[address] [place] [address] 86023 HS TROPONIN 80.1 pg/mL Critically high 0.0 - 76.2 [facility] Comment on above: Result Comment: { CA LLED TO BY TR @ 8763 { READ BACK BY RA @ 0342 Performed By: #### 2 13932 #### [facility],[address] [place] [address] 93325 TROPONIN I, HIGH SENSITIVITY on 07-27-2024 HS TROPONIN 343.8 pg/mL Critically high 0.0 - 76.2 [facility] Comment on above: Result Comment: { CA LLED TO BRIANRN BY LMM @ 1451 { READ BACK BY EMERALD TORRES RA 1445 Performed By: #### 2 70262 #### [facility],[address] [place] [address] 06210 URINALYSISon 07-27-2024 Amorphous NONE Normal [facility] Comment on above: Performed By: #### 2 44011 #### [facility],[address] [place] [address] 01521 Bacteria NONE Normal [facility] Comment on above: Performed By: #### 2 98472 #### [facility],[address] [place] [address] 02134 Bilirubin Ql (U) Negative Normal NORMAL: NEGATIVE [facility] Comment on above: Performed By: #### 2 85193 #### [facility],[address] [place] [address] 98898 Casts NONE Normal [facility] Comment on above: Performed By: #### 2 60781 #### [facility],[address] [place] [address] 36466 Clarity (U) clear Normal NORMAL: CLEAR [facility] Comment on above: Performed By: #### 2 72273 #### [facility],[address] [place] [address] 46854 Color (U) p.yel Normal NORMAL: YELLOW [facility] Comment on above: Performed By: #### 2 17332 #### [facility],[address] [place] [address] 18441 Crystals LM Nom (Urine sed) NONE Normal [facility] Comment on above: Performed By: #### 2 36425 #### [facility],[address] [place] [address] 67777 Epi Cells NONE Normal [facility] Comment on above: Performed By: #### 2 90766 #### [facility],[address] [place] [address] 86163 Glucose Ql (U) NORM Normal NORMAL: NORMAL [facility] Comment on above: Performed By: #### 2 19682 #### [facility],[address] [place] [address] 45567 Hemoglobin Ql (U) 250 Abnormal NORMAL: NEGATIVE [facility] Comment on above: Performed By: #### 2 27570 #### [facility],[address] [place] [address] 07259 Ketone Negative Normal NORMAL: NEGATIVE [facility] Comment on above: Performed By: #### 2 66947 #### [facility],[address] [place] [address] 74700 Leukocytes Negative Normal NORMAL: NEGATIVE [facility] Comment on above: Performed By: #### 2 07696 #### [facility],[address] [place] [address] 29278 Mucous NONE Normal [facility] Comment on above: Performed By: #### 2 11210 #### [facility],[address] [place] [address] 49845 Nitrite Ql (U) Negative Normal NORMAL: NEGATIVE [facility] Comment on above: Performed By: #### 2 93680 #### [facility],[address] [place] [address] 53959 pH (U) 5 [pH] Normal NORMAL: 5.0-8.0 [facility] Comment on above: Performed By: #### 2 74643 #### [facility],[address] [place] [address] 95369 Protein Ql (U) 15 Abnormal NORMAL: NEGATIVE [facility] Comment on above: Performed By: #### 2 42468 #### [facility],[address] [place] [address] 13231 Rbc 5-10 Normal 0-3/hpf [facility] Comment on above: Performed By: #### 2 43370 #### [facility],[address] [place] [address] 04510 Sp [place] 1.010 Normal NORMAL: 1.010-1.030 [facility] Comment on above: Performed By: #### 2 72242 #### [facility],[address] [place] [address] 71499 Specimen Type R Normal [facility] Comment on above: Performed By: #### 2 32097 #### [facility],[address] [place] [address] Urinalysis dipstick W Reflex Microscopic panel (U) SEE BELOW Normal [facility] Comment on above: Result Comment: MICR OSCOPIC Performed By: #### 2 56096 #### [facility],[address] [place] [address] Urobilinog NORM Normal NORMAL: NORMAL [facility] Comment on above: Performed By: #### 2 04209 #### [facility],[address] [place] [address] 17542 Wbc NONE Normal 0-5/hpf [facility] Comment on above: Performed By: #### 2 53719 #### [facility],[address] [place] [address] 53832 Yeast NONE Normal [facility] Comment on above: Performed By: #### 2 92201 #### [facility],[address] [place] [address] 92753 CBC + DIFFon 07-02-2024 Baso # 0.01 x10EE3/UL Normal 0.00 - 0.10 [facility] Comment on above: Performed By: #### 2 16044 #### [facility],[address] [place] [address] 92157 Basophils/100 WBC (Bld) 0.2 % Normal 0.0 - 2.0 [facility] Comment on above: Performed By: #### 2 49739 #### [facility],[address] [place] [address] 64679 CBC + DIFF Normal [facility] Comment on above: Result Comment: CBC- COMPLETE BLOOD COUNT Performed By: #### 2 04490 #### [address] [address] EO # 0.19 x10EE3/UL Normal 0.00 - 0.50 [facility] Comment on above: Performed By: #### 2 43073 #### [place] [address] Eosinophils/100 WBC (Bld) 2.4 % Normal 0.0 - 7.0 [facility] Comment on above: Performed By: #### 2 74652 #### [place] [address] Erythrocyte distribution width (RBC) [Ratio] 13.3 % Normal 12.0 - 15.6 [facility] Comment on above: Performed By: #### 2 07123 #### [place] [address] Hematocrit (Bld) [Volume fraction] 46.4 % Normal 40.0 - 52.0 [facility] Comment on above: Performed By: #### 2 89502 #### [place] [address] Hemoglobin (Bld) [Mass/Vol] 15.7 g/dL Normal 13.0 - 17.5 [facility] Comment on above: Performed By: #### 2 82782 #### [place] [phone] Lymph # 1.46 x10EE3/UL Normal 0.80 - 2.80 [facility] Comment on above: Performed By: #### 2 59421 #### [place] [phone] Lymphocytes/100 WBC (Bld) 18.8 % Low 20.0 - 45.0 [facility] Comment on above: Performed By: #### 2 97372 #### [facility],[address] [place] [address] MANUAL DIFF N/A Normal [facility] Comment on above: Performed By: #### 2 37249 #### [facility],[address] [place] [address] MCH (RBC) [Entitic mass] 31 pg Normal 27 - 33 [facility] Comment on above: Performed By: #### 2 10631 #### [facility],[address] [place] [address] MCHC 34 X10 3 Normal 32 - 36 [facility] Comment on above: Performed By: #### 2 98632 #### [place] [address] MCV (RBC) [Entitic vol] 90 fL Normal 81 - 98 [facility] Comment on above: Performed By: #### 2 56835 #### [facility],[address] [place] [address] [place] # 0.66 x10EE3/UL Normal 0.20 - 1.00 [facility] Comment on above: Performed By: #### 2 60749 #### [facility],[address] [place] [address] MONOS % 8.5 % Normal 0.0 - 10.0 [facility] Comment on above: Performed By: #### 2 79428 #### [facility],[address] [place] [address] Morphology [place] (Bld) [Interp] N/A Normal [facility] Comment on above: Performed By: #### 2 22165 #### [place] [address] Neut # 5.43 x10EE3/UL Normal 1.50 - 7.10 [facility] Comment on above: Performed By: #### 2 63992 #### [place] [address] Neutrophils/100 WBC (Bld) 70.1 % Normal 46.0 - 76.0 [facility] Comment on above: Performed By: #### 2 49256 #### [facility],[address] [place] [address] 26977 PLATELET 205 x10EE3/UL Normal 150 - 450 [facility] Comment on above: Performed By: #### 2 95697 #### [facility],[address] [place] [address] 41230 Platelet mean volume (Bld) [Entitic vol] 8.4 fL Normal 6.4 - 10.5 [facility] Comment on above: Result Comment: AUTO MATED DIFFERENTIAL Performed By: #### 2 64293 #### [facility],[address] [place] [address] 64442 RBC 5.13 x 10EE6/UL Normal 4.50 - 6.00 [facility] Comment on above: Performed By: #### 2 88967 #### [facility],[address] [place] [address] 70665 WBC 7.8 x 10EE3/UL Normal 4.5 - 10.8 [facility] [facility] Comment on above: Performed By: #### 2 97429 #### [facility],[address] [place] [address] 51400 CMP with eGFRon 07-02-2024 AGE 68 years Normal [facility] Comment on above: Performed By: #### 2 82374 #### [facility],[address] [place] [address] 91218 Albumin [Mass/Vol] 3.4 g/dL Normal 3.4 - 5.0 [facility] Comment on above: Performed By: #### 2 04557 #### [facility],[address] [place] [address] 54493 Albumin/Globulin [Mass ratio] 0.9 {ratio} Normal 0.9 - 1.6 [facility] Comment on above: Performed By: #### 2 39957 #### [facility],[address] [place] [address] 83016 ALK PHOS 51 U/L Normal 46 - 116 [facility] Comment on above: Performed By: #### 2 38353 #### [facility],[address] [place] [address] 51243 ALT [Catalytic activity/Vol] 24 U/L Normal 16 - 63 [facility] Comment on above: Performed By: #### 2 74075 #### [facility],[address] [place] [address] 11335 Anion gap [Moles/Vol] 10 mmol/L Normal 10 - 20 [facility] Comment on above: Performed By: #### 2 19216 #### [facility],[address] [place] [address] 85449 AST [Catalytic activity/Vol] 18 U/L Normal 15 - 37 [facility] Comment on above: Performed By: #### 2 96590 #### [facility],[address] [place] [address] 77050 B/C RATIO 16 ratio Normal 0 - 30 [facility] Comment on above: Performed By: #### 2 06433 #### [facility],[address] [place] [address] 53208 Bilirubin [Mass/Vol] 0.8 mg/dL Normal 0.2 - 1.0 [facility] Comment on above: Performed By: #### 2 86071 #### [facility],[address] [place] [address] 64380 Calcium [Mass/Vol] 9.1 mg/dL Normal 8.5 - 10.1 [facility] Comment on above: Performed By: #### 2 91981 #### [facility],[address] [place] [address] 19202 Chloride [Moles/Vol] 109 mmol/L High 98 - 107 [facility] Comment on above: Performed By: #### 2 81657 #### [facility],[address] [place] [address] 82876 CMP with eGFR Normal [facility] Comment on above: Result Comment: COMP REHENSIVE METABOLIC PANEL Performed By: #### 2 64894 #### [facility],[address] [place], [place] [address] CO2 [Moles/Vol] 29.8 mmol/L Normal 21.0 - 32.0 [facility] Comment on above: Performed By: #### 2 30350 #### [facility],[address] [place] [address] Creatinine [Mass/Vol] 1.07 mg/dL Normal 0.70 - 1.30 [facility] Comment on above: Performed By: #### 2 97758 #### [facility],[address] [place] [address] GFR/1.73 sq M.predicted among non-blacks MDRD (S/P/Bld) [Vol rate/Area] mL/min/{1.73_m2} Normal 60 - 999 [facility] Comment on above: Performed By: #### 2 55289 #### [facility],[address] [place] [address] Result Comment: ACCO RDING TO THE NATIONAL KIDNEY DISEASE EDUCATION PROGRAM(NKDE), A NORMAL eGFR IS A VALUE GREATER THAN OR EQUAL TO 60 ML/MIN/1.73 SQ METERS. CHRONIC KIDNEY DISEASE: <60mL/MIN/1.73 SQ METERS KIDNEY FAILURE: <15mL/MIN/1.73 SQ METERS THIS TEST SHOULD ONLY BE USED FOR PATIENTS 18 YEARS OF AGE AND OLDER. Globulin (S) [Mass/Vol] 4.0 g/dL High 1.5 - 3.8 [facility] Comment on above: Performed By: #### 2 60955 #### [facility],[address] [place] [address] Glucose [Mass/Vol] 103 mg/dL Normal 74 - 106 [facility] Comment on above: Performed By: #### 2 15735 #### [address],[place] [address] Potassium [Moles/Vol] 4.1 mmol/L Normal 3.5 - 5.1 [facility] Comment on above: Performed By: #### 2 50859 #### [facility],[address] [place] [address] 07953 Protein [Mass/Vol] 7.4 g/dL Normal 6.4 - 8.2 [facility] Comment on above: Performed By: #### 2 08127 #### [facility],[address] [place] [address] 85502 Sodium [Moles/Vol] 145 mmol/L Normal 136 - 145 [facility] Comment on above: Performed By: #### 2 46293 #### [facility],[address] [place], [place] [address] Urea nitrogen [Mass/Vol] 17 mg/dL Normal 7 - 18 [facility] Comment on above: Performed By: #### 2 00759 #### [facility],[address] [place], [place] [address] HEMOGLOBIN A1C (POM)on 07-02 Glucose [Mass/Vol] 139.9 mg/dL High 0.0 - 0.0 [facility] Comment on above: Result Comment: BLDo HEMOGLOBIN A1C REFERENCE RANGESBLDo Suggested Diagnosis HbA1c(%) HbA1C (mmol/mol Diabetic >/=6.5 >/=48 Prediabetes 5.7 - 6.4 39 - 47 Normal <5.7 <39 Performed By: #### 2 03554 #### [facility],[address] [place] [address] 15445 HbA1c (Bld) [Mass fraction] 6.5 % Normal 0.0 - 6.5 [facility] Comment on above: Performed By: #### 2 13461 #### [facility],[address] [place] [address] 70549 LIPID PROFILEon 07-02-2024 Cholesterol [Mass/Vol] 134 mg/dL Normal 0 - 240 [facility] Comment on above: Performed By: #### 2 70506 #### [facility],[address] [place] [address] 76970 Cholesterol in HDL [Mass/Vol] 36 mg/dL Low 40 - 60 [facility] Comment on above: Performed By: #### 2 95680 #### [facility],[address] [place] [address] 99208 Cholesterol in LDL [Mass/Vol] 79 mg/dL Normal 0 - 129 [facility] Comment on above: Performed By: #### 2 08457 #### [facility],[address] [place] [address] 90280 Cholesterol.total/Choles terol in HDL [Mass ratio] 3.7 {ratio} Normal 0.0 - 5.0 [facility] Comment on above: Performed By: #### 2 71160 #### [facility],[address] [place] [address] 35263 Lipid 1996 panel Normal [facility] Comment on above: Result Comment: LIPI D PROFILE Performed By: #### 2 88149 #### [facility],[address] [place] [address] 66983 Triglyceride [Mass/Vol] 97 mg/dL Normal 0 - 150 [facility] Comment on above: Performed By: #### 2 96046 #### [facility],[address] [place] [address] 19385 URINE MICROALBUMIN W/CREATIN INE, RANDOMon 07-02-2024 CREATININE UR 198.40 mg/dl Normal [facility] Comment on above: Performed By: #### 2 36183 #### [facility],[address] [place] [address] 45347 MICROALBUMIN UR 31.0 mg/dL High 0.1 - 25.1 [facility] Comment on above: Performed By: #### 2 71447 #### [facility],[address] [place] [address] 18603 UACR 156 mg/g Normal [facility] Comment on above: Performed By: #### 2 05342 #### [facility],[address] [place] [address] CBC + DIFFon 04-07-2024 Baso # 0.02 x10EE3/UL Normal 0.00 - 0.10 [facility] Comment on above: Performed By: #### 2 98092 #### [facility],[address] [place] [address] Basophils/100 WBC (Bld) 0.2 % Normal 0.0 - 2.0 [facility] Comment on above: Performed By: #### 2 74483 #### [facility],[address] [place] [address] CBC + DIFF Normal [facility] Comment on above: Result Comment: CBC- COMPLETE BLOOD COUNT Performed By: #### 2 32142 #### [facility],[address] [place] [address] EO # 0.26 x10EE3/UL Normal 0.00 - 0.50 [facility] Comment on above: Performed By: #### 2 09227 #### [facility],[address] [place] [address] Eosinophils/100 WBC (Bld) 3.2 % Normal 0.0 - 7.0 [facility] Comment on above: Performed By: #### 2 55409 #### [facility],[address] [place] [address] Erythrocyte distribution width (RBC) [Ratio] 13.7 % Normal 12.0 - 15.6 [facility] Comment on above: Performed By: #### 2 42217 #### [facility],[address] [place] [address] Hematocrit (Bld) [Volume fraction] 49.7 % Normal 40.0 - 52.0 [facility] Comment on above: Performed By: #### 2 03542 #### [facility],[address] [place] [address] Hemoglobin (Bld) [Mass/Vol] 16.3 g/dL Normal 13.0 - 17.5 [facility] Comment on above: Performed By: #### 2 89173 #### [facility],[address] [place] [address] Lymph # 1.72 x10EE3/UL Normal 0.80 - 2.80 [facility] Comment on above: Performed By: #### 2 60704 #### [facility],[address] [place] [address] Lymphocytes/100 WBC (Bld) 20.9 % Normal 20.0 - 45.0 [facility] Comment on above: Performed By: #### 2 37119 #### [facility],[address] [place] [address] MANUAL DIFF N/A Normal [facility] Comment on above: Performed By: #### 2 03009 #### [facility],[address] [place] [address] MCH (RBC) [Entitic mass] 30 pg Normal 27 - 33 [facility] Comment on above: Performed By: #### 2 05029 #### [facility],[address] [place] [address] MCHC 33 X10 3 Normal 32 - 36 [facility] Comment on above: Performed By: #### 2 43557 #### [facility],[address] [place] [address] MCV (RBC) [Entitic vol] 91 fL Normal 81 - 98 [facility] Comment on above: Performed By: #### 2 34683 #### [facility],[address] [place] [address] [place] # 0.89 x10EE3/UL Normal 0.20 - 1.00 [facility] Comment on above: Performed By: #### 2 94304 #### [facility],[address] [place] [address] MONOS % 10.8 % High 0.0 - 10.0 [facility] Comment on above: Performed By: #### 2 27218 #### [facility],[address] [place] [address] 18467 Morphology [place] (Bld) [Interp] N/A Normal [facility] Comment on above: Performed By: #### 2 31008 #### [facility],[address] [place] [address] Neut # 5.33 x10EE3/UL Normal 1.50 - 7.10 [facility] Comment on above: Performed By: #### 2 14475 #### [place] [address] Neutrophils/100 WBC (Bld) 64.8 % Normal 46.0 - 76.0 [facility] Comment on above: Performed By: #### 2 66956 #### [facility],[address] [place] [address] PLATELET 168 x10EE3/UL Normal 150 - 450 [facility] Comment on above: Performed By: #### 2 46913 #### [place] [address] Platelet mean volume (Bld) [Entitic vol] 8.0 fL Normal 6.4 - 10.5 [facility] Comment on above: Result Comment: AUTO MATED DIFFERENTIAL Performed By: #### 2 95764 #### [place] [address] RBC 5.44 x 10EE6/UL Normal 4.50 - 6.00 [facility] Comment on above: Performed By: #### 2 54418 #### [facility],[address] [place], [place] [address] WBC 8.2 x 10EE3/UL Normal 4.5 - 10.8 [facility] Comment on above: Performed By: #### 2 30504 #### [place] [address],[place] [address] CBC + DIFFon 01-19-2024 Baso # 0.02 x10EE3/UL Normal 0.00 - 0.10 [facility] Comment on above: Performed By: #### 2 34270 #### [facility],[address] [place] [address] 02185 Basophils/100 WBC (Bld) 0.2 % Normal 0.0 - 2.0 [facility] Comment on above: Performed By: #### 2 05052 #### [facility],[address] [place] [address] CBC + DIFF Normal [facility] Comment on above: Result Comment: CBC- COMPLETE BLOOD COUNT Performed By: #### 2 38305 #### [facility],[address] [place] [address] EO # 0.24 x10EE3/UL Normal 0.00 - 0.50 [facility] Comment on above: Performed By: #### 2 98779 #### [facility],[address] [place] [address] 22040 Eosinophils/100 WBC (Bld) 2.5 % Normal 0.0 - 7.0 [facility] Comment on above: Performed By: #### 2 42209 #### [facility],[address] [place] [address] 88821 Erythrocyte distribution width (RBC) [Ratio] 13.1 % Normal 12.0 - 15.6 [facility] Comment on above: Performed By: #### 2 53532 #### [facility],[address] [place] [address] 38948 Hematocrit (Bld) [Volume fraction] 52.0 % Normal 40.0 - 52.0 [facility] Comment on above: Performed By: #### 2 51208 #### [facility],[address] [place] [address] 17475 Hemoglobin (Bld) [Mass/Vol] 17.1 g/dL Normal 13.0 - 17.5 [facility] Comment on above: Performed By: #### 2 48971 #### [facility],[address] [place] [address] Lymph # 1.69 x10EE3/UL Normal 0.80 - 2.80 [facility] Comment on above: Performed By: #### 2 68258 #### [facility],[address] [place] [address] Lymphocytes/100 WBC (Bld) 18.0 % Low 20.0 - 45.0 [facility] Comment on above: Performed By: #### 2 29069 #### [facility],[address] [place] [address] MANUAL DIFF N/A Normal [facility] Comment on above: Performed By: #### 2 36423 #### [facility],[address] [place] [address] MCH (RBC) [Entitic mass] 30 pg Normal 27 - 33 [facility] Comment on above: Performed By: #### 2 59744 #### [facility],[address] [place] [address] MCHC 33 X10 3 Normal 32 - 36 [facility] Comment on above: Performed By: #### 2 71768 #### [facility],[address] [place] [address] MCV (RBC) [Entitic vol] 91 fL Normal 81 - 98 [facility] Comment on above: Performed By: #### 2 21054 #### [facility],[address] [place] [address] [place] # 0.78 x10EE3/UL Normal 0.20 - 1.00 [facility] Comment on above: Performed By: #### 2 75348 #### [facility],[address] [place] [address] MONOS % 8.2 % Normal 0.0 - 10.0 [facility] Comment on above: Performed By: #### 2 28333 #### [facility],[address] [place] [address] 38173 Morphology [place] (Bld) [Interp] N/A Normal [facility] Comment on above: Performed By: #### 2 51143 #### [facility],[address] [place] [address] 98096 Neut # 6.70 x10EE3/UL Normal 1.50 - 7.10 [facility] Comment on above: Performed By: #### 2 81797 #### [facility],[address] [place] [address] 11655 Neutrophils/100 WBC (Bld) 71.1 % Normal 46.0 - 76.0 [facility] Comment on above: Performed By: #### 2 98975 #### [address] [address] PLATELET 207 x10EE3/UL Normal 150 - 450 [facility] Comment on above: Performed By: #### 2 17143 #### [facility],[address] [place] [address] Platelet mean volume (Bld) [Entitic vol] 8.7 fL Normal 6.4 - 10.5 [facility] Comment on above: Result Comment: AUTO MATED DIFFERENTIAL Performed By: #### 2 82967 #### [facility],[address] [place] [address] 54564 RBC 5.69 x 10EE6/UL Normal 4.50 - 6.00 [facility] Comment on above: Performed By: #### 2 34214 #### [facility],[address] [place] [address] 94775 WBC 9.4 x 10EE3/UL Normal 4.5 - 10.8 [facility] Comment on above: Performed By: #### 2 75253 #### [facility],[address] [place], [place] [address] CMP with eGFRon 01-19-2024 AGE 68 years Normal [facility] Comment on above: Performed By: #### 2 92487 #### [facility],[address] [place] [address] 21882 Albumin [Mass/Vol] 3.9 g/dL Normal 3.4 - 5.0 [facility] Comment on above: Performed By: #### 2 10454 #### [facility],[address] [place], [place] [address] Albumin/Globulin [Mass ratio] 0.9 {ratio} Normal 0.9 - 1.6 [facility] Comment on above: Performed By: #### 2 21641 #### [facility],[address] [place] [address] 37876 ALK PHOS 62 U/L Normal 46 - 116 [facility] Comment on above: Performed By: #### 2 91112 #### [facility],[address] [place], [place] [address] ALT [Catalytic activity/Vol] 26 U/L Normal 16 - 63 [facility] Comment on above: Performed By: #### 2 75606 #### [facility],[address] [place] [address] 44409 Anion gap [Moles/Vol] 9 mmol/L Low 10 - 20 [facility] Comment on above: Performed By: #### 2 83509 #### [facility],[address] [place] [address] 17835 AST [Catalytic activity/Vol] 18 U/L Normal 15 - 37 [facility] Comment on above: Performed By: #### 2 91784 #### [address] [address] B/C RATIO 16 ratio Normal 0 - 30 [facility] Comment on above: Performed By: #### 2 40644 #### [facility],[address] [place] [address] 86140 Bilirubin [Mass/Vol] 0.7 mg/dL Normal 0.2 - 1.0 [facility] Comment on above: Performed By: #### 2 92315 #### [place] [address] Calcium [Mass/Vol] 9.5 mg/dL Normal 8.5 - 10.1 [facility] Comment on above: Performed By: #### 2 96590 #### [facility],[address] [place] [address] Chloride [Moles/Vol] 104 mmol/L Normal 98 - 107 [facility] Comment on above: Performed By: #### 2 09994 #### [facility],[address] [place] [address] CMP with eGFR Normal [facility] Comment on above: Result Comment: COMP REHENSIVE METABOLIC PANEL Performed By: #### 2 11338 #### [place] [address] CO2 [Moles/Vol] 34.6 mmol/L High 21.0 - 32.0 [facility] Comment on above: Performed By: #### 2 25783 #### [facility],[address] [place] [address] Creatinine [Mass/Vol] 1.12 mg/dL Normal 0.70 - 1.30 [facility] Comment on above: Performed By: #### 2 36531 #### [facility],[address] [place], [place] [address] GFR/1.73 sq M.predicted among non-blacks MDRD (S/P/Bld) [Vol rate/Area] mL/min/{1.73_m2} Normal 60 - 999 [facility] Comment on above: Performed By: #### 2 37196 #### [facility],[address] [place] [address] Result Comment: ACCO RDING TO THE NATIONAL KIDNEY DISEASE EDUCATION PROGRAM(NKDE), A NORMAL eGFR IS A VALUE GREATER THAN OR EQUAL TO 60 ML/MIN/1.73 SQ METERS. CHRONIC KIDNEY DISEASE: <60mL/MIN/1.73 SQ METERS KIDNEY FAILURE: <15mL/MIN/1.73 SQ METERS THIS TEST SHOULD ONLY BE USED FOR PATIENTS 18 YEARS OF AGE AND OLDER. Globulin (S) [Mass/Vol] 4.5 g/dL High 1.5 - 3.8 [facility] Comment on above: Performed By: #### 2 04630 #### [facility],[address] [place] [address] 88995 Glucose [Mass/Vol] 99 mg/dL Normal 74 - 106 [facility] Comment on above: Performed By: #### 2 86071 #### [facility],[address] [place] [address] 21954 Potassium [Moles/Vol] 4.3 mmol/L Normal 3.5 - 5.1 [facility] Comment on above: Performed By: #### 2 67625 #### [facility],[address] [place] [address] 77355 Protein [Mass/Vol] 8.4 g/dL High 6.4 - 8.2 [facility] Comment on above: Performed By: #### 2 17285 #### [facility],[address] [place] [address] 40075 Sodium [Moles/Vol] 143 mmol/L Normal 136 - 145 [facility] Comment on above: Performed By: #### 2 84705 #### [facility],[address] [place] [address] 70637 Urea nitrogen [Mass/Vol] 18 mg/dL Normal 7 - 18 [facility] Comment on above: Performed By: #### 2 17521 #### [facility],[address] [place] [address] 73046 HEMOGLOBIN A1C (POM)on 01-18 Glucose [Mass/Vol] 137.0 mg/dL High 0.0 - 0.0 [facility] Comment on above: Result Comment: BLDo HEMOGLOBIN A1C REFERENCE RANGESBLDo Suggested Diagnosis HbA1c(%) HbA1C (mmol/mol Diabetic >/=6.5 >/=48 Prediabetes 5.7 - 6.4 39 - 47 Normal <5.7 <39 Performed By: #### 2 40120 #### [facility],[address] [place] [address] 93902 HbA1c (Bld) [Mass fraction] 6.4 % Normal 0.0 - 6.5 [facility] Comment on above: Performed By: #### 2 94400 #### [facility],[address] [place] [address] 94060 LIPID PROFILEon 01-19-2024 Cholesterol [Mass/Vol] 141 mg/dL Normal 0 - 240 [facility] Comment on above: Performed By: #### 2 43207 #### [facility],[address] [place] [address] 11841 Cholesterol in HDL [Mass/Vol] 40 mg/dL Normal 40 - 60 [facility] Comment on above: Performed By: #### 2 32124 #### [facility],[address] [place] [address] 79446 Cholesterol in LDL [Mass/Vol] 83 mg/dL Normal 0 - 129 [facility] Comment on above: Performed By: #### 2 29289 #### [facility],[address] [place] [address] 85075 Cholesterol.total/Choles terol in HDL [Mass ratio] 3.5 {ratio} Normal 0.0 - 5.0 [facility] Comment on above: Performed By: #### 2 95871 #### [facility],[address] [place] [address] 88155 Lipid 1996 panel Normal [facility] Comment on above: Result Comment: LIPI D PROFILE Performed By: #### 2 32030 #### [facility],[address] [place] [address] 56996 Triglyceride [Mass/Vol] 90 mg/dL Normal 0 - 150 [facility] Comment on above: Performed By: #### 2 76404 #### [facility],[address] [place] [address] TSHon 01-19-2024 TSH Qn 2.27 m[IU]/L Normal 0.35 - 3.74 [facility] Comment on above: Performed By: #### 2 86728 #### [facility],[address] [place] [address] URINE MICROALBUMIN W/CREATIN INE, RANDOMon 01-19-2024 CREATININE UR 199.97 mg/dl Normal [facility] Comment on above: Performed By: #### 2 43815 #### [facility],[address] [place] [address] MICROALBUMIN UR 25.0 mg/dL Normal 0.1 - 25.1 [facility] Comment on above: Performed By: #### 2 81566 #### [facility],[address] [place] [address] UACR 125 mg/g Normal [facility] Comment on above: Performed By: #### 2 77068 #### [facility],[address] [place] [address] Hemoglobin A1con 08-04-2020 HbA1c (Bld) [Mass fraction] 6.1 % High 4.3-5.6 [facility] Comment on above: Performed By: #### H BAJennifer #### [facility] Routine Lab [address] [place] [address] HbA1c (Bld) [Mass fraction] 128 mg/dL Normal [facility] Comment on above: Performed By: #### H SHREYAS1C #### [facility] Routine Lab [address] [place] [address] Hemoglobin A1con 04-06-2020 HbA1c (Bld) [Mass fraction] 6.6 % High 4.3-5.6 [facility] Comment on above: Performed By: #### Oma LOPEZ #### [facility] Routine Lab [address] [place], [place] [address] HbA1c (Bld) [Mass fraction] 143 mg/dL Normal [facility] Comment on above: Performed By: #### H BA1C #### [facility] Routine Lab [address] [place], [place] [address] Vital Signs Date Time Vital Sign Value Performing Clinician Marlena alfaro 11-14-2024 07:30-0400 Body mass index (BMI) [Ratio] 29.9 kg/m2 Dr. Sofi Garza MD Work Phone: [facility] 11-14-2024 07:30-0400 Body weight 97.[address] Sofi Garza MD Work Phone: [facility] 11-14-2024 07:30-0400 Diastolic blood pressure 75 mm[Hg] Dr. Sofi Garza MD Work Phone: [facility] 11-14-2024 07:30-0400 Heart rate 66 /min Dr. Sofi Garza MD Work Phone: [facility] 11-14-2024 07:30-0400 Respiratory rate 18 /min Dr. Soif Garza MD Work Phone: [facility] 11-14-2024 07:30-0400 SaO2% (BldA) [Mass fraction] 93 % Dr. Sofi Garza MD Work Phone: [facility] 11-14-2024 07:30-0400 Systolic blood pressure 122 mm[Hg] Dr. Sofi Garza MD Work Phone: [facility] 10-18-2024 07:00-0400 Body height 180.[address] Sofi Garza MD Work Phone: [facility] 10-18-2024 07:00-0400 Body mass index (BMI) [Ratio] 30.5 kg/m2 Dr. Sofi Garza MD Work Phone: 9(332)407-252299 [place] [address] 10-18-2024 07:00-0400 Body weight 99.[address] Sofi Garza MD Work Phone: [facility] 10-18-2024 07:00-0400 Diastolic blood pressure 69 mm[Hg] Dr. Sofi Garza MD Work Phone: 8(549)974-799399 [place] [address] 10-18-2024 07:00-0400 Heart rate 70 /min Dr. Sofi Garza MD Work Phone: 6(880)245-475499 [place] [address] 10-18-2024 07:00-0400 Respiratory rate 18 /min Dr. Sofi Garza MD Work Phone: 5(375)006-820299 [place] [address] 10-18-2024 07:00-0400 SaO2% (BldA) [Mass fraction] 95 % Dr. Sofi Garza MD Work Phone: 6(944)488-990399 [place] [address] 10-18-2024 07:00-0400 Systolic blood pressure 126 mm[Hg] Dr. Sofi Garza MD Work Phone: 9(752)440-445599 [place] [address] 08-29-2024 13:23-0400 Body mass index (BMI) [Ratio] 31.1 kg/m2 Dr. Sofi Garza MD Work Phone: 8(975)020-916399 [place] [address] 08-29-2024 13:23-0400 Body weight 101.[address] Sofi Garza MD Work Phone: 6(978)779-547499 [place] [address] 08-29-2024 13:23-0400 Diastolic blood pressure 84 mm[Hg] Dr. Sofi Garza MD Work Phone: 9(505)867-797999 [place] [address] 08-29-2024 13:23-0400 Heart rate 57 /min Dr. Sofi Garza MD Work Phone: 0(020)581-861299 [place] [address] 08-29-2024 13:23-0400 Respiratory rate 18 /min Dr. Sofi Garza MD Work Phone: 6(499)521-081399 [place] [address] 08-29-2024 13:23-0400 SaO2% (BldA) [Mass fraction] 95 % Dr. Sofi Garza MD Work Phone: [facility] 08-29-2024 13:23-0400 Systolic blood pressure 134 mm[Hg] Dr. Sofi Garza MD Work Phone: [facility] 08-09-2024 11:26-0400 Body height 180.[address] Sofi Garza MD Work Phone: 4(492)349-524599 [place] [address] 08-09-2024 11:26-0400 Body mass index (BMI) [Ratio] 31.4 kg/m2 Dr. Sofi Garza MD Work Phone: [facility] 08-09-2024 11:26-0400 Body weight 102.[address] Sofi Garza MD Work Phone: [facility] 08-09-2024 11:26-0400 Diastolic blood pressure 87 mm[Hg] Dr. Sofi Garza MD Work Phone: 4(661)000-541999 [place] [address] 08-09-2024 11:26-0400 Heart rate 62 /min Dr. Sofi Garza MD Work Phone: [facility] 08-09-2024 11:26-0400 Respiratory rate 18 /min Dr. Sofi Garza MD Work Phone: [facility] 08-09-2024 11:26-0400 Systolic blood pressure 147 mm[Hg] Dr. Sofi Garza MD Work Phone: [facility] 03-18-2022 10:12-0400 Body height 180.[address] Sofi Garza Work Phone: [facility] 03-18-2022 10:12-0400 Body mass index (BMI) [Ratio] 32.3 kg/m2 Dr. Sofi Garza Work Phone: [facility] 03-18-2022 10:12-0400 Body weight 105.[address] Sofi Gazra Work Phone: [facility] 03-18-2022 10:12-0400 Diastolic blood pressure 78 mm[Hg] Dr. Sofi Garza Work Phone: [facility] 03-18-2022 10:12-0400 Heart rate 56 /min Dr. Sofi Garza Work Phone: [facility] 03-18-2022 10:12-0400 Respiratory rate 18 /min Dr. Sofi Garza Work Phone: [facility] 03-18-2022 10:12-0400 Systolic blood pressure 140 mm[Hg] Dr. Sofi Garza Work Phone: [facility] Encounters Encounter Date Encounter Type Care Provider Facility Start: 01-04-2025 ambulatory Sofi Garza Facility: [facility] Start: 12-26-2024 End: 12-26-2024 ambulatory [facility] Start: 12-26-2024 ambulatory Uche Jiang [place] [facility] Start: 11-14-2024 End: 11-14-[address] Sofi Garza MD Work Phone: [facility] Work Phone: Start: 11-14-2024 End: 11-14-[address] Corrina Fall MD -Laboratory Work Phone: Start: 11-14-2024 End: 11-14-2024 Patient encounter procedure Uche Jiang [place] -[facility] Work Phone: Start: 11-14-2024 End: 11-14-[address] Sofi Garza MD Work Phone: [facility] Work Phone: Start: 11-14-2024 End: 11-14-2024 ambulatory Corrina Fall Facility:[facility] Start: 11-08-2024 Non-patient / Non-visit Dr. Rosalie Coats MD -[facility] Work Phone: Start: 11-08-2024 End: 11-08-[address] Sofi Garza MD Work Phone: [facility] Work Phone: Start: 11-08-2024 End: 11-08-2024 Patient encounter procedure Uche ROJO -Pulmonary Services/Neurology Work Phone: Start: 11-08-2024 End: 11-08-2024 ambulatory Ucheconnie Jiang Facility:[facility] Start: 10-18-2024 End: 10-18-2024 Patient encounter procedure Uche ROJO -[facility] Work Phone: Start: 10-18-2024 End: 10-18-[address] Sofi Garza MD Work Phone: [facility] Work Phone: Start: 09-23-2024 End: 09-24-2024 Evaluation and management of inpatient ZAFAR MUNIZ [facility] Start: 09-21-2024 ambulatory [facility] Facility: [facility] Start: 09-13-2024 ambulatory [facility] Facility: [facility] Start: 08-29-2024 End: 08-29-2024 Patient encounter procedure Oma Cortez NP-C -[facility] Work Phone: Start: 08-29-2024 End: 08-29-2024 ambulatory Oma Cortez Facility:[facility] Start: 08-09-2024 End: 08-09-2024 Patient encounter procedure Wei Barbour NP-C -[facility] Work Phone: Start: 08-09-2024 End: 08-09-2024 ambulatory Wei Barbour NP Facility:[facility] Start: 08-04-2024 End: 08-04-[address] Sofi Garza MD Work Phone: [facility] Work Phone: Start: 08-04-2024 End: 08-04-2024 Patient encounter procedure Wei Barbour NP-C -Laboratory Work Phone: Start: 08-04-2024 End: 08-04-2024 ambulatory Espinoza Dewitt Facility:[facility] Start: 07-27-2024 End: 07-30-2024 ambulatory SOFI MUNIZ [facility] Start: 07-02-2024 End: 07-02-2024 ambulatory SOFI GARZA [facility] Start: 04-07-2024 End: 04-07-2024 ambulatory CORRINA FALL [facility] Start: 01-19-2024 End: 01-19-[address] [facility] Start: 06-05-2022 End: 06-05-[address] Sofi Garza Work Phone: [facility] Work Phone: Start: 06-05-2022 End: 06-05-[address] Sofi Garza Work Phone: [facility] Start: 03-18-2022 End: 03-18-[address] Sofi Garza Work Phone: [facility] Procedures Date Procedure Procedure Detail Performing Clinician Start: 11-14-2024 X-ray of chest, PA a nd lateral views Dr. Sofi Garza MD Work Phone: Start: 09-23-2024 Urinalysis ZAFAR SHARMA Comment on above: Result Comment: URIN ALYSIS Performed By: #### [id number] #### [facility],[address] [place] [address] Start: 07-27-2024 Urinalysis ZAFAR SHARMA Comment on above: Result Comment: URIN ALYSIS Performed By: #### [id number] #### [facility],[address] [place] [address] Start: 07-02-2024 PSA screening ZAFAR ZENG Comment on above: Performed By: #### 2 [id number] #### [facility],[address] [address] Start: 06-05-2022 Plain chest X-ray Dr. 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 Sofi Garza Work Phone: History of placement of stent for coronary artery disease Hx of heart artery stent Dr. Sofi Garza Work Phone: Plan of Treatment Date Care Activity Detail Author 24 Hour ECG [facility] Basic metabolic 2008 panel with ionized calcium - Serum or Plasma [facility] Natriuretic peptide. B prohormone N-Terminal [Mass/volume] in Serum or Plasma [facility] pital NM Heart Views W stress and W radionuclid e IV [facility] Radiologic exam esop hagus double contrast study [facility] Payers Date Payer Category Payer Self-pay [id number] 2024 Medicaid [id number] 2024 Unknown [id number] 1955 Unknown [id number] 1955 Unknown [id number] [id number] 1955 Unknown [id number] [id number] 1955 Unknown [id number] 2.840.1.283279.3.579.2.651 1955 Unknown [id number] 2.840.1.918323.3.579.2.651 1955 Unknown [id number] 2.840.1.954760.3.579.2.651 Medicare [employer] MEDICARE PPO [id number] Medicare MEDICARE PART A B [id number] Private Health Insurance [facility] [id number] Unknown [id number] [id number] Unknown [id number] [id number] Unknown [id number] [id number] Unknown [id number] 2.840.1.874401.3.579.2.462 Unknown [id number] 2.840.1.929530.3.579.2.462 Unknown [id number] 2.840.1.235292.3.579.2.462 Unknown [id number] 2.840.1.718112.3.579.2.462 Unknown [id number] 2.840.1.799777.3.579.2.462 Unknown [id number] 2.840.1.294014.3.579.2.462 Unknown [id number] 2.840.1.972516.3.579.2.462 Unknown [id number] 2.840.1.235750.3.579.2.462 Unknown [id number] [id number] Social History Date Type Detail Facility Start: 03-18-2022 Tobacco smoking stat us NHIS Unknown if ever smoked [facility] Start: 1955 Sex Assigned At Male [facility] Start: 07-17-2023 End: 08-29-2024 Tobacco smoking status NHIS Ex-smoker (finding) [facility] Start: 08-15-2024 Sex Male (finding) [facility] Clinical Notes 04-01-2000 to 11-14-2024 Note Date & Type Note Facility 11-14-2024 Radiology Diagnostic study note [facility] [address] [place] [address] Chest PA and Lateral MR#: [id number] Acct: [id number] Name: HEIDI JASSO Rep #: [id number] : 1955 M 69 From: Pet er Peer DO PCP: Dr. Sofi Garza MD Status: REG CLI Study:Chest PA and Lateral Date of Exam: 11/14/24 Exam# [id number] Ordering Dr: Uche Jiang PROCEDURE: CHEST PA AND LATERAL 11/14/2024 REASON FOR EXAM: SHORTNESS OF BREATH, RECENT PNEUMONIA TECHNIQUE: CHEST PA AND LATERAL COMPARISON: Chest radiograph July 29, 2019 FINDINGS: Hardware: Sternal wires and mediastinal vascular clips from CABG. Tiny punctatemetallic foreign body in the soft tissues overlying the upper right zone. Heart: Normal size. Mediastinum: Normal contour. Lungs: Clear. Bones: No aggressive bone process RAD/Chest PA and Lateral IMPRESSION: No acute process. Reading Location: [facility]- CC: Dr. Sofi Garza MD; DARREL Maldonado ~ Network Firewall Engineer: Signed [facility] 09-28-2024 Note . MICRO - Microbiology PROCEDURE: [...] Locations *1: This test was performed at: [address], [facility] , [facility] 09-28-2024 Note . MICRO - Microbiology PROCEDURE: [...] Locations *1: This test was performed at: [address], [facility] , [facility] 08-09-2024 Evaluation note Diagnosis Onset Date Resolution Essential hypertension chronic August 09, 2024 11:23am History of coronary artery bypass graft x April, chronic August 09, 2024 11:23am Hyperlipidemia chronic July 11:23am Presence of stent in coronary artery April,August 09, 2024 11:23am [facility] Work Phone: 1(395) 861-546403-11-2025 Evaluation note* Diagnosis Onset Date Resolution Status Admit Date Essential hypertension chronic [facility] 2024 11:23am History of coronary artery bypass graft x April, chronic August 09 11:23am Hyperlipidemia chronic July 11:23am Presence of stent in coronar y artery April,August 09, 2024 11:23am Abnormal CT of the chest acute August 29, 2024 1:02pm Dysphagia acute August 29 1:02pm Fatigue acute October 18, 2024 8:49am Atherosclerotic heart diseas e of [place] coronary artery without angina pectoris september 8:49am Essential hypertension chronic 2024 8:49am History of coronary artery bypass graft x April,October 18, 2024 8:49am Hyperlipidemia October 18, 2024 8:49am Presence of stent in coronar y artery April,October 18, 2024 8:49am [facility] Work Phone: 1(440) 881-833803-11-2025 Evaluation note* Diagnosis Onset Date Resolution Status Admit Date Essential hypertension chronic [facility] 2024 11:23am History of coronary artery bypass graft x April,August 09 11:23am Hyperlipidemia chronic July 11:23am Presence of stent in coronar y artery April,August 09, 2024 11:23am Abnormal CT of the chest acute August 29, 2024 1:02pm Dysphagia acute August 29 1:02pm Fatigue acute October 18, 2024 8:49am Atherosclerotic heart diseas e of [place] coronary artery without angina pectoris september 8:49am Essential hypertension chronic 2024 8:49am History of coronary artery bypass graft x April,October 18, 2024 8:49am Hyperlipidemia October 18, 2024 8:49am Presence of stent in coronar y artery April,October 18, 2024 8:49am Fatigue acute November 14 8:15am Atherosclerotic heart diseas e of [place] coronary artery without angina pectoris october 8:15am Essential hypertension chronic 2024 8:15am History of coronary artery bypass graft x April, chronic November 14, 2024 8:15am Hyperlipidemia chronic November 14, 2024 8:15am Presence of stent in coronar y artery April,November 14, 2024 8:15am [employer] Work Phone: 1(177) 460-298503-11-2025 Evaluation note* Diagnosis Onset Date Resolution Status Admit Date Essential hypertension chronic Ma [facility] 2024 11:23am History of coronary artery bypass graft x April, chronic August 09 11:23am Hyperlipidemia chronic July 11:23am Presence of stent in coronar y artery April, chronic August 09, 2024 11:23am Abnormal CT of the chest acute August 29, 2024 1:02pm Dysphagia acute August 29 1:02pm Fatigue acute October 18, 2024 8:49am Atherosclerotic heart diseas e of [place] coronary artery without angina pectoris chronic September 8:49am Essential hypertension chronic Ma 2024 8:49am History of coronary artery bypass graft x April, chronic October 18, 2024 8:49am Hyperlipidemia chronic October 18, 2024 8:49am Presence of stent in coronar y artery April,October 18, 2024 8:49am Dyspnea acute November 14 8:15am Fatigue acute November 14 8:15am Atherosclerotic heart diseas e of [place] coronary artery without angina pectoris chronic October 8:15am Essential hypertension chronic 2024 8:15am History of coronary artery bypass graft x April, chronic November 14, 2024 8:15am Hyperlipidemia chronic November 14, 2024 8:15am Presence of stent in coronar y artery April,November 14, 2024 8:15am [facility] Work Phone: 1(500) 332-815403-03-2025 Note. MICRO - Microbiology PROCEDURE: Blood Culture (bacterial) [*1] SOURCE: Blood BODY SITE: COLLECTED DATE/TIME: 07/27/2024 11:21 EST RECEIVED DATE/TIME: 07/27/2024 14:44 EST START DATE/TIME: 07/27/2024 14:44 EST FREE TEXT SOURCE: [facility] 1st set FINAL REPORTS Final Report [] Verified Date/Time/Personnel: 08/01/2024 14:59 EST Blood Culture: No Growth at 5 days. PRELIMINARY REPORTS Preliminary Report [] Verified Date/Time/Personnel: 07/27/2024 15:59 EST Culture has been received in lab and is no growth to date. Routine cultures are held for 5 days. Performing Locations *1: This test was performed at: [address], [facility] , [facility] [id number] Note. MICRO - Microbiology PROCEDURE: Blood Culture (bacterial) [*1] SOURCE: Blood BODY SITE: COLLECTED DATE/TIME: 07/27/2024 11:32 EST RECEIVED DATE/TIME: 07/27/2024 14:43 EST START DATE/TIME: 07/27/2024 14:44 EST FREE TEXT SOURCE: [facility] - 2nd set FINAL REPORTS Final Report [] Verified Date/Time/Personnel: 08/01/2024 14:59 EST Blood Culture: No Growth at 5 days. PRELIMINARY REPORTS Preliminary Report [] Verified Date/Time/Personnel: 07/27/2024 15:59 EST Culture has been received in lab and is no growth to date. Routine cultures are held for 5 days. Performing Locations *1: This test was performed at: [address], [facility] , [facility] [id number] NoteDischarge Instructions Discharge Summary [address] [address] [id number] 07/27/2024 Patient: HEIDI JASSO Sex: Male : 1955 Age: 68y Thank you for visiting [facility]. You have been evaluated today by Kalia Sierra D.O. for the following condition(s): Principal Diagnosis Acute exacerbation of COPD. Bacterial pneumonia with hypoxemia. (Elevated troponin). 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 You have been evaluated today by Kalia Sierra D.O. for the following condition(s): 1 of 2 Discharge Instructions Principal Diagnosis Acute exacerbation of COPD. Bacterial pneumonia with hypoxemia. (Elevated troponin). [address]04-02-2024 Note. MICRO - Microbiology PROCEDURE: Blood Culture [...] Locations *1: This test was performed at: [address], [address] [place] [address] ([facility]09-01-2023 Note. MICRO - Microbiology PROCEDURE: Blood Culture [...] Locations *1: This test was performed at: [address], [address] [place] [address] ([place])08-29-2023 Note. MICRO - Microbiology PROCEDURE: Culture Respiratory with Gram Stain [^1 *1] SOURCE: Sputum BODY SITE: COLLECTED DATE/TIME: 08/26/2023 22:00 EDT RECEIVED DATE/TIME: 08/27/2023 15:42 EDT START DATE/TIME: 08/27/2023 15:42 EDT FREE TEXT SOURCE: FINAL REPORTS Final Report [] Verified Date/Time/Personnel: 08/29/2023 09:34 EDT Normal respiratory jerry present at 48 hours Sensitivity testing not [...] Locations *1: This test was performed at: [address] ([place])08-17-2023 Note. MICRO - Microbiology PROCEDURE: Culture Respiratory with Gram Stain [^1 *1] SOURCE: Sputum BODY SITE: COLLECTED DATE/TIME: 08/14/2023 17:00 EDT RECEIVED DATE/TIME: 08/15/2023 15:55 EDT START DATE/TIME: 08/15/2023 15:56 EDT FREE TEXT SOURCE: FINAL REPORTS Final Report [] Verified Date/Time/Personnel: 08/17/2023 08:06 EDT Normal respiratory jerry present at 48 hours Sensitivity testing not [...] Locations *1: This test was performed at: [facility], [address] [place] [address], [id number]- , [facility] ([place])04-01-2000 Evaluation note* Diagnosis Onset Date Resolution Status Atherosclerotic heart diseas e of [place] coronary artery without angina pectoris chronic Essential hypertension chron ic History of coronary artery bypass graft x 3 April, chronic Hyperlipidemia chronic Presence of stent in coronary artery April, [facility] Work Phone: Reason for referral (narrative)No reason for referral information [facility]WOhio[facility] Work Phone: Summary Purpose Family History No Family History Records Found Relationship Condition Age at Onset Recorded Date/T juloi c father Coronary artery disease Unknown Diabetes [...] for Visit Atherosclerotic hear t disease of [place] coronary artery without angina pectoris Essential hypertension [...] 23am Presence of stent in coronary artery Mar 2024 11:23am Chief Complaint Admit Date E [...] 23am Presence of stent in coronary artery [facility] 2024 11:23am Abnormal CT of the chest August 29 1:02pm Dysphagia August 29, 2024 1:0 2pm Fatigue October 18, 2024 8:49a m Atherosclerotic heart diseas e of [place] coronary artery without angina pectoris October 18, 2024 8:49am Essential hypertension October 18, 2024 8: 49am History of coronary artery bypass graft x 3 October 18, 2024 8:49am Hyperlipidemia October 18, 2024 8:49a m Presence of stent in coronary artery October 18, 2024 8:49am Chief Complaint Admit Date E ORDERS August 04, 2024 4:41 pm 1 Y FU August 09, 2024 11: 23am Esophageal Thickening August 29, 2024 1 :02pm Medicine review October 18, 2024 8:49a m PACS, PALPITATIONS November 08, 2024 12:1 4pm 4 WK FU November 14, 2024 8:15 am Reason for Visit Admit Date Essential hypertension August 09, 2024 11:23am History of coronary artery bypass graft x 3 August 09, 2024 11:23am Hyperlipidemia August 09, 2024 11: 23am Presence of stent in coronary artery [facility] 2024 11:23am Abnormal CT of the chest August 29 1:02pm Dysphagia August 29, 2024 1:0 2pm Fatigue October 18, 2024 8:49a m Atherosclerotic heart diseas e of [place] coronary artery without angina pectoris October 18, 2024 8:49am Essential hypertension October 18, 2024 8: 49am History of coronary artery bypass graft x 3 October 18, 2024 8:49am Hyperlipidemia October 18, 2024 8:49a m Presence of stent in coronary artery October 18, 2024 8:49am Fatigue November 14, 2024 8:15 am Atherosclerotic heart diseas e of [place] coronary artery without angina pectoris November 14, 2024 8:15am Essential hypertension November 14, 2024 8 :15am History of coronary artery bypass graft x 3 November 14, 2024 8:15am Hyperlipidemia November 14, 2024 8:15 am Presence of stent in coronary artery Michael 2024 8:15am Chief Complaint Admit Date E ORDERS August 04, 2024 4:41 pm 1 Y FU August 09, 2024 11: 23am Esophageal Thickening August 29, 2024 1 :02pm Medicine review October 18, 2024 8:49a m PACS, PALPITATIONS November 08, 2024 12:1 4pm PAC, PALPS November 08, 2024 12:3 3pm 4 WK FU November 14, 2024 8:15 am 2 ORDERING DRS/E ORDERS & PAPER October 9:40am Reason for Visit Admit Date Essential hypertension August 09, 2024 11:23am History of coronary artery bypass graft x 3 August 09, 2024 11:23am Hyperlipidemia August 09, 2024 11: 23am Presence of stent in coronary artery Mar 2024 11:23am Abnormal CT of the chest August 29 1:02pm Dysphagia August 29, 2024 1:0 2pm Fatigue October 18, 2024 8:49a m Atherosclerotic heart diseas e of [place] coronary artery without angina pectoris October 18, 2024 8:49am Essential hypertension October 18, 2024 8: 49am History of coronary artery bypass graft x 3 October 18, 2024 8:49am Hyperlipidemia October 18, 2024 8:49a m Presence of stent in coronary artery October 18, 2024 8:49am Dyspnea November 14, 2024 8:15 am Fatigue November 14, 2024 8:15 am Atherosclerotic heart diseas e of [place] coronary artery without angina pectoris November 14, 2024 8:15am Essential hypertension November 14, 2024 8 :15am History of coronary artery bypass graft x 3 November 14, 2024 8:15am Hyperlipidemia November 14, 2024 8:15 am Presence of stent in coronary artery Michael 2024 8:15am Additional Source Comments (unrecognized sect ion and content) No Status Records FoundNo Status Records FoundNo Status Records FoundNo Status Records FoundNo Status Records Found INFORMATION SOURCE (unrecogn ized section and content) DATE CREATED AUTHOR 08/06/2020 [facility] DATE CREATED AUTHOR AUTHOR'S ORGANIZ ATION 09/02/2023 [facility] ([place]) DATE CREATED AUTHOR AUTHOR'S ORGANIZ ATION 10/03/2024 [facility] DATE CREATED AUTHOR AUTHOR'S ORGANIZ ATION 12/27/2024 [facility] DATE CREATED AUTHOR AUTHOR'S ORGANIZ ATION 12/29/2024 [facility] Care Teams (unrecognized sec tion and content) Team Status: Active Member Role Status Dates Dr. Corrina Maciel DO Family Provider Active Dr. Sofi Garza MD Primary Care Provider Active Team Status: Inactive Member Role Status Dates Dr. Sofi Garza MD Primary Care Provider, Referrin g Provider Active Wei Barbour ASSISTANT FINANCIAL ACCOUNTANT, ASSISTANT FINANCIAL ACCOUNTANT-C Attending Provider Active Team Status: Inactive Member [...] 2024 End: August 04, 2024 Wei Barbour NP, ASSISTANT FINANCIAL ACCOUNTANT-C Attending Provider Active S tart: August 04, [...] 2024 End: August 09, 2024 Wei Barbour ASSISTANT FINANCIAL ACCOUNTANT, ASSISTANT FINANCIAL ACCOUNTANT-C Attending Provider Active S tart: August 09, [...] October 18, 2024 End: October 18, 2024 Uche Jiang PA Attending Provider Active St art: October 18, 2024 End: October 18, 2024 Team Status: Active Member Role Status Dates Dr. Sofi Garza MD Primary Care Provider Active Start: November 08, 2024 Uche Jiang , PA Attending Provider Active St art: November 08, 2024 Uche Jiang PA Referring Provider Active St art: November 08, 2024 Team Status: Inactive Member Role Status Dates Dr. Sofi Garza MD Primary Care Provider Active Start: November 14, 2024 End: November 14, 2024 Dr. Sofi Garza MD Referring Provider Active Start: November 14, 2024 End: November 14, 2024 DARREL Maldonado Attending Provider Active St art: November 14, 2024 End: November 14, 2024 Team Status: Inactive Member Role Status Dates Dr. Sofi Garza MD Primary Care Provider Active Start: November 08, 2024 End: November 08, 2024 Uche Jiang PA Attending Provider Active St art: November 08, 2024 End: November 08, 2024 Uche Jiang PA Referring Provider Active St art: November 08, 2024 End: November 08, 2024 Team Status: Active Member Role Status Dates Dr. Sofi Garza MD Primary Care Provider Active Start: November 08, 2024 Dr. Rosalie Coats MD Attending Provider Active Start: November 08, 2024 Uche Jiang PA Referring Provider Active St art: November 08, 2024 Team Status: Active Member Role Status Dates Dr. Sofi Garza MD Primary Care Provider Active Start: November 14, 2024 Dr. Corrina Fall MD Attending Provider Active Start: November 14, 2024 Dr. Corrina Fall MD Referring Provider Active Start: November 14, 2024 DARREL Maldonado Other Provider Active Start: November 14, 2024 Team Status: Inactive Member Role Status Dates Dr. Sofi Garza MD Primary Care Provider Active Start: November 14, 2024 End: November 14, 2024 Dr. Corrina Fall MD Attending Provider Active Start: November 14, 2024 End: November 14, 2024 Dr. Corrina Fall MD Referring Provider Active Start: November 14, 2024 End: November 14, 2024 DARREL Maldonado Other Provider Active Start: November 14, 2024 End: November 14, 2024 Goals (unrecognized section and content) Goals [...] BE BASED ON THE PRIMARY CLINICAL RECORDS. [employer] provides no warranty or guarantee of the accuracy or completeness of information in this document.
--- NOTE | 2025-01-04 18:47 | STRESSREP ---
Stress Test Report Pharmacologic myocardial perfusion stress test. 69-year-old man with a history of coronary disease Resting EKG demonstrates sinus bradycardia with a rate of 55 bpm. Resting blood pressure is 118/70 mmHg. 0.4 mg of regadenoson was infused per usual protocol followed by rapid intravenous saline flush injection. Continuous EKG monitoring was performed. The maximum heart rate was 80 bpm which was 53% of max impacted heart rate the maximum workload was 1 metabolic equivalent. At rest there were no ST or T wave changes noted to suggest ischemia and at peak infusion nonspecific ST changes were noted which did not meet the criteria for ischemia. No clinical angina is noted. The final blood pressure was 122/80 mmHg. Myocardial perfusion protocol. 15 mCi of technetium 99m sestamibi was injected at rest. 0.4 mg of regadenoson was infused per usual protocol. At peak infusion 45 mCi of technetium 99m sestamibi was injected stress images were obtained stress and rest images were reconstructed and compared in the short axis vertical long and horizontal long axis. Gated images were also obtained. Perfusion SPECT analysis: Review of the stress images demonstrate normal uptake of tracer noted in all areas of the myocardium. Moderate size defect noted in the mid to distal anteroseptal wall. The rest images demonstrate a similar pattern in the mid and distal anteroseptal wall suggestive of an infarct with no evidence of ischemia present. Gated SPECT analysis: The gated ejection fraction is 50%. Conclusion: Pharmacologic myocardial perfusion stress test with a moderate mid segment, distal anteroseptal wall infarct present. No ischemia present Low normal ejection fraction
== END | disposition home or self-care (01) ==
LOC: CVS 06:11
PROVIDERS: PCP Internal Medicine; Referring Provider Internal Medicine Cardiovascular Disease; Visit Provider Internal Medicine Cardiovascular Disease
DX: I25.10 Atherosclerotic heart disease of native coronary artery without angina pectoris (principal); R53.83 Other fatigue; I25.2 Old myocardial infarction
CPT/HCPCS: 78452; 93017; A9500; A4216; J2785